=== PATIENT | male | born 1945 | race Caucasian/White ===

== ENCOUNTER 2019-09-07 18:15 | Observation (INO) | payer MEDICARE, SELFPAY ==
[2019-09-07] VITALS (9 sets, daily range): BP systolic 97–129; BP diastolic 50–61; PULSE 60–65; RESP 20; TEMP 36.4–36.7; O2SAT 94–97; BMI 22.1
--- NOTE | ~2019-09-07 | CT_ITS ---
EXAMINATION: CT abdomen pelvis w con EXAM DATE: 09/07/2019 21:20 INDICATION: Right upper quadrant pain. TECHNIQUE: Spiral CT of the abdomen and pelvis was performed following intravenous injection of 100 m L Omnipaque 350. Axial, coronal and sagittal images were reviewed. The dose-length product (DLP) fo r this examination was 610.09 mGy-cm. The exposure was tailored according to patient size (auto mA e xposure control), and iterative reconstruction (ASIR) was used as additional dose reduction technique . Comparison is made to prior examination from 12/05/2016. FINDINGS: The liver, spleen, adrenal glands and pancreas are unremarkable. Gallbladder is unremarkab le. No biliary obstruction. Portal and splenic veins are patent. Kidneys enhance symmetrically. T here is no hydronephrosis. Small regions of bilateral renal cortical scarring. Renal hilar calcificat ions are likely arteriosclerotic disease. The prostate is unremarkable. The bladder is unremarkable . There is no retroperitoneal or pelvic lymphadenopathy. Bilateral iliac and superficial femoral a rterial stents, probably bilateral femoral-popliteal bypasses. The appendix is normal. The stomach and small bowel are unremarkable. There is moderate amount of c olonic stool. There is extensive sigmoid predominant colonic diverticulosis. There is no adjacent in flammatory change to suggest diverticulitis. No free intraperitoneal gas. The heart is normal in s ize. There are no pericardial or pleural effusions. Moderate basilar emphysema. Leads from cardiac pacemaker/AICD device. Sternotomy wires. There are no osteoblastic or osteolytic lesions identified. IMPRESSION: 1. No acute intra-abdominal findings. 2. Colonic diverticulosis. 3. Basilar emphysema. Reviewed, dictated and finalized at location A.
--- NOTE | ~2019-09-07 | XR_ITS ---
EXAMINATION: XR chest 1V portable EXAM DATE: 09/07/2019 18:42 INDICATION: Mid chest pain. TECHNIQUE: Portable AP frontal chest x-ray was obtained. Comparison is made to prior examination from 06/21/2018. FINDINGS: There is a dual lead pacemaker/AICD seen with leads projecting over the expected locations of the right atrial appendage and right ventricle. Sternotomy wires are present without findings to s uggest sternal dehiscence. The lungs are clear. There are no pleural effusions. Cardiac silhouette is prominent but magnified on this AP technique. There is no pneumothorax suspected. The bones and soft tissues are unremarkable. IMPRESSION: No acute cardiopulmonary findings. Reviewed, dictated and finalized at location A.
--- NOTE | ~2019-09-07 | CT_ITS ---
EXAMINATION: CTA brain DATE: 09/09/2019 09:43 INDICATION: Dizziness TECHNIQUE: Computed tomographic angiography (CTA) of the head was performed without and with 100 mL O mnipaque-350 intravenous contrast. Volume-rendered and maximum intensity projection 3D reconstruction s of the intracranial arteries were created by the technologist on a separate workstation. The dose-l ength product was 1183 mGy-cm. COMPARISON: Head CT dated 09/17/2019 FINDINGS: No acute intracranial hemorrhage, acute infarction or abnormal extra axial fluid collection. There is minimal scattered white matter hypoattenuation consistent with chronic small vessel ischemic disease . Ventricles are normal and symmetric. No mass/mass effect or abnormally enhancing brain lesions. Ch anges of bilateral intraocular lens replacement. The orbits, paranasal sinuses and mastoid air cells are normal. The right vertebral artery terminates at the inferior right cerebellar artery with the basilar artery supplied exclusively by the dominant left vertebral artery. Atherosclerotic plaque at the bilateral carotid siphons with 35% stenosis on the left and 50% stenosis on the right. There are no aneurysms i dentified. Both A1 and P1 segments are patent. There are also patent anterior communicating and left posterior communicating arteries. Straight arterial arborization appears symmetric. IMPRESSION: 1. Normal aging brain with minimal scattered white matter hypoattenuation consistent with chronic sma ll vessel ischemic disease. No acute intracranial process. 2. Atherosclerotic disease at the bilateral carotid siphons with 35% stenosis on the left and 50% sabrina nosis on the right. Reviewed, dictated and finalized at location A. IMPRESSION: 1. Normal aging brain with minimal scattered white matter hypoattenuation consi stent with chronic small vessel ischemic disease. No acute intracranial process . 2. Atherosclerotic disease at the bilateral carotid siphons with 35% stenosis o n the left and 50% stenosis on the right.
--- NOTE | ~2019-09-07 | CT_ITS ---
IMPRESSION: 1. No acute intracranial findings. 2. Chronic age related findings. EXAMINATION: CT brain wo con EXAM DATE: 09/07/2019 19:34 INDICATION: Fall. Head injury. Hypotensive. TECHNIQUE: Spiral CT of the head was performed without contrast. Axial, coronal and sagittal images were reviewed. The dose-length product (DLP) for this examination was 681.00 mGy-cm. The exposure w as tailored according to patient size, and iterative reconstruction (ASIR) was used as additional dos e reduction technique. Comparison is made to prior examination from 03/19/2016. FINDINGS: There is no acute intraparenchymal hemorrhage. No evidence of intraparenchymal brain mass lesion. No evidence of acute infarction. Please note that initial head CT has limited sensitivity f or small or acute infarctions. There is mild periventricular and subcortical hypodensity, nonspecific but probably related to small vessel ischemic disease. There is mild prominence of the sulci and v entricles related to cerebral atrophy. There is intracranial carotid arteriosclerosis. There are n o extra-axial collections. There is no mass effect or midline shift. Patient has had bilateral ocul ar lens surgery. Soft tissue is unremarkable. The visualized sinuses and mastoid air cells are well aerated. IMPRESSION: 1. No acute intracranial findings. 2. Chronic age related findings. Reviewed, dictated and finalized at location A.
--- NOTE | ~2019-09-07 | US_ITS ---
EXAMINATION: US right upper quadrant DATE: 09/08/2019 11:41 INDICATION: Right upper quadrant abdominal pain. TECHNIQUE: Multiple grayscale and Doppler ultrasound images of the abdomen were obtained. COMPARISON: CT abdomen and pelvis 09/07/2019 FINDINGS: The visualized portions of the head and body of the pancreas are normal. The liver is ritu l without focal lesion. There is normal flow in main portal vein. The gallbladder is normal in size. No gallstones or gallbladder wall thickening. There was no sonographic Duvall sign. The common duct i s normal and measures 5 mm. IMPRESSION: 1. Normal right upper quadrant ultrasound. Reviewed, dictated and finalized at location E.
--- NOTE | 2019-09-07 18:29 | ECG_ITS ---
Measurements Intervals [place] Rate: 63 P: -12 PA: 161 QRS: -8 QRSD: 153 T: 32 QT: 495 QTc: 507 Interpretive Statements SINUS RHYTHM INTRAVENTRICULAR CONDUCTION DELAY CONSIDER INFERIOR INFARCT, AGE INDETERMINATE BORDERLINE ST-T WAVE ABNORMALITY- LATERAL LEADS ABNORMAL ECG Electronically Signed On 09-07-2019 18:46:35 CDT by Chapo Bermudez D.O.
--- NOTE | 2019-09-07 18:32 | ED.CHESTPAIN ---
HPI - Chest Pain General Chief Complaint: Chest Pain <Brian Velázquez DO - Last Filed: 09/07/19 18:35> Stated Complaint: CP <Brian Velázquez DO - Last Filed: 09/07/19 18:35> Time Seen by Provider: 09/07/19 18:31 <Brian Velázquez DO - Last Filed: 09/07/19 18:35> Source: RN notes reviewed <Brian Velázquez DO - Last Filed: 09/07/19 18:35> History of Present Illness HPI narrative: [place]. Patient states he was walking [place] the post office when he began to have pain in his right upper quadrant that radiated up into his chest. 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 He denies striking his head or injury and or any injuries from the fall. At that time he continued to have chest pain and called EMS who gave the patient 4 baby aspirin's and 1 nitro with minimal change of his pain. The patient continues to note pain in his right upper quadrant. He denies have any fevers or chills shortness of breath nausea vomiting diarrhea or any other symptoms states he does have a history of previous [place] <Brian Velázquez DO - Last Filed: 09/07/19 18:35> Related Data Home Medications: Home Medications Medication Instructions Recorded Confirmed albuterol sulfate 90 mcg/actuation 2 puff INHALATION Q4-6H PRN gm 04/19/19 aerosol inhaler amiodarone 200 mg tablet 200 mg PO DAILY 04/19/19 apixaban 5 mg tablet 5 mg PO BID 04/19/19 aspirin 81 mg tablet,delayed 81 mg PO DAILY 04/19/19 release atorvastatin 40 mg tablet 40 mg PO DAILY 04/19/19 carvedilol 12.5 mg tablet 12.5 mg PO Q12H 04/19/19 clopidogrel 75 mg tablet 75 mg PO DAILY 04/19/19 cyanocobalamin (vitamin B-12) 1,000 mcg PO DAILY 04/19/19 1,000 mcg tablet lisinopril 5 mg tablet 5 mg PO DAILY 04/19/19 nitroglycerin 0.4 mg sublingual 0.4 mg SUBLINGUAL Q5M PRN 04/19/19 tablet thiamine HCl (vitamin B1) 100 mg 100 mg PO DAILY 04/19/19 tablet <Brian Velázquez DO - Last Filed: 09/07/19 18:35> Allergies/Adverse Reactions: Allergies Allergy/AdvReac Type Severity Reaction Status Date / Time hydrocodone Allergy Unknown Shock Verified 09/07/19 18:25 tramadol Allergy Unknown dizziness. Verified 09/07/19 18:25 amitriptyline AdvReac Mild Dizziness Verified 09/07/19 18:25 <Brian Velázquez DO - Last Filed: 09/07/19 18:35> Review of Systems Review of Systems: Narrative: Gen.: Denies fevers or chills Eyes: Denies eye pain or visual change ENT: Denies congestion Respiratory: Denies shortness of breath or cough CV: Reports chest pain GI: Reports abdominal pain, denies nausea, emesis or diarrhea denies burning, urgency, frequency or hematuria Musculoskeletal: Denies back pain or muscle pain Neuro: Denies numbness, tingling, weakness or focal weakness Skin: Denies rash Except as documented, all other systems reviewed and negative <Brian Velázquez DO - Last Filed: 09/07/19 18:35> [facility] Social History Social History: Social History Smoking status: Former smoker Smoking end date: 03/31/17 Alcohol intake: current <Brian Velázquez DO - Last Filed: 09/07/19 18:35> Exam Narrative: Exam Narrative: APPEARANCE: No acute distress, nontoxic, resting in bed EYES: EOMI HEENT: Normocephalic, atraumatic, OMM RESPIRATORY: No respiratory distress Clear to auscultation bilaterally with no rhonchi wheezing or rales. CARDIOVASCULAR: Regular rate and rhythm without murmurs rubs or gallops. ABDOMINAL: Soft, nondistended, tender palpation epigastric right upper quadrant, no tenderness left upper quadrant, right lower quadrant left lower quadrant no rebound or guarding MUSCULOSKELETAl: Moves all extremities. No clubbing, cyanosis or edema. NEURO: Awake and alert. Following commands, speech normal, no focal deficits SKIN:: Warm, dry. No ra
[2019-09-07 19:11] LABS: Basophils Absolute Auto 0.1 K/mm3 (0.0-0.1); Basophils Percent Auto 0.5 % (0.2-1.2); Eosinophils Absolute Auto 0.3 K/mm3 (0-0.3); Hematocrit 28.6 % (42.0-52.0); Hemoglobin 9.7 g/dL (14.0-18.0); Immature Granulocyte Percent A 1.1 % (0-0.5); Lymphocytes Absolute Auto 0.71 K/mm3 (0.9-3.2); Lymphocytes Percent Auto 7.7 % (18.3-44.2); Mean Corpuscular HGB Conc 33.9 g/dl (32-36); Mean Corpuscular Hemoglobin 31.7 pg (26-34); Mean Corpuscular Volume 93.5 fl (80-100); Mean Platelet Volume 9.3 fl (7.4-10.4); Monocytes Absolute Auto 0.9 K/mm3 (0.1-0.6); Monocytes Percent Auto 9.4 % (2.6-8.5); Neutrophils Absolute Auto 7.2 K/mm3 (1.3-6.7); Neutrophils Percent Auto 78.3 % (45.5-73.1); Platelet Count Result 239 k/mm3 (150-375); Red Blood Count 3.06 M/mm3 (4.6-6.20); Red Cell Distribution Width 14.3 % (11.5-14.5); White Blood Count 9.2 K/mm3 (4.5-10.0)
--- NOTE | 2019-09-07 19:17 | PC.NURSE ---
pt encouraged to provide urine sample. Pt given urinal. Revisited pt after voiding attempt. Pt states aint gonna happen. Pt states same thing to straight cath. EDP aware
[2019-09-07 19:21] LABS: INR 1.4; Partial Thromboplastin Time 31.2 SECONDS (22.3-36.8); Prothrombin Time 16.5 Seconds (11.1-14.7)
[2019-09-07 19:23] LABS: Alanine Aminotransferase 18 U/L (4-50); Albumin Level 3.4 g/dL (3.5-5.1); Alkaline Phosphatase 64 U/L (38-126); Aspartate Amino Transferase 26 U/L (17-59); Bilirubin,Total 0.3 mg/dL (0.2-1.3); Blood Urea Nitrogen 20 mg/dL (9-20); Calcium 7.8 mg/dL (8.4-10.2); Carbon Dioxide 22 mmol/L (22-30); Chloride 106 mmol/L (98-107); Estimated CRCL calculation 45 ml/min; Estimated Glomerular Filt Rate 46; Glucose 92 mg/dL (75-110); Lipase 420 U/L (23-300); Potassium 4.2 mmol/L (3.4-5.0); Sodium 133 mmol/L (137-145)
[2019-09-07 19:35] LABS: NT Pro B Type Natriuretic Pept 673 PG/ML (5-100); Troponin I 0.021 ng/mL (0.000-0.034)
--- NOTE | 2019-09-07 19:54 | PC.NURSE ---
pt encouraged to try and provide a urine sample for the 2nd time, states he doesnt have to go, refuses straight cath.
[2019-09-07] MEDS: MORPHINE SULFATE 2 MG/ML INJ IV PUSH (20:24)
[2019-09-07] MEDS: ONDANSETRON INJ 4 MG/2 ML VIAL IV PUSH (20:24)
[2019-09-07 20:53] LABS: Add Urine Microscopic? YES; Appearance Urine Clear (Clear); Bilirubin Urine Negative (Negative); Blood Urine 1+ (Negative); Color Urine Yellow (Yellow); Glucose Urine UA Negative (Negative); Ketones Urine Negative (Negative); Leukocyte Esterase Ur Negative LEU/UL (Negative); Mucus Urine Rare /lpf; Nitrate Urine Negative (Negative); Protein Urine Negative (Negative); Specific Grav Ur 1.012 (1.001-1.035); Squamous Epithelial Cell Urine Rare /hpf (Few); Urobilinogen Urine Negative mg/dL (<2.0); WBC Urine 0-3 /hpf
[2019-09-07 21:54] LABS: Troponin I 0.021 ng/mL (0.000-0.034)
--- NOTE | 2019-09-07 23:02 | PM.IMHP ---
H&P: HPI History of Present Illness Chief complaint: Chest pain, RUQ abd pain Narrative: This is a pleasant 74 year old Caucsian male with known CAD+ s/p #2 NV s/p stents and open heart surgery who presented to the hospital today with a complaint of epigastric and midsternal chest pain that started this afternoon. The patient was working outside in the heat today at his friend's [employer] and then went to the bar and drank 3-4 beers. He then went to the post office and as he was walking outside of the post office he bacame very dizzy and fell in the grass. He denies actually passing out. He remarks that he has had intermittent dizziness and multiple falls at home. He is known to live alone. His chest pain has improved but continues to persist and is poorly localized. Associated symptoms include fatigue. He denies any recent fevers, chills, cough, headche, blurry vision, sore throat, wheezing, dysuria, hematuira, nausea, vomiting, diarrhea, LE swelling, or rectal bleeding. The patient is known to chronically be anticoagulated on Eliquis for an unknown reason to him. He denies any history of PUD or NSAID use. His last cardiac angiogram was about 5 years ago. Cardiology was consulted by ER provider and we have been asked to admit the patient to the hospital for cardiac rule out. No other complaints. Review of Systems Review of Systems: All systems reviewed & are unremarkable except as noted in HPI and below PMFSH Past Medical History Medical History Atherosclerotic heart disease of [place] coronary artery with other forms of angina pectoris Essential (primary) hypertension Heart failure, unspecified Paroxysmal atrial fibrillation Ventricular tachycardia Surgical History Surgical History History of open heart surgery Family History Family History Sibling Diabetes mellitus Family history of cardiovascular disease Father Hypertension Malignant neoplasm of prostate Family history of primary malignant neoplasm of liver Mother Hypertension Family history of malignant neoplasm of brain Grandparent Carcinoma of colon Social History Social History Smoking status: Never smoker Smoking end date: 03/31/17 Alcohol intake: current Substance use: never Substance use type: does not use Spiritual care concerns: No Meds Home Medications and Allergies Home Medications Medication Instructions Recorded Confirmed Type duloxetine 60 mg capsule,delayed 60 mg PO BID #180 cap 04/15/19 09/07/19 Rx release albuterol sulfate 90 mcg/actuation 2 puff INHALATION Q4-6H PRN gm 04/19/19 09/07/19 History aerosol inhaler amiodarone 200 mg tablet 200 mg PO DAILY 04/19/19 09/07/19 History apixaban 5 mg tablet 5 mg PO BID 04/19/19 09/07/19 History aspirin 81 mg tablet,delayed 81 mg PO DAILY 04/19/19 09/07/19 History release atorvastatin 40 mg tablet 40 mg PO DAILY 04/19/19 09/07/19 History carvedilol 12.5 mg tablet 12.5 mg PO Q12H 04/19/19 09/07/19 History clopidogrel 75 mg tablet 75 mg PO DAILY 04/19/19 09/07/19 History cyanocobalamin (vitamin B-12) 1,000 mcg PO DAILY 04/19/19 09/07/19 History 1,000 mcg tablet lidocaine 4 % topical patch 1 patch TOPICAL DAILY PRN #1 each 04/19/19 09/07/19 Rx lisinopril 5 mg tablet 5 mg PO DAILY 04/19/19 09/07/19 History nitroglycerin 0.4 mg sublingual 0.4 mg SUBLINGUAL Q5M PRN 04/19/19 09/07/19 History tablet thiamine HCl (vitamin B1) 100 mg 100 mg PO DAILY 04/19/19 09/07/19 History tablet ferrous gluconate 324 mg (38 mg 324 mg PO BID #180 tablet 04/21/19 09/07/19 Rx iron) tablet tamsulosin 0.4 mg capsule 0.8 mg PO DAILY #90 cap 04/21/19 09/07/19 Rx acetaminophen 300 mg-codeine 30 mg 1 tablet PO Q8H PRN #150 tablet 05/05/19 09/07/19 Rx tablet folic acid 400 mcg tablet
[2019-09-07] MEDS: ACETAMINOPHEN 325 MG TABLET 650 MG PO (23:29)
[2019-09-07] MEDS: FAMOTIDINE 20 MG/2 ML VIAL IV PUSH (23:29)
[2019-09-07] MEDS: SODIUM CHLORIDE 0.9% IV 1,000 ML 100 ML IV CONT (23:30)
[2019-09-07 23:37] LABS: Glucose Point of Care 86 (65-105)
[2019-09-08] VITALS (14 sets, daily range): BP systolic 108–154; BP diastolic 57–74; PULSE 60–82; RESP 16–20; TEMP 36.1–37.4; O2SAT 94–100
--- NOTE | 2019-09-08 00:04 | ADMGEN ---
This patient, Hernando Sawyer, was admitted to IMU Room 203-01. Patient/family oriented to hospital policies and general routines including ID bracelet, bed and alarms, visiting hours, pain management, procedures, bathroom and other care routines, personal items, smoking policy, room service/diet, and visiting hours. Valuables list has been completed. Information on how to activate the Rapid Response Team has been discussed. Patient/Family are encouraged to report perceived risks to care and to ask questions if they do not understand what they are told or what they should do.
[2019-09-08 01:07] LABS: Troponin I 0.024 ng/mL (0.000-0.034)
[2019-09-08 04:45] LABS: Basophils Percent Auto 0.5 % (0.2-1.2); Eosinophils Absolute Auto 0.3 K/mm3 (0-0.3); Hematocrit 28.8 % (42.0-52.0); Hemoglobin 9.6 g/dL (14.0-18.0); Immature Granulocyte Absolute 0.06 K/mm3 (0.00-0.031); Immature Granulocyte Percent A 0.8 % (0-0.5); Lymphocytes Absolute Auto 1.04 K/mm3 (0.9-3.2); Lymphocytes Percent Auto 13.4 % (18.3-44.2); Mean Corpuscular HGB Conc 33.3 g/dl (32-36); Mean Corpuscular Hemoglobin 31.5 pg (26-34); Mean Corpuscular Volume 94.4 fl (80-100); Mean Platelet Volume 9.4 fl (7.4-10.4); Monocytes Absolute Auto 0.9 K/mm3 (0.1-0.6); Monocytes Percent Auto 11.1 % (2.6-8.5); Neutrophils Absolute Auto 5.4 K/mm3 (1.3-6.7); Neutrophils Percent Auto 70.2 % (45.5-73.1); Platelet Count Result 247 k/mm3 (150-375); Red Blood Count 3.05 M/mm3 (4.6-6.20); Red Cell Distribution Width 14.2 % (11.5-14.5); White Blood Count 7.8 K/mm3 (4.5-10.0)
[2019-09-08 05:02] LABS: Blood Urea Nitrogen 20 mg/dL (9-20); Calcium 7.6 mg/dL (8.4-10.2); Carbon Dioxide 22 mmol/L (22-30); Chloride 111 mmol/L (98-107); Estimated CRCL calculation 50 ml/min; Estimated Glomerular Filt Rate 50; Glucose 77 mg/dL (75-110); Magnesium 2.2 mg/dL (1.6-2.3); Potassium 4.5 mmol/L (3.4-5.0); Sodium 136 mmol/L (137-145)
[2019-09-08 07:23] LABS: Free T4 Free Thyroxine Reflex 1.24 ng/dL (0.78-2.19)
[2019-09-08 08:08] LABS: Total Triiodothyronine (T3) 0.65 NG/ML (0.97-1.69)
--- NOTE | 2019-09-08 09:10 | PM.CNCAR ---
Assessment and Plan Additional Plan 74-year-old gentleman with: History of coronary artery disease with previous percutaneous and surgical revascularization involving the circumflex system as well as the PDA. He has not had any overt ischemic problems that I am aware of since his operation. His current admission does not suggest an acute ischemic issue. Biomarkers appear to have ruled him out for evidence of acute coronary syndrome. This was the principal reason for consulting us today. Also has a history of ventricular arrhythmias as I mentioned above and has a chronically implanted defibrillator which according to the EP clinic note seems to be functioning normally he is being maintained on a low dose of amiodarone to suppress his VT. His lab data does suggest evidence of some hypothyroidism which certainly could be related to his amiodarone At this time the only cardiac recommendation I would have is to have his ICD formally interrogated to ensure that the event of yesterday afternoon was not related to a ventricular arrhythmia. I doubt this is the case. It sounds to me like he is describing symptoms that are fairly typical of vertigo. Will leave further recommendations after we see the results of his ICD interrogation but if that shows no arrhythmias his cardiac status would seem to be relatively stable as far as I can tell Workup of vertigo and treatment of this will be of course defer to the primary team Dio Varela MD [facility] History of Present Illness History of Present Illness Consult date/time: Date of service: 09/08/19 09:10 Consult reason: chest pain Reason For Visit: Chest pain, RUQ abd pain Narrative: This is a 74-year-old man who I am seeing at the request of the hospitalist because he was admitted last evening with some chest pain and 1 of the diagnoses or concerns was to rule out an acute coronary syndrome. Patient has been seen by me in the past he is primarily followed because of his heart disease at our office by Dr. Roach. He feels relatively well now and does not have any obvious complaints. Yesterday afternoon he was brought to the hospital after becoming dizzy and falling on the grass outside of a post office. The patient states that he did go to a local bar and was drinking beer he says he was not intoxicated but drank about 5 or 6 beers and then went to the post office. He says he became dizzy and seems to describe symptoms very suspicious for true vertigo with a sense of the objects and the world spinning around he then became very lightheaded and fell to the ground. He did not pass out or lose consciousness. He states he has been having episodes like this of things spinning around for a month or 2 off an on. After he had this fall he had some central chest pain that he describes as a sharp jabbing sensation. He also indicates that if he would push on this area it would redo blue Marely the pain. He was seen in the emergency room and was admitted to the hospital the cardiac concern was to rule out an acute coronary syndrome. His electrocardiogram shows a sinus mechanism with no significant acute ST segment deviation and his biomarkers have all been negative for evidence of acute myocardial necrosis. Mr. gong has a long history of coronary and peripheral vascular disease as well as revascularization and ventricular arrhythmias. He in the remote past underwent percutaneous revascularization of the circumflex. Apparently he had recurrent ischemia and in 1999 15 underwent a 2 vessel bypass with a JEFRY graft to the obtuse marginal and a radial artery graft to the PDA. 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
[2019-09-08] MEDS: SODIUM CHLORIDE 0.9% IV 1,000 ML 100 ML IV CONT (09:11)
--- NOTE | 2019-09-08 16:10 | PC.NURSE ---
pt moved to room 249 at 1552. Report given to Krystina. Belongings list verified
--- NOTE | 2019-09-08 17:11 | PC.NURSE ---
1555- Patient transferred from IMU room 203 to room 249.
[2019-09-08] MEDS: GABAPENTIN 300 MG CAPSULE 600 MG PO (17:26)
[2019-09-08] MEDS: THIAMINE HCL 100 MG TABLET PO (17:27)
[2019-09-08] MEDS: CLOPIDOGREL BISULFATE 75 MG TABLET PO (17:27)
[2019-09-08] MEDS: CYANOCOBALAMIN 1,000 MCG TABLET 1000 MCG PO (17:27)
[2019-09-08] MEDS: lisinopriL 5 MG TABLET PO (17:27)
[2019-09-08] MEDS: TAMSULOSIN HCL 0.4 MG CAPSULE 0.8 MG PO (17:27)
[2019-09-08] MEDS: AMIODARONE HCL 200 MG TABLET PO (17:28)
[2019-09-08] MEDS: ATORVASTATIN 40 MG TABLET PO (17:29)
--- NOTE | 2019-09-08 17:59 | PM.IMPN ---
Progress Note: A&P Assessment and Plan (1) Epigastric pain: Code(s): R10.13 - Epigastric pain Status: Acute Assessment and Plan: r/o GI causes of epigastric pain, r/o ACS? epigastric pain radiating upwards towards his chest. Check RUQ U/S in am. trend troponin. Monitor for any further chest pain. Cardiology has been consulted by ER provider. (2) Alcohol abuse: Code(s): F10.10 - Alcohol abuse, uncomplicated Status: Chronic Assessment and Plan: [facility] protocol. Ativan withdrawal prophylaxis. (3) Dizziness: Code(s): R42 - Dizziness and giddiness Status: Acute Assessment and Plan: Likely secondary to dehdyration vs. alcohol intoxication? Continue light IV hydration overnight. Continue telemetry. (4) Elevated lipase: Code(s): R74.8 - Abnormal levels of other serum enzymes Status: Acute Assessment and Plan: r/o GI causes of elevated lipase. CT abd/pelvis was normal. (5) Anemia: Onset Date: 04/16/18 Qualifiers: Anemia type: unspecified type Qualified Code(s): D64.9 - Anemia, unspecified Code(s): D64.9 - Anemia, unspecified Status: Chronic Assessment and Plan: No signs or symptoms of acute blood loss. Likely anemia of chronic disease Monitor H/H, transfuse prn. (6) CAD (coronary artery disease): Qualifiers: Coronary Disease-Associated Artery/Lesion type: unspecified vessel or lesion type [place] vs. transplanted heart: [place] heart Associated angina: with unspecified angina Qualified Code(s): I25.119 - Atherosclerotic heart disease of [place] coronary artery with unspecified angina pectoris Code(s): I25.10 - Atherosclerotic heart disease of [place] coronary artery without angina pectoris Status: Chronic Assessment and Plan: Continue ASA and plavix. Monitor for any further chest pain. Nitro prn SL. Trend troponin. (7) Chronic pain disorder: Code(s): G89.4 - Chronic pain syndrome Status: Chronic Assessment and Plan: Continue home pain medications when appropriate. (8) Paroxysmal atrial fibrillation: Code(s): I48.0 - Paroxysmal atrial fibrillation Status: Chronic Assessment and Plan: Currently in sinus rhythm. Continue Amiodarone and Elquis therapy. (9) Essential (primary) hypertension: Code(s): I10 - Essential (primary) hypertension Status: Chronic Assessment and Plan: Continue home beta charanjit. Monitor blood pressure. Subjective Date/time seen: 09/08/19 17:59 Objective Data Vital Signs Vital Signs: Vital Signs - 24 hr 09/07/19 18:21 09/07/19 18:25 09/07/19 20:26 Temperature 98.0 F Pulse Rate 65 64 64 Pulse Rate [Monitor] Respiratory Rate 20 20 Blood Pressure 97/50 L 116/55 L Pulse Oximetry 95 94 94 09/07/19 21:51 09/07/19 22:25 09/07/19 22:30 Temperature 97.6 F Pulse Rate 61 61 60 Pulse Rate [Monitor] Respiratory Rate 20 20 Blood Pressure 128/57 L 129/61 Pulse Oximetry 97 94 09/07/19 22:31 09/07/19 22:58 09/07/19 23:27 Temperature Pulse Rate 61 61 Pulse Rate [Monitor] 60 Respiratory Rate 20 Blood Pressure 128/58 L Pulse Oximetry 94 09/08/19 00:00 09/08/19 02:00 09/08/19 04:00 Temperature 97.9 F Pulse Rate 60 60 74 Pulse Rate [Monitor] 60 67 Respiratory Rate 18 Blood Pressure 138/63 Pulse Oximetry 98 09/08/19 05:48 09/08/19 08:00 09/08/19 10:00 Temperature 97.0 F L Pulse Rate 60 69 64 Pulse Rate [Monitor] Respiratory Rate 16 Blood Pressure 136/57 L Pulse Oximetry 100 09/08/19 12:00 09/08/19 14:00 09/08/19 16:25 Temperature 97.6 F 98.0 F Pulse Rate 65 64 72 Pulse Rate [Monitor] Respiratory Rate 18 18 Blood Pressure 144/58 H 154/60 H Pulse Oximetry 99 99 09/08/19 17:28 Temperature Pulse Rate 72 Pulse Rate [Monitor] Respiratory Rate Blood Pressure Pulse Oximetry Intake/Output Intake/Output
--- NOTE | 2019-09-08 18:18 | PM.IMPN ---
Progress Note: A&P Assessment and Plan (1) Dizziness: Code(s): R42 - Dizziness and giddiness Status: Acute Assessment and Plan: Likely secondary to dehdyration vs. alcohol intoxication? Continue light IV hydration overnight. Continue telemetry. 09/08/19 18:18 patient is a 74-year-old male with history significant severe systolic dysfunction with ICD as well as history of ventricular arrhythmia patient presented emergency department with a complaint of dizziness and syncopal episode patient was seen by director of business applications does not suspect the patient's dizziness is secondary to cardiac issue to further evaluate patient had his ICD interrogated which were essentially normal, describes dizziness as room is moving and spinning this been going on for 6 months and patient has had several falls at home he lives home alone. He denies any associated symptoms of chest pain palpitation fever or chills prior to fall. CT head was negative to further evaluate will do CTA of the head will start the patient on low-dose meclizine, will have a PT OT evaluate the patient and further recommendation to follow (2) Epigastric pain: Code(s): R10.13 - Epigastric pain Status: Acute Assessment and Plan: r/o GI causes of epigastric pain, r/o ACS? epigastric pain radiating upwards towards his chest. Check RUQ U/S in am. trend troponin. Monitor for any further chest pain. Cardiology has been consulted by ER provider. (3) Alcohol abuse: Code(s): F10.10 - Alcohol abuse, uncomplicated Status: Chronic Assessment and Plan: [facility] protocol. Ativan withdrawal prophylaxis. (4) Elevated lipase: Code(s): R74.8 - Abnormal levels of other serum enzymes Status: Acute Assessment and Plan: r/o GI causes of elevated lipase. CT abd/pelvis was normal. (5) Anemia: Onset Date: 04/16/18 Qualifiers: Anemia type: unspecified type Qualified Code(s): D64.9 - Anemia, unspecified Code(s): D64.9 - Anemia, unspecified Status: Chronic Assessment and Plan: No signs or symptoms of acute blood loss. Likely anemia of chronic disease Monitor H/H, transfuse prn. (6) CAD (coronary artery disease): Qualifiers: Coronary Disease-Associated Artery/Lesion type: unspecified vessel or lesion type [place] vs. transplanted heart: [place] heart Associated angina: with unspecified angina Qualified Code(s): I25.119 - Atherosclerotic heart disease of [place] coronary artery with unspecified angina pectoris Code(s): I25.10 - Atherosclerotic heart disease of [place] coronary artery without angina pectoris Status: Chronic Assessment and Plan: Continue ASA and plavix. Monitor for any further chest pain. Nitro prn SL. Trend troponin. (7) Chronic pain disorder: Code(s): G89.4 - Chronic pain syndrome Status: Chronic Assessment and Plan: Continue home pain medications when appropriate. (8) Paroxysmal atrial fibrillation: Code(s): I48.0 - Paroxysmal atrial fibrillation Status: Chronic Assessment and Plan: Currently in sinus rhythm. Continue Amiodarone and Elquis therapy. (9) Essential (primary) hypertension: Code(s): I10 - Essential (primary) hypertension Status: Chronic Assessment and Plan: Continue home beta charanjit. Monitor blood pressure. Subjective Date/time seen: 09/08/19 18:18 patient is a 74-year-old male with history significant severe systolic dysfunction with ICD as well as history of ventricular arrhythmia patient presented emergency department with a complaint of dizziness and syncopal episode patient was seen by director of business applications does not suspect the patient's dizziness is secondary to cardiac issue to further evaluate patient had his ICD interrogated which were essentially normal, describes dizziness as room is moving and spinning this been going on for 6 months and patient has had several falls at home
[2019-09-08] MEDS: APIXABAN 5 MG TABLET PO (19:27)
[2019-09-08] MEDS: FOLIC ACID 0.4 MG TABLET PO (19:27)
[2019-09-08] MEDS: FERROUS GLUCONATE 324 MG TABLET PO (19:27)
[2019-09-08] MEDS: MECLIZINE HCL 12.5 MG TABLET PO ×2 (19:27→20:29)
[2019-09-08] MEDS: DULOXETINE 60 MG CAPSULE.DR PO (19:27)
[2019-09-08] MEDS: carvediloL 12.5 MG TABLET PO (20:29)
[2019-09-09] VITALS (9 sets, daily range): BP systolic 104–160; BP diastolic 41–68; PULSE 60–69; RESP 16–18; TEMP 36.3–36.7; O2SAT 94–100
[2019-09-09 05:35] LABS: Alanine Aminotransferase 19 U/L (4-50); Albumin Level 3.2 g/dL (3.5-5.1); Alkaline Phosphatase 61 U/L (38-126); Aspartate Amino Transferase 29 U/L (17-59); Bilirubin,Total 0.6 mg/dL (0.2-1.3); Blood Urea Nitrogen 15 mg/dL (9-20); Calcium 8.3 mg/dL (8.4-10.2); Carbon Dioxide 23 mmol/L (22-30); Chloride 112 mmol/L (98-107); Estimated CRCL calculation 52 ml/min; Estimated Glomerular Filt Rate 54; Glucose 82 mg/dL (75-110); Potassium 4.3 mmol/L (3.4-5.0); Sodium 137 mmol/L (137-145)
[2019-09-09] MEDS: GABAPENTIN 300 MG CAPSULE 600 MG PO ×2 (08:00→12:06)
[2019-09-09] MEDS: APIXABAN 5 MG TABLET PO (08:40)
[2019-09-09] MEDS: FOLIC ACID 0.4 MG TABLET PO (08:40)
[2019-09-09] MEDS: MECLIZINE HCL 12.5 MG TABLET PO ×2 (08:41→12:06)
[2019-09-09] MEDS: AMIODARONE HCL 200 MG TABLET PO (08:41)
[2019-09-09] MEDS: ATORVASTATIN 40 MG TABLET PO (08:41)
[2019-09-09] MEDS: TAMSULOSIN HCL 0.4 MG CAPSULE 0.8 MG PO (08:41)
[2019-09-09] MEDS: CYANOCOBALAMIN 1,000 MCG TABLET 1000 MCG PO (08:42)
[2019-09-09] MEDS: carvediloL 12.5 MG TABLET PO (08:42)
[2019-09-09] MEDS: FERROUS GLUCONATE 324 MG TABLET PO (08:42)
[2019-09-09] MEDS: lisinopriL 5 MG TABLET PO (08:43)
[2019-09-09] MEDS: CLOPIDOGREL BISULFATE 75 MG TABLET PO (08:43)
[2019-09-09] MEDS: ASPIRIN 81 MG ENTERIC TABLET PO (08:43)
[2019-09-09] MEDS: DULOXETINE 60 MG CAPSULE.DR PO (08:44)
[2019-09-09] MEDS: THIAMINE HCL 100 MG TABLET PO (08:44)
--- NOTE | 2019-09-09 11:09 | PM.PNCARD ---
Progress Note: A&P Assessment and Plan (1) CAD (coronary artery disease): Qualifiers: Coronary Disease-Associated Artery/Lesion type: unspecified vessel or lesion type [place] vs. transplanted heart: [place] heart Associated angina: with unspecified angina Qualified Code(s): I25.119 - Atherosclerotic heart disease of [place] coronary artery with unspecified angina pectoris Code(s): I25.10 - Atherosclerotic heart disease of [place] coronary artery without angina pectoris Status: Chronic Assessment and Plan: Stable (2) Dizziness: Code(s): R42 - Dizziness and giddiness Status: Acute Assessment and Plan: Device interrogation shows no ventricular tachycardia (3) Essential (primary) hypertension: Code(s): I10 - Essential (primary) hypertension Status: Chronic Assessment and Plan: At goal (4) Ventricular tachycardia: Code(s): I47.2 - Ventricular tachycardia Status: Acute Assessment and Plan: ICD in place At this point no further cardiac workup is indicated as an inpatient. His symptoms sound vertiginous. Subjective Date/time seen: 09/09/19 11:09 Interval history: Reason for admission: Fall, possible syncope Date of service 09/09/2019: He feels fine today. No chest pain or shortness of breath Review of Systems Constitutional: Constitutional: Reports weakness Eyes: Eyes: Reports no additional eye complaints ENT: Reports system reviewed and no additional complaints, except as documented and Reports vertigo Cardiovascular: Cardiovascular: Reports as per HPI Respiratory: Respiratory: Reports no additional respiratory complaints Gastrointestinal: Gastrointestinal: Reports nausea Musculoskeletal: Musculoskeletal: Reports arthralgias Integumentary/Breasts: Skin/Breast: Reports system reviewed and no additional complaints, except as docu Neurologic: Reports as per HPI, Reports vertigo and Reports weakness Psychiatric: Psychiatric: Reports no additional psychiatric complaints Endocrine: Endocrine: Reports no additional endocrine complaints Hematologic/Lymphatic: Hematologic/Lymphatic: Reports no additional hematologic/lymphatic complaints Allergic/Immunologic: Allergic/Immunologic: Reports no additional allergic/immunologic complaints Exam Const: General: comfortable and no acute distress Other: Alert and oriented HENMT: Mouth: Yes moist mucous membranes Eyes: Sclera: sclerae normal Pupils: Equal, round and reactive pupils present Neck: Neck: no JVD Thyroid: thyroid normal Resp: Effort & Inspection: normal respiratory effort Other: CTAB Cardio: Rate: regular rate Rhythm: regular rhythm Other: No obvious murmur or gallop GI: Auscultation: normal bowel sounds Skin: General skin exam: normal color Neuro: Cranial nerves: Yes Equal, round and reactive pupils present Cognition (Neuro): normal cognition Extrem: Other: No peripheral edema. No pulses below the femoral triangle on the right and very faint pulse on the left dorsalis pedis and posterior tibialis Psych: Mental Status: mental status grossly normal Objective Data Vital Signs Vital Signs: Vital Signs - 24 hr 09/08/19 12:00 09/08/19 14:00 09/08/19 16:00 Temperature 36.4 C Pulse Rate 65 64 82 Pulse Rate [Monitor] Respiratory Rate 18 Blood Pressure 144/58 H Pulse Oximetry 99 09/08/19 16:25 09/08/19 17:28 09/08/19 18:00 Temperature 36.7 C 36.9 C Pulse Rate 72 72 77 Pulse Rate [Monitor] Respiratory Rate 18 18 Blood Pressure 154/60 H 121/74 Pulse Oximetry 99 100 09/08/19 20:00 09/08/19 21:15 09/09/19 00:00 Temperature 37.4 C 36.6 C Pulse Rate 68 71 62 Pulse Rate [Monitor] 72 66 Respiratory Rate 18 18 Blood Pressure 108/68 104/41 L Pulse Oximetry 96 94 09/09/19 01:02 09/09/19 04:00 09/09/19 04:27 Temperature 36.7 C Pulse Rate 66 61 62 Pulse Rate [Monitor] 64 Respiratory Rate 18 Blood Pressu
--- NOTE | 2019-09-09 14:04 | PM.DS ---
DS: Admitting Diagnosis Admitting Diagnosis Admitting Diagnosis: Dizziness and giddiness DS: Discharge Diagnosis Discharge Diagnosis (1) Epigastric pain: Code(s): R10.13 - Epigastric pain Status: Acute Assessment and Plan: r/o GI causes of epigastric pain, r/o ACS? epigastric pain radiating upwards towards his chest. Check RUQ U/S in am. trend troponin. Monitor for any further chest pain. Cardiology has been consulted by ER provider. (2) Alcohol abuse: Code(s): F10.10 - Alcohol abuse, uncomplicated Status: Chronic Assessment and Plan: [facility] protocol. Ativan withdrawal prophylaxis. (3) Dizziness: Code(s): R42 - Dizziness and giddiness Status: Acute Assessment and Plan: Likely secondary to dehdyration vs. alcohol intoxication? Continue light IV hydration overnight. Continue telemetry. (4) Elevated lipase: Code(s): R74.8 - Abnormal levels of other serum enzymes Status: Acute Assessment and Plan: r/o GI causes of elevated lipase. CT abd/pelvis was normal. (5) Anemia: Onset Date: 04/16/18 Qualifiers: Anemia type: unspecified type Qualified Code(s): D64.9 - Anemia, unspecified Code(s): D64.9 - Anemia, unspecified Status: Chronic Assessment and Plan: No signs or symptoms of acute blood loss. Likely anemia of chronic disease Monitor H/H, transfuse prn. (6) CAD (coronary artery disease): Qualifiers: Coronary Disease-Associated Artery/Lesion type: unspecified vessel or lesion type [place] vs. transplanted heart: [place] heart Associated angina: with unspecified angina Qualified Code(s): I25.119 - Atherosclerotic heart disease of [place] coronary artery with unspecified angina pectoris Code(s): I25.10 - Atherosclerotic heart disease of [place] coronary artery without angina pectoris Status: Chronic Assessment and Plan: Continue ASA and plavix. Monitor for any further chest pain. Nitro prn SL. Trend troponin. (7) Chronic pain disorder: Code(s): G89.4 - Chronic pain syndrome Status: Chronic Assessment and Plan: Continue home pain medications when appropriate. (8) Paroxysmal atrial fibrillation: Code(s): I48.0 - Paroxysmal atrial fibrillation Status: Chronic Assessment and Plan: Currently in sinus rhythm. Continue Amiodarone and Elquis therapy. (9) Essential (primary) hypertension: Code(s): I10 - Essential (primary) hypertension Status: Chronic Assessment and Plan: Continue home beta charanjit. Monitor blood pressure. DS: Summary Hospital Course Reason for hospitalization: This is a pleasant 74 year old Caucsian male with known CAD+ s/p #2 OR s/p stents and open heart surgery who presented to the hospital today with a complaint of epigastric and midsternal chest pain that started this afternoon. The patient was working outside in the heat today at his friend's [employer] and then went to the bar and drank 3-4 beers. He then went to the post office and as he was walking outside of the post office he bacame very dizzy and fell in the grass. He denies actually passing out. He remarks that he has had intermittent dizziness and multiple falls at home. He is known to live alone. His chest pain has improved but continues to persist and is poorly localized. Associated symptoms include fatigue. He denies any recent fevers, chills, cough, headche, blurry vision, sore throat, wheezing, dysuria, hematuira, nausea, vomiting, diarrhea, LE swelling, or rectal bleeding. The patient is known to chronically be anticoagulated on Eliquis for an unknown reason to him. He denies any history of PUD or NSAID use. His last cardiac angiogram was about 5 years ago. Cardiology was consulted by ER provider and we have been asked to admit the patient to the hospital for cardiac rule out. No other complaints. Hospital Course: Patient with history of alcohol
== END 2019-09-09 15:05 | disposition home or self-care (01) ==
LOC: ANHED 21:36 → ANHIMU 09-08 00:29 → ANH2MED 09-09 07:19 → ANHIMU 09-10 15:17
PROVIDERS: Emergency Medicine Emergency Medical Services; Admitting Provider Family Medicine; Emergency Provider Emergency Medicine; PCP Family Medicine; Visit Provider Family Medicine
DX: R10.13 Epigastric pain (principal); F10.10 Alcohol abuse, uncomplicated; R42 Dizziness and giddiness; W18.30XA Fall on same level, unspecified, initial encounter; R29.6 Repeated falls; R74.8 Abnormal levels of other serum enzymes; D64.9 Anemia, unspecified; I25.119 Atherosclerotic heart disease of native coronary artery with unspecified angina pectoris; I25.2 Old myocardial infarction; G89.4 Chronic pain syndrome; I48.0 Paroxysmal atrial fibrillation; I47.2 Ventricular tachycardia; I11.0 Hypertensive heart disease with heart failure; I50.9 Heart failure, unspecified; Z79.01 Long term (current) use of anticoagulants; Z79.82 Long term (current) use of aspirin; Z79.899 Other long term (current) drug therapy; Z87.891 Personal history of nicotine dependence; Z95.5 Presence of coronary angioplasty implant and graft; Z95.810 Presence of automatic (implantable) cardiac defibrillator
CPT/HCPCS: 36415; 51701; 70450; 70496; 71045; 74177; 76705; 80048; 80053; 81001; 83690; 83735; 83880; 84439; 84443; 84480; 84484; 85025; 85610; 85730; 93005; 96361; 96374; 96375; 97110; 97116; 97161; 97165; 99285; A9270; G0378; J0131; J2270; J2405; J7030; Q9967

== ENCOUNTER 2019-12-15 17:36 | Emergency (ER) | payer MEDICARE, SELFPAY ==
--- NOTE | ~2019-12-15 | CT_ITS ---
EXAMINATION: CT cervical spine wo con DATE: 12/15/2019 19:34 INDICATION: Neck injury. TECHNIQUE: Computed tomography (CT) of the cervical spine was performed without intravenous contrast. Automated exposure control and iterative reconstruction technique were employed. The dose-length pro duct was 305.05 mGy-cm. COMPARISON: None FINDINGS: There is mild emphysema. Bone alignment is normal. There is 2 mm anterolisthesis of C4 on C 5. Vertebral body heights are normal. There is mildly decreased disc height at C4-C5 and C5-C6. The f ollowing disc levels are specifically discussed: C2-C3: There is no uncovertebral joint osteoarthritis. There is mild bilateral facet joint osteoarthr itis. There is no neural foraminal stenosis. There is no central canal stenosis. C3-C4: There is mild right uncovertebral joint osteoarthritis. There is severe bilateral facet joint osteoarthritis. There is mild right neural foraminal stenosis. There is no central canal stenosis. C4-C5: There is mild bilateral uncovertebral joint osteoarthritis. There is severe bilateral facet antoinette int osteoarthritis. There is mild bilateral neural foraminal stenosis. There is mild central canal st enosis. C5-C6: There is mild bilateral uncovertebral joint osteoarthritis. There is severe right and moderate left facet joint osteoarthritis. There is mild right neural foraminal stenosis. There is mild centra l canal stenosis. C6-C7: There is no uncovertebral joint osteoarthritis. There is mild bilateral facet joint osteoarthr itis. There is no neural foraminal stenosis. There is no central canal stenosis. C7-T1: There is no uncovertebral joint osteoarthritis. There is moderate and mild left facet joint os teoarthritis. There is no neural foraminal stenosis. There is no central canal stenosis. IMPRESSION: 1. No fracture. 2. Mild cervical spondylosis. Reviewed, dictated and finalized at location A.
--- NOTE | ~2019-12-15 | CT_ITS ---
EXAMINATION: CT brain wo con DATE: 12/15/2019 19:33 INDICATION: Head injury. TECHNIQUE: Computed tomography (CT) of the head was performed without intravenous contrast. The mA wa s adjusted according to patient size. Iterative reconstruction technique was employed. The dose-lengt h product was 681.00 mGy-cm. COMPARISON: Head CT 09/09/2019 FINDINGS: Motion artifact is noted. There is no intracranial hemorrhage, acute infarction, or abnorma l intracranial mass lesion. The ventricles are normal in size. There is mild mucosal thickening in th e paranasal sinuses. There are old fracture deformities of the nasal bones. There is a trace left mas toid effusion. There are likely changes of ocular lens replacement surgeries. IMPRESSION: 1. Normal brain. Reviewed, dictated and finalized at location A. IMPRESSION: 1. Normal brain.
[2019-12-15 17:33] VITALS: BP 119/62; PULSE 60; RESP 14; TEMP 36.2; O2SAT 96
--- NOTE | 2019-12-15 17:39 | ECG_ITS ---
Measurements Intervals [place] Rate: 60 P: -87 NC: 260 QRS: 45 QRSD: 152 T: 269 QT: 488 QTc: 488 Interpretive Statements ELECTRONIC ATRIAL PACEMAKER INTRAVENTRICULAR CONDUCTION DELAY BORDERLINE ST-T WAVE ABNORMALITY- DIFFUSE LEADS BORDERLINE ECG Electronically Signed On 12-16-2019 7:30:46 CDT by Chapo Bermudez D.O.
--- NOTE | 2019-12-15 19:41 | ED.HEATRA ---
HPI - Head Injury General Chief complaint: Head Injury Stated complaint: FALL Time Seen by Provider: 12/15/19 17:41 History of Present Illness HPI Narrative: Patient is a 74-year-old male who presents ER status post fall. Patient reports has been drinking beer today and has neuropathy in his feet. This combination led for him to trip and fall. He did strike his head. He does not believe he lost consciousness. He is on a blood thinner although he is unsure which one. He has skin tears to his right face, and bilateral upper and lower extremities. Denies any joint pain or other issues. Chart review shows patient takes Eliquis. Related Data Home Medications Medication Instructions Recorded Confirmed albuterol sulfate 90 mcg/actuation 2 puff INHALATION Q4-6H PRN gm 04/19/19 09/07/19 aerosol inhaler amiodarone 200 mg tablet 200 mg PO DAILY 04/19/19 09/07/19 apixaban 5 mg tablet 5 mg PO BID 04/19/19 09/07/19 aspirin 81 mg tablet,delayed 81 mg PO DAILY 04/19/19 09/07/19 release atorvastatin 40 mg tablet 40 mg PO DAILY 04/19/19 09/07/19 carvedilol 12.5 mg tablet 12.5 mg PO Q12H 04/19/19 09/07/19 clopidogrel 75 mg tablet 75 mg PO DAILY 04/19/19 09/07/19 lisinopril 5 mg tablet 5 mg PO DAILY 04/19/19 09/07/19 nitroglycerin 0.4 mg sublingual 0.4 mg SUBLINGUAL Q5M PRN 04/19/19 09/07/19 tablet thiamine HCl (vitamin B1) 100 mg 100 mg PO DAILY 04/19/19 09/07/19 tablet ropinirole 0.5 mg PO HS 09/07/19 09/07/19 Allergies Allergy/AdvReac Type Severity Reaction Status Date / Time hydrocodone Allergy Unknown Shock Verified 12/15/19 19:49 tramadol Allergy Unknown dizziness. Verified 12/15/19 19:49 amitriptyline AdvReac Mild Dizziness Verified 12/15/19 19:49 Review of Systems Review of Systems: All systems reviewed & are unremarkable except as noted in HPI and below Constitutional: Constitutional: Denies chills and Denies weakness Cardiovascular: Cardiovascular: Denies chest pain and Denies radiating jaw, neck or arm pain Respiratory: Respiratory: Denies cough and Denies dyspnea Gastrointestinal: Gastrointestinal: Denies abdominal pain, Denies diarrhea, Denies nausea and Denies vomiting Integumentary/Breasts: Comments: Multiple skin tears Neurologic: Denies syncope, Denies headache(s), Denies focal weakness and Denies numbness PMFSH Social History Social History Smoking status: Never smoker Smoking end date: 03/31/17 Alcohol intake: current Substance use: never Substance use type: does not use Spiritual care concerns: No Exam Narrative: Exam Narrative: GENERAL: Well-appearing, well-nourished, and in no acute distress. HEAD: Normocephalic, atraumatic. 2-1/2 x 2 cm abrasion right upper cheek lateral of the right eye. EYES: PERRL and EOMI. ENT: Mucous membranes moist. Skin tear right external ear. NECK: Supple. C-spine immobilized. CHEST: Clear to auscultation. No respiratory distress. HEART: Regular rate and rhythm. Normal peripheral pulses. ABDOMEN: Soft, nontender, nondistended. EXTREMITIES: Normal range of motion. No edema. SKIN: Warm, dry, no rash. Small skin abrasion left garay towards the ankle that is oozing blood. Skin tear over the right elbow and skin tear to left elbow and forearm. NEURO: Alert and oriented x3. Course Course Emergency Course: He brought it on itself patient from the results. Wounds cleaned and dressed. Discharge home. Vital Signs Vital signs: Vital Signs Temperature 97.2 F L 12/15/19 17:33 Pulse Rate 60 12/15/19 17:33 Respiratory Rate 14 12/15/19 17:33 Blood Pressure 119/62 12/15/19 17:33 Pulse Oximetry 96 12/15/19 17:33 Temperature 97.2 F L 12/15/19 17:33 Pulse Rate 68 12/15/19 22:17 Respiratory Rate 18 12/15/19 22:17 Blood Pressure 128/58 L 12/15/19 22:17 Pulse Oximetry 97 12/15/19 22:17 MDM - Head Injury Imaging Data Radiologist's impression: ITS Impressions H
[2019-12-15 19:47] VITALS: BP 143/71; PULSE 64; RESP 18; O2SAT 100
[2019-12-15 21:08] VITALS: BP 120/72; PULSE 65; RESP 16; O2SAT 96
[2019-12-15 22:17] VITALS: BP 128/58; PULSE 68; RESP 18; O2SAT 97
== END 2019-12-15 23:22 | disposition home or self-care (01) ==
PROVIDERS: Emergency Provider Emergency Medicine; PCP Family Medicine
DX: S00.81XA Abrasion of other part of head, initial encounter (principal); S00.211A Abrasion of right eyelid and periocular area, initial encounter; S80.812A Abrasion, left lower leg, initial encounter; S01.311A Laceration without foreign body of right ear, initial encounter; S51.012A Laceration without foreign body of left elbow, initial encounter; S51.011A Laceration without foreign body of right elbow, initial encounter; W01.0XXA Fall on same level from slipping, tripping and stumbling without subsequent striking against object, initial encounter; Z79.01 Long term (current) use of anticoagulants
CPT/HCPCS: 70450; 72125; 93005; 99284

== ENCOUNTER 2020-02-22 06:52 | Outpatient (NON) | payer MEDICARE, SELFPAY ==
[2020-02-23 10:34] LABS: Influenza Control Positive
[2020-02-23 21:14] LABS: SARS-CoV-2 RNA PCR Negative
== END 2020-02-22 06:53 ==
PROVIDERS: PCP Family Medicine; Visit Provider Physician Assistant Medical
DX: R52 Pain, unspecified (principal); Z20.828 Contact with and (suspected) exposure to other viral communicable diseases
CPT/HCPCS: 87635; 87804; C9803; U0003

== ENCOUNTER 2020-08-01 14:05 | Inpatient (IN) | payer MEDICARE, SELFPAY ==
--- NOTE | ~2020-08-01 | CT_ITS ---
EXAMINATION: CTA chest abdomen EXAM DATE: 08/02/2020 13:51 INDICATION: CTA thoracic abd aorta; EFRAÍN renal infarcts . TECHNIQUE: Spiral CT of the chest and abdomen was performed following intravenous injection of 100 mL Omnipaque 350. Axial, coronal and sagittal images chest and abdomen were reviewed. Coronal maximum intensity pixel images of chest reviewed. Maximum intensity projection 3-D reconstructions of the ao rta were created by the technologist on dedicated workstation. The dose-length product (DLP) for thi s examination was 424.36 mGy-cm. The exposure was tailored according to patient size (auto mA exposu re control), and iterative reconstruction (ASIR) was used as additional dose reduction technique. Com parison is made to prior examination from 08/01/2020. FINDINGS: The aorta is normal in caliber to the infrarenal segment, where it dilates to 2.7 cm versus 2.1 cm proximal to this. There is no aortic dissection. Subclavian and carotid origins are widely pa tent. There is moderate to severe stenosis of the origin of the celiac artery. The superior mesenteri c artery is widely patent. The origin of the inferior mesenteric artery may be occluded. There are 2 right renal arteries arising at nearly the same level. The larger right renal artery has scattered ar terial sclerosis but without significant stenosis. The smaller right renal artery probably has some s tenosis at the origin but difficult to quantify due to its small size and density of the arterioscler osis. The left kidney also has 2 arteries, and there is severe short segment stenosis of the dominant artery identified on axial image 146, sagittal image 87. Right common iliac arterial stent. CHEST: No pulmonary emboli suspected. Moderate emphysema. The lungs are clear. There are no pleural or pericardial effusions. Tracheobronchial tree is patent. There is no mediastinal, hilar or axi llary lymphadenopathy. There is no pneumothorax. Heart normal in size. There are sternotomy wir es, and cardiac/coronary surgical changes. Correlate with prior history. ABDOMEN: Again there are bilateral renal infarctions of varying ages, some old with evidence of scarr ing, volume loss, others acute and subacute as seen on yesterday's CT scan. The liver, spleen, adren al glands and pancreas are unremarkable. Gallbladder is unremarkable. No biliary obstruction. The re is no retroperitoneal lymphadenopathy. Portion of appendix identified, normal. The stomach and small bowel are unremarkable. There is mode rate amount of colonic stool. No free intraperitoneal gas. Scattered small regions of osteopenia, could be osteoporosis. No cortical destruction. Early multiple myeloma not excludable. IMPRESSION: 1. Bilateral dual renal arteries, with short segment severe stenosis of the dominant left renal brendon ry. Some amount of stenosis nondominant smaller right renal artery origin. Potentially these could b e contributing to the bilateral renal infarctions of varying ages. 2. Aortoiliac ectasia, other chronic arterial findings. 3. Moderate emphysema. 4. Scattered small regions of focal osteopenia, could be osteoporosis. Can't exclude early multiple myeloma. Reviewed, dictated and finalized at location B. IMPRESSION: 1. Bilateral dual renal arteries, with short segment severe stenosis of the do minant left renal artery. Some amount of stenosis nondominant smaller right cecil al artery origin. Potentially these could be contributing to the bilateral cecil al infarctions of varying ages. 2. Aortoiliac ectasia, other chronic arterial findings. 3. Moderate emphysema. 4. Scattered small regions of focal osteopenia, could be osteoporosis. Can't e xclude early multiple myeloma.
--- NOTE | ~2020-08-01 | XR_ITS ---
EXAMINATION: XR chest 2V EXAM DATE: 08/01/2020 14:45 INDICATION: Generalized weakness. TECHNIQUE: Frontal and lateral projections of the chest obtained and reviewed. Comparison is made to prior examination from 09/07/2019. FINDINGS: The lungs are clear. There are no pleural effusions. Sternotomy wires are present without findings to suggest sternal dehiscence. There is a dual lead pacemaker/AICD seen with leads projectin g over the expected locations of the right atrial appendage and right ventricle. The lungs are hyperi nflated which can be seen with chronic obstructive pulmonary disease (a clinical diagnosis of functio nal impairment), but is not diagnostic of it. There is no pneumothorax suspected. The bones and sof t tissues are unremarkable. IMPRESSION: 1. No acute cardiopulmonary findings. 2. Moderate hyperinflation. Reviewed, dictated and finalized at location B.
--- NOTE | ~2020-08-01 | CT_ITS ---
EXAMINATION: CT abdomen pelvis w con DATE: 08/01/2020 15:09 INDICATION: Lower abdominal pain and weakness TECHNIQUE: Computed tomography (CT) of the abdomen and pelvis was performed with 100 mL Omnipaque-350 intravenous contrast. Automated exposure control and iterative reconstruction technique were employe d. The dose-length product was 425.49 mGy-cm. COMPARISON: 09/07/2019 FINDINGS: Lung bases are clear. Heart size is normal. No pericardial or pleural effusion. Postoperative change of prior median sternotomy and coronary artery bypass grafting. Dual lead pacemaker/AICD seen with le ad tips at the right atrium and at the apex of the right ventricle. Focal hepatic steatosis along the ligamentum teres. Gallbladder, spleen and bilateral adrenal glands are normal. A few dystrophic calc ification is at the head of the pancreas marrow process sequela of chronic pancreatitis. Again seen are scattered regions of cortical atrophy and scarring at the bilateral kidneys. No additi onal or new regions of decreased parenchymal enhancement in the interpolar region of the right kidney and at the lower pole of the left kidney without volume loss consistent with acute or subacute infar cts. There is scattered calcified atherosclerosis of the aorta and many of the other arteries. This i ncludes scattered calcified atherosclerotic plaque along the bilateral renal arteries and renal arter y branches at the bilateral renal angela. There is basilar stenting along the bilateral common and exte rnal iliac arteries as well as the bilateral superficial femoral arteries. Addition there appear to b e basilar stents rising from the distal aspect of the bilateral common femoral arteries. There is no definitive contrast opacification of the visualized proximal aspect of the bilateral [place] superfici al femoral arteries or femoral bypass grafts. There is marked sigmoid diverticulosis without adjacent inflammatory change to suggest diverticulitis . Small bowel and appendix are normal. Mild diffuse bladder wall thickening which could be related to incomplete distention or chronic outlet obstruction related to the mildly enlarged prostate. No free intraperitoneal gas or fluid. No pathologically enlarged abdominal or pelvic lymphadenopathy. Modera te to severe lumbar spondylosis. Scattered small lucent bone lesions which could be related to body o steopenia but also raises the possibility of multiple myeloma. IMPRESSION: 1. Bilateral small acute to subacute renal infarcts with additional unchanged small regions of bilate ral renal cortical scarring consistent with prior chronic infarcts. 2. Extensive atherosclerotic disease with stenting in the bilateral common and external iliac arterie s and proximal bilateral superficial femoral arteries. The stent in the bilateral superficial arterie s as well as visualized tarsal portion of the bilateral femoral bypass grafts appear thrombosed. Saige elate for pedal pulses or signs of limb ischemia. 3. Marked sigmoid diverticulosis. 4. Multiple small scattered lucent bone lesions which could be related to spotty osteopenia or multip le myeloma. Reviewed, dictated and finalized at location A. IMPRESSION: 1. Bilateral small acute to subacute renal infarcts with additional unchanged s mall regions of bilateral renal cortical scarring consistent with prior chronic infarcts. 2. Extensive atherosclerotic disease with stenting in the bilateral common and external iliac arteries and proximal bilateral superficial femoral arteries. Th e stent in the bilateral superficial arteries as well as visualized tarsal port ion of the bilateral femoral bypass grafts appear thrombosed. Correlate for ped al pulses or signs of limb ischemia. 3. Marked sigmoid diverticulosis. 4. Multiple small
[2020-08-01 14:00] VITALS: BP 134/59; PULSE 77; RESP 20; TEMP 37.1; O2SAT 95
--- NOTE | 2020-08-01 14:13 | ECG_ITS ---
Measurements Intervals [place] Rate: 77 P: 83 RI: 154 QRS: 0 QRSD: 155 T: 91 QT: 426 QTc: 484 Interpretive Statements SINUS RHYTHM INCOMPLETE LEFT BUNDLE BRANCH BLOCK BORDERLINE ST-T WAVE ABNORMALITY- INF/LAT LEADS BASELINE ARTIFACT- II, III, AVR, AVL, AVF, V1, V3-V6 ABNORMAL ECG Electronically Signed On 08-01-2020 14:45:56 CDT by Chapo Bermudez D.O.
[2020-08-01 14:17] VITALS: PULSE 77
[2020-08-01 14:29] LABS: Hemoglobin 9.9 g/dL (14.0-18.0); Mean Corpuscular HGB Conc 31.9 g/dl (32-36); Mean Corpuscular Hemoglobin 27.8 pg (26-34); Mean Corpuscular Volume 87.1 fl (80-100); Mean Platelet Volume 9.3 fl (7.4-10.4); Platelet Count Result 339 k/mm3 (150-375); Red Blood Count 3.56 M/mm3 (4.6-6.20); White Blood Count 17.5 K/mm3 (4.5-10.0)
--- NOTE | 2020-08-01 14:36 | ED.WEAKNESS ---
HPI - Weakness General Chief complaint: Weakness Stated complaint: ABD PAIN,WEAKNESS Source: patient and RN notes reviewed Mode of arrival: ambulatory Limitations: no limitations History of Present Illness HPI Narrative: This is a 75 year old male who presents for evaluation of abdominal pain and weakness. He reported lower abdominal pain for 1 week. His pain has been worsening and constant over the last couple days. He has not taken anything for pain. He has associated weakness, nausea and dry heaves. He denies diarrhea, and he reports 2 large bowel movements on Friday. He denies having a bowel movement yesterday. He has mild cough and sob. He is unsure if his shortness of breath is constant. She denies fever or chills. Related Data Home Medications Medication Instructions Recorded Confirmed albuterol sulfate 90 mcg/actuation 2 puff INHALATION Q4-6H PRN gm 04/19/19 08/01/20 aerosol inhaler amiodarone 200 mg tablet 200 mg PO DAILY 04/19/19 08/01/20 apixaban 5 mg tablet 5 mg PO BID 04/19/19 08/01/20 atorvastatin 40 mg tablet 40 mg PO DAILY 04/19/19 08/01/20 carvedilol 12.5 mg tablet 12.5 mg PO Q12H 04/19/19 08/01/20 clopidogrel 75 mg tablet 75 mg PO DAILY 04/19/19 08/01/20 lisinopril 5 mg tablet 5 mg PO QPM 04/19/19 08/01/20 acetaminophen-codeine 1 tablet PO Q12H PRN 08/01/20 08/01/20 ferrous gluconate 324 mg PO BID 08/01/20 08/01/20 gabapentin 600 mg PO TID 08/01/20 08/01/20 multivitamin [Daily Multivitamin] 1 tablet PO DAILY 08/01/20 08/01/20 tamsulosin 0.8 mg PO DAILY 08/01/20 08/01/20 Allergies Allergy/AdvReac Type Severity Reaction Status Date / Time hydrocodone Allergy Unknown Shock Verified 08/01/20 20:45 tramadol Allergy Unknown dizziness. Verified 08/01/20 20:45 amitriptyline AdvReac Mild Dizziness Verified 08/01/20 20:45 Review of Systems Review of Systems: All systems reviewed & are unremarkable except as noted in HPI and below Constitutional: Constitutional: Denies chills, Denies fever(s) and Reports weakness Cardiovascular: Cardiovascular: Denies chest pain Respiratory: Respiratory: Reports cough and Reports dyspnea Gastrointestinal: Gastrointestinal: Reports abdominal pain, Denies diarrhea and Reports nausea Genitourinary: Genitourinary: Denies hematuria, Denies oliguria, Denies dysuria and Denies urinary frequency Musculoskeletal: Musculoskeletal: Denies back pain Neurologic: Denies headache(s) [facility] Past Medical History Medical History Atherosclerotic heart disease of [place] coronary artery with other forms of angina pectoris Essential (primary) hypertension Femoral-tibial bypass graft occlusion, right Heart failure, unspecified Paroxysmal atrial fibrillation Ventricular tachycardia Surgical History Surgical History History of open heart surgery Family History Family History Sibling Diabetes mellitus Family history of cardiovascular disease Father Hypertension Malignant neoplasm of prostate Family history of primary malignant neoplasm of liver Mother Hypertension Family history of malignant neoplasm of brain Grandparent Carcinoma of colon Social History Social History Smoking status: Never smoker Smoking end date: 03/31/17 Alcohol intake: current Drinks per week: 42 Substance use: current Substance use type: marijuana Gender identity (if verbalized by the patient): Male Spiritual care concerns: No Exam Const: General: no acute distress, alert and ill appearing Orientation/consciousness: patient oriented x3 Eyes: EOM: EOMs intact bilaterally Chest: Chest palpation & inspection: normal inspection of the chest Resp: Effort & Inspection: normal respiratory effort and no retractions Auscultation: clear to auscultatio
[2020-08-01 14:40] LABS: Alanine Aminotransferase 41 U/L (4-50); Albumin Level 3.4 g/dL (3.5-5.1); Alkaline Phosphatase 88 U/L (38-126); Anion Gap 3 mmol/L (8-16); Aspartate Amino Transferase 45 U/L (17-59); Bilirubin,Total 0.6 mg/dL (0.2-1.3); Blood Urea Nitrogen 21 mg/dL (9-20); Calcium 9.1 mg/dL (8.4-10.2); Carbon Dioxide 28 mmol/L (22-30); Chloride 103 mmol/L (98-107); Estimated CRCL calculation 42 ml/min; Estimated Glomerular Filt Rate 50; Glucose 104 mg/dL (75-110); Potassium 4.5 mmol/L (3.4-5.0); Sodium 134 mmol/L (137-145)
--- NOTE | 2020-08-01 15:00 | PC.NURSE ---
Pt off floor to CT via cart
--- NOTE | 2020-08-01 15:05 | PC.NURSE ---
c/o recent weakness, all over stomach pain , today with dry heaves and cold sweats, called ambulance. Denies diarrhea or urinary s/s, denies sick contacts. NSR on monitor, 98% RA
[2020-08-01] MEDS: SODIUM CHLORIDE 0.9% IV 500 ML 999 ML IV CONT (15:15)
[2020-08-01] MEDS: ONDANSETRON INJ 4 MG/2 ML VIAL IV PUSH (15:16)
[2020-08-01 15:22] LABS: Lymphocytes Absolute Manual 1.22 K/mm3 (1.1-4.5); Monocytes Absolute Manual 1.22 K/mm3 (0.1-0.90); Monocytes Percent Manual 7 % (3-9); Neutrophils Percent Manual 86 % (46-73); Platelet Estimate Adequate (Adequate); Total Cells Counted 100
[2020-08-01 16:06] LABS: Lactic Acid Reflex 1.2 mmol/L (0.7-2.1)
--- NOTE | 2020-08-01 17:00 | PC.NURSE ---
Unable to obtain urine with traditional straight cath, could not pass the meatus. Used 10Fr to obtain specimen, pt states he has been catheterization in the past and they have needed smaller lumen size
[2020-08-01 17:53] LABS: Add Urine Microscopic? YES; Appearance Urine Clear (Clear); Bacteria Urine Trace /hpf; Bilirubin Urine Negative (Negative); Blood Urine Negative (Negative); Color Urine Yellow (Yellow); Glucose Urine UA Negative (Negative); Ketones Urine Trace mg/dL (Negative); Leukocyte Esterase Ur Negative LEU/UL (Negative); Mucus Urine Rare /lpf; Nitrate Urine Negative (Negative); Protein Urine 1+ mg/dL (Negative); RBC Urine 0-2 /hpf (0-2); Specific Grav Ur 1.024 (1.001-1.035); Squamous Epithelial Cell Urine Rare /hpf (Few); Urobilinogen Urine Negative mg/dL (<2.0); WBC Urine 0-3 /hpf
[2020-08-01 18:23] VITALS: BP 107/77; PULSE 72; RESP 18; O2SAT 99
--- NOTE | 2020-08-01 18:24 | PC.NURSE ---
Snacks and water provided, ok per Dr. Moreno. Pt denies current abd pain, no N/V. Pt able to urinate on own (200cc in urinal)
--- NOTE | 2020-08-01 19:26 | ADMGEN ---
This patient, Hernando Sawyer, was admitted to Medical Room 242-. Patient/family oriented to hospital policies and general routines including ID bracelet, bed and alarms, visiting hours, pain management, procedures, bathroom and other care routines, personal items, smoking policy, room service/diet, and visiting hours. Information on how to activate the Rapid Response Team has been discussed. Patient/Family are encouraged to report perceived risks to care and to ask questions if they do not understand what they are told or what they should do.
[2020-08-01 20:00] VITALS: BP 111/55; PULSE 68; PULSE 72; RESP 16; TEMP 36.4; O2SAT 99; BMI 18.8
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
[2020-08-01 20:46] LABS: Lipase 62 U/L (23-300)
[2020-08-01 21:35] LABS: Hematocrit 28.1 % (42.0-52.0); Hemoglobin 9.2 g/dL (14.0-18.0); Mean Corpuscular HGB Conc 32.7 g/dl (32-36); Mean Corpuscular Volume 85.4 fl (80-100); Mean Platelet Volume 9.6 fl (7.4-10.4); Platelet Count Result 342 k/mm3 (150-375); Red Blood Count 3.29 M/mm3 (4.6-6.20); Red Cell Distribution Width 14.9 % (11.5-14.5); White Blood Count 15.8 K/mm3 (4.5-10.0)
[2020-08-01] MEDS: GABAPENTIN 300 MG CAPSULE 600 MG PO (21:43)
[2020-08-01] MEDS: ACETAMINOPHEN/CODEINE (*CRX) 300/30 MG TABLET 1 TAB PO (21:43)
[2020-08-01] MEDS: DULoxetine HCL 60 MG CAPSULE.DR PO (21:44)
[2020-08-01 21:45] VITALS: PULSE 60
[2020-08-01] MEDS: APIXABAN 5 MG TABLET PO (21:45)
[2020-08-01] MEDS: carvediloL 12.5 MG TABLET PO (21:45)
[2020-08-01] MEDS: lisinopriL 5 MG TABLET PO (21:45)
[2020-08-01] MEDS: FERROUS GLUCONATE 324 MG TABLET PO (21:45)
[2020-08-01] MEDS: PANTOPRAZOLE SODIUM IV 40 MG VIAL IV PUSH (21:46)
[2020-08-01] MEDS: SODIUM CHLORIDE 0.9% IV 1,000 ML 50 ML IV CONT (21:47)
[2020-08-02] VITALS (13 sets, daily range): BP systolic 101–123; BP diastolic 36–50; PULSE 66–83; RESP 14–18; TEMP 36.1–36.6; O2SAT 84–98; BMI 18.8
[2020-08-02] MEDS: GABAPENTIN 300 MG CAPSULE 600 MG PO ×3 (03:10→20:58)
[2020-08-02 05:17] LABS: Basophils Percent Auto 0.1 % (0.2-1.2); Eosinophils Absolute Auto 0.1 K/mm3 (0-0.3); Eosinophils Percent Auto 0.4 % (0-4.4); Hematocrit 26.9 % (42.0-52.0); Hemoglobin 8.8 g/dL (14.0-18.0); Immature Granulocyte Absolute 0.09 K/mm3 (0.00-0.031); Immature Granulocyte Percent A 0.7 % (0-0.5); Lymphocytes Absolute Auto 0.53 K/mm3 (0.9-3.2); Lymphocytes Percent Auto 3.8 % (18.3-44.2); Mean Corpuscular HGB Conc 32.7 g/dl (32-36); Mean Corpuscular Hemoglobin 27.6 pg (26-34); Mean Corpuscular Volume 84.3 fl (80-100); Mean Platelet Volume 9.6 fl (7.4-10.4); Monocytes Absolute Auto 1.3 K/mm3 (0.1-0.6); Monocytes Percent Auto 9.6 % (2.6-8.5); Neutrophils Absolute Auto 11.8 K/mm3 (1.3-6.7); Neutrophils Percent Auto 85.4 % (45.5-73.1); Platelet Count Result 327 k/mm3 (150-375); Red Blood Count 3.19 M/mm3 (4.6-6.20); Red Cell Distribution Width 14.7 % (11.5-14.5); White Blood Count 13.8 K/mm3 (4.5-10.0)
[2020-08-02 05:32] LABS: Anion Gap 2 mmol/L (8-16); Blood Urea Nitrogen 18 mg/dL (9-20); Calcium 8.4 mg/dL (8.4-10.2); Carbon Dioxide 26 mmol/L (22-30); Chloride 107 mmol/L (98-107); Estimated CRCL calculation 42 ml/min; Estimated Glomerular Filt Rate 50; Glucose 85 mg/dL (75-110); Potassium 4.2 mmol/L (3.4-5.0); Sodium 135 mmol/L (137-145)
--- NOTE | 2020-08-02 06:00 | ECHO_ITS ---
Patient Info Name: Hernando Sawyer Age: 75 years : 1945 Gender: Male Ht: 76 in Wt: 154 lbs BSA: 1.92 m2 HR: 75 bpm BP: 110 / 40 mmHg Heart Rhythm: Sinus Rhythm Technical Quality: Good Exam Date: 08/02/2020 11:17 AM Exam Location: [facility] Pulmonary Exam Room: 342 Patient Status: Inpatient Admit Date: 08/02/2020 Staff Ordering Physician: Dana Moreno MD Cashier Or Checker Stock Clerk: Paulette Christine RDCS Attending Provider: Yaquelin Morelos PA-C Referring Physician: Josh MAN; Exam Type: CA echo doppler color flow Study Info Indications - R/O THROMBUS HX/O HTN AFIB AICD Complete two-dimensional, color flow and Doppler transthoracic echocardiogram is performed. Summary 1. Complete two-dimensional, color flow and Doppler transthoracic echocardiogram is performed. 2. The left ventricle is severely dilated with normal wall thickness. There is overall moderate left ventricular dysfunction with akinesis of the inferior septal segments extending to the apex. Grade 2 to function is present. Calculated ejection fraction to 35%, visual ejection fraction 35-40%. 3. Left atrial chamber dimension is severely enlarged. 4. The aortic valve is sclerosed. There is mild, or perhaps mild to moderate highly eccentric aortic valve regurgitation. 5. There is mild tricuspid valve regurgitation. 6. Mild pulmonary hypertension, estimated pulmonary arterial systolic pressure is 39 mmHg. 7. No thrombi seen. 8. Pacemaker leads noted in the right atrium and right ventricle. 9. Normal sinus rhythm. Left Ventricle Left ventricular chamber dimension is normal. Left ventricular systolic function is moderately reduced, estimated at 35-40%. There is no increased left ventricular wall thickness. Left ventricular septal wall motion is normal. The left ventricular diastolic function is grade II diastolic dysfunction. Right Ventricle Right ventricular chamber dimension is normal. Right ventricular systolic function is normal. Linear artifact in right ventricle suggestive of catheter(s), pacemaker lead(s), or ICD lead(s). Left Atria Left atrial chamber dimension is severely enlarged. Right Atria Right atrial chamber dimension is normal. Aortic Valve The aortic valve is trileaflet. There is mild aortic valve sclerosis. There is no aortic valve stenosis. The aortic valve is sclerosed. There is mild, or perhaps mild to moderate highly eccentric aortic valve regurgitation. Pulmonic Valve The pulmonic valve is normal. There is no pulmonic valve stenosis. There is trace pulmonic regurgitation. Mitral Valve The mitral valve has thickened leaflets. There is no mitral valve stenosis. There is trace mitral valve regurgitation. Tricuspid Valve The tricuspid valve leaflets are normal. There is no significant tricuspid valve stenosis. There is mild tricuspid valve regurgitation. Mild pulmonary hypertension, estimated pulmonary arterial systolic pressure is 39 mmHg. Pericardium/Pleural The pericardium appears normal. There is no pericardial effusion. Inferior Vena Cava Normal inferior vena cava with >50% collapse upon inspiration consistent with Empty right atrial pressure, 10 mmHg. Aorta The aortic root size at the sinus of Valsalva is normal. The prox ascending aorta size is normal. Left Ventricular Outflow Tract Name Value Normal ---------
[2020-08-02 08:57] LABS: INR 1.5; Prothrombin Time 18.8 Seconds (11.1-14.7)
[2020-08-02 08:58] LABS: Partial Thromboplastin Time 45.5 SECONDS (22.3-36.8)
[2020-08-02 09:26] LABS: Vitamin D 25 Hydroxy 34.5 ng/mL
--- NOTE | 2020-08-02 09:38 | PC.NURSE ---
Optometry Professor called Yaquelin regarding pt NPO status and medications requiring to be taken with food, inquired if procedure was scheduled for pt. She reports will be around to see pt soon, may start clear liquid diet.
[2020-08-02] MEDS: PANTOPRAZOLE SODIUM IV 40 MG VIAL IV PUSH ×2 (09:44→20:58)
[2020-08-02] MEDS: carvediloL 12.5 MG TABLET PO ×2 (10:10→20:59)
[2020-08-02] MEDS: ATORVASTATIN 40 MG TABLET PO (10:10)
[2020-08-02] MEDS: APIXABAN 5 MG TABLET PO ×2 (10:10→20:58)
[2020-08-02] MEDS: AMIODARONE HCL 200 MG TABLET PO (10:10)
[2020-08-02] MEDS: DULoxetine HCL 60 MG CAPSULE.DR PO ×2 (10:11→20:58)
[2020-08-02] MEDS: FERROUS GLUCONATE 324 MG TABLET PO ×2 (10:11→18:18)
[2020-08-02] MEDS: CYANOCOBALAMIN 1,000 MCG TABLET 1000 MCG PO (10:11)
[2020-08-02] MEDS: MULTIVITAMINS THERAPEUTIC TAB (*BKC) 1 TABLET PO (10:11)
[2020-08-02] MEDS: TAMSULOSIN HCL 0.4 MG CAPSULE 0.8 MG PO (10:11)
[2020-08-02] MEDS: CLOPIDOGREL BISULFATE 75 MG TABLET PO (10:11)
[2020-08-02] MEDS: FOLIC ACID 0.4 MG TABLET PO (10:11)
--- NOTE | 2020-08-02 10:56 | P.PNIM_ITS ---
Progress Note: A&P Assessment and Plan (1) Infarction of kidney: Code(s): N28.0 - Ischemia and infarction of kidney Status: Acute Assessment and Plan: * Etiology unclear. CT abdomen demonstrates acute to subacute renal infarcts with additional unchanged small regions of bilateral renal cortical scarring consistent with prior chronic infarcts suggesting this is not a new process. * This may be in part contributing to his abdominal pain. * He remains on systemic anticoagulation with Eliquis. Remains on Plavix. He reports he has not missed any doses. * Appreciate Cardiology recommendations. Discussed case with Dr. Varela who recommends CTA of abdominal and thoracic aorta may be of benefit. * Discussed with collaborating physician; recommended nephrology consultation. Appreciate nephrology input. * Echocardiogram pending. (2) Epigastric pain: Code(s): R10.13 - Epigastric pain Status: Acute Assessment and Plan: * May be related to referred pain from renal infarcts, see above. Differentials include but not limited to mesenteric vascular disease given his significant vascular history, PUD, gastritis. CT abdomen without other acute intra- abdominal findings to explain his symptoms. * Continue supportive care with gradually advancing diet, antiemetics as needed. * He may benefit from outpatient gastroenterology evaluation given his weight loss, early satiety, abdominal cramping after meals. He may benefit from outpatient EGD/colonoscopy. (3) Positive blood culture: Code(s): R78.81 - Bacteremia Status: Acute Assessment and Plan: * One set of blood cultures growing gram-negative bacilli, other set still pending. * Will start empiric IV Zosyn and appreciate infectious disease consultation. * Etiology unclear. He has an ICD he believes placed around 5 years ago, multiple endovascular surgical interventions last being May 2020. UA from yesterday is unremarkable. (4) Femoral-tibial bypass graft occlusion, right: Qualifiers: Encounter type: sequela Qualified Code(s): T82.898S - Other specified complication of vascular prosthetic devices, implants and grafts, sequela Code(s): T82.898A - Other specified complication of vascular prosthetic devices, implants and grafts, initial encounter Status: Chronic Assessment and Plan: * Chronic and his vascular surgeon, Dr Haider Pretty, is aware of same. * Please see H&P for outlined details of his several surgical interventions. Requested to obtain records from Dr. Pretty. (5) Atherosclerotic heart disease of [place] coronary artery with other forms of angina pectoris: Code(s): I25.118 - Atherosclerotic heart disease of [place] coronary artery with other forms of angina pectoris Status: Acute Assessment and Plan: * See above. (6) Paroxysmal atrial fibrillation: Code(s): I48.0 - Paroxysmal atrial fibrillation Status: Chronic Assessment and Plan: * In sinus rhythm. Continue his home amiodarone, Coreg, Eliquis. (7) Essential (primary) hypertension: Code(s): I10 - Essential (primary) hypertension Status: Chronic Assessment and Plan: * Blood pressures reviewed, stable on lower and maintained on his home medications. Monitor BP and adjust treatment as needed.
--- NOTE | 2020-08-02 10:56 | PM.IMPN ---
Progress Note: A&P Assessment and Plan (1) Infarction of kidney: Code(s): N28.0 - Ischemia and infarction of kidney Status: Acute Assessment and Plan: Etiology unclear. CT abdomen demonstrates acute to subacute renal infarcts with additional unchanged small regions of bilateral renal cortical scarring consistent with prior chronic infarcts suggesting this is not a new process. This may be in part contributing to his abdominal pain. He remains on systemic anticoagulation with Eliquis. Remains on Plavix. He reports he has not missed any doses. Appreciate Cardiology recommendations. Discussed case with Dr. Varela who recommends CTA of abdominal and thoracic aorta may be of benefit. Discussed with collaborating physician; recommended nephrology consultation. Appreciate nephrology input. Echocardiogram pending. (2) Epigastric pain: Code(s): R10.13 - Epigastric pain Status: Acute Assessment and Plan: May be related to referred pain from renal infarcts, see above. Differentials include but not limited to mesenteric vascular disease given his significant vascular history, PUD, gastritis. CT abdomen without other acute intra-abdominal findings to explain his symptoms. Continue supportive care with gradually advancing diet, antiemetics as needed. He may benefit from outpatient gastroenterology evaluation given his weight loss, early satiety, abdominal cramping after meals. He may benefit from outpatient EGD/colonoscopy. (3) Positive blood culture: Code(s): R78.81 - Bacteremia Status: Acute Assessment and Plan: One set of blood cultures growing gram-negative bacilli, other set still pending. Will start empiric IV Zosyn and appreciate infectious disease consultation. Etiology unclear. He has an ICD he believes placed around 5 years ago, multiple endovascular surgical interventions last being May 2020. UA from yesterday is unremarkable. (4) Femoral-tibial bypass graft occlusion, right: Qualifiers: Encounter type: sequela Qualified Code(s): T82.898S - Other specified complication of vascular prosthetic devices, implants and grafts, sequela Code(s): T82.898A - Other specified complication of vascular prosthetic devices, implants and grafts, initial encounter Status: Chronic Assessment and Plan: Chronic and his vascular surgeon, Dr Haider Pretty, is aware of same. Please see H&P for outlined details of his several surgical interventions. Requested to obtain records from Dr. Pretty. (5) Atherosclerotic heart disease of [place] coronary artery with other forms of angina pectoris: Code(s): I25.118 - Atherosclerotic heart disease of [place] coronary artery with other forms of angina pectoris Status: Acute Assessment and Plan: See above. (6) Paroxysmal atrial fibrillation: Code(s): I48.0 - Paroxysmal atrial fibrillation Status: Chronic Assessment and Plan: In sinus rhythm. Continue his home amiodarone, Coreg, Eliquis. (7) Essential (primary) hypertension: Code(s): I10 - Essential (primary) hypertension Status: Chronic Assessment and Plan: Blood pressures reviewed, stable on lower and maintained on his home medications. Monitor BP and adjust treatment as needed. (8) Anemia: Onset Date: 04/16/18 Qualifiers: Anemia type: unspecified type Qualified Code(s): D64.9 - Anemia, unspecified Code(s): D64.9 - Anemia, unspecified Status: Chronic Assessment and Plan: H&H low but stable, no evidence of acute bleeding. Chronic on review of previous labs. Check iron s
--- NOTE | 2020-08-02 11:29 | PM.CNCAR ---
Assessment and Plan Additional Plan 75-year-old man with a long history of coronary and peripheral vascular disease. He is complaining of cramping abdominal low abdominal pain early satiety and weight loss at this time. We are consulted to see him it says with concern about potential cardioembolic phenomenon to the kidneys. I think the chance of this is highly unlikely since he is not known to have severe LV systolic dysfunction, he is in sinus rhythm and he is systemically anticoagulated. If he is embolizing his kidneys it would be more likely to come from an aortic source in my opinion given his severe per vascular disease and also a couple of recent interventions in the aorta from at least from his description. Along those lines a CT angiogram of the aorta would probably be more informative in terms of evaluating this than cardiac imaging. I would recommend arranging for a CTA of the thoracic and abdominal aorta. Dio Varela MD LOCATED [facility]IN [facility] History of Present Illness History of Present Illness Consult date/time: 08/02/20 11:29 Reason For Visit: weakness, leukocytosis, renal infarcts Narrative: this is a 75-year-old man we are requested to see in consultation by the hospitalist service to today because of concern about potential cardioembolic phenomenon to the renal arteries. The patient is known well to Dr. Roach of our practice and has an extensive history of coronary and peripheral vascular disease. He entered the hospital at [place] yesterday with variety of complaints including leg cramping lower abdominal pain, weight loss, early satiety and extreme weakness with an inability to ambulate a other than very short distances without having to stop to rest. He is not describing any exertional shortness of breath chest pain are active claudication. He appears to be relatively comfortable upon seeing him in the room today for consultation. As part of evaluating his abdominal pain a CT of the abdomen was done yesterday which demonstrates evidence what appears to be a multitude of small renal infarctions that has raised concern about embolic situation. The patient does have mild left ventricular systolic dysfunction by previous charts, history of coronary disease and a prior history of atrial fibrillation which is quiescent on amiodarone treatment. In addition to this he is systemic Zayda anticoagulated with apixaban. The patient has had a history of coronary artery disease dating back to December of 2011 when he presented with acute myocardial infarction and underwent stenting of the proximal circumflex. Apparently following that he underwent multivessel bypass grafting in June of 2014 involving JEFRY graft to the obtuse marginal, a radial artery graft to the PDA. His recent follow-up data in the office ago shows his ejection fraction to be in the range of 45-50%. Once again he is in sinus rhythm. 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 Regarding his peripheral vascular disease he is treated by a vascular surgeon at [facility]. He has had a number of percutaneous revascularization procedures performed to the details of which are not in [facility]'s chart. He has undergone a multitude of peripheral vascular interventions done with angioplasty and stenting procedures. He was complaining of increasing right lower extremity claudication in the early part of this year and his vascular surgeon at [facility] performed a couple of stent procedures in his aorta from what he tells me as well as following that a open surgical revascularization procedure grafting the right lower extremity. Following all of that his claudication has improved markedly. Once again he remains systemically anticoagulated with apixaban and he is also on chronic anti-platelet therapy with clopidogrel.
--- NOTE | 2020-08-02 12:59 | WPDINFPN2 ---
Progress Note: A&P Assessment and Plan (1) Positive blood culture: Code(s): R78.81 - Bacteremia Status: Acute Assessment and Plan: UQ abd pain and gram negative bacteremia, I think due to ischemic colon -- or higher in GI tract REC Ctx and metronidazole #1, f/u micro, consider eval for above such as MRA of celiac axis Subjective Date/time seen: 08/02/20 12:59 Objective Data Vital Signs Vital Signs: Vital Signs - 24 hr 08/01/20 14:00 08/01/20 14:17 08/01/20 18:23 Temperature 37.1 C Pulse Rate 77 77 72 Respiratory Rate 20 18 Blood Pressure 134/59 L 107/77 Pulse Oximetry 95 99 08/01/20 20:00 08/01/20 21:45 08/02/20 00:00 Temperature 36.4 C 36.6 C Pulse Rate 68 60 76 Respiratory Rate 16 14 Blood Pressure 111/55 L 108/48 L Pulse Oximetry 99 98 08/02/20 04:00 08/02/20 08:00 08/02/20 10:00 Temperature 36.4 C 36.6 C Pulse Rate 72 74 83 Respiratory Rate 18 18 Blood Pressure 110/40 L 116/36 L Pulse Oximetry 93 95 08/02/20 10:10 08/02/20 12:00 Temperature Pulse Rate 78 70 Respiratory Rate Blood Pressure Pulse Oximetry Intake/Output Intake/Output: Intake & Output 07/30/20 07/31/20 08/01/20 08/02/20 23:59 23:59 23:59 23:59 Intake Total 600 345 Output Total 200 Balance 400 345 Meds/Results Medications: Active Medications Generic Name Dose Route Start Last Admin Trade Name Freq PRN Reason Stop Dose Admin Acetaminophen 650 mg 08/01/20 20:20 Acetaminophen 325 Mg Tablet PO Q4H PRN Mild Pain (1-3) or Fever Acetaminophen/Codeine Phosphate 1 tab 08/01/20 20:57 08/01/20 21:43 Acetaminophen/Codeine (*Crx) 300/30 Mg Tablet PO 1 tab Q12H PRN Administration pain 4-6 Albuterol 2 puff 08/01/20 20:57 Albuterol Sulfate (*Sp) Aerosol 1 Puff INHALATION Q4-6H PRN Shortness Of Breath Amiodarone HCl 200 mg 08/02/20 09:00 08/02/20 10:10 Amiodarone Hcl 200 Mg Tablet PO 200 mg DAILY CARRIE Administration Apixaban 5 mg 08/01/20 21:00 08/02/20 10:10 Apixaban 5 Mg Tablet PO 5 mg Q12HR CARRIE Administration Atorvastatin Calcium 40 mg 08/02/20 09:00 08/02/20 10:10 Atorvastatin 40 Mg Tablet PO 40 mg DAILY CARRIE Administration Carvedilol 12.5 mg 08/01/20 21:00 08/02/20 10:10 Carvedilol 12.5 Mg Tablet PO 12.5 mg Q12HR CARRIE Administration Clopidogrel Bisulfate 75 mg 08/02/20 09:00 08/02/20 10:11 Clopidogrel Bisulfate 75 Mg Tablet PO 75 mg DAILY CARRIE Administration Cyanocobalamin 1,000 mcg 08/02/20 09:00 08/02/20 10:11 Cyanocobalamin 1,000 Mcg Tablet PO 1,000 mcg DAILY CARRIE Administration Duloxetine HCl 60 mg 08/01/20 21:00 08/02/20 10:11 Duloxetine Hcl 60 Mg Capsule.Dr PO 60 mg Q12HR CARRIE Administration Ferrous Gluconate 324 mg 08/01/20 17:00 08/02/20 10:11 Ferrous Gluconate 324 Mg Tablet PO 324 mg BID CARRIE Administration Folic Acid 0.4 mg 08/02/20 09:00 08/02/20 10:11 Folic Acid 0.4 Mg Tablet PO 0.4 mg DAILY CARRIE Administration Gabapentin 600 mg 08/01/20 22:00 08/02/20 03:10 Gabapentin 300 Mg Capsule PO 600 mg TID@0300,1900,2200 CARRIE Administration Sodium Chloride 1,000 mls @ 50 mls/hr 08/01/20 20:20 08/01/20 21:47 Normal Saline Iv IV CONT 50 mls/hr .Q20H CARRIE Administration Ceftriaxone Sodium/Dextrose 1 gm in 50 mls @ 100 mls/hr 08/02/20 13:00 Rocephin 1 Gm/D5w 50 Ml IVPB Q24H CARRIE Lisinopril 5 mg 08/01/20 18:00 08/01/20 21:45 Lisinopril 5 Mg Tablet PO 5 mg QPM CARRIE Administration Multivitamins Therapeutic 1 tablet 08/02/20 09:00 08/02/20 10:11 Multivitamins Therapeutic Tab (*Bkc) PO 1 tablet DAILY CARRIE Administration Ondansetron HCl 4 mg 08/01/20 20:20 Ondansetron Inj 4 Mg/2 Ml Vial IV PUSH Q6H PRN Nausea And Vomiting Pantoprazole Sodium 40 mg 08/01/20 21:05 08/02/20 09:44 Pantoprazole Sodium Iv 40 Mg Vial IV PUSH 40 mg Q12HR CARRIE Administration
--- NOTE | 2020-08-02 14:17 | PCNSR ---
On 08/02/20, the student,Latisha Gutierres, provided care and completed [facility] documentation on this patient. I have reviewed the student's documentation and agree with the findings.
[2020-08-02] MEDS: metroNIDAZOLE 500 MG/ISO 100ML 500 MG/100 ML BAG 100 MG IVPB ×2 (14:36→21:07)
--- NOTE | 2020-08-02 17:35 | PM.CNNEP ---
Assessment and Plan Assessment and plan (1) Chronic kidney disease, stage 3a: Code(s): N18.31 - Chronic kidney disease, stage 3a Status: Acute Assessment and Plan: the patient has chronic kidney disease stage IIIA. His creatinine is 1.4 and has been at about this level since 2019. The CT scan shows infarcts of the kidneys of varying ages. So it is not exactly clear how much of this is new and how much of this is really old. He does have vascular disease of course most likely of the small-vessel type as well as the large vessel type. And the small-vessel type may be more involved in his kidneys and be leading to some of the chronic kidney disease. The patient also has chronic hypertension which of course is probably involving the kidneys as well. (2) Infarction of kidney: Code(s): N28.0 - Ischemia and infarction of kidney Status: Acute Assessment and Plan: The nature of the infarctions is unclear. There are 2 main possibilities. One possibility is that he has clots in his atria from his atrial fibrillation. I think this is somewhat unlikely. First of all he has been on Eliquis and has been compliant with this. If clots come out of the atria usually good they go in the straight line to either causes stroke or cause necrotic areas in the feet. If he had several clots that went to both kidneys they would all have to take right turns or left turns and nothing go to the feet to give this presentation. So I feel like this is unlikely. Another possibility is that the atherosclerotic plaque seen in the proximal renal arteries is showering some emboli into the distal arteries causing the wedge defects. a 3rd possibility would be that he has dissection of the renal arterioles. This is probably unlikely as well. He might benefit from angioplasty of the 2 proximal lesions. Perhaps they would not flick As much Calcium plaque down stream if there was a stent there. we cannot do any interventions now because he has bacteremia. Possibly these interventions would be best done by the custodian manager who have done procedures in the past at [facility]. The age of the infarcts is undetermined. The CT scan showed that there was some variability of the appearance suggests a that some infarcts were older than others. The patient does not have flank pain, no blood in the urine, and his liver enzymes are not elevated ( because the kidney is the 2nd largest gluconeogenec factory, infarction lead to high levels of AST and ALT). so I do not think he has a significant acute infarct of either kidney. (3) Positive blood culture: Code(s): R78.81 - Bacteremia Status: Acute Assessment and Plan: the patient has Gram-negative bacilli. Perhaps he flipped Some calcium plaque off of the proximal plaque of the celiac artery. he is getting antibiotics. Dr. pickett is seeing him. (4) CAD (coronary artery disease): Qualifiers: Coronary Disease-Associated Artery/Lesion type: unspecified vessel or lesion type [place] vs. transplanted heart: [place] heart Associated angina: with unspecified angina Qualified Code(s): I25.119 - Atherosclerotic heart disease of [place] coronary artery with unspecified angina pectoris Code(s): I25.10 - Atherosclerotic heart disease of [place] coronary artery without angina pectoris Status: Chronic Assessment and Plan: No chest pain or shortness of breath (5) Paroxysmal atrial fibrillation: Code(s): I48.0 - Paroxysmal atrial fibrillation Status: Chronic Assessment and Plan: he is presently in sinus rhythm (6) Essential (primary) hypertension: Code(s): I10 - Essential (primary) hypertension Status: Chronic Assessment and Plan: his blood pressure is well controlled (7) Anemia: Onset Date: 04/16/18 Qualifiers: Anemia type: unspecified type Qual
[2020-08-02] MEDS: lisinopriL 5 MG TABLET PO (18:18)
[2020-08-02] MEDS: SODIUM CHLORIDE 0.9% IV 1,000 ML 50 ML IV CONT (18:22)
[2020-08-02] MEDS: ACETAMINOPHEN/CODEINE (*CRX) 300/30 MG TABLET 1 TAB PO (20:56)
[2020-08-03] VITALS (12 sets, daily range): BP systolic 100–124; BP diastolic 38–60; PULSE 68–78; RESP 14–18; TEMP 36.1–37.2; O2SAT 90–99
[2020-08-03] MEDS: GABAPENTIN 300 MG CAPSULE 600 MG PO ×3 (03:07→22:00)
[2020-08-03 05:35] LABS: Basophils Percent Auto 0.2 % (0.2-1.2); Eosinophils Absolute Auto 0.1 K/mm3 (0-0.3); Eosinophils Percent Auto 0.8 % (0-4.4); Hematocrit 25.6 % (42.0-52.0); Hemoglobin 8.3 g/dL (14.0-18.0); Immature Granulocyte Absolute 0.12 K/mm3 (0.00-0.031); Immature Granulocyte Percent A 0.8 % (0-0.5); Lymphocytes Absolute Auto 0.62 K/mm3 (0.9-3.2); Lymphocytes Percent Auto 4.3 % (18.3-44.2); Mean Corpuscular HGB Conc 32.4 g/dl (32-36); Mean Corpuscular Hemoglobin 27.5 pg (26-34); Mean Corpuscular Volume 84.8 fl (80-100); Mean Platelet Volume 9.3 fl (7.4-10.4); Monocytes Absolute Auto 1.4 K/mm3 (0.1-0.6); Monocytes Percent Auto 9.8 % (2.6-8.5); Neutrophils Absolute Auto 12.2 K/mm3 (1.3-6.7); Neutrophils Percent Auto 84.1 % (45.5-73.1); Platelet Count Result 333 k/mm3 (150-375); Red Blood Count 3.02 M/mm3 (4.6-6.20); White Blood Count 14.5 K/mm3 (4.5-10.0)
[2020-08-03] MEDS: metroNIDAZOLE 500 MG/ISO 100ML 500 MG/100 ML BAG 100 MG IVPB ×3 (05:42→22:00)
[2020-08-03 05:43] LABS: INR 1.9; Prothrombin Time 22.5 Seconds (11.1-14.7)
[2020-08-03 05:48] LABS: Alanine Aminotransferase 45 U/L (4-50); Albumin Level 2.7 g/dL (3.5-5.1); Alkaline Phosphatase 77 U/L (38-126); Anion Gap 2 mmol/L (8-16); Aspartate Amino Transferase 46 U/L (17-59); Bilirubin,Total 0.2 mg/dL (0.2-1.3); Blood Urea Nitrogen 16 mg/dL (9-20); Calcium 8.3 mg/dL (8.4-10.2); Carbon Dioxide 26 mmol/L (22-30); Chloride 106 mmol/L (98-107); Estimated CRCL calculation 37 ml/min; Estimated Glomerular Filt Rate 43; Glucose 85 mg/dL (75-110); Magnesium 1.8 mg/dL (1.6-2.3); Phosphorus 3.1 mg/dL (2.5-4.5); Potassium 3.9 mmol/L (3.4-5.0); Sodium 134 mmol/L (137-145)
[2020-08-03 05:55] LABS: Transferrin 117 mg/dL (206-381)
[2020-08-03 06:31] LABS: Iron < 10 ug/dL (49-181)
[2020-08-03 06:46] LABS: Ovalocytes 1+ (NORMAL); Platelet Estimate Adequate (Adequate); Poikilocytosis 1+ (NORMAL)
[2020-08-03 06:49] LABS: Percent Iron Saturation < 5 % (20-50)
[2020-08-03 07:06] LABS: Folic Acid > 20.0 ng/mL (2.76->20); Vitamin B12 > 1000.0 pg/mL (239-931)
[2020-08-03] MEDS: FOLIC ACID 0.4 MG TABLET PO (08:55)
[2020-08-03] MEDS: FERROUS GLUCONATE 324 MG TABLET PO ×2 (08:55→17:07)
[2020-08-03] MEDS: TAMSULOSIN HCL 0.4 MG CAPSULE 0.8 MG PO (08:55)
[2020-08-03] MEDS: DULoxetine HCL 60 MG CAPSULE.DR PO ×2 (08:55→20:18)
[2020-08-03] MEDS: AMIODARONE HCL 200 MG TABLET PO (08:55)
[2020-08-03] MEDS: CLOPIDOGREL BISULFATE 75 MG TABLET PO (08:55)
[2020-08-03] MEDS: CYANOCOBALAMIN 1,000 MCG TABLET 1000 MCG PO (08:55)
[2020-08-03] MEDS: ATORVASTATIN 40 MG TABLET PO (08:55)
[2020-08-03] MEDS: APIXABAN 5 MG TABLET PO ×2 (08:55→20:18)
[2020-08-03] MEDS: carvediloL 12.5 MG TABLET PO ×2 (08:56→20:22)
[2020-08-03] MEDS: MULTIVITAMINS THERAPEUTIC TAB (*BKC) 1 TABLET PO (08:56)
[2020-08-03] MEDS: PANTOPRAZOLE SODIUM IV 40 MG VIAL IV PUSH ×2 (08:56→20:18)
--- NOTE | 2020-08-03 10:06 | PM.IMPN ---
Progress Note: A&P Assessment and Plan (1) Epigastric pain: Code(s): R10.13 - Epigastric pain Status: Acute Assessment and Plan: Epigastric pain is the main reason the patient came into the hospital and it is not improving. - He is unable to really eat any solids without significant pain. - Differential includes gastritis, gastric ulcer, angina with eating, bacteremia, gastric cancer etc - Lipase is normal, pancreatitis less likely. Gastroenteritis less likely since he is not having any diarrhea. Could be constipation although seems a bit extreme. -CTA of the abdomen reviewed, continue Eliquis and Plavix -will consult GI, continue PPI, add Carafate (2) Positive blood culture: Code(s): R78.81 - Bacteremia Status: Acute Assessment and Plan: One set of blood cultures growing E coli and the other is growing gram-positive cocci in chains -will repeat blood cultures -could be from the GI tract. No skin infections. Patient does have poor dentition. No abnormality on echo -continue ceftriaxone and Flagyl, consult GI (3) Infarction of kidney: Code(s): N28.0 - Ischemia and infarction of kidney Status: Acute Assessment and Plan: Etiology unclear. CT abdomen demonstrates acute to subacute renal infarcts with additional unchanged small regions of bilateral renal cortical scarring consistent with prior chronic infarcts suggesting this is not a new process. -He remains on systemic anticoagulation with Eliquis. Remains on Plavix. He reports he has not missed any doses. Could consider changing Plavix to Brilinta but I think this would be a to high of a bleeding risk while on Eliquis as well. -continue MARRY-inhibitor -may need some intervention at a tertiary care center once patient improves from acute illness. I do not think the renal abnormalities are completely acute, no emergent procedure needed. -consider septic emboli since he has bacteremia, although less likely -creatinine stable 1.6 today (4) Femoral-tibial bypass graft occlusion, right: Qualifiers: Encounter type: sequela Qualified Code(s): T82.898S - Other specified complication of vascular prosthetic devices, implants and grafts, sequela Code(s): T82.898A - Other specified complication of vascular prosthetic devices, implants and grafts, initial encounter Status: Chronic Assessment and Plan: Chronic and his vascular surgeon, Dr Haider Pretty, is aware of same. -Please see H&P for outlined details of his several surgical interventions. Requested to obtain records from Dr. Pretty. (5) Atherosclerotic heart disease of [place] coronary artery with other forms of angina pectoris: Code(s): I25.118 - Atherosclerotic heart disease of [place] coronary artery with other forms of angina pectoris Status: Acute Assessment and Plan: As above (6) Paroxysmal atrial fibrillation: Code(s): I48.0 - Paroxysmal atrial fibrillation Status: Chronic Assessment and Plan: Continue his home amiodarone, Coreg, Eliquis. (7) Essential (primary) hypertension: Code(s): I10 - Essential (primary) hypertension Status: Chronic Assessment and Plan: Last blood pressure 124/42 -continue Coreg and lisinopril (8) Anemia: Onset Date: 04/16/18 Qualifiers: Anemia type: unspecified type Qualified Code(s): D64.9 - Anemia, unspecified Code(s): D64.9 - Anemia, unspecified Status: Chronic Assessment and Plan: H&H low but stable, no evidence of acute bleeding. -Chronic on review of previous labs -anemia labs looks like anemia chronic disease but could also have iron deficiency mixed in -iron studies reviewed, will add oral iron after GI sees the patient (9) Weakness: Code(s): R53.1 - Weakness Status: Acute Assessment and Plan: Patient reports feeling weaker over the last 2 months o
[2020-08-03] MEDS: SUCRALFATE SUSP 100 MG/ML 10 ML UDC 1000 MG PO ×3 (10:40→20:19)
[2020-08-03] MEDS: polyethylene glycoL 3350 17 GM POWD.PACK PO (10:40)
--- NOTE | 2020-08-03 11:52 | PM.PNNEP ---
Progress Note: A&P Assessment and Plan (1) Chronic kidney disease, stage 3a: Code(s): N18.31 - Chronic kidney disease, stage 3a Status: Acute Assessment and Plan: the patient has chronic kidney disease stage IIIA. His creatinine is 1.4 and has been at about this level since 2019. most likely due to hypertension, vascular disease, and the renal infarcts. (2) Infarction of kidney: Code(s): N28.0 - Ischemia and infarction of kidney Status: Acute Assessment and Plan: He has multiple wedge defects in the kidneys. 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 Will consult Dr. Maurer as he is familiar with the patient already. (3) Positive blood culture: Code(s): R78.81 - Bacteremia Status: Acute Assessment and Plan: the patient has Gram-negative bacilli. Perhaps he flipped Some calcium plaque off of the proximal plaque of the celiac artery. he is getting antibiotics. Dr. pickett is seeing him. (4) CAD (coronary artery disease): Qualifiers: Coronary Disease-Associated Artery/Lesion type: unspecified vessel or lesion type [place] vs. transplanted heart: [place] heart Associated angina: with unspecified angina Qualified Code(s): I25.119 - Atherosclerotic heart disease of [place] coronary artery with unspecified angina pectoris Code(s): I25.10 - Atherosclerotic heart disease of [place] coronary artery without angina pectoris Status: Chronic Assessment and Plan: No chest pain or shortness of breath (5) Paroxysmal atrial fibrillation: Code(s): I48.0 - Paroxysmal atrial fibrillation Status: Chronic Assessment and Plan: he is presently in sinus rhythm (6) Essential (primary) hypertension: Code(s): I10 - Essential (primary) hypertension Status: Chronic Assessment and Plan: his blood pressure is well controlled (7) Anemia: Onset Date: 04/16/18 Qualifiers: Anemia type: unspecified type Qualified Code(s): D64.9 - Anemia, unspecified Code(s): D64.9 - Anemia, unspecified Status: Chronic Assessment and Plan: his hemoglobin is low. Will keep an eye on this. No reason to get iron levels because we can't treat with an active infection anyway. Subjective Date/time seen: 08/03/20 11:52 Interval history: Hernando is feeling about the same today. No chest pain or shortness of breath. His belly is better. Review of Systems Cardiovascular: Cardiovascular: Reports no additional cardiovascular complaints Respiratory: Respiratory: Reports no additional respiratory complaints Gastrointestinal: Gastrointestinal: Reports no additional gastrointestinal complaints Genitourinary: Genitourinary: Reports no additional male genitourinary complaints Exam Narrative: Exam Narrative: WDWN in NAD skin no rash Or subcu nodules head ncat lungs clear cor reg no rub abd BS+ nontender and soft ext no edema. Objective Data Vital Signs Vital Signs: Vital Signs - 24 hr 08/02/20 12:00 08/02/20 14:00 08/02/20 16:00 Temperature 36.3 C L Pulse Rate 70 71 69 Respiratory Rate 18 Blood Pressure 117/41 L Pulse Oximetry 94 08/02/20 18:00 08/02/20 18:19 08/02/20 20:00 Temperature 36.1 C L Pulse Rate 72 80 73 Respiratory Rate 18 Blood Pressure 123/37 L 112/50 L Pulse Oximetry 93 08/02/20 20:59 08/02/20 21:53 08/03/20 00:00 Temperature 36.2 C L Pulse Rate 66 75 73 Respiratory Rate 16 Blood Pressure 101/40 L Pulse Oximetry 92 08/03/20 02:00 08/03/20 04:00 08/03/20 05:50 Temperature 36.1 C L 36.2 C L Pulse Rate 72 71 71 Respiratory Rate 16 16 Blood Pressure 100/53 L 110/38 L Pulse Oximetry 90 92 08/03/20 08:00 08/03/20 08:55 08/03/20 08:56 Temperature 37.2 C Pulse Rate 68 68 68 Respiratory Rate 18 Blood Pressure 124/42 L Pulse Oximetry 93 08/03/20 10:35 Temperature
--- NOTE | 2020-08-03 14:48 | CONS_ITS ---
DATE OF CONSULTATION: 08/02/2020 REASON FOR CONSULTATION: Bacteremia. HISTORY OF PRESENT ILLNESS: A 75-year-old male who is a poor historian. He had vascular bypass performed in the femoral areas by Dr. Titi Pretty approximately dxr-ozf-d-half months ago. He apparently was recovering quite well postop. He presented to the hospital yesterday with bilateral upper quadrant abdominal pain that was unremitting without any aggravating or relieving factors. Brief episode of nausea, also chills without rigors. No fevers. He had elevated lactate. He was given no antibiotics initially, but blood cultures now positive. Consultation requested. He has been given a single dose of piperacillin. No immunosuppressants prior to admission nor now he has had no GI hemorrhage symptoms. Appetite has been diminished since his vascular operation. He has had fatigue, such that he has no energy. On the most days of the week, he has not spoken with his primary care physician about this symptom since his operation. ALLERGIES: NONE PERTINENT. HABITS: No alcohol last 2 weeks, previously 6 pack per day. Smokes daily marijuana. No tobacco. PRESENT MEDICATIONS: See above. PAST MEDICAL HISTORY: Diffuse atherosclerosis, previous CABG, hypertension, PAF, ventricular tachycardia. He has a pacemaker device in place, left upper chest. FAMILY HISTORY: Not pertinent to his present illness. SOCIAL HISTORY: He is a retired lives locally. REVIEW OF SYSTEMS: 14-point review otherwise negative. PHYSICAL EXAMINATION: GENERAL: This is an elderly male, who appears actual age, not cachectic, no acute distress. VITAL SIGNS: Since arrival afebrile, 83, 18, 116/36. SKIN: Warm and dry. No rashes. EENT: Conjunctivae are clear. There is no icterus. No paranasal sinus, erythema, edema or tenderness. Oropharynx, oral mucosa normal. Multiple missing teeth. NECK: No masses or thyromegaly. LUNGS: Clear to auscultation and percussion. CARDIAC: Regular rate and rhythm. No murmur, gallop, rub. Unable to palpate dorsalis pedis pulses, but feet appear well perfused and warm. ABDOMEN: No bruits. Nontender. No organomegaly. No masses. Soft. EXTREMITIES: No clubbing, cyanosis, edema. NEUROLOGIC: He is awake, alert, and appropriate. LABORATORY DATA: Blood cultures 1 of 2 sets so far gram-negative rods to be identified. White count 13.8, was 15.8 yesterday, hemoglobin 8.8, platelets are 327. His differential shows a mild left shift. He has mild hyponatremia. Creatinine 1.4, BUN 18, creatinine was 1.3 11 months ago. Liver function tests normal. Amylase normal. His urinalysis 1+ protein, otherwise normal. RADIOLOGY: CT abdomen and pelvis, small acute to subacute renal infarcts, cortical thickening, extensive atherosclerosis and thrombosis, diverticulosis, scattered lucent bone lesions. No diverticulitis seen. Spondylosis was seen. Hepatic steatosis, limited seen. Chronic pancreatitis suggested on CT and postop CABG changes. ASSESSMENT: 1. Upper quadrant abdominal pain with gram-negative bacteremia. I suspect true infection other than contaminant. I think this is likely due to ischemic colon. Less likely gastric or small intestine ischemia. Less likely sources of bacteremia would include gallbladder disease (normal ultrasound a year ago), pancreatitis, primary bloodstream infection, pulmonary upper respiratory source. 2. Extensive atherosclerosis. 3. Alcohol to excess. 4. Multiple allergies. RECOMMENDATIONS: 1. Ceftriaxone, metronidazole day 1. 2. Follow up on microbiology. 3. He may need further vascular testing, but we will leave to your discretion, in order to investigate the source of his bacteremia. Thank you very much for asking me to see him.
--- NOTE | 2020-08-03 15:40 | WPDGICN ---
Assessment and Plan Assessment and plan (1) Epigastric pain: Code(s): R10.13 - Epigastric pain Status: Acute Assessment and Plan: we will do EGD tomorrow, assess for peptic ulcer disease but also could be related to mesenteric ischemia since worse after eating (he has significant vascular disease and required multiple stenting and angioplasties, CT scan also showed infarction of kidney), lactic acid is normal. Agree with cardiology to arrange a CTA of the thoracic and abdominal aorta when renal function allows. He is already on anticoagulation with eliquis (2) Leukocytosis: Code(s): D72.829 - Elevated white blood cell count, unspecified Status: Acute Assessment and Plan: also bacteremia, now on antibiotics by ID (3) Infarction of kidney: Code(s): N28.0 - Ischemia and infarction of kidney Status: Acute Assessment and Plan: nephrology and cardiology on board (4) E coli bacteremia: Code(s): R78.81 - Bacteremia; B96.20 - Unspecified Escherichia coli [E. coli] as the cause of diseases classified elsewhere Status: Acute Assessment and Plan: on treatment (5) Chronic kidney disease, stage 3a: Code(s): N18.31 - Chronic kidney disease, stage 3a Status: Acute (6) Chronic systolic heart failure: Code(s): I50.22 - Chronic systolic (congestive) heart failure Status: Acute (7) CAD (coronary artery disease): Qualifiers: Coronary Disease-Associated Artery/Lesion type: unspecified vessel or lesion type [place] vs. transplanted heart: [place] heart Associated angina: with unspecified angina Qualified Code(s): I25.119 - Atherosclerotic heart disease of [place] coronary artery with unspecified angina pectoris Code(s): I25.10 - Atherosclerotic heart disease of [place] coronary artery without angina pectoris Status: Chronic (8) Femoral-tibial bypass graft occlusion, right: Qualifiers: Encounter type: sequela Qualified Code(s): T82.898S - Other specified complication of vascular prosthetic devices, implants and grafts, sequela Code(s): T82.898A - Other specified complication of vascular prosthetic devices, implants and grafts, initial encounter Status: Chronic Assessment and Plan: he has significant vascular and heart disease (9) Chronic anemia: Code(s): D64.9 - Anemia, unspecified Status: Acute Assessment and Plan: probably from chronic medical illness, he is on blood thinners but no gib continue to monitor GI Consult Note Consult date/time: 08/03/20 15:40 Reason for consult: epigastric pain HPI: Hernando Sawyer is a 75 year old male with multiple medical problems including PAD, had vascular bypass performed in the femoral areas at [facility] about zii-mah-d-half months ago, COPD, HTN, CAD and he has undergone a multitude of peripheral vascular interventions done with angioplasty and stenting procedures, also chronic anemia on blood thinners (anticoagulated with apixaban and he is also on chronic anti-platelet therapy with clopidogrel), denies GIB. This time he came with lower abdominal pain on and off for 1 week but worse last 2 days, also worse after eating anything, no vomiting, no recent EGD. He had CT scan a/p that was reviewed, showed bilateral dual renal arteries, with short segment severe stenosis of the dominant left renal artery. Some amount of stenosis nondominant smaller right renal artery origin, aortoiliac ectasia, other chronic arterial findings, moderate emphysema. Blood culture showed E coli and he is on antibiotics. Cardiology, nephrology and ID on board. Review of Systems Constitutional: Constitutional: Denies chills Eyes: Eyes: Reports no additional eye complaints ENT: Reports Normal hearing present Cardiovascular: Cardiovascular: Reports no additional cardiovascular complaints Respiratory: Respiratory: Denies cough Gastrointestinal: Gastrointestinal:
--- NOTE | 2020-08-03 16:27 | PM.PNCARD ---
Progress Note: A&P Assessment and Plan (1) CAD (coronary artery disease): Code(s): I25.10 - Atherosclerotic heart disease of [place] coronary artery without angina pectoris Status: Acute Assessment and Plan: CAD with history of stents, stable without angina. (2) Epigastric pain: Code(s): R10.13 - Epigastric pain Status: Acute Assessment and Plan: May be from vascular disease and mesenteric ischemia. Unfortunately is already on good medical therapy with Plavix, Eliquis, and high-dose atorvastatin. (3) Renal infarction: Code(s): N28.0 - Ischemia and infarction of kidney Status: Acute Assessment and Plan: Severe vascular disease and renal artery stenosis. Cardiac source of emboli is very unlikely. (4) Vascular disease: Code(s): I99.9 - Unspecified disorder of circulatory system Status: Acute Assessment and Plan: Recent interventions on the lower extremities, possibly thrombosed stents despite Eliquis and Plavix. (5) Positive blood culture: Code(s): R78.81 - Bacteremia Status: Acute Assessment and Plan: , possibly secondary to ischemic colon. (6) Paroxysmal atrial fibrillation: Code(s): I48.0 - Paroxysmal atrial fibrillation Status: Chronic Assessment and Plan: Quiescent on amiodarone, anticoagulated with Eliquis. (7) Cardiomyopathy: Code(s): I42.9 - Cardiomyopathy, unspecified Status: Acute Assessment and Plan: EF 35-40%. Euvolemic. Continue carvedilol and lisinopril. Additional Plan Continue Plavix and Eliquis, atorvastatin, for vascular disease Cardiac status appears stable, will sign off but please call if we can be of further assistance. Subjective Date/time seen: 08/03/20 16:27 Interval history: Follow-up for CAD, renal emboli Date of service 08/03/2020: Patient still with crampy abdominal pain. No shortness of breath or chest pain. CT scan as below showed severe vascular disease of the GI tract and renal arteries, as well as probably stenosis superficial femoral artery stents. Has gram-negative bacteremia now. Echo results as below, EF 35-40%. Review of Systems Constitutional: Constitutional: Reports fatigue and Reports lethargy ENT: Denies epistaxis Cardiovascular: Cardiovascular: Denies chest pain, Denies pedal edema and Denies palpitations Respiratory: Respiratory: Denies dyspnea and Denies dyspnea on exertion Gastrointestinal: Gastrointestinal: Reports abdominal pain and Denies hematochezia Genitourinary: Genitourinary: Denies dysuria Musculoskeletal: Musculoskeletal: Reports no additional musculoskeletal complaints Integumentary/Breasts: Skin/Breast: Denies rash Neurologic: Denies confusion Psychiatric: Psychiatric: Denies behavioral changes Exam Const: General: comfortable and no acute distress HENMT: Mouth: Yes moist mucous membranes Eyes: EOM: EOMs intact bilaterally Neck: Neck: supple and no JVD Resp: Effort & Inspection: normal respiratory effort Auscultation: clear to auscultation bilaterally Cardio: Rate: regular rate Rhythm: regular rhythm Heart sounds: Murmur heart sound present (1/6 [place] upper sternal borders) GI: GI Palp: Yes Soft to palpation and Yes Tenderness to palpation present (GI) Auscultation: abnormal bowel sounds (Decreased) Skin: General skin exam: no rashes or lesions noted Neuro: Cognition (Neuro): normal cognition Speech: normal speech Extrem: General: no edema and no pedal edema Psych: Mental Status: mental status grossly normal Objective Data Vital Signs Vital Signs: Vital Signs - 24 hr 08/02/20 18:00 08/02/20 18:19 08/02/20 20:00 Temperature 96.9 F L Pulse Rate 72 80 73 Respiratory Rate 18 Blood Pressure 123/37 L 112/50 L Pulse Oximetry 93 08/02/20 20:59 08/02/20 21:53 08/03/20 00:00 Temperature 97.1 F L Pulse Rate 66 75 73 Respiratory Rate 16 Blood Pressure 101/40 L Pulse
[2020-08-03] MEDS: lisinopriL 5 MG TABLET PO (17:07)
--- NOTE | 2020-08-03 17:32 | WPDANESEPP ---
Anes - Eval Pre Procedure Procedure: Operation Date: 08/04/20 14:45 Proposed Procedures p Esophagogastroduodenoscopy - Skyler Marin MD Date/Time: 08/03/20 17:32 Pre Op Diagnosis: weakness, leukocytosis, renal infarcts Patient Data Age: 75 Gender: M Height: 6 ft 4 in Weight: 70 kg Last Vital Signs Temp 97.3 F L 08/03/20 12:00 Pulse 71 08/03/20 16:00 Resp 18 08/03/20 12:00 BP 120/50 L 08/03/20 12:00 Pulse Ox 99 08/03/20 12:00 Allergies Allergy/AdvReac Type Severity Reaction Status Date / Time hydrocodone Allergy Unknown Shock Verified 08/01/20 20:45 tramadol Allergy Unknown dizziness. Verified 08/01/20 20:45 amitriptyline AdvReac Mild Dizziness Verified 08/01/20 20:45 Home Medications Medication Instructions Recorded Confirmed Type albuterol sulfate 90 mcg/actuation 2 puff INHALATION Q4-6H PRN gm 04/19/19 08/01/20 History aerosol inhaler amiodarone 200 mg tablet 200 mg PO DAILY 04/19/19 08/01/20 History apixaban 5 mg tablet 5 mg PO BID 04/19/19 08/01/20 History atorvastatin 40 mg tablet 40 mg PO DAILY 04/19/19 08/01/20 History carvedilol 12.5 mg tablet 12.5 mg PO Q12H 04/19/19 08/01/20 History clopidogrel 75 mg tablet 75 mg PO DAILY 04/19/19 08/01/20 History lisinopril 5 mg tablet 5 mg PO QPM 04/19/19 08/01/20 History cyanocobalamin (vitamin B-12) 1,000 mcg PO DAILY #90 tablet 11/15/19 08/01/20 Rx 1,000 mcg tablet duloxetine 60 mg capsule,delayed 60 mg PO BID #180 cap 03/07/20 08/01/20 Rx release folic acid 400 mcg tablet 0.4 mg PO DAILY #90 tablet 03/14/20 08/01/20 Rx acetaminophen-codeine 1 tablet PO Q12H PRN 08/01/20 08/01/20 History ferrous gluconate 324 mg PO BID 08/01/20 08/01/20 History gabapentin 600 mg PO TID 08/01/20 08/01/20 History multivitamin [Daily Multivitamin] 1 tablet PO DAILY 08/01/20 08/01/20 History tamsulosin 0.8 mg PO DAILY 08/01/20 08/01/20 History Laboratory Tests 08/03/20 08/03/20 08/03/20 05:09 05:09 05:09 WBC 14.5 K/mm3 H K/mm3 (4.5-10.0) RBC 3.02 M/mm3 L M/mm3 (4.6-6.20) Hgb 8.3 g/dL L g/dL (14.0-18.0) Hct 25.6 % L % (42.0-52.0) MCV 84.8 fl fl (80-100) MCH 27.5 pg pg (26-34) MCHC 32.4 g/dl g/dl (32-36) RDW 15.0 % H % (11.5-14.5) Plt Count 333 k/mm3 k/mm3 (150-375) MPV 9.3 fl fl (7.4-10.4) Immature Gran % (Auto) 0.8 % H % (0-0.5) Neut % (Auto) 84.1 % H % (45.5-73.1) Lymph % (Auto) 4.3 % L % (18.3-44.2) Caroline % (Auto) 9.8 % H % (2.6-8.5) Eos % (Auto) 0.8 % % (0-4.4) Baso % (Auto) 0.2 % % (0.2-1.2) Lymph # (Auto) 0.62 K/mm3 L K/mm3 (0.9-3.2) [place] # (Auto) 1.4 K/mm3 H K/mm3 (0.1-0.6) Eos # (Auto) 0.1 K/mm3 K/mm3 (0-0.3) Baso # (Auto) 0.0 K/mm3 K/mm3 (0.0-0.1) Abs Immat Gran (auto) 0.12 K/mm3 H K/mm3 (0.00-0.031) Absolute Neuts (auto) 12.2 K/mm3 H K/mm3 (1.3-6.7) Absolute Nucleated RBC 0.0 K/mm3 K/mm3 (0.0-0.012) Nucleated RBC % 0.0 % % (0.0-0.2) Platelet Estimate Adequate (Adequate) Poikilocytosis 1+ (NORMAL) Ovalocytes 1+ (NORMAL) PT 22.5 Seconds H Seconds (11.1-14.7) INR 1.9 Sodium 134 mmol/L L mmol/L (137-145) Potassium 3.9 mmol/L mmol/L (3.4-5.0) Chloride 106 mmol/L mmol/L (98-107) Carbon Dioxide 26 mmol/L mmol/L (22-30) Anion Gap 2 mmol/L L mmol/L (8-16) BUN 16 mg/dL mg/dL (9-20) Creatinine 1.60 mg/dL H mg/dL (0.7-1.3) Estim Creat Clear Calc 37 ml/min ml/min Estimated GFR 43 L (59 - ) Glucose 85 mg/dL mg/dL (75-110) Calcium 8.3 mg/dL L mg/dL (8.4-10.2) Phosphorus 3.1 mg/dL mg/dL (2.5-4.5) Magnesium 1.8 mg/dL mg/dL (1.6-2.3) Iron
[2020-08-03] MEDS: ACETAMINOPHEN/CODEINE (*CRX) 300/30 MG TABLET 1 TAB PO (18:00)
[2020-08-04] VITALS (14 sets, daily range): BP systolic 92–121; BP diastolic 34–64; PULSE 62–98; RESP 16–28; TEMP 35.7–36.7; O2SAT 94–100
[2020-08-04] MEDS: GABAPENTIN 300 MG CAPSULE 600 MG PO ×3 (03:03→22:09)
[2020-08-04 05:41] LABS: Hematocrit 25.6 % (42.0-52.0); Hemoglobin 8.3 g/dL (14.0-18.0); Mean Corpuscular HGB Conc 32.4 g/dl (32-36); Mean Corpuscular Volume 86.5 fl (80-100); Mean Platelet Volume 9.6 fl (7.4-10.4); Platelet Count Result 359 k/mm3 (150-375); Red Blood Count 2.96 M/mm3 (4.6-6.20); White Blood Count 12.6 K/mm3 (4.5-10.0)
[2020-08-04] MEDS: metroNIDAZOLE 500 MG/ISO 100ML 500 MG/100 ML BAG 100 MG IVPB ×3 (05:49→22:09)
[2020-08-04 05:59] LABS: Alanine Aminotransferase 51 U/L (4-50); Albumin Level 2.6 g/dL (3.5-5.1); Alkaline Phosphatase 76 U/L (38-126); Anion Gap 1 mmol/L (8-16); Aspartate Amino Transferase 58 U/L (17-59); Bilirubin,Total 0.2 mg/dL (0.2-1.3); Blood Urea Nitrogen 17 mg/dL (9-20); Calcium 8.2 mg/dL (8.4-10.2); Carbon Dioxide 26 mmol/L (22-30); Chloride 108 mmol/L (98-107); Estimated CRCL calculation 39 ml/min; Estimated Glomerular Filt Rate 46; Glucose 92 mg/dL (75-110); Lipase 340 U/L (23-300); Magnesium 1.9 mg/dL (1.6-2.3); Potassium 3.7 mmol/L (3.4-5.0); Sodium 135 mmol/L (137-145)
[2020-08-04 06:19] LABS: CRP 17.3 mg/dL (<1.0)
[2020-08-04] MEDS: AMIODARONE HCL 200 MG TABLET PO (10:09)
[2020-08-04] MEDS: TAMSULOSIN HCL 0.4 MG CAPSULE 0.8 MG PO (10:10)
[2020-08-04] MEDS: carvediloL 12.5 MG TABLET PO ×2 (10:10→20:26)
--- NOTE | 2020-08-04 10:23 | PCPTNOTE ---
The PT treatment was unable to be completed today due to patient refusal. Patient reports he is NPO for testing and does not want any therapy today. Will continue per Plan of Care frequency and duration.
[2020-08-04] MEDS: ACETAMINOPHEN/CODEINE (*CRX) 300/30 MG TABLET 1 TAB PO ×2 (10:25→22:08)
--- NOTE | 2020-08-04 11:17 | WPDANESEPPF ---
Anes - Initial Pre Proc Eval Procedure: Operation Date: 08/04/20 14:45 Proposed Procedures p Esophagogastroduodenoscopy - Skyler Marin MD Date/Time: 08/04/20 11:17 Surgeon: Nallely Mehta PA-C Pre Op Diagnosis: weakness, leukocytosis, renal infarcts Patient Data Age: 75 Gender: M Height: 6 ft 4 in Weight: 70 kg Last Vital Signs Temp 36.5 C 08/04/20 11:01 Pulse 73 08/04/20 11:01 Resp 18 08/04/20 11:01 BP 115/34 L 08/04/20 11:01 Pulse Ox 96 08/04/20 11:01 Allergies Allergy/AdvReac Type Severity Reaction Status Date / Time hydrocodone Allergy Unknown Shock Verified 08/04/20 11:00 tramadol Allergy Unknown dizziness. Verified 08/04/20 11:00 amitriptyline AdvReac Mild Dizziness Verified 08/04/20 11:00 Home Medications Medication Instructions Recorded Confirmed Type albuterol sulfate 90 mcg/actuation 2 puff INHALATION Q4-6H PRN gm 04/19/19 08/01/20 History aerosol inhaler amiodarone 200 mg tablet 200 mg PO DAILY 04/19/19 08/01/20 History apixaban 5 mg tablet 5 mg PO BID 04/19/19 08/01/20 History atorvastatin 40 mg tablet 40 mg PO DAILY 04/19/19 08/01/20 History carvedilol 12.5 mg tablet 12.5 mg PO Q12H 04/19/19 08/01/20 History clopidogrel 75 mg tablet 75 mg PO DAILY 04/19/19 08/01/20 History lisinopril 5 mg tablet 5 mg PO QPM 04/19/19 08/01/20 History cyanocobalamin (vitamin B-12) 1,000 mcg PO DAILY #90 tablet 11/15/19 08/01/20 Rx 1,000 mcg tablet duloxetine 60 mg capsule,delayed 60 mg PO BID #180 cap 03/07/20 08/01/20 Rx release folic acid 400 mcg tablet 0.4 mg PO DAILY #90 tablet 03/14/20 08/01/20 Rx acetaminophen-codeine 1 tablet PO Q12H PRN 08/01/20 08/01/20 History ferrous gluconate 324 mg PO BID 08/01/20 08/01/20 History gabapentin 600 mg PO TID 08/01/20 08/01/20 History multivitamin [Daily Multivitamin] 1 tablet PO DAILY 08/01/20 08/01/20 History tamsulosin 0.8 mg PO DAILY 08/01/20 08/01/20 History Laboratory Tests 08/04/20 08/04/20 08/04/20 05:14 05:14 05:14 WBC 12.6 K/mm3 H K/mm3 (4.5-10.0) RBC 2.96 M/mm3 L M/mm3 (4.6-6.20) Hgb 8.3 g/dL L g/dL (14.0-18.0) Hct 25.6 % L % (42.0-52.0) MCV 86.5 fl fl (80-100) MCH 28.0 pg pg (26-34) MCHC 32.4 g/dl g/dl (32-36) RDW 15.0 % H % (11.5-14.5) Plt Count 359 k/mm3 k/mm3 (150-375) MPV 9.6 fl fl (7.4-10.4) Sodium 135 mmol/L L mmol/L (137-145) Potassium 3.7 mmol/L mmol/L (3.4-5.0) Chloride 108 mmol/L H mmol/L (98-107) Carbon Dioxide 26 mmol/L mmol/L (22-30) Anion Gap 1 mmol/L L mmol/L (8-16) BUN 17 mg/dL mg/dL (9-20) Creatinine 1.50 mg/dL H mg/dL (0.7-1.3) Estim Creat Clear Calc 39 ml/min ml/min Estimated GFR 46 L (59 - ) Glucose 92 mg/dL mg/dL (75-110) Calcium 8.2 mg/dL L mg/dL (8.4-10.2) Magnesium 1.9 mg/dL mg/dL (1.6-2.3) Total Bilirubin 0.2 mg/dL mg/dL (0.2-1.3) Direct Bilirubin 0.0 mg/dL mg/dL (0-0.3) AST 58 U/L U/L (17-59) ALT 51 U/L H U/L (4-50) Alkaline Phosphatase 76 U/L U/L (38-126) C-Reactive Protein 17.3 mg/dL H mg/dL (<1.0) Total Protein 6.0 g/dL L g/dL (6.3-8.2) Albumin 2.6 g/dL L g/dL (3.5-5.1) Lipase 340 U/L H U/L (23-300) TSH (Reflex) 3.500 uIU/mL uIU/mL (0.465-4.68) Patient hx anesthesia problems: none Family hx anesthesia problems: none [facility] Past Medical History Medical History Alcohol abuse Atherosclerotic heart disease of [place] coronary artery with other forms of angina pectoris Atypical chest pain CAD (coronary artery disease) Cardiomyopathy Chronic anemia Chronic kidney disease, stage 3a E coli bacteremia Emphysema, unspecified Essential (primary) h
[2020-08-04] MEDS: LACTATED RINGERS 1,000 ML 150 ML IV CONT (11:22)
[2020-08-04] MEDS: MULTIVITAMINS THERAPEUTIC TAB (*BKC) 1 TABLET PO (13:40)
[2020-08-04] MEDS: FOLIC ACID 0.4 MG TABLET PO (13:40)
[2020-08-04] MEDS: FERROUS GLUCONATE 324 MG TABLET PO ×2 (13:40→17:00)
[2020-08-04] MEDS: DULoxetine HCL 60 MG CAPSULE.DR PO ×2 (13:40→20:27)
[2020-08-04] MEDS: CLOPIDOGREL BISULFATE 75 MG TABLET PO (13:40)
[2020-08-04] MEDS: CYANOCOBALAMIN 1,000 MCG TABLET 1000 MCG PO (13:40)
[2020-08-04] MEDS: SUCRALFATE SUSP 100 MG/ML 10 ML UDC 1000 MG PO ×3 (13:41→20:27)
[2020-08-04] MEDS: polyethylene glycoL 3350 17 GM POWD.PACK PO (13:50)
[2020-08-04] MEDS: ATORVASTATIN 40 MG TABLET PO (13:50)
[2020-08-04] MEDS: APIXABAN 5 MG TABLET PO ×2 (13:50→20:26)
--- NOTE | 2020-08-04 14:14 | PM.IMPN ---
Progress Note: A&P Assessment and Plan (1) Epigastric pain: Code(s): R10.13 - Epigastric pain Status: Acute Assessment and Plan: Epigastric pain is the main reason the patient came into the hospital -today he states it is getting better and he is going to try some lunch -EGD shows esophagitis but no gastritis or ulcers - Lipase is a little elevated this morning but was normal on admission. Pancreas on CT without abnormality. Pain is already improving. Gastroenteritis less likely since he is not having any diarrhea. Could be constipation although seems a bit extreme. Chronic mesenteric ischemia? Lactic normal on admission -CTA of the abdomen reviewed, continue Eliquis and Plavix -will consult GI, continue PPI, add Carafate (2) Positive blood culture: Code(s): R78.81 - Bacteremia Status: Acute Assessment and Plan: One blood cultures growing E coli and both growing gram-positive cocci in chains -repeat blood cultures have no growth to date. -could be from the GI tract. No skin infections. Patient does have poor dentition. No abnormality on echo -continue ceftriaxone and Flagy -ID consulted (3) Infarction of kidney: Code(s): N28.0 - Ischemia and infarction of kidney Status: Acute Assessment and Plan: Etiology unclear. CT abdomen demonstrates acute to subacute renal infarcts with additional unchanged small regions of bilateral renal cortical scarring consistent with prior chronic infarcts suggesting this is not a new process. -He remains on systemic anticoagulation with Eliquis. Remains on Plavix. He reports he has not missed any doses. Could consider changing Plavix to Brilinta but I think this would be a to high of a bleeding risk while on Eliquis as well. -continue MARRY-inhibitor -may need some intervention at a tertiary care center once patient improves from acute illness. I do not think the renal abnormalities are completely acute, no emergent procedure needed. -consider septic emboli since he has bacteremia, although less likely -creatinine stable 1.5 today (4) Femoral-tibial bypass graft occlusion, right: Qualifiers: Encounter type: sequela Qualified Code(s): T82.898S - Other specified complication of vascular prosthetic devices, implants and grafts, sequela Code(s): T82.898A - Other specified complication of vascular prosthetic devices, implants and grafts, initial encounter Status: Chronic Assessment and Plan: Chronic and his vascular surgeon, Dr Haider Pretty, is aware of same. -Please see H&P for outlined details of his several surgical interventions. Requested to obtain records from Dr. Pretty. (5) Atherosclerotic heart disease of [place] coronary artery with other forms of angina pectoris: Code(s): I25.118 - Atherosclerotic heart disease of [place] coronary artery with other forms of angina pectoris Status: Acute Assessment and Plan: As above (6) Paroxysmal atrial fibrillation: Code(s): I48.0 - Paroxysmal atrial fibrillation Status: Chronic Assessment and Plan: Continue his home amiodarone, Coreg, Eliquis. (7) Essential (primary) hypertension: Code(s): I10 - Essential (primary) hypertension Status: Chronic Assessment and Plan: Last blood pressure 119/50 -continue Coreg and lisinopril (8) Anemia: Onset Date: 04/16/18 Qualifiers: Anemia type: unspecified type Qualified Code(s): D64.9 - Anemia, unspecified Code(s): D64.9 - Anemia, unspecified Status: Chronic Assessment and Plan: H&H low but stable, no evidence of acute bleeding. -Chronic on review of previous labs -anemia labs looks like anemia chronic disease but could also have iron deficiency mixed in -iron studies reviewed, will add oral iron at d/c (9) Weakness: Code(s): R53.1 - Weakness Status: Acute Assessment a
[2020-08-04] MEDS: BISACODYL 5 MG TABLET EC PO (15:18)
[2020-08-04] MEDS: lisinopriL 5 MG TABLET PO (17:01)
[2020-08-04] MEDS: ACETAMINOPHEN 325 MG TABLET 650 MG PO (20:25)
[2020-08-05] VITALS (10 sets, daily range): BP systolic 92–128; BP diastolic 46–66; PULSE 66–83; RESP 16–18; TEMP 36.1–36.3; O2SAT 94–99
[2020-08-05] MEDS: GABAPENTIN 300 MG CAPSULE 600 MG PO ×3 (02:57→20:57)
[2020-08-05 05:52] LABS: Basophils Percent Auto 0.4 % (0.2-1.2); Eosinophils Absolute Auto 0.4 K/mm3 (0-0.3); Eosinophils Percent Auto 3.8 % (0-4.4); Hematocrit 25.6 % (42.0-52.0); Hemoglobin 8.1 g/dL (14.0-18.0); Immature Granulocyte Absolute 0.05 K/mm3 (0.00-0.031); Immature Granulocyte Percent A 0.5 % (0-0.5); Lymphocytes Absolute Auto 0.58 K/mm3 (0.9-3.2); Lymphocytes Percent Auto 6.3 % (18.3-44.2); Mean Corpuscular HGB Conc 31.6 g/dl (32-36); Mean Corpuscular Hemoglobin 26.7 pg (26-34); Mean Corpuscular Volume 84.5 fl (80-100); Mean Platelet Volume 9.8 fl (7.4-10.4); Monocytes Absolute Auto 0.9 K/mm3 (0.1-0.6); Monocytes Percent Auto 10.2 % (2.6-8.5); Neutrophils Absolute Auto 7.2 K/mm3 (1.3-6.7); Neutrophils Percent Auto 78.8 % (45.5-73.1); Platelet Count Result 395 k/mm3 (150-375); Red Blood Count 3.03 M/mm3 (4.6-6.20); Red Cell Distribution Width 14.8 % (11.5-14.5); White Blood Count 9.1 K/mm3 (4.5-10.0)
[2020-08-05 05:55] LABS: Anion Gap 0 mmol/L (8-16); Blood Urea Nitrogen 13 mg/dL (9-20); Calcium 8.3 mg/dL (8.4-10.2); Carbon Dioxide 29 mmol/L (22-30); Chloride 108 mmol/L (98-107); Estimated CRCL calculation 42 ml/min; Estimated Glomerular Filt Rate 50; Glucose 92 mg/dL (75-110); Lipase 77 U/L (23-300); Potassium 3.8 mmol/L (3.4-5.0); Sodium 137 mmol/L (137-145)
[2020-08-05 05:56] LABS: INR 2.5; Prothrombin Time 27.4 Seconds (11.1-14.7)
[2020-08-05 06:07] LABS: CRP 14.1 mg/dL (<1.0)
[2020-08-05] MEDS: SUCRALFATE SUSP 100 MG/ML 10 ML UDC 1000 MG PO ×4 (06:11→20:57)
[2020-08-05] MEDS: metroNIDAZOLE 500 MG/ISO 100ML 500 MG/100 ML BAG 100 MG IVPB ×3 (06:11→20:57)
--- NOTE | 2020-08-05 08:14 | PM.IMPN ---
Progress Note: A&P Assessment and Plan (1) Epigastric pain: Code(s): R10.13 - Epigastric pain Status: Acute Assessment and Plan: Epigastric pain is the main reason the patient came into the hospital -today he states it is getting better but now it is in the right lower quadrant -Will add Bentyl to see if this helps. I will also order mag citrate in case constipation is complicating his pain. -EGD shows esophagitis but no gastritis or ulcers - Lipase normal, pancreas on CT without abnormality. Gastroenteritis less likely since he is not having any diarrhea. Could be constipation although seems a bit extreme. Chronic mesenteric ischemia? Lactic normal on admission -CTA of the abdomen reviewed, continue Eliquis and Plavix - continue PPI and Carafate (2) Positive blood culture: Code(s): R78.81 - Bacteremia Status: Acute Assessment and Plan: One blood cultures growing E coli and both growing gram-positive cocci in chains -repeat blood cultures have no growth to date. -Await identification and sensitivities of the gram-positive cocci although I suspect it may be strep. -His WBC is normal today and pt is feeling much better (weakness nance) -could be from the GI tract. No skin infections. Patient does have poor dentition. No abnormality on echo -continue ceftriaxone and Flagy -ID consulted (3) Infarction of kidney: Code(s): N28.0 - Ischemia and infarction of kidney Status: Acute Assessment and Plan: Etiology unclear. CT abdomen demonstrates acute to subacute renal infarcts with additional unchanged small regions of bilateral renal cortical scarring consistent with prior chronic infarcts suggesting this is not a new process. -He remains on systemic anticoagulation with Eliquis. Remains on Plavix. He reports he has not missed any doses. Could consider changing Plavix to Brilinta but I think this would be a to high of a bleeding risk while on Eliquis as well. -continue MARRY-inhibitor -may need some intervention at a tertiary care center once patient improves from acute illness. I do not think the renal abnormalities are completely acute, no emergent procedure needed. -consider septic emboli since he has bacteremia, although less likely -creatinine stable 1.4 today (4) Femoral-tibial bypass graft occlusion, right: Qualifiers: Encounter type: sequela Qualified Code(s): T82.898S - Other specified complication of vascular prosthetic devices, implants and grafts, sequela Code(s): T82.898A - Other specified complication of vascular prosthetic devices, implants and grafts, initial encounter Status: Chronic Assessment and Plan: Chronic and his vascular surgeon, Dr Haider Pretty, is aware of same. -Please see H&P for outlined details of his several surgical interventions. (5) Atherosclerotic heart disease of [place] coronary artery with other forms of angina pectoris: Code(s): I25.118 - Atherosclerotic heart disease of [place] coronary artery with other forms of angina pectoris Status: Acute Assessment and Plan: As above (6) Paroxysmal atrial fibrillation: Code(s): I48.0 - Paroxysmal atrial fibrillation Status: Chronic Assessment and Plan: Continue his home amiodarone, Coreg, Eliquis. -will d/c tele since he has been in [facility] without alarm reviews the entire stay (7) Essential (primary) hypertension: Code(s): I10 - Essential (primary) hypertension Status: Chronic Assessment and Plan: Last blood pressure 104/54 -continue Coreg and lisinopril (8) Anemia: Onset Date: 04/16/18 Qualifiers: Anemia type: unspecified type Qualified Code(s): D64.9 - Anemia, unspecified Code(s): D64.9 - Anemia, unspecified Status: Chronic Assessment and Plan: H&H low but stable, no evidence of acute bleeding. -Chronic on review of previous labs -anemia
[2020-08-05] MEDS: TAMSULOSIN HCL 0.4 MG CAPSULE 0.8 MG PO (08:17)
[2020-08-05] MEDS: FOLIC ACID 0.4 MG TABLET PO (08:17)
[2020-08-05] MEDS: polyethylene glycoL 3350 17 GM POWD.PACK PO (08:17)
[2020-08-05] MEDS: DULoxetine HCL 60 MG CAPSULE.DR PO ×2 (08:17→20:57)
[2020-08-05] MEDS: FERROUS GLUCONATE 324 MG TABLET PO ×2 (08:18→16:05)
[2020-08-05] MEDS: ATORVASTATIN 40 MG TABLET PO (08:18)
[2020-08-05] MEDS: AMIODARONE HCL 200 MG TABLET PO (08:18)
[2020-08-05] MEDS: PANTOPRAZOLE 40 MG TABLET PO (08:18)
[2020-08-05] MEDS: CLOPIDOGREL BISULFATE 75 MG TABLET PO (08:18)
[2020-08-05] MEDS: APIXABAN 5 MG TABLET PO ×2 (08:18→20:56)
[2020-08-05] MEDS: CYANOCOBALAMIN 1,000 MCG TABLET 1000 MCG PO (08:19)
[2020-08-05] MEDS: carvediloL 12.5 MG TABLET PO ×2 (08:19→20:56)
[2020-08-05] MEDS: MULTIVITAMINS THERAPEUTIC TAB (*BKC) 1 TABLET PO (08:19)
[2020-08-05] MEDS: ACETAMINOPHEN/CODEINE (*CRX) 300/30 MG TABLET 1 TAB PO ×2 (08:25→20:56)
[2020-08-05 10:26] LABS: Kappa\\Lambda Light Chains 1.49 (0.26-1.65); Lambda Light Chain 81.6 mg/L (5.7-26.3)
--- NOTE | 2020-08-05 11:12 | P.PNAN_ITS ---
Anes - Prog Note Post-Op Date/Time: 08/05/20 11:12 Cardiovascular status: normal Respiratory status: normal Airway patency: baseline Mental status: baseline Post-Op hydration status: normal Vital Signs: Last Vital Signs Temp 36.1 C L 08/05/20 10:00 Pulse 66 08/05/20 10:00 Resp 18 08/05/20 10:00 BP 92/46 L 08/05/20 10:00 Pulse Ox 96 08/05/20 10:00 Pain Score (VAS): 0 I/O: Intake & Output 08/04/20 08/05/20 08/05/20 23:59 07:59 15:59 Intake Total 320 300 240 Output Total 350 350 Balance -30 -50 240 Laboratory Tests 08/05/20 04:48 08/05/20 04:48 08/02/20 08/05/20 08/05/20 08:30 04:48 04:48 WBC 9.1 RBC 3.03 L Hgb 8.1 L Hct 25.6 L MCV 84.5 MCH 26.7 MCHC 31.6 L RDW 14.8 H Plt Count 395 H MPV 9.8 Immature Gran % (Auto) 0.5 Neut % (Auto) 78.8 H Lymph % (Auto) 6.3 L [place] % (Auto) 10.2 H Eos % (Auto) 3.8 Baso % (Auto) 0.4 Lymph # (Auto) 0.58 L [place] # (Auto) 0.9 H Eos # (Auto) 0.4 H Baso # (Auto) 0.0 Abs Immat Gran (auto) 0.05 H Absolute Neuts (auto) 7.2 H Absolute Nucleated RBC 0.0 Nucleated RBC % 0.0 PT 27.4 H D INR 2.5 Sodium Potassium Chloride Carbon Dioxide Anion Gap BUN Creatinine Estim Creat Clear Calc Estimated GFR Glucose Calcium C-Reactive Protein Lipase Benjamin Perez/Lambda Ratio 1.49 Free Benjamin Perez Light Chains 121.9 H Free Lambda Light Chain 81.6 H 08/05/20 04:48 WBC RBC Hgb Hct MCV MCH MCHC RDW Plt Count MPV Immature Gran % (Auto) Neut % (Auto) Lymph % (Auto) [place] % (Auto) Eos % (Auto) Baso % (Auto) Lymph # (Auto) [place] # (Auto) Eos # (Auto) Baso # (Auto) Abs Immat Gran (auto) Absolute Neuts (auto) Absolute Nucleated RBC Nucleated RBC % PT INR Sodium 137 Potassium 3.8 Chloride 108 H Carbon Dioxide 29 Anion Gap 0 L BUN 13 Creatinine 1.40 H Estim Creat Clear Calc 42 Estimated GFR 50 L Glucose 92 Calcium 8.3 L C-Reactive Protein 14.1 H Lipase 77 Benjamin Perez/Lambda Ratio Free Benjamin Perez Light Chains Free Lambda Light Chain Microbiology 08/03/20 10:21 Blood Blood Culture - Preliminary 08/03/20 10:21 Blood Blood Culture - Preliminary Post-procedural complaints: none Patient Feedback: Patient satisfied with anesthetic care.
--- NOTE | 2020-08-05 11:24 | PM.PNNEP ---
Progress Note: A&P Assessment and Plan (1) Chronic kidney disease, stage 3a: Code(s): N18.31 - Chronic kidney disease, stage 3a Status: Acute Assessment and Plan: the patient has chronic kidney disease stage IIIA. His creatinine is 1.4 and has been at about this level since 2019. most likely due to hypertension, vascular disease, and the renal infarcts. He should follow up in our office for further management. (2) Infarction of kidney: Code(s): N28.0 - Ischemia and infarction of kidney Status: Acute Assessment and Plan: He has multiple wedge defects in the kidneys. 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 Appreciate Dr. Correia's input. (3) Positive blood culture: Code(s): R78.81 - Bacteremia Status: Acute Assessment and Plan: the patient has Gram-negative bacilli. Perhaps he flipped Some calcium plaque off of the proximal plaque of the celiac artery. he is getting antibiotics. Dr. pickett is seeing him. (4) CAD (coronary artery disease): Qualifiers: Coronary Disease-Associated Artery/Lesion type: unspecified vessel or lesion type [place] vs. transplanted heart: [place] heart Associated angina: with unspecified angina Qualified Code(s): I25.119 - Atherosclerotic heart disease of [place] coronary artery with unspecified angina pectoris Code(s): I25.10 - Atherosclerotic heart disease of [place] coronary artery without angina pectoris Status: Chronic Assessment and Plan: No chest pain or shortness of breath (5) Paroxysmal atrial fibrillation: Code(s): I48.0 - Paroxysmal atrial fibrillation Status: Chronic Assessment and Plan: he is presently in sinus rhythm (6) Essential (primary) hypertension: Code(s): I10 - Essential (primary) hypertension Status: Chronic Assessment and Plan: his blood pressure is well controlled (7) Anemia: Onset Date: 04/16/18 Qualifiers: Anemia type: unspecified type Qualified Code(s): D64.9 - Anemia, unspecified Code(s): D64.9 - Anemia, unspecified Status: Chronic Assessment and Plan: his hemoglobin is lower. Will start some EPO No reason to get iron levels because we can't treat with an active infection anyway. Subjective Date/time seen: 08/05/20 11:24 Interval history: Hernando is feeling about the same today. Still has some belly pain but is better. He had a good bowel movement this morning. No chest pain or shortness of breath. Review of Systems Cardiovascular: Cardiovascular: Reports no additional cardiovascular complaints Respiratory: Respiratory: Reports no additional respiratory complaints Gastrointestinal: Gastrointestinal: Reports no additional gastrointestinal complaints Genitourinary: Genitourinary: Reports no additional male genitourinary complaints Exam Narrative: Exam Narrative: WDWN in NAD skin no rash Or subcu nodules head ncat lungs clear cor reg no rub or gallop abd BS+ nontender and soft ext no edema or cyanosis. Objective Data Vital Signs Vital Signs: Vital Signs - 24 hr 08/04/20 12:00 08/04/20 12:19 08/04/20 12:29 Temperature Pulse Rate 68 62 63 Respiratory Rate 18 28 H Blood Pressure 96/34 L 92/34 L Pulse Oximetry 100 97 08/04/20 12:39 08/04/20 13:00 08/04/20 16:00 Temperature 35.7 C L 36.1 C L Pulse Rate 63 98 71 Respiratory Rate 22 H 18 18 Blood Pressure 96/51 L 119/50 L 120/58 L Pulse Oximetry 97 98 98 08/04/20 20:00 08/04/20 20:26 08/05/20 00:00 Temperature 36.2 C L Pulse Rate 78 78 67 Respiratory Rate 16 Blood Pressure 102/64 Pulse Oximetry 97 08/05/20 01:31 08/05/20 04:00 08/05/20 08:00 Temperature 36.3 C L 36.3 C L Pulse Rate 76 72 83 Respiratory Rate 18 16 Blood Pressure 108/66 104/54 L Pulse Oximetry 96 94 08/05/20 08:18 08/05/20 08:19 08/05/20 10:00
[2020-08-05] MEDS: lisinopriL 5 MG TABLET PO (17:27)
[2020-08-05] MEDS: ACETAMINOPHEN 325 MG TABLET 650 MG PO (18:28)
[2020-08-05] MEDS: EPOETIN ALFA-EPBX 10,000 UNITS/ML VIAL 10000 UNITS SUB-Q (18:29)
[2020-08-06] VITALS (9 sets, daily range): BP systolic 106–133; BP diastolic 48–88; PULSE 60–80; RESP 16–18; TEMP 36–36.5; O2SAT 96–100
[2020-08-06] MEDS: GABAPENTIN 300 MG CAPSULE 600 MG PO ×3 (02:37→21:00)
[2020-08-06 05:48] LABS: Basophils Absolute Auto 0.1 K/mm3 (0.0-0.1); Basophils Percent Auto 0.5 % (0.2-1.2); Eosinophils Absolute Auto 0.3 K/mm3 (0-0.3); Eosinophils Percent Auto 3.1 % (0-4.4); Hematocrit 25.9 % (42.0-52.0); Hemoglobin 8.3 g/dL (14.0-18.0); Immature Granulocyte Absolute 0.05 K/mm3 (0.00-0.031); Immature Granulocyte Percent A 0.5 % (0-0.5); Lymphocytes Absolute Auto 0.66 K/mm3 (0.9-3.2); Lymphocytes Percent Auto 7.1 % (18.3-44.2); Mean Corpuscular Hemoglobin 26.9 pg (26-34); Mean Corpuscular Volume 83.8 fl (80-100); Mean Platelet Volume 9.7 fl (7.4-10.4); Monocytes Percent Auto 10.3 % (2.6-8.5); Neutrophils Absolute Auto 7.2 K/mm3 (1.3-6.7); Neutrophils Percent Auto 78.5 % (45.5-73.1); Platelet Count Result 427 k/mm3 (150-375); Red Blood Count 3.09 M/mm3 (4.6-6.20); Red Cell Distribution Width 14.9 % (11.5-14.5); White Blood Count 9.2 K/mm3 (4.5-10.0)
[2020-08-06 06:01] LABS: INR 2.2; Prothrombin Time 25.2 Seconds (11.1-14.7)
[2020-08-06] MEDS: SUCRALFATE SUSP 100 MG/ML 10 ML UDC 1000 MG PO ×4 (06:06→20:13)
[2020-08-06] MEDS: metroNIDAZOLE 500 MG/ISO 100ML 500 MG/100 ML BAG 100 MG IVPB ×3 (06:07→21:11)
[2020-08-06 06:21] LABS: Alanine Aminotransferase 48 U/L (4-50); Albumin Level 2.6 g/dL (3.5-5.1); Alkaline Phosphatase 70 U/L (38-126); Anion Gap 1 mmol/L (8-16); Aspartate Amino Transferase 69 U/L (17-59); Bilirubin,Total 0.3 mg/dL (0.2-1.3); Blood Urea Nitrogen 12 mg/dL (9-20); CRP 8.8 mg/dL (<1.0); Calcium 8.3 mg/dL (8.4-10.2); Carbon Dioxide 30 mmol/L (22-30); Chloride 109 mmol/L (98-107); Estimated CRCL calculation 45 ml/min; Estimated Glomerular Filt Rate 54; Glucose 89 mg/dL (75-110); Phosphorus 2.3 mg/dL (2.5-4.5); Sodium 140 mmol/L (137-145)
[2020-08-06 07:04] LABS: IFOB Positive Control Positive; Immunochemical Fecal Occult Bl Positive (N)
[2020-08-06 07:29] LABS: Albumin 2.5 g/dL (3.8-4.8); Alpha 1 Globulin 0.5 g/dL (0.2-0.3); Alpha 2 Globulin 0.6 g/dL (0.5-0.9); Beta 1 Globulin 0.4 g/dL (0.4-0.6); Gamma Globulin 1.3 g/dL (0.8-1.7); Protein, Total 5.7 g/dL (6.1-8.1)
[2020-08-06] MEDS: TAMSULOSIN HCL 0.4 MG CAPSULE 0.8 MG PO (08:20)
[2020-08-06] MEDS: DULoxetine HCL 60 MG CAPSULE.DR PO ×2 (08:20→20:14)
[2020-08-06] MEDS: CYANOCOBALAMIN 1,000 MCG TABLET 1000 MCG PO (08:20)
[2020-08-06] MEDS: FERROUS GLUCONATE 324 MG TABLET PO ×2 (08:20→17:15)
[2020-08-06] MEDS: MULTIVITAMINS THERAPEUTIC TAB (*BKC) 1 TABLET PO (08:20)
[2020-08-06] MEDS: CLOPIDOGREL BISULFATE 75 MG TABLET PO (08:21)
[2020-08-06] MEDS: carvediloL 12.5 MG TABLET PO ×2 (08:21→20:13)
[2020-08-06] MEDS: PANTOPRAZOLE 40 MG TABLET PO (08:21)
[2020-08-06] MEDS: ATORVASTATIN 40 MG TABLET PO (08:21)
[2020-08-06] MEDS: APIXABAN 5 MG TABLET PO ×2 (08:21→20:13)
[2020-08-06] MEDS: FOLIC ACID 0.4 MG TABLET PO (08:21)
[2020-08-06] MEDS: AMIODARONE HCL 200 MG TABLET PO (08:21)
[2020-08-06] MEDS: DICYCLOMINE HCL 10 MG CAPSULE 20 MG PO (08:27)
--- NOTE | 2020-08-06 08:45 | PCOTNOTE ---
Patient declined treatment this date due to poor sleep and multiple episodes of diarrhea. Patient reports stool sample collected.
--- NOTE | 2020-08-06 09:45 | P.PNIM_ITS ---
Progress Note: A&P Assessment and Plan (1) Epigastric pain: Code(s): R10.13 - Epigastric pain Status: Acute Assessment and Plan: * Epigastric pain is the main reason the patient came into the hospital, stable/improved. * Continue Bentyl. Had two loose BMs this morning. * EGD 08/04 demonstrated esophagitis without gastritis or ulcers. * Lipase within normal limits, pancreas on CT without abnormality. Gastroenter itis less likely since loose BMs this morning are new and his pain has been going on for months. Chronic mesenteric ischemia? Lactic normal on admission, no evidence of ischemia on CT. * CTA of the abdomen reviewed, continue Eliquis and Plavix. * Continue PPI and Carafate. (2) Positive blood culture: Code(s): R78.81 - Bacteremia Status: Acute Assessment and Plan: * One blood culture growing E coli and both growing gram-positive cocci in chains. * Leukocytosis is resolved. Repeat blood cultures have no growth to date. * Etiology unclear; recent endovascular procedures; no rashes. Does have poor dentition. Echocardiogram reviewed. * Remains on IV ceftriaxone and Flagyl - appreciate ID recommendations. Awaiting further sensitivity results. (3) Infarction of kidney: Code(s): N28.0 - Ischemia and infarction of kidney Status: Acute Assessment and Plan: * Etiology unclear. CT abdomen demonstrates acute to subacute renal infarcts with additional unchanged small regions of bilateral renal cortical scarring consistent with prior chronic infarcts suggesting this is not a new process. * He remains on systemic anticoagulation with Eliquis. Remains on Plavix. He reports he has not missed any doses. * Continue MARRY-inhibitor * May need some intervention at a tertiary care center once patient improves from acute illness. (his vascular surgeon is at [facility]) but since it is suspected his renal abnormalities are not completely acute, no emergent procedure needed. * Renal function remains stable, monitor. (4) Femoral-tibial bypass graft occlusion, right: Qualifiers: Encounter type: sequela Qualified Code(s): T82.898S - Other specified complication of vascular prosthetic devices, implants and grafts, sequela Code(s): T82.898A - Other specified complication of vascular prosthetic devices, implants and grafts, initial encounter Status: Chronic Assessment and Plan: * Chronic and his vascular surgeon, Dr Haider Pretty, is aware of same. * Please see H&P for outlined details of his several surgical interventions. (5) Atherosclerotic heart disease of [place] coronary artery with other forms of angina pectoris: Code(s): I25.118 - Atherosclerotic heart disease of [place] coronary artery with other forms of angina pectoris Status: Chronic Assessment and Plan: * As above (6) Paroxysmal atrial fibrillation: Code(s): I48.0 - Paroxysmal atrial fibrillation Status: Chronic Assessment and Plan: * Continue his home amiodarone, Coreg, Eliquis. (7) Essential (primary) hypertension: Code(s): I10 - Essential (primary) hypertension Status: Chronic Assessment and Plan: * Blood pressures reviewed, stable. Last 110/48 maintained on his home Coreg and lisinopril. Monitor BP and adjust treatment as needed.
--- NOTE | 2020-08-06 09:45 | PM.IMPN ---
Progress Note: A&P Assessment and Plan (1) Epigastric pain: Code(s): R10.13 - Epigastric pain Status: Acute Assessment and Plan: Epigastric pain is the main reason the patient came into the hospital, stable/improved. Continue Bentyl. Had two loose BMs this morning. EGD 08/04 demonstrated esophagitis without gastritis or ulcers. Lipase within normal limits, pancreas on CT without abnormality. Gastroenteritis less likely since loose BMs this morning are new and his pain has been going on for months. Chronic mesenteric ischemia? Lactic normal on admission, no evidence of ischemia on CT. CTA of the abdomen reviewed, continue Eliquis and Plavix. Continue PPI and Carafate. (2) Positive blood culture: Code(s): R78.81 - Bacteremia Status: Acute Assessment and Plan: One blood culture growing E coli and both growing gram-positive cocci in chains. Leukocytosis is resolved. Repeat blood cultures have no growth to date. Etiology unclear; recent endovascular procedures; no rashes. Does have poor dentition. Echocardiogram reviewed. Remains on IV ceftriaxone and Flagyl - appreciate ID recommendations. Awaiting further sensitivity results. (3) Infarction of kidney: Code(s): N28.0 - Ischemia and infarction of kidney Status: Acute Assessment and Plan: Etiology unclear. CT abdomen demonstrates acute to subacute renal infarcts with additional unchanged small regions of bilateral renal cortical scarring consistent with prior chronic infarcts suggesting this is not a new process. He remains on systemic anticoagulation with Eliquis. Remains on Plavix. He reports he has not missed any doses. Continue MARRY-inhibitor May need some intervention at a tertiary care center once patient improves from acute illness. (his vascular surgeon is at [facility]) but since it is suspected his renal abnormalities are not completely acute, no emergent procedure needed. Renal function remains stable, monitor. (4) Femoral-tibial bypass graft occlusion, right: Qualifiers: Encounter type: sequela Qualified Code(s): T82.898S - Other specified complication of vascular prosthetic devices, implants and grafts, sequela Code(s): T82.898A - Other specified complication of vascular prosthetic devices, implants and grafts, initial encounter Status: Chronic Assessment and Plan: Chronic and his vascular surgeon, Dr Haider Pretty, is aware of same. Please see H&P for outlined details of his several surgical interventions. (5) Atherosclerotic heart disease of [place] coronary artery with other forms of angina pectoris: Code(s): I25.118 - Atherosclerotic heart disease of [place] coronary artery with other forms of angina pectoris Status: Chronic Assessment and Plan: As above (6) Paroxysmal atrial fibrillation: Code(s): I48.0 - Paroxysmal atrial fibrillation Status: Chronic Assessment and Plan: Continue his home amiodarone, Coreg, Eliquis. (7) Essential (primary) hypertension: Code(s): I10 - Essential (primary) hypertension Status: Chronic Assessment and Plan: Blood pressures reviewed, stable. Last 110/48 maintained on his home Coreg and lisinopril. Monitor BP and adjust treatment as needed. (8) Anemia: Onset Date: 04/16/18 Qualifiers: Anemia type: unspecified type Qualified Code(s): D64.9 - Anemia, unspecified Code(s): D64.9 - Anemia, unspecified Status: Chronic Assessment and Plan: H&H low but stable, no evidence of acute bleeding. Chronic on review of previous labs. Anemia workup appears consistent
--- NOTE | 2020-08-06 14:01 | PCPTNOTE ---
Attempted to see patient for Physical Therapy at 1250 and 1400. Patient refused both attempts stating that he has been having diarrhea and doesn't feel up to it today. Patient declined supine LE exercises in bed and transferring to chair.
[2020-08-06] MEDS: ACETAMINOPHEN/CODEINE (*CRX) 300/30 MG TABLET 1 TAB PO (15:43)
[2020-08-06] MEDS: lisinopriL 5 MG TABLET PO (17:15)
[2020-08-07] VITALS (8 sets, daily range): BP systolic 108–113; BP diastolic 45–57; PULSE 70–83; RESP 16–18; TEMP 35.9–36.3; O2SAT 94–98
[2020-08-07] MEDS: GABAPENTIN 300 MG CAPSULE 600 MG PO ×3 (02:38→20:50)
[2020-08-07] MEDS: metroNIDAZOLE 500 MG/ISO 100ML 500 MG/100 ML BAG 100 MG IVPB ×3 (05:20→20:51)
[2020-08-07 05:47] LABS: Basophils Percent Auto 0.4 % (0.2-1.2); Eosinophils Absolute Auto 0.2 K/mm3 (0-0.3); Eosinophils Percent Auto 1.6 % (0-4.4); Hematocrit 26.9 % (42.0-52.0); Hemoglobin 8.7 g/dL (14.0-18.0); Immature Granulocyte Absolute 0.07 K/mm3 (0.00-0.031); Immature Granulocyte Percent A 0.7 % (0-0.5); Lymphocytes Absolute Auto 0.76 K/mm3 (0.9-3.2); Lymphocytes Percent Auto 7.3 % (18.3-44.2); Mean Corpuscular HGB Conc 32.3 g/dl (32-36); Mean Corpuscular Hemoglobin 26.9 pg (26-34); Mean Corpuscular Volume 83.3 fl (80-100); Mean Platelet Volume 9.6 fl (7.4-10.4); Monocytes Absolute Auto 1.2 K/mm3 (0.1-0.6); Monocytes Percent Auto 11.2 % (2.6-8.5); Neutrophils Absolute Auto 8.2 K/mm3 (1.3-6.7); Neutrophils Percent Auto 78.8 % (45.5-73.1); Platelet Count Result 436 k/mm3 (150-375); Red Blood Count 3.23 M/mm3 (4.6-6.20); Red Cell Distribution Width 14.9 % (11.5-14.5); White Blood Count 10.4 K/mm3 (4.5-10.0)
[2020-08-07 05:56] LABS: Anion Gap 2 mmol/L (8-16); Blood Urea Nitrogen 8 mg/dL (9-20); Calcium 8.1 mg/dL (8.4-10.2); Carbon Dioxide 27 mmol/L (22-30); Chloride 108 mmol/L (98-107); Estimated CRCL calculation 48 ml/min; Estimated Glomerular Filt Rate 59; Glucose 93 mg/dL (75-110); Magnesium 1.6 mg/dL (1.6-2.3); Potassium 3.6 mmol/L (3.4-5.0); Sodium 137 mmol/L (137-145)
[2020-08-07] MEDS: SUCRALFATE SUSP 100 MG/ML 10 ML UDC 1000 MG PO ×4 (06:26→20:50)
[2020-08-07] MEDS: ACETAMINOPHEN/CODEINE (*CRX) 300/30 MG TABLET 1 TAB PO ×2 (08:58→20:49)
[2020-08-07] MEDS: carvediloL 12.5 MG TABLET PO ×2 (08:59→20:50)
[2020-08-07] MEDS: MULTIVITAMINS THERAPEUTIC TAB (*BKC) 1 TABLET PO (09:01)
[2020-08-07] MEDS: PANTOPRAZOLE 40 MG TABLET PO (09:01)
[2020-08-07] MEDS: CYANOCOBALAMIN 1,000 MCG TABLET 1000 MCG PO (09:01)
[2020-08-07] MEDS: ATORVASTATIN 40 MG TABLET PO (09:01)
[2020-08-07] MEDS: FERROUS GLUCONATE 324 MG TABLET PO ×2 (09:01→16:44)
[2020-08-07] MEDS: DULoxetine HCL 60 MG CAPSULE.DR PO ×2 (09:01→20:50)
[2020-08-07] MEDS: CLOPIDOGREL BISULFATE 75 MG TABLET PO (09:01)
[2020-08-07] MEDS: AMIODARONE HCL 200 MG TABLET PO (09:01)
[2020-08-07] MEDS: FOLIC ACID 0.4 MG TABLET PO (09:02)
[2020-08-07] MEDS: TAMSULOSIN HCL 0.4 MG CAPSULE 0.8 MG PO (09:02)
[2020-08-07] MEDS: APIXABAN 5 MG TABLET PO ×2 (09:02→20:51)
--- NOTE | 2020-08-07 11:50 | PCNFU ---
Nutrition Follow-Up Complete: Inadequate oral food and beverage intake related to abdominal pain as evidence by poor PO intake and 15 to 10 pound unintentional weight loss. Goal: Consume 75% or more of meals. Patient is progressing towards goal, we will continue current goal. Pt current nutrition is Heart Healthy. Last recorded weight is 70 kg,no new weight to report. Bowel Motility:+BM 08/05 Labs Reviewed:Hct 26.9,Hgb 8.7,BUN 8 Meds Noted:Protonix, Prinivil,Flagyl, Folic Acid, Lipitor, Eliquis, Coreg, MVI, Rocephin. Additional Notes: Nutrition follow up. Patient up in chair today. Oral Intake has been fair, 75-100% of meals when he eats. He has been refusing meals. Ensure compact BID has been added to for additional 220 kcals and 9 gms protein. Monitoring: Follow up in 5 days.
--- NOTE | 2020-08-07 12:36 | WPDINFPN2 ---
Progress Note: A&P Assessment and Plan (1) Positive blood culture: Code(s): R78.81 - Bacteremia Status: Acute Assessment and Plan: 1. UQ abd pain and polymicrobial bacteremia with infection, due to ischemic colon -- or higher in GI tract 2. APVD REC Ctx and metronidazole #6, continue until AM 5/11. Then oral cefdinir and metronidazole x 7 additional days. He should see his vascular surgeon to investigate potential of celiac axis ischemia. Call if other q's Subjective Date/time seen: 08/07/20 12:36 Interval history: pain about the same, epigastrium and periumbilical Exam Narrative: Exam Narrative: afebrile Const: General: no acute distress Eyes: General: appearance normal, both eyes and all related structures Resp: Effort & Inspection: normal respiratory effort Auscultation: clear to auscultation bilaterally Cardio: Rate: regular rate Rhythm: regular rhythm Heart sounds: no murmurs GI: Inspection: non-distended GI Palp: Yes Soft to palpation, Yes Tenderness to palpation present (GI) and Yes Guarding due to palpation present (GI) Percussion: Yes normal to percussion Auscultation: normal bowel sounds Objective Data Vital Signs Vital Signs: Vital Signs - 24 hr 08/06/20 14:00 08/06/20 16:39 08/06/20 20:13 Temperature 36.5 C Pulse Rate 78 60 Respiratory Rate 18 Blood Pressure 124/51 L Pulse Oximetry 98 96 08/06/20 20:55 08/07/20 06:00 08/07/20 08:59 Temperature 36.0 C L 35.9 C L Pulse Rate 80 81 80 Respiratory Rate 16 16 Blood Pressure 115/88 113/57 L Pulse Oximetry 100 98 08/07/20 09:01 08/07/20 09:14 Temperature Pulse Rate 80 80 Respiratory Rate 16 Blood Pressure Pulse Oximetry 98 Intake/Output Intake/Output: Intake & Output 08/04/20 08/05/20 08/06/20 08/07/20 23:59 23:59 23:59 23:59 Intake Total 1240 890 990 590 Output Total 750 1075 1200 550 Balance 490 -185 -210 40 Meds/Results Medications: Active Medications Generic Name Dose Route Start Last Admin Trade Name Freq PRN Reason Stop Dose Admin Acetaminophen 650 mg 08/01/20 20:20 08/05/20 18:28 Acetaminophen 325 Mg Tablet PO 650 mg Q4H PRN Administration Mild Pain (1-3) or Fever Acetaminophen/Codeine Phosphate 1 tab 08/01/20 20:57 08/07/20 08:58 Acetaminophen/Codeine (*Crx) 300/30 Mg Tablet PO 1 tab Q12H PRN Administration pain 4-6 Albuterol 2 puff 08/01/20 20:57 Albuterol Sulfate (*Sp) Aerosol 1 Puff INHALATION Q4-6H PRN Shortness Of Breath Amiodarone HCl 200 mg 08/02/20 09:00 08/07/20 09:01 Amiodarone Hcl 200 Mg Tablet PO 200 mg DAILY CARRIE Administration Apixaban 5 mg 08/01/20 21:00 08/07/20 09:02 Apixaban 5 Mg Tablet PO 5 mg Q12HR CARRIE Administration Atorvastatin Calcium 40 mg 08/02/20 09:00 08/07/20 09:01 Atorvastatin 40 Mg Tablet PO 40 mg DAILY CARRIE Administration Carvedilol 12.5 mg 08/01/20 21:00 08/07/20 08:59 Carvedilol 12.5 Mg Tablet PO 12.5 mg Q12HR CARRIE Administration Clopidogrel Bisulfate 75 mg 08/02/20 09:00 08/07/20 09:01 Clopidogrel Bisulfate 75 Mg Tablet PO 75 mg DAILY CARRIE Administration Cyanocobalamin 1,000 mcg 08/02/20 09:00 08/07/20 09:01 Cyanocobalamin 1,000 Mcg Tablet PO 1,000 mcg DAILY CARRIE Administration Dicyclomine HCl 20 mg 08/05/20 08:17 08/06/20 08:27 Dicyclomine Hcl 10 Mg Capsule PO 20 mg QID PRN Administration Abdominal Cramping Duloxetine HCl 60 mg 08/01/20 21:00 08/07/20 09:01 Duloxetine Hcl 60 Mg Capsule. PO 60 mg Q12HR CARRIE Administration Epoetin True-epbx 10,000 units 08/05/20 18:00 08/05/20 18:29 Epoetin True-Epbx 10,000 Units/Ml Vial SUB-Q 10,000 units TuThSa@1800 CARRIE Administration Ferrous Gluconate 324 mg 08/01/20 17:00 08/07/20 09:01 Ferrous Gluconate 324 Mg Tablet PO 324 mg BID CARRIE Administration Folic Acid 0.4 mg 08/02/20 09:00 08/07/20 09:02 Folic Acid 0.4 Mg Tablet PO
--- NOTE | 2020-08-07 14:59 | P.PNIM_ITS ---
Progress Note: A&P Assessment and Plan (1) Epigastric pain: Code(s): R10.13 - Epigastric pain Status: Acute Assessment and Plan: * Epigastric pain is the main reason the patient came into the hospital, stable/improved. * Continue Bentyl. * EGD 08/04 demonstrated esophagitis without gastritis or ulcers. * Lipase within normal limits, pancreas on CT without abnormality. Chronic mesenteric ischemia considered, especially in light of vasculopathy. Gastroenteritis less likely given new onset of looser stools and his pain has been going on for months. Lactic normal on admission, no evidence of ischemia on CT. * CTA of the abdomen reviewed, continue Eliquis and Plavix. He will need outpatient evaluation by his vascular surgeon. * Continue PPI and Carafate. (2) Bacteremia: Code(s): R78.81 - Bacteremia Status: Acute Assessment and Plan: * 1/2 blood cultures collected 08/01/20 with growth of E coli and 2/2 with growth of Group D streptococcus * Repeat blood cultues 08/03/20 negative to date. Leukocytosis resolved. * Etiology unclear; GI source seems most likely. No no recent endovascular procedures; no rashes. Does have poor dentition. Echocardiogram reviewed. * Continue IV ceftriaxone and Flagyl til 5/11 AM per ID recommendations. Transition to PO cefdinir and flagyl x7 days as outpatient. Hopeful discharge tomorrow. (3) Infarction of kidney: Code(s): N28.0 - Ischemia and infarction of kidney Status: Acute Assessment and Plan: * CT abdomen demonstrates acute to subacute renal infarcts with additional unchanged small regions of bilateral renal cortical scarring consistent with prior chronic infarcts suggesting this is not a new process. Suspect related to atherosclerotic disease. * He remains on systemic anticoagulation with Eliquis. Remains on Plavix. He reports he has not missed any doses. * Continue MARRY-inhibitor * May need some intervention at a tertiary care center once patient improves from acute illness. (his vascular surgeon is at [facility]) but since it is suspected his renal abnormalities are subacute, no emergent procedure needed. * Renal function remains stable, monitor. (4) Femoral-tibial bypass graft occlusion, right: Qualifiers: Encounter type: sequela Qualified Code(s): T82.898S - Other specified complication of vascular prosthetic devices, implants and grafts, sequela Code(s): T82.898A - Other specified complication of vascular prosthetic devices, implants and grafts, initial encounter Status: Chronic Assessment and Plan: * Chronic. He is established with vascular surgeon, Dr. Haider Pretty who is aware of findings. * Please see H&P for outlined details of his several surgical interventions. (5) Atherosclerotic heart disease of [place] coronary artery with other forms of angina pectoris: Code(s): I25.118 - Atherosclerotic heart disease of [place] coronary artery with other forms of angina pectoris Status: Chronic Assessment and Plan: * As above (6) Paroxysmal atrial fibrillation: Code(s): I48.0 - Paroxysmal atrial fibrillation Status: Chronic Assessment and Plan: * Rate is controlled. Continue his home amiodarone, Coreg, Eliquis. (7) Essential (primary) hypertension: Code(s): I10 - Essential (primary) hypertension Status: Chronic Assessment and Plan: * Blood pressures reviewed, stable. Last 113/57 maintained on his home Coreg and lisinopril. Monitor BP and adjust treatment as needed.
--- NOTE | 2020-08-07 14:59 | PM.IMPN ---
Progress Note: A&P Assessment and Plan (1) Epigastric pain: Code(s): R10.13 - Epigastric pain Status: Acute Assessment and Plan: Epigastric pain is the main reason the patient came into the hospital, stable/improved. Continue Bentyl. EGD 08/04 demonstrated esophagitis without gastritis or ulcers. Lipase within normal limits, pancreas on CT without abnormality. Chronic mesenteric ischemia considered, especially in light of vasculopathy. Gastroenteritis less likely given new onset of looser stools and his pain has been going on for months. Lactic normal on admission, no evidence of ischemia on CT. CTA of the abdomen reviewed, continue Eliquis and Plavix. He will need outpatient evaluation by his vascular surgeon. Continue PPI and Carafate. (2) Bacteremia: Code(s): R78.81 - Bacteremia Status: Acute Assessment and Plan: 1/2 blood cultures collected 08/01/20 with growth of E coli and 2/2 with growth of Group D streptococcus Repeat blood cultues 08/03/20 negative to date. Leukocytosis resolved. Etiology unclear; GI source seems most likely. No no recent endovascular procedures; no rashes. Does have poor dentition. Echocardiogram reviewed. Continue IV ceftriaxone and Flagyl til 5/11 AM per ID recommendations. Transition to PO cefdinir and flagyl x7 days as outpatient. Hopeful discharge tomorrow. (3) Infarction of kidney: Code(s): N28.0 - Ischemia and infarction of kidney Status: Acute Assessment and Plan: CT abdomen demonstrates acute to subacute renal infarcts with additional unchanged small regions of bilateral renal cortical scarring consistent with prior chronic infarcts suggesting this is not a new process. Suspect related to atherosclerotic disease. He remains on systemic anticoagulation with Eliquis. Remains on Plavix. He reports he has not missed any doses. Continue MARRY-inhibitor May need some intervention at a tertiary care center once patient improves from acute illness. (his vascular surgeon is at [facility]) but since it is suspected his renal abnormalities are subacute, no emergent procedure needed. Renal function remains stable, monitor. (4) Femoral-tibial bypass graft occlusion, right: Qualifiers: Encounter type: sequela Qualified Code(s): T82.898S - Other specified complication of vascular prosthetic devices, implants and grafts, sequela Code(s): T82.898A - Other specified complication of vascular prosthetic devices, implants and grafts, initial encounter Status: Chronic Assessment and Plan: Chronic. He is established with vascular surgeon, Dr. Haider Pretty who is aware of findings. Please see H&P for outlined details of his several surgical interventions. (5) Atherosclerotic heart disease of [place] coronary artery with other forms of angina pectoris: Code(s): I25.118 - Atherosclerotic heart disease of [place] coronary artery with other forms of angina pectoris Status: Chronic Assessment and Plan: As above (6) Paroxysmal atrial fibrillation: Code(s): I48.0 - Paroxysmal atrial fibrillation Status: Chronic Assessment and Plan: Rate is controlled. Continue his home amiodarone, Coreg, Eliquis. (7) Essential (primary) hypertension: Code(s): I10 - Essential (primary) hypertension Status: Chronic Assessment and Plan: Blood pressures reviewed, stable. Last maintained on his home Coreg and lisinopril. Monitor BP and adjust treatment as needed. (8) Anemia: Onset Date: 04/16/18 Qualifiers: Anemia type: unspecified type Qualified Code(s): D64.9 - Anemia, unspecified Code(s): D64.9 - Anemia, unspecified Status: Chronic Assessment and Plan: H&H low but stable, no evidence of acute bleeding. Chronic on review of previous labs. Anemia workup appears consistent with anemia of chronic disease, started on Epo by
--- NOTE | 2020-08-07 15:21 | PM.PNNEP ---
Progress Note: A&P Assessment and Plan (1) Chronic kidney disease, stage 3a: Code(s): N18.31 - Chronic kidney disease, stage 3a Status: Chronic Assessment and Plan: baseline creatinine seems to ~ 1.4mg/dl likely due to hypertension, vascular disease and the renal infarcts creatinine currently a bit better than baseline continue supportive therapy (2) Infarction of kidney: Code(s): N28.0 - Ischemia and infarction of kidney Status: Acute Assessment and Plan: multiple wedge defects in the kidneys as noted by imaging probably related to atherosclerotic renovascular disease (3) Bacteremia: Code(s): R78.81 - Bacteremia Status: Acute Assessment and Plan: cultures with E. coli and Group D Streptococcus antibiotics as outlined by Infectious Disease (4) Paroxysmal atrial fibrillation: Code(s): I48.0 - Paroxysmal atrial fibrillation Status: Chronic Assessment and Plan: rate control strategy on anticoagulation (5) Essential (primary) hypertension: Code(s): I10 - Essential (primary) hypertension Status: Chronic Assessment and Plan: well controlled at this time follow trend of hemodynamics (6) Anemia: Onset Date: 04/16/18 Qualifiers: Anemia type: unspecified type Qualified Code(s): D64.9 - Anemia, unspecified Code(s): D64.9 - Anemia, unspecified Status: Chronic Assessment and Plan: on Epogen while hospitalized follow H/H Will continue to follow intermittently. Subjective Date/time seen: 08/07/20 15:21 Chart reviewed -- appears to be doing reasonably well at the time of my visit; appetite has improved but still have some on/off diarrhea; no apparent distress noted; no issues/events overnight or earlier this AM. Exam Narrative: Exam Narrative: General: WD/WN male in NAD Heart: normal S1 and S2; no rub Lungs: clear to auscultation Abdomen: soft, nontender, nondistended, positive bowel sounds Extremities: no cyanosis or clubbing; no edema Skin: warm and dry Objective Data Vital Signs Vital Signs: Vital Signs Temp Pulse Resp BP Pulse Ox 08/07/20 14:00 36.3 C L 76 18 111/45 L 98 08/07/20 09:14 80 16 98 08/07/20 09:01 80 08/07/20 08:59 80 08/07/20 06:00 35.9 C L 81 16 113/57 L 98 08/06/20 20:55 36.0 C L 80 16 115/88 100 08/06/20 20:13 60 08/06/20 16:39 96 Intake/Output Intake/Output: Intake & Output 08/04/20 08/05/20 08/06/20 08/07/20 23:59 23:59 23:59 23:59 Intake Total 1240 890 990 980 Output Total 750 1075 1200 550 Balance 490 -185 -210 430 Meds/Results Medications: Active Medications Generic Name Dose Route Start Last Admin Trade Name Freq PRN Reason Stop Dose Admin Acetaminophen 650 mg 08/01/20 20:20 08/05/20 18:28 Acetaminophen 325 Mg Tablet PO 650 mg Q4H PRN Administration Mild Pain (1-3) or Fever Acetaminophen/Codeine Phosphate 1 tab 08/01/20 20:57 08/07/20 08:58 Acetaminophen/Codeine (*Crx) 300/30 Mg Tablet PO 1 tab Q12H PRN Administration pain 4-6 Albuterol 2 puff 08/01/20 20:57 Albuterol Sulfate (*Sp) Aerosol 1 Puff INHALATION Q4-6H PRN Shortness Of Breath Amiodarone HCl 200 mg 08/02/20 09:00 08/07/20 09:01 Amiodarone Hcl 200 Mg Tablet PO 200 mg DAILY CARRIE Administration Apixaban 5 mg 08/01/20 21:00 08/07/20 09:02 Apixaban 5 Mg Tablet PO 5 mg Q12HR CARRIE Administration Atorvastatin Calcium 40 mg 08/02/20 09:00 08/07/20 09:01 Atorvastatin 40 Mg Tablet PO 40 mg DAILY CARRIE Administration Carvedilol 12.5 mg 08/01/20 21:00 08/07/20 08:59 Carvedilol 12.5 Mg Tablet PO 12.5 mg Q12HR CARRIE Administration Clopidogrel Bisulfate 75 mg 08/02/20 09:00 08/07/20 09:01 Clopidogrel Bisulfate 75 Mg Tablet PO 75 mg DAILY CARRIE Administration Cyanocobalamin 1,000 mcg 08/02/20 09:00 08/07/20 09:01
[2020-08-07] MEDS: lisinopriL 5 MG TABLET PO (17:19)
[2020-08-08] MEDS: GABAPENTIN 300 MG CAPSULE 600 MG PO (03:11)
[2020-08-08 05:08] VITALS: BP 118/51; PULSE 83; RESP 16; TEMP 36.3; O2SAT 93
[2020-08-08] MEDS: metroNIDAZOLE 500 MG/ISO 100ML 500 MG/100 ML BAG 100 MG IVPB ×2 (05:18→14:02)
[2020-08-08 05:45] LABS: Hematocrit 26.1 % (42.0-52.0); Hemoglobin 8.5 g/dL (14.0-18.0); Mean Corpuscular HGB Conc 32.6 g/dl (32-36); Mean Corpuscular Volume 82.9 fl (80-100); Mean Platelet Volume 9.6 fl (7.4-10.4); Platelet Count Result 450 k/mm3 (150-375); Red Blood Count 3.15 M/mm3 (4.6-6.20); Red Cell Distribution Width 15.1 % (11.5-14.5); White Blood Count 9.8 K/mm3 (4.5-10.0)
[2020-08-08 05:57] LABS: Anion Gap -1 mmol/L (8-16); Blood Urea Nitrogen 9 mg/dL (9-20); Calcium 7.9 mg/dL (8.4-10.2); Carbon Dioxide 31 mmol/L (22-30); Chloride 107 mmol/L (98-107); Estimated CRCL calculation 48 ml/min; Estimated Glomerular Filt Rate 59; Glucose 91 mg/dL (75-110); Potassium 3.5 mmol/L (3.4-5.0); Sodium 137 mmol/L (137-145)
[2020-08-08] MEDS: SUCRALFATE SUSP 100 MG/ML 10 ML UDC 1000 MG PO ×2 (06:21→11:40)
[2020-08-08 08:22] LABS: Creatinine, Random Urine 123 mg/dL (20-320); Total Protein/Creatinine Ratio 764 mg/g creat (22-128)
[2020-08-08] MEDS: MULTIVITAMINS THERAPEUTIC TAB (*BKC) 1 TABLET PO (08:34)
[2020-08-08] MEDS: APIXABAN 5 MG TABLET PO (08:34)
[2020-08-08] MEDS: TAMSULOSIN HCL 0.4 MG CAPSULE 0.8 MG PO (08:34)
[2020-08-08] MEDS: CLOPIDOGREL BISULFATE 75 MG TABLET PO (08:34)
[2020-08-08 08:35] VITALS: PULSE 81
[2020-08-08] MEDS: CYANOCOBALAMIN 1,000 MCG TABLET 1000 MCG PO (08:35)
[2020-08-08] MEDS: FERROUS GLUCONATE 324 MG TABLET PO (08:35)
[2020-08-08] MEDS: FOLIC ACID 0.4 MG TABLET PO (08:35)
[2020-08-08] MEDS: ATORVASTATIN 40 MG TABLET PO (08:35)
[2020-08-08] MEDS: DULoxetine HCL 60 MG CAPSULE.DR PO (08:35)
[2020-08-08] MEDS: AMIODARONE HCL 200 MG TABLET PO (08:35)
[2020-08-08] MEDS: carvediloL 12.5 MG TABLET PO (08:35)
[2020-08-08] MEDS: PANTOPRAZOLE 40 MG TABLET PO (08:37)
--- NOTE | 2020-08-08 13:00 | PM.DS ---
DS: Admitting Diagnosis Admitting Diagnosis Admitting Diagnosis: Epigastric pain DS: Discharge Diagnosis Discharge Diagnosis (1) Epigastric pain: Code(s): R10.13 - Epigastric pain Status: Acute Assessment and Plan: Epigastric pain is the main reason the patient came into the hospital. He underwent EGD on 08/04/20 demonstrated esophagitis without gastritis or ulcers. Lipase was within normal limits and pancreas on CT had no abnormalities. Chronic mesenteric ischemia considered, especially in light of vasculopathy. Gastroenteritis less likely given pain ongoing on for months. Lactic was normal on admission, no evidence of ischemia on CT. CTA of the abdomen reviewed, continue Eliquis and Plavix. He will need outpatient evaluation by his vascular surgeon for ischemic workup. Continue PPI and Bentyl prn abdominal cramping. (2) Bacteremia: Code(s): R78.81 - Bacteremia Status: Acute Assessment and Plan: 1/ blood cultures collected 08/01/20 with growth of E coli and 2/2 with growth of Group D streptococcus. Etiology unclear, GI source seems most likely. No recent endovascular procedures; no rashes. Does have poor dentition. Echocardiogram reviewed. Repeat blood cultues 08/03/20 negative to date. Leukocytosis resolved. He received IV ceftriaxone and Flagyl x7 days. He was seen in consultation by Infectious Disease and will continue p.o. cefdinir and Flagyl x7 days as an outpatient (3) Infarction of kidney: Code(s): N28.0 - Ischemia and infarction of kidney Status: Acute Assessment and Plan: CT abdomen demonstrates acute to subacute renal infarcts with additional unchanged small regions of bilateral renal cortical scarring consistent with prior chronic infarcts suggesting this is not a new process. Suspect related to atherosclerotic disease. He remains on systemic anticoagulation with Eliquis. Remains on Plavix. He reports he has not missed any doses. Continue MARRY-inhibitor. May need some intervention at a tertiary care center once patient improves from acute illness (his vascular surgeon is at [facility]) but since it is suspected his renal abnormalities are subacute, no emergent procedure needed. Renal function remained stable. (4) Femoral-tibial bypass graft occlusion, right: Qualifiers: Encounter type: sequela Qualified Code(s): T82.898S - Other specified complication of vascular prosthetic devices, implants and grafts, sequela Code(s): T82.898A - Other specified complication of vascular prosthetic devices, implants and grafts, initial encounter Status: Chronic Assessment and Plan: Chronic. He is established with vascular surgeon, Dr. Haider Pretty who is aware of findings. Please see H&P for outlined details of his several surgical interventions. (5) Atherosclerotic heart disease of [place] coronary artery with other forms of angina pectoris: Code(s): I25.118 - Atherosclerotic heart disease of [place] coronary artery with other forms of angina pectoris Status: Chronic Assessment and Plan: As above (6) Paroxysmal atrial fibrillation: Code(s): I48.0 - Paroxysmal atrial fibrillation Status: Chronic Assessment and Plan: Rate is controlled. Continue his home amiodarone, Coreg, Eliquis. (7) Essential (primary) hypertension: Code(s): I10 - Essential (primary) hypertension Status: Chronic Assessment and Plan: Blood pressures reviewed, stable on his home Coreg and lisinopril. (8) Anemia: Onset Date: 04/16/18 Qualifiers: Anemia type: unspecified type Qualified Code(s): D64.9 - Anemia, unspecified Code(s): D64.9 - Anemia, unspecified Status: Chronic Assessment and Plan: H&H low but stable, no evidence of acute bleeding. Chronic on review of previous labs. Anemia workup appears consistent with anemia of chronic disease, started on Epo by Nephrology during
== END 2020-08-08 15:47 | disposition home or self-care (01) | DRG 392 ==
LOC: ANHED 14:22 → ANH2MED 18:51
PROVIDERS: Internal Medicine; Internal Medicine Gastroenterology; Physician Assistant; Admitting Provider Family Medicine; Emergency Provider General Practice; PCP Family Medicine; Visit Provider Physician Assistant
PROC: 0DJ08ZZ Inspection of Upper Intestinal Tract, Via Natural or Artificial Opening Endoscopic (ICD-10-PCS; CPT 43235; principal; 2020-08-04 14:45)
DX: K20.90 Esophagitis, unspecified without bleeding (principal); T82.898A Other specified complication of vascular prosthetic devices, implants and grafts, initial encounter; N28.0 Ischemia and infarction of kidney; I47.2 Ventricular tachycardia; I13.0 Hypertensive heart and chronic kidney disease with heart failure and stage 1 through stage 4 chronic kidney disease, or unspecified chronic kidney disease; R78.81 Bacteremia; I50.22 Chronic systolic (congestive) heart failure; I42.9 Cardiomyopathy, unspecified; K22.70 Barrett's esophagus without dysplasia; N18.31 Chronic kidney disease, stage 3a; D63.8 Anemia in other chronic diseases classified elsewhere; B96.20 Unspecified Escherichia coli [E. coli] as the cause of diseases classified elsewhere; I25.119 Atherosclerotic heart disease of native coronary artery with unspecified angina pectoris; R53.1 Weakness; D72.829 Elevated white blood cell count, unspecified; I48.0 Paroxysmal atrial fibrillation; G89.4 Chronic pain syndrome; C44.91 Basal cell carcinoma of skin, unspecified; M54.16 Radiculopathy, lumbar region; E78.5 Hyperlipidemia, unspecified; J43.9 Emphysema, unspecified; I25.2 Old myocardial infarction; Z72.89 Other problems related to lifestyle; Z79.01 Long term (current) use of anticoagulants; Z79.899 Other long term (current) drug therapy; Z87.891 Personal history of nicotine dependence; Z88.8 Allergy status to other drugs, medicaments and biological substances; Z95.1 Presence of aortocoronary bypass graft; Z95.810 Presence of automatic (implantable) cardiac defibrillator
CPT/HCPCS: 36415; 71046; 71275; 74175; 74177; 80048; 80053; 80069; 80076; 81001; 82274; 82306; 82570; 82607; 82728; 82746; 83540; 83550; 83605; 83690; 83735; 83883; 84100; 84155; 84156; 84165; 84166; 84443; 84466; 85025; 85027; 85610; 85730; 86140; 86334; 86335; 87015; 87040; 87045; 87046; 87077; 87186; 87269; 87272; 87324; 87427; 88305; 89055; 93005; 93306; 96361; 96374; 96375; 96376; 97110; 97116; 97161; 97165; 97530; 97535; 99285; A9270; C9113; G0378; J0131; J0696; J2370; J2405; J2543; J2704; J7030; J7040; J7120; Q5106; Q9967

== ENCOUNTER 2020-09-05 07:12 | Observation (INO) | payer MEDICARE, SELFPAY ==
[2020-09-05] VITALS (18 sets, daily range): BP systolic 107–144; BP diastolic 43–69; PULSE 74–97; RESP 12–20; TEMP 36–37; O2SAT 95–100
--- NOTE | ~2020-09-05 | XR_ITS ---
EXAMINATION: XR chest 2V EXAM DATE: 09/05/2020 08:12 INDICATION: Chest pain, shortness of air and emphysema. TECHNIQUE: Frontal and lateral projections of the chest obtained and reviewed. Comparison is made to prior examination from 08/01/2020. FINDINGS: Sternotomy wires are present without findings to suggest sternal dehiscence. There is a du al lead pacemaker/AICD seen with leads projecting over the expected locations of the right atrial anuja endage and right ventricle. Moderate chronic appearing hyperinflation. No confluent consolidation, pn eumothorax or pleural effusion suspected. Cardiomediastinal silhouette is normal. There are mild bony degenerative changes. There is no significant interval change. IMPRESSION: Hyperinflation. Reviewed, dictated and finalized at location A. IMPRESSION: Hyperinflation.
--- NOTE | 2020-09-05 07:35 | PC.NURSE ---
Pt unable to verify home medications. Pt forgot to bring a list with him.
--- NOTE | 2020-09-05 07:41 | ED.CHESTPAIN ---
HPI - Chest Pain General Chief Complaint: Chest Pain Stated Complaint: SOB & CP Time Seen by Provider: 09/05/20 07:17 History of Present Illness HPI narrative: Patient is a 75-year-old male with history of emphysema and open heart surgery who presents to the ER with chest pain or shortness of breath. Reports he woke about 4:30 in the morning with shortness of breath. He has been using breathing treatments without relief. He then developed central chest pressure after that. Becomes markedly worse if he attempts to exert himself. He is not oxygen dependent. Denies runny nose/sore throat/productive cough. No known sick contacts. No new edema to the lower extremities. Denies orthopnea. No alleviating factors at this time other than rest. Related Data Home Medications Medication Instructions Recorded Confirmed albuterol sulfate 90 mcg/actuation 2 puff INHALATION Q4-6H PRN gm 04/19/19 08/01/20 aerosol inhaler amiodarone 200 mg tablet 200 mg PO DAILY 04/19/19 08/01/20 apixaban 5 mg tablet 5 mg PO BID 04/19/19 08/01/20 atorvastatin 40 mg tablet 40 mg PO DAILY 04/19/19 08/01/20 carvedilol 12.5 mg tablet 12.5 mg PO Q12H 04/19/19 08/01/20 clopidogrel 75 mg tablet 75 mg PO DAILY 04/19/19 08/01/20 lisinopril 5 mg tablet 5 mg PO QPM 04/19/19 08/01/20 acetaminophen-codeine 1 tablet PO Q12H PRN 08/01/20 08/01/20 ferrous gluconate 324 mg PO BID 08/01/20 08/01/20 gabapentin 600 mg PO TID 08/01/20 08/01/20 multivitamin 1 tablet PO DAILY 08/01/20 08/01/20 tamsulosin 0.8 mg PO DAILY 08/01/20 08/01/20 Allergies Allergy/AdvReac Type Severity Reaction Status Date / Time hydrocodone Allergy Unknown Shock Verified 09/05/20 07:32 tramadol Allergy Unknown dizziness. Verified 09/05/20 07:32 amitriptyline AdvReac Mild Dizziness Verified 09/05/20 07:32 Review of Systems Review of Systems: All systems reviewed & are unremarkable except as noted in HPI and below Constitutional: Constitutional: Denies chills and Denies fever(s) ENT: Denies nasal congestion and Denies sore throat Cardiovascular: Cardiovascular: Reports chest pain, Denies rapid heart rate and Denies radiating jaw, neck or arm pain Respiratory: Respiratory: Denies chest congestion, Denies cough, Reports dyspnea and Denies wheezing Gastrointestinal: Gastrointestinal: Denies abdominal pain, Denies nausea and Denies vomiting PMFSH Past Medical History Medical History (Updated 09/05/20 @ 11:12 by Trevor Pedroza MD) Alcohol abuse Atherosclerotic heart disease of [place] coronary artery with other forms of angina pectoris Atypical chest pain CAD (coronary artery disease) Cardiomyopathy Chronic anemia Chronic kidney disease, stage 3a E coli bacteremia Emphysema, unspecified Essential (primary) hypertension Femoral-tibial bypass graft occlusion, right Heart failure, unspecified Infarction of kidney Ischemic bowel disease Paroxysmal atrial fibrillation Renal infarction Tobacco use disorder, moderate, dependence Ventricular tachycardia Surgical History Surgical History History of open heart surgery Family History Family History Sibling Diabetes mellitus Family history of cardiovascular disease Father Hypertension Malignant neoplasm of prostate Family history of primary malignant neoplasm of liver Mother Hypertension Family history of malignant neoplasm of brain Grandparent Carcinoma of colon Social History Social History Smoking status: Never smoker Smoking end date: 03/31/17 Alcohol intake: current Drinks per week: 42 Substance use: current Substance use type: marijuana Gender identity (if verbalized by the patient): Male Spiritual care concerns: No Exam Narrative: Exam Narrative: GENERAL: Chronically ill-appearing, well-nourished, and in no acute distress. HEAD:
--- NOTE | 2020-09-05 07:49 | ECG_ITS ---
Measurements Intervals [place] Rate: 75 P: 67 CO: 187 QRS: 26 QRSD: 112 T: 59 QT: 405 QTc: 454 Interpretive Statements SINUS RHYTHM INTRAVENTRICULAR CONDUCTION DELAY NONSPECIFIC ST & T-WAVE ABNORMALITY- DIFFUSE LEADS BASELINE ARTIFACT- II, III BORDERLINE ECG Electronically Signed On 09-05-2020 12:02:04 CDT by Chapo Bermudez D.O.
[2020-09-05 07:54] LABS: Basophils Percent Auto 0.4 % (0.2-1.2); Eosinophils Absolute Auto 0.3 K/mm3 (0-0.3); Eosinophils Percent Auto 2.9 % (0-4.4); Hematocrit 32.5 % (42.0-52.0); Hemoglobin 10.1 g/dL (14.0-18.0); Immature Granulocyte Absolute 0.06 K/mm3 (0.00-0.031); Immature Granulocyte Percent A 0.5 % (0-0.5); Lymphocytes Absolute Auto 0.77 K/mm3 (0.9-3.2); Lymphocytes Percent Auto 6.9 % (18.3-44.2); Mean Corpuscular HGB Conc 31.1 g/dl (32-36); Mean Corpuscular Hemoglobin 27.9 pg (26-34); Mean Corpuscular Volume 89.8 fl (80-100); Mean Platelet Volume 9.3 fl (7.4-10.4); Monocytes Absolute Auto 1.3 K/mm3 (0.1-0.6); Monocytes Percent Auto 11.3 % (2.6-8.5); Neutrophils Absolute Auto 8.7 K/mm3 (1.3-6.7); Platelet Count Result 297 k/mm3 (150-375); Red Blood Count 3.62 M/mm3 (4.6-6.20); Red Cell Distribution Width 20.8 % (11.5-14.5); White Blood Count 11.1 K/mm3 (4.5-10.0)
--- NOTE | 2020-09-05 07:58 | PC.NURSE ---
Pt taken to radiology
[2020-09-05 08:03] LABS: Anion Gap 6 mmol/L (8-16); Blood Urea Nitrogen 24 mg/dL (9-20); Calcium 8.6 mg/dL (8.4-10.2); Carbon Dioxide 26 mmol/L (22-30); Chloride 109 mmol/L (98-107); Estimated CRCL calculation 41 ml/min; Estimated Glomerular Filt Rate 46; Glucose 108 mg/dL (75-110); Potassium 5.1 mmol/L (3.4-5.0); Sodium 141 mmol/L (137-145)
[2020-09-05 08:04] LABS: INR 1.4; Partial Thromboplastin Time 31.5 SECONDS (22.3-36.8); Prothrombin Time 17.5 Seconds (11.1-14.7)
[2020-09-05 08:15] LABS: NT Pro B Type Natriuretic Pept 4170 pg/mL (5-100); Troponin I 0.033 ng/mL (0.000-0.034)
[2020-09-05] MEDS: FUROSEMIDE INJ 40 MG/4 ML VIAL IV PUSH ×2 (09:32→21:03)
[2020-09-05 11:25] LABS: Troponin I 0.032 ng/mL (0.000-0.034)
--- NOTE | 2020-09-05 11:54 | ADMGEN ---
This patient, Hernando Sawyer, was admitted to IMU Room 206-02. Patient/family oriented to hospital policies and general routines including ID bracelet, bed and alarms, visiting hours, pain management, procedures, bathroom and other care routines, personal items, smoking policy, room service/diet, and visiting hours. Information on how to activate the Rapid Response Team has been discussed. Patient/Family are encouraged to report perceived risks to care and to ask questions if they do not understand what they are told or what they should do.
--- NOTE | 2020-09-05 14:21 | PM.IMHP ---
H&P: HPI History of Present Illness Date/Time: 09/05/20 14:21 this is a 75-year-old male patient who has a history of COPD congestive heart failure. The patient stated that he is taking his home medications as scheduled but is not back compliant with his heart healthy diet as he is trying to gain weight. The patient feels that he is losing too much weight and wants to gain some weight. I suggested that he possibly use some a protein shakes. However the patient stated that his diet has been poor recently. The patient tells me that he got up to the bathroom this morning was very short of breath. He does uses inhalers. Patient stated that he was last admitted here last month for anemia. The patient also has some renal infarctions and he is supposed to follow-up with vascular surgeon at [facility]. No emergent procedure was needed. Today's chest x-ray was showing hyperinflation. The patient states that he does have COPD. He quit smoking many years ago. His troponins are negative. He states that he does not have any chest pain. He was just short of breath. EKG was read as sinus rhythm Nonspecific ST and T-wave abnormalities. Lasix in the emergency room and the patient stated that he was feeling better. He is on room air currently. He has no complaints he was resting quietly in his room. Today's H&H is 10.1 and 32.5 which is much improved from his last blood count. His potassium was found to be 5.1 today. BUN 24 creatinine 1.4. GFR is 46. BNP is 4170. The patient is being admitted to observation status on the date of service of 09/05/2020. Chief Complaint: Shortness of breath with exertion Review of Systems Review of Systems: All systems reviewed & are unremarkable except as noted in HPI and below Constitutional: Constitutional: Reports as per HPI and Reports no additional constitutional complaints Eyes: Eyes: Reports as per HPI and Reports no additional eye complaints ENT: Reports system reviewed and no additional complaints, except as documented and Reports Normal hearing present Cardiovascular: Cardiovascular: Reports no additional cardiovascular complaints Respiratory: Respiratory: Reports no additional respiratory complaints and Reports no additional respiratory complaints Gastrointestinal: Gastrointestinal: Reports as per HPI and Reports no additional gastrointestinal complaints Musculoskeletal: Musculoskeletal: Reports no additional musculoskeletal complaints Integumentary/Breasts: Skin/Breast: Reports system reviewed and no additional complaints, except as docu and Reports as per HPI Neurologic: Reports system reviewed and no additional complaints, except as documented, Reports as per HPI and Reports Normal hearing present Psychiatric: Psychiatric: Reports no additional psychiatric complaints and Reports as per HPI Endocrine: Endocrine: Reports no additional endocrine complaints Hematologic/Lymphatic: Hematologic/Lymphatic: Reports no additional hematologic/lymphatic complaints Allergic/Immunologic: Allergic/Immunologic: Reports no additional allergic/immunologic complaints [facility] Past Medical History Medical History (Updated 09/05/20 @ 14:37 by Christy Potter NP) Alcohol abuse Atherosclerotic heart disease of [place] coronary artery with other forms of angina pectoris Atypical chest pain CAD (coronary artery disease) Cardiomyopathy Chronic anemia Chronic kidney disease, stage 3a COPD (chronic obstructive pulmonary disease) E coli bacteremia Emphysema, unspecified Essential (primary) hypertension Femoral-tibial bypass graft occlusion, right Heart failure, unspecified Infarction of kidney Ischemic bowel disease Paroxysmal atrial fibrillation Renal infarction Tobacco use disorder, moderate, dependence Ventricular tachycardia Surgical History Surgical History (Updated 09/05/20 @ 14:38 by Christy Potter NP) H/O colonoscopy History of open heart surgery S/P femoropopliteal bypass surgery 2 on
[2020-09-05 16:04] LABS: Troponin I 0.033 ng/mL (0.000-0.034)
[2020-09-05] MEDS: DULoxetine HCL 60 MG CAPSULE.DR PO (18:11)
[2020-09-05] MEDS: lisinopriL 5 MG TABLET PO (18:11)
[2020-09-05] MEDS: FERROUS GLUCONATE 324 MG TABLET PO (18:11)
[2020-09-05] MEDS: GABAPENTIN 300 MG CAPSULE 600 MG PO ×2 (18:11→21:03)
[2020-09-05] MEDS: APIXABAN 5 MG TABLET PO (18:11)
[2020-09-05] MEDS: ACETAMINOPHEN/CODEINE (*CRX) 300/30 MG TABLET 1 TAB PO (21:03)
[2020-09-05] MEDS: carvediloL 12.5 MG TABLET PO (21:03)
[2020-09-05] MEDS: CEFDINIR 300 MG CAPSULE PO (21:03)
[2020-09-06] VITALS (10 sets, daily range): BP systolic 105–108; BP diastolic 41–50; PULSE 67–94; RESP 16–20; TEMP 35.8–36.2; O2SAT 97–99; BMI 18.4
[2020-09-06] MEDS: GABAPENTIN 300 MG CAPSULE 600 MG PO (03:40)
[2020-09-06 05:06] LABS: Basophils Absolute Auto 0.1 K/mm3 (0.0-0.1); Basophils Percent Auto 0.9 % (0.2-1.2); Eosinophils Absolute Auto 0.3 K/mm3 (0-0.3); Eosinophils Percent Auto 3.7 % (0-4.4); Hemoglobin 10.4 g/dL (14.0-18.0); Immature Granulocyte Absolute 0.04 K/mm3 (0.00-0.031); Immature Granulocyte Percent A 0.5 % (0-0.5); Lymphocytes Absolute Auto 0.95 K/mm3 (0.9-3.2); Lymphocytes Percent Auto 11.2 % (18.3-44.2); Mean Corpuscular HGB Conc 31.5 g/dl (32-36); Mean Corpuscular Hemoglobin 28.2 pg (26-34); Mean Corpuscular Volume 89.4 fl (80-100); Mean Platelet Volume 9.8 fl (7.4-10.4); Monocytes Absolute Auto 1.2 K/mm3 (0.1-0.6); Monocytes Percent Auto 13.8 % (2.6-8.5); Neutrophils Absolute Auto 5.9 K/mm3 (1.3-6.7); Neutrophils Percent Auto 69.9 % (45.5-73.1); Platelet Count Result 316 k/mm3 (150-375); Red Blood Count 3.69 M/mm3 (4.6-6.20); Red Cell Distribution Width 20.8 % (11.5-14.5); White Blood Count 8.5 K/mm3 (4.5-10.0)
[2020-09-06 05:13] LABS: Alanine Aminotransferase 12 U/L (4-50); Albumin Level 3.6 g/dL (3.5-5.1); Alkaline Phosphatase 83 U/L (38-126); Anion Gap 6 mmol/L (8-16); Aspartate Amino Transferase 28 U/L (17-59); Bilirubin,Total 0.7 mg/dL (0.2-1.3); Blood Urea Nitrogen 34 mg/dL (9-20); Calcium 9.4 mg/dL (8.4-10.2); Carbon Dioxide 31 mmol/L (22-30); Chloride 103 mmol/L (98-107); Estimated CRCL calculation 38 ml/min; Estimated Glomerular Filt Rate 43; Glucose 100 mg/dL (75-110); Lactate Dehydrogenase 400 U/L (313-618); Magnesium 1.9 mg/dL (1.6-2.3); Potassium 3.8 mmol/L (3.4-5.0); Sodium 140 mmol/L (137-145)
[2020-09-06 06:44] LABS: Free T4 Free Thyroxine Reflex 1.38 ng/dL (0.78-2.19)
[2020-09-06 08:06] LABS: Total Triiodothyronine (T3) 1.07 NG/ML (0.97-1.69)
[2020-09-06] MEDS: CLOPIDOGREL BISULFATE 75 MG TABLET PO (08:18)
[2020-09-06] MEDS: ATORVASTATIN 40 MG TABLET PO (08:18)
[2020-09-06] MEDS: carvediloL 12.5 MG TABLET PO (08:18)
[2020-09-06] MEDS: AMIODARONE HCL 200 MG TABLET PO (08:18)
[2020-09-06] MEDS: APIXABAN 5 MG TABLET PO (08:18)
[2020-09-06] MEDS: DULoxetine HCL 60 MG CAPSULE.DR PO (08:19)
[2020-09-06] MEDS: MULTIVITAMINS THERAPEUTIC TAB (*BKC) 1 TABLET PO (08:19)
[2020-09-06] MEDS: FOLIC ACID 1 MG TABLET PO (08:19)
[2020-09-06] MEDS: FERROUS GLUCONATE 324 MG TABLET PO (08:19)
[2020-09-06] MEDS: THIAMINE HCL 100 MG TABLET PO (08:19)
[2020-09-06] MEDS: CYANOCOBALAMIN 1,000 MCG TABLET 1000 MCG PO (08:19)
[2020-09-06] MEDS: PANTOPRAZOLE 40 MG TABLET PO (08:19)
[2020-09-06] MEDS: FUROSEMIDE INJ 40 MG/4 ML VIAL IV PUSH (08:21)
--- NOTE | 2020-09-06 12:55 | PCNSR ---
On 09/06/20, the student, Jocelynn Mccarthy, provided care and completed [facility] documentation on this patient. I have reviewed the student's documentation and agree with the findings.
--- NOTE | 2020-09-06 16:06 | PM.DS ---
DS: Admitting Diagnosis Admitting Diagnosis Admitting Diagnosis: Shortness of breath with exertion DS: Discharge Diagnosis Discharge Diagnosis (1) Acute exacerbation of CHF (congestive heart failure): Code(s): I50.9 - Heart failure, unspecified Status: Resolved Assessment and Plan: Resolved with IV lasix. Continue with lisinopril. Continue with Coreg. Last echo was on 08/02/2020 which was read as the following 1. Complete two-dimensional, color flow and Doppler transthoracic echocardiogram is performed. 2. The left ventricle is severely dilated with normal wall thickness. There is overall moderate left ventricular dysfunction with akinesis of the inferior septal segments extending to the apex. Grade 2 to function is present. Calculated ejection fraction to 35%, visual ejection fraction 35-40%. 3. Left atrial chamber dimension is severely enlarged. 4. The aortic valve is sclerosed. There is mild, or perhaps mild to moderate highly eccentric aortic valve regurgitation. 5. There is mild tricuspid valve regurgitation. 6. Mild pulmonary hypertension, estimated pulmonary arterial systolic pressure is 39 mmHg. 7. No thrombi seen. 8. Pacemaker leads noted in the right atrium and right ventricle. 9. Normal sinus rhythm. (2) COPD (chronic obstructive pulmonary disease): Code(s): J44.9 - Chronic obstructive pulmonary disease, unspecified Status: Chronic Assessment and Plan: Continue with inhaler (3) Alcohol abuse: Code(s): F10.10 - Alcohol abuse, uncomplicated Status: Chronic Assessment and Plan: continue with Folic acid thiamin and p.r.n. Librium (4) Essential (primary) hypertension: Code(s): I10 - Essential (primary) hypertension Status: Chronic Assessment and Plan: Continue with lisinopril. And Coreg continue with IV Lasix. The patient is on amiodarone as well for paroxysmal atrial fibrillation (5) Barretts esophagus: Code(s): K22.70 - Estrada's esophagus without dysplasia Status: Acute Assessment and Plan: I have discussed this with the patient he is on pantoprazole and we discussed abstaining from alcohol. However the patient tells me this is his lifestyle is a drinks 6 beers a day. He is concerned about his recent weight loss and I have encouraged him to use protein shakes. (6) Paroxysmal atrial fibrillation: Code(s): I48.0 - Paroxysmal atrial fibrillation Status: Chronic Assessment and Plan: Continue with Eliquis and amiodarone. The patient is in sinus rhythm at this time. (7) Hypothyroidism due to medication: Code(s): E03.2 - Hypothyroidism due to medicaments and other exogenous substances Status: Acute Assessment and Plan: I will check thyroid level but I do not see any thyroid medicine at this time. (8) Anemia: Onset Date: 04/16/18 Qualifiers: Anemia type: unspecified type Qualified Code(s): D64.9 - Anemia, unspecified Code(s): D64.9 - Anemia, unspecified Status: Chronic Assessment and Plan: His H&H is improving from his last admission per. Continue with ferrous gluconate. (9) Renal infarction: Code(s): N28.0 - Ischemia and infarction of kidney Status: Acute Assessment and Plan: [facility] Monitor renal function closely. His creatinine is 1.5 today DS: Summary Hospital Course Hospital Course: 75-year-old male patient who has a history of COPD congestive heart failure. The patient stated that he is taking his home medications as scheduled but is not back compliant with his heart healthy diet as he is trying to gain weight. Pt did well with iv Lasix ok to discharge lungs are clear today. Time Spent with Patient Time attestation: Total time spent providing and/or coordinating discharge services:40 minutes on day of discharge Exam Const: General: cooperative, healthy
== END 2020-09-06 13:15 | disposition home or self-care (01) ==
LOC: ANHED 08:29 → ANHIMU 10:23
PROVIDERS: Nurse Practitioner; Admitting Provider Family Medicine; Emergency Provider Emergency Medicine; PCP Family Medicine; Visit Provider Family Medicine
DX: R07.9 Chest pain, unspecified (principal); R06.02 Shortness of breath; J43.9 Emphysema, unspecified; Z87.891 Personal history of nicotine dependence; I13.0 Hypertensive heart and chronic kidney disease with heart failure and stage 1 through stage 4 chronic kidney disease, or unspecified chronic kidney disease; N18.31 Chronic kidney disease, stage 3a; I50.9 Heart failure, unspecified; F10.10 Alcohol abuse, uncomplicated; K22.70 Barrett's esophagus without dysplasia; I48.91 Unspecified atrial fibrillation; E03.9 Hypothyroidism, unspecified; D64.9 Anemia, unspecified
CPT/HCPCS: 36415; 71046; 80048; 80053; 83615; 83735; 83880; 84439; 84443; 84480; 84484; 85025; 85610; 85730; 93005; 96374; 96376; 99285; A9270; G0378; J1940

== ENCOUNTER 2020-09-24 06:00 | Inpatient (IN) | payer MEDICARE, SELFPAY ==
[2020-09-24] VITALS (19 sets, daily range): BP systolic 108–130; BP diastolic 42–74; PULSE 60–82; RESP 15–20; TEMP 35.6–36.6; O2SAT 94–100; BMI 18.1
--- NOTE | ~2020-09-24 | CT_ITS ---
EXAMINATION: CTA chest PE protocol DATE: 09/24/2020 08:02 CDT INDICATION: Chest pain TECHNIQUE: Computed tomographic angiography (CTA) of the chest was performed with 100 mL Omnipaque-35 0 intravenous contrast. The dose-length product was 404.91 mGy-cm. Maximum intensity projection 3D-re constructions of the aorta and other arteries were constructed by the technologist on a separate work station. Automated exposure control and iterative reconstruction technique were employed. COMPARISON: CT dated 08/02/2020. FINDINGS: Study is technically adequate without evidence for pulmonary embolism. No thoracic lymphade nopathy. There is atherosclerosis of the aorta and coronary arteries without aneurysm. Moderate emphy sema. No endobronchial lesions. There is dependent atelectasis in the lung bases. No focal pneumonia or suspicious nodule/mass. No endobronchial lesions. Status post median sternotomy for CABG. IMPRESSION: 1. No acute cardiopulmonary disease. No evidence for pulmonary embolism. 2: Emphysema. Reviewed, dictated and finalized at location A.
--- NOTE | ~2020-09-24 | XR_ITS ---
XR chest 1V portable 09/24/2020 06:27 Indication: Chest pain Procedure: AP portable chest Comparison: Comparison to multiple prior studies sequentially, with oldest reviewed study dated 06/21. Findings: Status post median sternotomy for CABG. Pacemaker leads are stable. No focal air space dise ase, pulmonary edema, pleural effusion or suspected pneumothorax. Heart size normal. Impression: 1: No acute cardiopulmonary disease. Reviewed, dictated and finalized at location A. Impression: 1: No acute cardiopulmonary disease.
--- NOTE | 2020-09-24 06:05 | ECG_ITS ---
Measurements Intervals [place] Rate: 63 P: 80 IA: 176 QRS: 2 QRSD: 146 T: 82 QT: 440 QTc: 452 Interpretive Statements SINUS RHYTHM INTRAVENTRICULAR CONDUCTION DELAY BORDERLINE ST-T WAVE ABNORMALITY- DIFFUSE LEADS BASELINE ARTIFACT- II, III, AVR, AVF, V2-V6 BORDERLINE ECG Electronically Signed On 09-24-2020 8:43:07 CDT by Chapo Bermudez D.O.
--- NOTE | 2020-09-24 06:05 | ED.CHESTPAIN ---
HPI - Chest Pain General Chief Complaint: Chest Pain <Marlon Hercules MD - Last Filed: 09/24/20 06:36> Stated Complaint: chest pain <Marlon Hercules MD - Last Filed: 09/24/20 06:36> Time Seen by Provider: 09/24/20 06:04 <Marlon Hercules MD - Last Filed: 09/24/20 06:36> History of Present Illness HPI narrative: Sharp substernal chest pain for the past few hours. Associated with SOB. He has noted a productive cough for the past few days. He reports that these symptoms are like when he had pneumonia in the past. No fever, chills. No fever. He had a CABG a few months ago at [facility] Per EMS initial BP was 80/40 <Marlon Hercules MD - Last Filed: 09/24/20 06:36> Related Data Home Medications: Home Medications Medication Instructions Recorded Confirmed albuterol sulfate 90 mcg/actuation 2 puff INHALATION Q4-6H PRN gm 04/19/19 09/24/20 aerosol inhaler amiodarone 200 mg tablet 200 mg PO DAILY 04/19/19 09/24/20 apixaban 5 mg tablet 5 mg PO BID 04/19/19 09/24/20 atorvastatin 40 mg tablet 40 mg PO DAILY 04/19/19 09/24/20 carvedilol 12.5 mg tablet 12.5 mg PO Q12H 04/19/19 09/24/20 clopidogrel 75 mg tablet 75 mg PO DAILY 04/19/19 09/24/20 lisinopril 5 mg tablet 5 mg PO QAM 04/19/19 09/24/20 acetaminophen-codeine 1 tablet PO Q8H PRN 08/01/20 09/24/20 ferrous gluconate 324 mg PO BID 08/01/20 09/24/20 gabapentin 600 mg PO TID 08/01/20 09/24/20 multivitamin 1 tablet PO DAILY 08/01/20 09/24/20 tamsulosin 0.8 mg PO DAILY 08/01/20 09/24/20 <Marlon Hercules MD - Last Filed: 09/24/20 06:36> Allergies/Adverse Reactions: Allergies Allergy/AdvReac Type Severity Reaction Status Date / Time hydrocodone Allergy Unknown Shock Verified 09/05/20 07:32 tramadol Allergy Unknown dizziness. Verified 09/05/20 07:32 amitriptyline AdvReac Mild Dizziness Verified 09/05/20 07:32 <Marlon Hercules MD - Last Filed: 09/24/20 06:36> Review of Systems Review of Systems: All systems reviewed & are unremarkable except as noted in HPI and below <Marlon Hercules MD - Last Filed: 09/24/20 06:36> Constitutional: Constitutional: Reports chills and Denies fever(s) <Marlon Hercules MD - Last Filed: 09/24/20 06:36> Cardiovascular: Cardiovascular: Reports as per HPI <Marlon Hercules MD - Last Filed: 09/24/20 06:36> Respiratory: Respiratory: Reports as per HPI <Marlon Hercules MD - Last Filed: 09/24/20 06:36> Gastrointestinal: Gastrointestinal: Denies abdominal pain, Denies nausea and Denies vomiting <Marlon Hercules MD - Last Filed: 09/24/20 06:36> [facility] Past Medical History Medical History: Medical History Alcohol abuse Atherosclerotic heart disease of [place] coronary artery with other forms of angina pectoris Atypical chest pain CAD (coronary artery disease) Cardiomyopathy Chronic anemia Chronic kidney disease, stage 3a COPD (chronic obstructive pulmonary disease) E coli bacteremia Emphysema, unspecified Essential (primary) hypertension Femoral-tibial bypass graft occlusion, right Heart failure, unspecified Infarction of kidney Ischemic bowel disease Paroxysmal atrial fibrillation Renal infarction Tobacco use disorder, moderate, dependence Ventricular tachycardia <Marlon Hercules MD - Last Filed: 09/24/20 06:36> Surgical History Surgical History: Surgical History (Updated 09/05/20 @ 14:38 by Christy Potter NP) H/O colonoscopy History of open heart surgery S/P femoropopliteal bypass surgery 2 on the right and 1 on the left <Marlon Hercules MD - Last Filed: 09/24/20 06:36> Family History Family History: Family History Sibling Diabetes mellitus Family history of cardiovascular disease Father Hypertension Malignant neoplasm of prostate Family history of primary malignant neoplasm of liver Mother Hypertension Family
--- NOTE | 2020-09-24 06:12 | PC.NURSE ---
Pt presents to ED from home with complaints of chest pain. Pt has been coughing for the past few days. Pt states chest pain onset on friday night. BPs were 80/30s upon arrival and has improved to 110/ 70s. Glucose 100 per EMS. Pt took 324mg of ASA station captain of EMS. Pt with hx of OK, CABG and recent bypass. EDMD present at bedside. Pt states pain is rated 6/10 at this time, sharp and constant. Pt noted to be alert and oriented x4. Vitals are stable and pt in no obvious distress. Call button and personal items within reach. Pt advised to press call button for assistance. RT presented to bedside for treatment. Pt advised to press all button for assistance.
[2020-09-24] MEDS: ALBUTEROL SULFATE NEB 2.5 MG/0.5 ML INH 5 MG INHALATION (06:17)
[2020-09-24] MEDS: IPRATROPIUM BR 0.02% INH SOLN 0.5 MG/2.5 ML VIAL INHALATION ×2 (06:18→19:50)
[2020-09-24 06:20] LABS: Basophils Percent Auto 0.4 % (0.2-1.2); Eosinophils Absolute Auto 0.2 K/mm3 (0-0.3); Eosinophils Percent Auto 1.8 % (0-4.4); Hematocrit 26.4 % (42.0-52.0); Hemoglobin 8.5 g/dL (14.0-18.0); Immature Granulocyte Absolute 0.04 K/mm3 (0.00-0.031); Immature Granulocyte Percent A 0.5 % (0-0.5); Lymphocytes Absolute Auto 0.88 K/mm3 (0.9-3.2); Lymphocytes Percent Auto 10.3 % (18.3-44.2); Mean Corpuscular HGB Conc 32.2 g/dl (32-36); Mean Corpuscular Volume 93.3 fl (80-100); Mean Platelet Volume 9.6 fl (7.4-10.4); Monocytes Absolute Auto 1.4 K/mm3 (0.1-0.6); Monocytes Percent Auto 16.4 % (2.6-8.5); Neutrophils Percent Auto 70.6 % (45.5-73.1); Platelet Count Result 239 k/mm3 (150-375); Red Blood Count 2.83 M/mm3 (4.6-6.20); Red Cell Distribution Width 21.4 % (11.5-14.5); White Blood Count 8.5 K/mm3 (4.5-10.0)
[2020-09-24 06:28] LABS: Alanine Aminotransferase 13 U/L (4-50); Albumin Level 2.9 g/dL (3.5-5.1); Alkaline Phosphatase 54 U/L (38-126); Anion Gap 9 mmol/L (8-16); Aspartate Amino Transferase 22 U/L (17-59); Bilirubin,Total 0.3 mg/dL (0.2-1.3); Blood Urea Nitrogen 21 mg/dL (9-20); Calcium 8.2 mg/dL (8.4-10.2); Carbon Dioxide 19 mmol/L (22-30); Chloride 108 mmol/L (98-107); Estimated CRCL calculation 60 ml/min; Estimated Glomerular Filt Rate > 60; Glucose 83 mg/dL (75-110); INR 1.4; Potassium 4.8 mmol/L (3.4-5.0); Prothrombin Time 17.9 Seconds (11.1-14.7); Sodium 136 mmol/L (137-145)
[2020-09-24 06:40] LABS: NT Pro B Type Natriuretic Pept 2820 pg/mL (5-100); Troponin I 0.022 ng/mL (0.000-0.034)
[2020-09-24 10:13] LABS: Troponin I 0.024 ng/mL (0.000-0.034)
--- NOTE | 2020-09-24 12:39 | ADMGEN ---
This patient, Hernando Sawyer, was admitted to IMU Room 212-01. Patient/family oriented to hospital policies and general routines including ID bracelet, bed and alarms, visiting hours, pain management, procedures, bathroom and other care routines, personal items, smoking policy, room service/diet, and visiting hours. Information on how to activate the Rapid Response Team has been discussed. Patient/Family are encouraged to report perceived risks to care and to ask questions if they do not understand what they are told or what they should do.
--- NOTE | 2020-09-24 13:00 | PM.IMHP ---
H&P: HPI History of Present Illness Date/Time: 09/24/20 13:00 Chief Complaint: Chest pain. Narrative: This is a 75-year-old male with multiple medical problems including coronary artery disease, ischemic cardiomyopathy, ventricular tachycardia status post ICD insertion, peripheral arterial disease, hypertension, paroxysmal atrial fibrillation, chronic obstructive pulmonary disease and emphysema, Estrada esophagus, and several other comorbidities who presented to the emergency department earlier today via EMS from home for evaluation of chest pain. This will be the patient's 3rd admission to the hospital since 08/01/2020 at which time he presented with epigastric pain, found to have esophagitis and Estrada esophagus on biopsy. Given his significant vascular disease there was some concern for possible chronic mesenteric ischemia however he has not had recurrent symptoms. He was admitted again on 09/05/2020 with shortness of breath and he was treated overnight for CHF exacerbation however chest x-ray only showed hyperinflation. He was able to be discharged the following day as he was feeling much better. The last several days he has developed a cough that is occasionally productive of clear phlegm and on Friday evening he began experiencing sharp, substernal chest pain. The pain seems to be worse with deep inspiration and cough and he tells me it feels like when he had pneumonia or pleurisy in the past. With further questioning he does mention that his head feels congested though he denies overt signs congestion, otalgia, odynophagia, and postnasal drip. He tells me he is not feeling short of breath and that he has never really had any issues with regards to his COPD/emphysema though he is quite wheezy on exam. He denies fever, chills, sweats, orthopnea, PND, edema, nausea, and vomiting. No anosmia or dysgeusia. No sick contacts. No history of seizure allergies. Review of Systems Review of Systems: Narrative: Twelve systems were reviewed with pertinent positives and negatives as per HPI. He has lost about 15 to 20 lb unintentionally over the last 1 year. His appetite is as per usual, which is not a great. He occasionally has early satiety but nothing significant. He has been taking iron for quite some time however he does not recall being told why he was anemic. Per patient report he has never had a colonoscopy. No melena or hematochezia. Grandmother had a history of colon cancer. No GERD or indigestion symptoms. He denies wheezing however is wheezing quite significantly on exam today. No dysphagia or concerns for aspiration. He does use his Symbicort typically twice a day. He does not have a rescue inhaler does not use it very often. No nebulizers at home. Add neb in the emergency department did seem to help somewhat with his symptoms today. He was having issues with claudication and had recent vascular surgery to the lower leg and that has provided him with significant relief. No paresthesias, skin color, or temperature changes of the lower extremities. No issues with claudication at this time. Except as documented, all other systems were reviewed and are negative. [facility] Past Medical History Medical History (Updated 09/24/20 @ 19:14 by Misa Sierra PA-C) Alcohol abuse Arthritis Estrada esophagus Benign prostatic hyperplasia Chronic anemia Chronic kidney disease, stage 3a Baseline creatinine is between 1.4 and 1.60. COPD with emphysema Coronary artery disease STEMI in 12/2011:Bare metal stent to proximal left circumflex and right coronary artery. Cardiac catheterization in 03/2019 15 showed multivessel disease. 2 vessel CABG with [place] to OM and left radial artery to PDA on 06/29/2014. Essential hypertension History of skin cancer Ischemic bowel disease Ischemic cardiomyopathy Most recent ejection fraction was 45 to 50%. Paroxysmal atrial fibrillation Peripheral arterial disease History bilateral iliac and femoral stents as wel
[2020-09-24 13:51] LABS: Troponin I 0.022 ng/mL (0.000-0.034)
[2020-09-24 15:44] LABS: Hematocrit 30.3 % (42.0-52.0); Hemoglobin 9.5 g/dL (14.0-18.0)
[2020-09-24 15:57] LABS: Lactic Acid Reflex 1.3 mmol/L (0.7-2.1)
[2020-09-24 15:58] LABS: Anion Gap 7 mmol/L (8-16); Blood Urea Nitrogen 23 mg/dL (9-20); Calcium 8.9 mg/dL (8.4-10.2); Carbon Dioxide 26 mmol/L (22-30); Chloride 107 mmol/L (98-107); Estimated CRCL calculation 38 ml/min; Estimated Glomerular Filt Rate 46; Glucose 150 mg/dL (75-110); Magnesium 1.9 mg/dL (1.6-2.3); Potassium 4.4 mmol/L (3.4-5.0); Sodium 140 mmol/L (137-145)
[2020-09-24] MEDS: APIXABAN 5 MG TABLET PO (17:04)
[2020-09-24] MEDS: DULoxetine HCL 60 MG CAPSULE.DR PO (17:04)
[2020-09-24] MEDS: ACETAMINOPHEN/CODEINE (*CRX) 300/30 MG TABLET 1 TAB PO (17:05)
[2020-09-24] MEDS: FERROUS GLUCONATE 324 MG TABLET PO (17:05)
[2020-09-24 17:25] LABS: Free T4 Free Thyroxine Reflex 1.38 ng/dL (0.78-2.19)
[2020-09-24 19:41] LABS: Total Triiodothyronine (T3) 0.82 NG/ML (0.97-1.69)
[2020-09-24] MEDS: ALBUTEROL SULFATE NEB 2.5 MG/0.5 ML INH INHALATION (19:50)
[2020-09-24] MEDS: ACETAMINOPHEN 325 MG TABLET 650 MG PO (20:17)
[2020-09-24] MEDS: guaiFENesin 12 HR 600 MG TABCR PO ×2 (20:18→20:21)
[2020-09-24] MEDS: predniSONE 20 MG TABLET 40 MG PO (20:19)
[2020-09-24] MEDS: carvediloL 12.5 MG TABLET PO (20:19)
[2020-09-24] MEDS: FLUTICASONE PROPIONATE 0.05% NA SPR 16 GM BTL (*BKC) 1 SPRAY NASAL (20:21)
[2020-09-24] MEDS: GABAPENTIN 300 MG CAPSULE 600 MG PO (21:08)
[2020-09-25] VITALS (25 sets, daily range): BP systolic 107–121; BP diastolic 38–50; PULSE 63–87; RESP 14–20; TEMP 36.2–36.9; O2SAT 95–99; BMI 18.2
[2020-09-25] MEDS: ALBUTEROL SULFATE NEB 2.5 MG/0.5 ML INH INHALATION ×4 (02:19→20:23)
[2020-09-25] MEDS: IPRATROPIUM BR 0.02% INH SOLN 0.5 MG/2.5 ML VIAL INHALATION ×4 (02:19→20:23)
[2020-09-25] MEDS: GABAPENTIN 300 MG CAPSULE 600 MG PO ×3 (06:24→21:05)
[2020-09-25] MEDS: AMIODARONE HCL 200 MG TABLET PO (08:39)
[2020-09-25] MEDS: ATORVASTATIN 40 MG TABLET PO (08:39)
[2020-09-25] MEDS: APIXABAN 5 MG TABLET PO ×2 (08:39→17:02)
[2020-09-25] MEDS: carvediloL 12.5 MG TABLET PO ×2 (08:39→21:05)
[2020-09-25] MEDS: predniSONE 20 MG TABLET 40 MG PO (08:39)
[2020-09-25] MEDS: MULTIVITAMINS THERAPEUTIC TAB (*BKC) 1 TABLET PO (08:40)
[2020-09-25] MEDS: FERROUS GLUCONATE 324 MG TABLET PO ×2 (08:40→17:02)
[2020-09-25] MEDS: lisinopriL 5 MG TABLET PO (08:40)
[2020-09-25] MEDS: TAMSULOSIN HCL 0.4 MG CAPSULE 0.8 MG PO (08:40)
[2020-09-25] MEDS: FOLIC ACID 0.4 MG TABLET PO (08:40)
[2020-09-25] MEDS: THIAMINE HCL 100 MG TABLET PO (08:40)
[2020-09-25] MEDS: PANTOPRAZOLE 40 MG TABLET PO (08:40)
[2020-09-25] MEDS: FLUTICASONE PROPIONATE 0.05% NA SPR 16 GM BTL (*BKC) 1 SPRAY NASAL ×2 (08:40→21:06)
[2020-09-25] MEDS: CLOPIDOGREL BISULFATE 75 MG TABLET PO (08:40)
[2020-09-25] MEDS: guaiFENesin 12 HR 600 MG TABCR PO ×2 (08:40→21:05)
[2020-09-25] MEDS: DULoxetine HCL 60 MG CAPSULE.DR PO ×2 (08:40→17:02)
[2020-09-25] MEDS: CYANOCOBALAMIN 1,000 MCG TABLET 1000 MCG PO (08:40)
--- NOTE | 2020-09-25 09:46 | PM.IMPN ---
Progress Note: A&P Assessment and Plan (1) COPD with emphysema: Code(s): J43.9 - Emphysema, unspecified Status: Acute Assessment and Plan: acute COPD exacerbation bronchodilators steroids antibiotics (2) CAD (coronary artery disease): Code(s): I25.10 - Atherosclerotic heart disease of [place] coronary artery without angina pectoris Status: Acute Assessment and Plan: rule out acute coronary syndrome with serial troponin continue beta-charanjit, statin, lisinopril and Plavix (3) Paroxysmal atrial fibrillation: Code(s): I48.0 - Paroxysmal atrial fibrillation Status: Chronic Assessment and Plan: rate control beta-charanjit amiodarone Eliquis Subjective Date/time seen: 09/25/20 09:46 Interval history: patient feels better today, shortness of breath and chest discomfort are improving gradually, patient denies any pain. he still complains of wheezing. Exam Const: General: cooperative and no acute distress HENMT: Head: normal to inspection Eyes: General: appearance normal, both eyes and all related structures Neck: Neck: normal visual inspection Chest: Chest palpation & inspection: normal inspection of the chest Resp: Effort & Inspection: normal respiratory effort Auscultation: wheezes and diminished lung sounds Cardio: Jugular venous distension: no JVD Rate: regular rate GI: Inspection: normal to inspection and non-distended Objective Data Vital Signs Vital Signs: Vital Signs - 24 hr 09/24/20 11:25 09/24/20 12:50 09/24/20 14:00 Temperature 96.0 F L Pulse Rate 67 65 72 Respiratory Rate 18 20 Blood Pressure 120/74 123/47 L Pulse Oximetry 100 98 09/24/20 16:00 09/24/20 17:44 09/24/20 18:00 Temperature 96.3 F L Pulse Rate 75 68 74 Respiratory Rate 20 Blood Pressure 130/52 L Pulse Oximetry 100 09/24/20 19:48 09/24/20 19:50 09/24/20 19:58 Temperature 97.3 F L Pulse Rate 76 79 Respiratory Rate 16 18 Blood Pressure 112/43 L Pulse Oximetry 97 94 09/24/20 19:59 09/24/20 20:00 09/24/20 22:00 Temperature Pulse Rate 74 71 82 Respiratory Rate 18 Blood Pressure Pulse Oximetry 09/24/20 23:10 09/25/20 00:00 09/25/20 02:00 Temperature 98 F Pulse Rate 72 69 63 Respiratory Rate 16 Blood Pressure 108/42 L Pulse Oximetry 97 09/25/20 02:19 09/25/20 02:29 09/25/20 04:00 Temperature 97.1 F L Pulse Rate 74 64 66 Respiratory Rate 18 18 16 Blood Pressure 112/48 L Pulse Oximetry 98 09/25/20 06:00 09/25/20 08:39 09/25/20 09:17 Temperature 98.1 F Pulse Rate 74 85 84 Respiratory Rate 16 Blood Pressure 121/48 L Pulse Oximetry 99 09/25/20 09:21 09/25/20 09:37 Temperature Pulse Rate 74 72 Respiratory Rate 20 20 Blood Pressure Pulse Oximetry 98 Intake/Output Intake/Output: Intake & Output 09/22/20 09/23/20 09/24/20 09/25/20 23:59 23:59 23:59 23:59 Intake Total 480 Output Total 900 Balance 480 -900 Meds/Results Medications: Active Medications Generic Name Dose Route Start Last Admin Trade Name Freq PRN Reason Stop Dose Admin Acetaminophen 650 mg 09/24/20 14:12 09/24/20 20:17 Acetaminophen 325 Mg Tablet PO 650 mg Q6H PRN Administration Mild Pain (1-3) or Fever Acetaminophen/Codeine Phosphate 1 tab 09/24/20 14:15 09/24/20 17:05 Acetaminophen/Codeine (*Crx) 300/30 Mg Tablet PO 1 tab Q8H PRN Administration MODERATE PAIN 4-6 Albuterol 2 puff 09/24/20 14:15 Albuterol Sulfate (*Sp) Aerosol 1 Puff INHALATION Q4-6H PRN Shortness Of Breath Albuterol 2.5 mg 09/24/20 20:00 09/25/20 09:19 Albuterol Sulfate Neb 2.5 Mg/0.5 Ml Inh INHALATION 2.5 mg Q6HRT CARRIE Administration Amiodarone HCl 200 mg 09/25/20 09:00 09/25/20 08:39 Amiodarone Hcl 200 Mg Tablet PO 200 mg DAILY CARRIE Administration Apixaban 5 mg 09/24/20 17:00 09/25/20 08:39 Apixaban 5 Mg Tablet PO 5 mg BID
[2020-09-25 17:34] LABS: IFOB Positive Control Positive; Immunochemical Fecal Occult Bl Positive (N)
--- NOTE | 2020-09-25 18:53 | PC.NURSE ---
This patient, Hernando Sawyer, was transferred to [[id number]] on 09/25/20 at 1853. Personal belongings sent with patient. Report given to [FIDEL GEORGE]. Appropriate documentation sent with patient.
--- NOTE | 2020-09-25 18:55 | PC.NURSE ---
Received from [facility] / via bed.
[2020-09-26] VITALS (9 sets, daily range): BP systolic 101–118; BP diastolic 42–48; PULSE 64–77; RESP 16–20; TEMP 35.7–36.4; O2SAT 97–99
[2020-09-26] MEDS: ACETAMINOPHEN/CODEINE (*CRX) 300/30 MG TABLET 1 TAB PO (01:30)
[2020-09-26] MEDS: ALBUTEROL SULFATE NEB 2.5 MG/0.5 ML INH INHALATION ×2 (02:10→08:17)
[2020-09-26] MEDS: IPRATROPIUM BR 0.02% INH SOLN 0.5 MG/2.5 ML VIAL INHALATION ×2 (02:10→08:17)
[2020-09-26] MEDS: GABAPENTIN 300 MG CAPSULE 600 MG PO (05:21)
[2020-09-26 05:55] LABS: Anion Gap 7 mmol/L (8-16); Basophils Percent Auto 0.1 % (0.2-1.2); Blood Urea Nitrogen 30 mg/dL (9-20); Calcium 8.9 mg/dL (8.4-10.2); Carbon Dioxide 24 mmol/L (22-30); Chloride 109 mmol/L (98-107); Eosinophils Percent Auto 0.4 % (0-4.4); Estimated CRCL calculation 39 ml/min; Estimated Glomerular Filt Rate 46; Glucose 107 mg/dL (75-110); Hematocrit 29.6 % (42.0-52.0); Hemoglobin 9.3 g/dL (14.0-18.0); Immature Granulocyte Absolute 0.05 K/mm3 (0.00-0.031); Immature Granulocyte Percent A 0.6 % (0-0.5); Lymphocytes Absolute Auto 0.75 K/mm3 (0.9-3.2); Lymphocytes Percent Auto 8.3 % (18.3-44.2); Mean Corpuscular HGB Conc 31.4 g/dl (32-36); Mean Corpuscular Volume 92.2 fl (80-100); Mean Platelet Volume 9.3 fl (7.4-10.4); Monocytes Percent Auto 11.5 % (2.6-8.5); Neutrophils Absolute Auto 7.1 K/mm3 (1.3-6.7); Neutrophils Percent Auto 79.1 % (45.5-73.1); Platelet Count Result 276 k/mm3 (150-375); Potassium 4.5 mmol/L (3.4-5.0); Red Blood Count 3.21 M/mm3 (4.6-6.20); Red Cell Distribution Width 21.2 % (11.5-14.5); Sodium 140 mmol/L (137-145)
[2020-09-26 06:07] LABS: Troponin I 0.022 ng/mL (0.000-0.034)
[2020-09-26] MEDS: FERROUS GLUCONATE 324 MG TABLET PO (08:46)
[2020-09-26] MEDS: PANTOPRAZOLE 40 MG TABLET PO (08:46)
[2020-09-26] MEDS: FLUTICASONE PROPIONATE 0.05% NA SPR 16 GM BTL (*BKC) 1 SPRAY NASAL (08:46)
[2020-09-26] MEDS: TAMSULOSIN HCL 0.4 MG CAPSULE 0.8 MG PO (08:46)
[2020-09-26] MEDS: guaiFENesin 12 HR 600 MG TABCR PO (08:46)
[2020-09-26] MEDS: CLOPIDOGREL BISULFATE 75 MG TABLET PO (08:46)
[2020-09-26] MEDS: AMIODARONE HCL 200 MG TABLET PO (08:46)
[2020-09-26] MEDS: CYANOCOBALAMIN 1,000 MCG TABLET 1000 MCG PO (08:46)
[2020-09-26] MEDS: APIXABAN 5 MG TABLET PO (08:46)
[2020-09-26] MEDS: FOLIC ACID 0.4 MG TABLET PO (08:47)
[2020-09-26] MEDS: ATORVASTATIN 40 MG TABLET PO (08:47)
[2020-09-26] MEDS: lisinopriL 5 MG TABLET PO (08:47)
[2020-09-26] MEDS: THIAMINE HCL 100 MG TABLET PO (08:47)
[2020-09-26] MEDS: MULTIVITAMINS THERAPEUTIC TAB (*BKC) 1 TABLET PO (08:47)
[2020-09-26] MEDS: predniSONE 20 MG TABLET 40 MG PO (08:48)
[2020-09-26] MEDS: carvediloL 12.5 MG TABLET PO (08:48)
[2020-09-26] MEDS: DULoxetine HCL 60 MG CAPSULE.DR PO (08:48)
--- NOTE | 2020-09-26 10:15 | PM.DS ---
DS: Admitting Diagnosis Admitting Diagnosis Admitting Diagnosis: 1. Acute bronchitis 2. History of COPD with exacerbation 3. History of coronary disease 4. History of atrial fibrillation DS: Discharge Diagnosis Discharge Diagnosis (1) COPD with emphysema: Code(s): J43.9 - Emphysema, unspecified Status: Acute Assessment and Plan: acute COPD exacerbation bronchodilators steroids antibiotics (2) CAD (coronary artery disease): Code(s): I25.10 - Atherosclerotic heart disease of [place] coronary artery without angina pectoris Status: Acute Assessment and Plan: rule out acute coronary syndrome with serial troponin continue beta-charanjit, statin, lisinopril and Plavix (3) Paroxysmal atrial fibrillation: Code(s): I48.0 - Paroxysmal atrial fibrillation Status: Chronic Assessment and Plan: rate control beta-charanjit amiodarone Eliquis DS: Summary Hospital Course Reason for hospitalization: 1. Acute bronchitis 2. COPD with emphysema 3. History of coronary disease 4. History of atrial fibrillation Hospital Course: patient is 75 years old male was admitted with complaints of having cough. Patient also have atypical chest pain. Patient is also mild shortness of breath. Patient was admitted in the hospital,cardiac enzymes were negative. Patient was given IV antibiotics and was continued on home medications. Today patient is feeling better so patient discharged home stable condition. Time spent discussing smoking cessation with patient: 3 to 10 minutes Status at Discharge Cognitive/behavioral status at discharge: Stable Functional status at discharge: independent ambulation Overall status at discharge: patient is back to baseline Time Spent with Patient Time attestation: Total time spent providing and/or coordinating discharge services: Time spent: Less than 30 minutes Exam Narrative: Exam Narrative: General: Thin, chronically ill-appearing male in the semi-Talavera position in bed. Weight: 67.5 kg. BMI: 18.1. HEENT: Normocephalic, atraumatic. PERRL, EOMI. Sclerae anicteric. Tacky mucous membranes. Opaque phlegm is noted in the posterior oropharynx. No erythema. Poor dentition with multiple missing teeth and caries. Neck: Supple. No JVD. Respiratory: Respirations are nonlabored and he is speaking in full sentences. He has diminished breath sounds throughout with diffuse expiratory wheezing and increased expiratory phase. Chest: Reproducible tenderness over the sternum. ICD in left anterior chest. Cardiovascular: Regular rate and rhythm with S1-S2. Gastrointestinal: Abdomen is soft, nontender, and nondistended with positive bowel sounds. Skin: Warm and dry. Extremities: No cyanosis, clubbing, or edema. Radial pulses palpable. Bilateral posterior tibialis pulses palpable. Neurological: Alert. Cranial nerves 2-12 are grossly intact. No gross focal deficits to casual conversation. Psychiatric: Pleasant and cooperative with normal mood and affect. Const: General: cooperative and no acute distress HENMT: Head: normal to inspection Eyes: General: appearance normal, both eyes and all related structures Neck: Neck: normal visual inspection Chest: Chest palpation & inspection: normal inspection of the chest Resp: Effort & Inspection: normal respiratory effort Auscultation: wheezes and diminished lung sounds Cardio: Jugular venous distension: no JVD Rate: regular rate GI: Inspection: normal to inspection and non-distended DS: Data Data Completed and Pending Labs on day of discharge: Labs from last 24 hours 09/26/20 09/26/20 09/25/20 05:11 05:11 15:52 WBC 9.0 RBC 3.21 L Hgb 9.3 L Hct 29.6 L MCV 92.2 MCH 29.0 MCHC 31.4 L RDW 21.2 H Plt Count 276 MPV 9.3 Immature Gran % (Auto) 0.6 H Neut % (Auto) 79.1 H Lymph % (Auto) 8.3 L [place] % (Auto) 11.5 H Eos % (Auto) 0.4 Baso % (Auto)
[2020-09-26] MEDS: AMOXICILLIN/CLAVULANATE K 875-125 MG TAB 1 TABLET PO (11:04)
== END 2020-09-26 12:32 | disposition home or self-care (01) | DRG 202 ==
LOC: ANHED 11:27 → ANHIMU 11:47 → ANH2MED 09-26 10:14 → ANHIMU 09-28 12:14
PROVIDERS: Physician Assistant; Admitting Provider Emergency Medicine; Emergency Provider Emergency Medicine; PCP Family Medicine; Visit Provider Internal Medicine
DX: J20.9 Acute bronchitis, unspecified (principal); E46 Unspecified protein-calorie malnutrition; Z68.1 Body mass index [BMI] 19.9 or less, adult; J43.9 Emphysema, unspecified; I25.10 Atherosclerotic heart disease of native coronary artery without angina pectoris; I25.5 Ischemic cardiomyopathy; D64.9 Anemia, unspecified; I10 Essential (primary) hypertension; I48.0 Paroxysmal atrial fibrillation; I49.9 Cardiac arrhythmia, unspecified; Z79.01 Long term (current) use of anticoagulants; Z79.899 Other long term (current) drug therapy; Z95.1 Presence of aortocoronary bypass graft; Z95.810 Presence of automatic (implantable) cardiac defibrillator; Z95.820 Peripheral vascular angioplasty status with implants and grafts; Z98.42 Cataract extraction status, left eye; Z98.41 Cataract extraction status, right eye
CPT/HCPCS: 36415; 71045; 71275; 80048; 80053; 82274; 83605; 83735; 83880; 84439; 84443; 84480; 84484; 85014; 85018; 85025; 85610; 85730; 87040; 93005; 94640; 94667; 94668; 96365; 99285; A9270; G0378; J0696; J7512; Q9967

== ENCOUNTER → 2020-11-06 03:44 | Outpatient (CLI) | payer MEDICARE, SELFPAY ==
[2020-11-06 17:32] LABS: SARS-CoV-2 RNA PCR Negative
== END ==
PROVIDERS: PCP Family Medicine; Visit Provider Internal Medicine Gastroenterology
DX: Z01.812 Encounter for preprocedural laboratory examination (principal); Z20.822 Contact with and (suspected) exposure to COVID-19
CPT/HCPCS: C9803; U0003; U0005

== ENCOUNTER 2020-11-09 00:53 | Day surgery (SDC) | payer MEDICARE, SELFPAY ==
[2020-11-02 08:14] VITALS: BMI 19.5
[2020-11-09] VITALS (13 sets, daily range): BP systolic 101–116; BP diastolic 44–51; PULSE 60–65; RESP 12–21; TEMP 36.2; O2SAT 90–99; BMI 18.8
[2020-11-09] MEDS: LACTATED RINGERS 1,000 ML 150 ML IV CONT (06:54)
--- NOTE | 2020-11-09 07:23 | WPDGICN ---
Assessment and Plan Assessment and plan (1) Anemia: Onset Date: 04/16/18 Qualifiers: Anemia type: unspecified type Qualified Code(s): D64.9 - Anemia, unspecified Code(s): D64.9 - Anemia, unspecified Status: Chronic Assessment and Plan: Patient with anemia that is likely multifactorial. Given the occult blood in stool colonoscopy will be performed. (2) Occult blood in stools: Code(s): R19.5 - Other fecal abnormalities Status: Acute Assessment and Plan: No active bleeding noted however occult blood loss noted this raises concern for possible GI blood loss colonoscopy will be performed at this time. EGD performed previously in July. 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 Plan is for pantoprazole to continue long-term. Anti-reflux measures encourage. At that time no significant erosions to account for anemia or blood loss were described. (4) COPD with emphysema: Code(s): J43.9 - Emphysema, unspecified Status: Acute (5) Coronary artery disease: Code(s): I25.10 - Atherosclerotic heart disease of [place] coronary artery without angina pectoris Status: Acute (6) Alcohol abuse: Code(s): F10.10 - Alcohol abuse, uncomplicated Status: Chronic GI Consult Note Consult date/time: 11/09/20 07:23 HPI: Hernando Sawyer is a 75 year old male Presents for colonoscopy. Patient has had significant peripheral vascular disease requiring femoral stenting and bypass earlier this year. Hospitalized at [facility] in July of this year he had abdominal pain. He was found to have anemia with occult blood loss. He refused a colonoscopy at that time but now agrees to proceed. An EGD performed in July revealed Estrada's esophagus for which she is now maintained on pantoprazole 40mg p.o. daily. Patient denies any ongoing abdominal pain presently. Past medical history is significant for COPD, hypertension, coronary artery disease,. patient denies any obvious signs of GI blood loss. He denies any bruising or nose bleeds. His family history is noncontributory. Colonoscopy will be performed today because of anemia and occult blood loss. Review of Systems Review of Systems: All systems reviewed & are unremarkable except as noted in HPI and below [facility] Past Medical History Medical History Alcohol abuse Arthritis Estrada esophagus Benign prostatic hyperplasia Chronic anemia Chronic kidney disease, stage 3a Baseline creatinine is between 1.4 and 1.60. COPD with emphysema Coronary artery disease STEMI in 12/2011:Bare metal stent to proximal left circumflex and right coronary artery. Cardiac catheterization in 03/2019 15 showed multivessel disease. 2 vessel CABG with GALLEGO to OM and left radial artery to PDA on 06/29/2014. Essential hypertension History of skin cancer Ischemic bowel disease Ischemic cardiomyopathy Most recent ejection fraction was 45 to 50%. Paroxysmal atrial fibrillation Peripheral arterial disease History bilateral iliac and femoral stents as well as bilateral femoral-popliteal bypass. Renal infarction ST elevation myocardial infarction (STEMI) (12/2011) Bare metal stent to proximal left circumflex and right coronary artery. Tobacco dependence Tuberculosis (1994) Ventricular tachycardia Status post [place] scientific dual chamber AICD in July 2015. Surgical History Surgical History History of bilateral cataract extraction History of cardiac catheterization History of colonoscopy History of coronary artery bypass graft x 2 (06/29/14) GALLEGO to obtuse marginal. Left radial artery to posterior descending artery. History of implantable card
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
--- NOTE | 2020-11-09 08:04 | SUR.OPER ---
Magnet placed over pacemaker by MONTEZ Handley prior and during cautery.
--- NOTE | 2020-11-09 08:40 | SUR.PHASEII ---
Spoke with Dr. Gao regarding Plavix and Eliquis. He states blood thinners should be resumed on Friday11/11/20.
--- NOTE | 2020-11-09 09:03 | SUR.PHASEII ---
Patient has [employer] pacemaker. Will interrogate pacemaker prior to patient being discharged. Patient aware of plan.
--- NOTE | 2020-11-09 09:20 | SUR.PHASEII ---
Multiple attempts made to transfer data from pacemaker interrogation - unsuccessful. Called [employer] and was told the system is down and we should continue to attempt to transfer the data.
--- NOTE | 2020-11-09 09:29 | SUR.PHASEII ---
Continued attempts to transfer pacemaker data have been unsuccessful. Will continue to attempt transfer.
--- NOTE | 2020-11-09 09:38 | SUR.PHASEII ---
Continued attempts to transfer pacemaker data to [facility] unsuccessful. Call out to customer service line to see if system remains down.
--- NOTE | 2020-11-09 09:50 | SUR.PHASEII ---
Received return call from [employer] rep - he states no one will be available to come to the hospital until later this afternoon to interrogate pacemaker. Continuing attempts to transfer pacemaker data have been unsuccessful. Called patient's ride - Kong - and informed him of situation. He states he will go to his home in [place] to wait and we can call him when patient is ready to be picked up. Patient made aware of all of the above.
--- NOTE | 2020-11-09 10:12 | SUR.PHASEII ---
0984 [employer] called on update of system being down. Spoke with a traveling representative from [facility] Sarita. She said that they were working on getting the system up and running but didn't have any idea when it might be back up. I asked for her to contact a rep to come out to interogate the AICD. Sarita said she would page a rep to come out. 1014 We haven't heard from anyone from [employer] on a timeframe of them coming so a calll was made so we could update the patient. Called [employer] spoke with a rep Michelle asking if she knew a time frame of when the system would be back up or when a rep would be able to come so we could update the patient as he is awaiting an ok on his AICD so he can be discharged. 1018 Pj a rep from [employer] called back asked if we could just wait for the system to come back up. I explained that the [employer] roll tension tester rep could not give us a time frame when the system might be back up and the patient is wanting to go home is just waiting for his AICD to be checked. Pj said he would try to see if someone was available but he thought it might be a while before someone could be here. 1022 Patient update on our progress to get a hold of a rep.
--- NOTE | 2020-11-09 10:59 | SUR.PHASEII ---
1040 Pj from [employer] called and asked us to call the [facility] to use their device junior programmer to check the patient's AICD. 1045 [facility] called and they brought over their device to use. 1047 I called Pj on how to work the junior programmer. Process was explained to the patient and he voiced no concerns. Pj walked me through using the junior programmer to look at patients device to see if it was operating correctly. We were able to see his information on the screen and Pj asked me to read him different things that were on the screen to see if the patient's AICD was working properly. I was unable to print the screen from the junior programmer at this time but a photo was taken and printed out to place on the patient's chart. I also asked the [facility] to print out the screen needed when their Programming Nurse Aysha returns as it is saved on their hard drive.
== END 2020-11-09 11:40 | disposition home or self-care (01) ==
PROVIDERS: PCP Family Medicine; Visit Provider Internal Medicine Gastroenterology
PROC: 0DJD8ZZ Inspection of Lower Intestinal Tract, Via Natural or Artificial Opening Endoscopic (ICD-10-PCS; CPT 45378; principal; 2020-11-09 08:00)
DX: D64.9 Anemia, unspecified (principal); D12.2 Benign neoplasm of ascending colon; D12.0 Benign neoplasm of cecum; D12.5 Benign neoplasm of sigmoid colon; K63.5 Polyp of colon; K64.8 Other hemorrhoids; K57.30 Diverticulosis of large intestine without perforation or abscess without bleeding; K22.70 Barrett's esophagus without dysplasia; J43.9 Emphysema, unspecified; I25.10 Atherosclerotic heart disease of native coronary artery without angina pectoris; F10.10 Alcohol abuse, uncomplicated; I12.9 Hypertensive chronic kidney disease with stage 1 through stage 4 chronic kidney disease, or unspecified chronic kidney disease; N18.31 Chronic kidney disease, stage 3a; I25.5 Ischemic cardiomyopathy; I48.0 Paroxysmal atrial fibrillation; I73.9 Peripheral vascular disease, unspecified; I25.2 Old myocardial infarction; Z95.810 Presence of automatic (implantable) cardiac defibrillator; Z95.1 Presence of aortocoronary bypass graft; Z95.820 Peripheral vascular angioplasty status with implants and grafts; Z87.891 Personal history of nicotine dependence; Z79.01 Long term (current) use of anticoagulants; Z79.02 Long term (current) use of antithrombotics/antiplatelets
CPT/HCPCS: 45385; 88305; J2001; J2704; J7120

== ENCOUNTER 2020-11-12 16:00 | Inpatient (IN) | payer MEDICARE, SELFPAY ==
[2020-11-12] VITALS (60 sets, daily range): BP systolic 119–140; BP diastolic 41–56; PULSE 72–82; RESP 13–24; TEMP 36.1–36.7; O2SAT 89–100
--- NOTE | ~2020-11-12 | XR_ITS ---
EXAMINATION: XR chest 2V DATE: 11/12/2020 17:21 INDICATION: Emphysema. Shortness of breath and hypoxia. TECHNIQUE: frontal and lateral views of the chest were obtained. COMPARISON: Chest radiograph and CT dated 09/24/2020 FINDINGS: Hyperexpansion of lungs with increased lucency in the upper lung zones consistent with emphysema. New airspace opacities in the left mid to lower lung zone. Blunting at the posterior sulci consistent wi th small bilateral pleural effusions. No pneumothorax. The cardiomediastinal silhouette is normal. Me luke sternotomy wires and mediastinal surgical clips are seen, likely from prior coronary artery bypa ss grafting. Dual lead pacemaker/AICD seen with leads projecting over the expected locations of the r ight atrium and right ventricle. IMPRESSION: 1. Opacities in the left mid and lower lung zones which could represent atelectasis or pneumonia. 2. Small bilateral pleural effusions. 3. Emphysema. Reviewed, dictated and finalized at location A. IMPRESSION: 1. Opacities in the left mid and lower lung zones which could represent atelect asis or pneumonia. 2. Small bilateral pleural effusions. 3. Emphysema.
--- NOTE | 2020-11-12 17:02 | ECG_ITS ---
Measurements Intervals [place] Rate: 76 P: 60 PA: 176 QRS: 26 QRSD: 150 T: 68 QT: 426 QTc: 479 Interpretive Statements SINUS RHYTHM POSSIBLE LEFT ATRIAL ENLARGEMENT INCOMPLETE LEFT BUNDLE BRANCH BLOCK BORDERLINE ST-T WAVE ABNORMALITY- INF/LAT LEADS BASELINE ARTIFACT- I, II, III, AVR, AVL, AVF, V1-V6 ABNORMAL ECG Electronically Signed On 11-13-2020 7:26:11 CDT by Chapo Bermudez D.O.
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
[2020-11-12] MEDS: IPRATROPIUM BR 0.02% INH SOLN 0.5 MG/2.5 ML VIAL INHALATION ×4 (17:21→19:04)
[2020-11-12] MEDS: ALBUTEROL SULFATE NEB 2.5 MG/0.5 ML INH 5 MG INHALATION ×4 (17:21→19:04)
[2020-11-12 18:04] LABS: Basophils Percent Auto 0.3 % (0.2-1.2); Eosinophils Absolute Auto 0.1 K/mm3 (0-0.3); Eosinophils Percent Auto 0.5 % (0-4.4); Hematocrit 38.7 % (42.0-52.0); Hemoglobin 12.3 g/dL (14.0-18.0); Immature Granulocyte Absolute 0.05 K/mm3 (0.00-0.031); Immature Granulocyte Percent A 0.5 % (0-0.5); Lymphocytes Absolute Auto 0.37 K/mm3 (0.9-3.2); Lymphocytes Percent Auto 3.5 % (18.3-44.2); Mean Corpuscular HGB Conc 31.8 g/dl (32-36); Mean Corpuscular Hemoglobin 29.7 pg (26-34); Mean Corpuscular Volume 93.5 fl (80-100); Mean Platelet Volume 9.8 fl (7.4-10.4); Monocytes Percent Auto 9.2 % (2.6-8.5); Neutrophils Absolute Auto 9.1 K/mm3 (1.3-6.7); Platelet Count Result 289 k/mm3 (150-375); Red Blood Count 4.14 M/mm3 (4.6-6.20); Red Cell Distribution Width 15.6 % (11.5-14.5); White Blood Count 10.5 K/mm3 (4.5-10.0)
[2020-11-12 18:13] LABS: Alanine Aminotransferase 20 U/L (4-50); Albumin Level 4.5 g/dL (3.5-5.1); Alkaline Phosphatase 125 U/L (38-126); Anion Gap 6 mmol/L (8-16); Aspartate Amino Transferase 33 U/L (17-59); Blood Urea Nitrogen 16 mg/dL (9-20); Calcium 9.3 mg/dL (8.4-10.2); Carbon Dioxide 26 mmol/L (22-30); Chloride 98 mmol/L (98-107); Estimated CRCL calculation 32 ml/min; Estimated Glomerular Filt Rate 37; Glucose 92 mg/dL (65-110); Potassium 4.4 mmol/L (3.4-5.0); Sodium 130 mmol/L (137-145)
--- NOTE | 2020-11-12 23:34 | PC.NURSE ---
report to mary beth lopez
--- NOTE | 2020-11-12 23:39 | PC.NURSE ---
Report received from ARIEL Bright. Assumed care of patient at this time.
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
[2020-11-13] VITALS (59 sets, daily range): BP systolic 94–131; BP diastolic 35–79; PULSE 66–88; RESP 12–21; TEMP 36.3–36.9; O2SAT 91–100; BMI 18.5
[2020-11-13] MEDS: DEXAMETHASONE SOD PHOS INJ 4 MG/ML VIAL 6 MG IV PUSH (00:36)
[2020-11-13] MEDS: ALBUTEROL SULFATE NEB 2.5 MG/0.5 ML INH 5 MG INHALATION ×3 (04:04→20:24)
[2020-11-13] MEDS: IPRATROPIUM BR 0.02% INH SOLN 0.5 MG/2.5 ML VIAL INHALATION ×3 (04:04→20:24)
[2020-11-13 07:05] LABS: NT Pro B Type Natriuretic Pept 16400 pg/mL (5-100)
--- NOTE | 2020-11-13 07:26 | PM.IMPN ---
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 - Estrada's esophagus without dysplasia Status: Acute (7) Essential hypertension: Code(s): I10 - Essential (primary) hypertension Status: Acute (8) Tobacco dependence: Code(s): F17.200 - Nicotine dependence, unspecified, uncomplicated Status: Acute (9) Ischemic cardiomyopathy: Code(s): I25.5 - Ischemic cardiomyopathy Status: Acute (10) Coronary artery disease: Code(s): I25.10 - Atherosclerotic heart disease of [place] coronary artery without angina pectoris Status: Acute (11) Chronic anemia: Code(s): D64.9 - Anemia, unspecified Status: Acute (12) Chronic kidney disease, stage 3a: Code(s): N18.31 - Chronic kidney disease, stage 3a Status: Chronic (13) Femoral-tibial bypass graft occlusion, right: Qualifiers: Encounter type: sequela Qualified Code(s): T82.898S - Other specified complication of vascular prosthetic devices, implants and grafts, sequela Code(s): T82.898A - Other specified complication of vascular prosthetic devices, implants and grafts, initial encounter Status: Chronic (14) Paroxysmal atrial fibrillation: Code(s): I48.0 - Paroxysmal atrial fibrillation Status: Chronic (15) Ventricular tachycardia: Code(s): I47.2 - Ventricular tachycardia Status: Acute (16) Hypothyroidism due to medication: Code(s): E03.2 - Hypothyroidism due to medicaments and other exogenous substances Status: Acute Additional Plan # Acute hypoxic respiratory failure 89% on arrival. He was on 2 L of oxygen at the time of presentation in the emergency department but that has been weaned down to room air now. Oxygen inhalation only if oxygenation is less than 90%. # Acute COPD exacerbation. I will switch dexamethasone to IV Solu-Medrol 40 mg IV 3 times a day. Will start tapering the dose based on his clinical and respiratory status. # Left lung pneumonia chest x-ray reviewed these findings are new. Continue ceftriaxone and azithromycin. Send sputum culture if he is able to produce any. Repeat chest x-ray in 3-4 days time. COVID 19 swab is pending. # DARINEL on CKD stage 3 baseline creatinine about 1.4 current creatinine 1.8 gentle hydration with normal saline watch for any fluid overload due to history of congestive heart failure # Hyponatremia mild 130 gentle hydration with normal saline # Coronary artery disease status post CABG 2014 prior history of stents. He did complain of some chest pain yesterday in the emergency department with EKG non revealing with no ischemic changes. Continue Plavix, carvedilol and Lipitor. Continue lisinopril. # Ischemic cardiomyopathy ejection fraction 45-50%. ProBNP is elevated. No fluid overload on clinical exam with no edema, JVP is not elevated. No significant crackles heard on respiratory system auscultation. Continue Lipitor and, lisinopril carvedilol. Continue Plavix. # Proximal atrial fibrillation on Eliquis. Continue amiodarone. # Peripheral vascular disease with bilateral iliac and femoral stents and bilateral femoral popliteal bypass # Tobacco dependence # Ventricular tachycardia status post dual-chamber AICD July 2015 # Chronic anemia recent EGD with finding of Estrada's esophagus recent colonoscopy with findings
--- NOTE | 2020-11-13 08:20 | PC.NURSE ---
This patient, Hernando Sawyer, was admitted to 3 [facility] Room 310-01. Patient/family oriented to hospital policies and general routines including ID bracelet, bed and alarms, visiting hours, pain management, procedures, bathroom and other care routines, personal items, smoking policy, room service/diet, and visiting hours. Information on how to activate the Rapid Response Team has been discussed. Patient/Family are encouraged to report perceived risks to care and to ask questions if they do not understand what they are told or what they should do.
--- NOTE | 2020-11-13 11:35 | PCRCNOTE ---
Window of time for administration has passed. See next scheduled administration.
[2020-11-13] MEDS: SODIUM CHLORIDE 0.9% IV 1,000 ML 100 ML IV CONT (14:20)
[2020-11-13] MEDS: GABAPENTIN 300 MG CAPSULE 600 MG PO ×2 (14:20→17:16)
[2020-11-13] MEDS: DULoxetine HCL 60 MG CAPSULE.DR PO (17:16)
[2020-11-13] MEDS: FERROUS GLUCONATE 324 MG TABLET PO (17:21)
[2020-11-13] MEDS: APIXABAN 5 MG TABLET PO (17:21)
[2020-11-13 18:30] LABS: SARS-CoV-2 RNA PCR Negative
[2020-11-13] MEDS: methylPREDNISolone SOD SUCC 40 MG VIAL IV PUSH (21:07)
[2020-11-13] MEDS: carvediloL 12.5 MG TABLET PO (21:07)
[2020-11-13] MEDS: ACETAMINOPHEN/CODEINE (*CRX) 300/30 MG TABLET 1 TAB PO (22:39)
[2020-11-14] VITALS (18 sets, daily range): BP systolic 115–136; BP diastolic 44–66; PULSE 75–117; RESP 17–18; TEMP 35.9–37.2; O2SAT 91–98
[2020-11-14] MEDS: ALBUTEROL SULFATE NEB 2.5 MG/0.5 ML INH 5 MG INHALATION ×4 (02:01→20:02)
[2020-11-14] MEDS: ALBUTEROL SULFATE NEB 2.5 MG/3 ML INH (02:01)
[2020-11-14] MEDS: IPRATROPIUM BR 0.02% INH SOLN 0.5 MG/2.5 ML VIAL INHALATION ×4 (02:02→20:02)
[2020-11-14] MEDS: SODIUM CHLORIDE 0.9% IV 1,000 ML 100 ML IV CONT (02:10)
[2020-11-14] MEDS: methylPREDNISolone SOD SUCC 40 MG VIAL IV PUSH ×2 (05:51→17:21)
[2020-11-14] MEDS: LEVOTHYROXINE SODIUM 25 MCG TABLET PO (05:52)
[2020-11-14 07:04] LABS: Basophils Percent Auto 0.1 % (0.2-1.2); Hematocrit 36.6 % (42.0-52.0); Immature Granulocyte Absolute 0.05 K/mm3 (0.00-0.031); Immature Granulocyte Percent A 0.5 % (0-0.5); Lymphocytes Absolute Auto 0.19 K/mm3 (0.9-3.2); Lymphocytes Percent Auto 1.7 % (18.3-44.2); Mean Corpuscular HGB Conc 30.1 g/dl (32-36); Mean Corpuscular Hemoglobin 29.6 pg (26-34); Mean Corpuscular Volume 98.7 fl (80-100); Mean Platelet Volume 10.3 fl (7.4-10.4); Monocytes Absolute Auto 0.4 K/mm3 (0.1-0.6); Monocytes Percent Auto 3.4 % (2.6-8.5); Neutrophils Absolute Auto 10.4 K/mm3 (1.3-6.7); Neutrophils Percent Auto 94.3 % (45.5-73.1); Platelet Count Result 303 k/mm3 (150-375); Red Blood Count 3.71 M/mm3 (4.6-6.20); Red Cell Distribution Width 15.8 % (11.5-14.5); White Blood Count 11.1 K/mm3 (4.5-10.0)
[2020-11-14 07:28] LABS: Anion Gap 7 mmol/L (8-16); Blood Urea Nitrogen 23 mg/dL (9-20); Calcium 8.8 mg/dL (8.4-10.2); Carbon Dioxide 22 mmol/L (22-30); Chloride 106 mmol/L (98-107); Estimated CRCL calculation 44 ml/min; Estimated Glomerular Filt Rate 54; Glucose 136 mg/dL (65-110); Magnesium 2.2 mg/dL (1.6-2.3); Potassium 4.6 mmol/L (3.4-5.0); Sodium 135 mmol/L (137-145)
[2020-11-14] MEDS: PANTOPRAZOLE 40 MG TABLET PO (09:38)
[2020-11-14] MEDS: FERROUS GLUCONATE 324 MG TABLET PO ×2 (09:39→17:20)
[2020-11-14] MEDS: FOLIC ACID 0.4 MG TABLET PO (09:39)
[2020-11-14] MEDS: lisinopriL 5 MG TABLET PO (09:39)
[2020-11-14] MEDS: TAMSULOSIN HCL 0.4 MG CAPSULE 0.8 MG PO (09:39)
[2020-11-14] MEDS: CLOPIDOGREL BISULFATE 75 MG TABLET PO (09:39)
[2020-11-14] MEDS: THIAMINE HCL 100 MG TABLET PO (09:39)
[2020-11-14] MEDS: GABAPENTIN 300 MG CAPSULE 600 MG PO ×3 (09:39→17:20)
[2020-11-14] MEDS: ATORVASTATIN 40 MG TABLET PO (09:39)
[2020-11-14] MEDS: DULoxetine HCL 60 MG CAPSULE.DR PO ×2 (09:39→17:20)
[2020-11-14] MEDS: MULTIVITAMINS THERAPEUTIC TAB (*BKC) 1 TABLET PO (09:40)
[2020-11-14] MEDS: CYANOCOBALAMIN 1,000 MCG TABLET 1000 MCG PO (09:40)
[2020-11-14] MEDS: AMIODARONE HCL 200 MG TABLET PO (09:40)
[2020-11-14] MEDS: APIXABAN 5 MG TABLET PO ×2 (09:40→17:21)
[2020-11-14] MEDS: carvediloL 12.5 MG TABLET PO ×2 (09:40→21:22)
[2020-11-14] MEDS: FUROSEMIDE INJ 40 MG/4 ML VIAL IV PUSH (12:53)
--- NOTE | 2020-11-14 13:21 | PM.IMPN ---
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 - Estrada's esophagus without dysplasia Status: Acute (7) Essential hypertension: Code(s): I10 - Essential (primary) hypertension Status: Acute (8) Tobacco dependence: Code(s): F17.200 - Nicotine dependence, unspecified, uncomplicated Status: Acute (9) Ischemic cardiomyopathy: Code(s): I25.5 - Ischemic cardiomyopathy Status: Acute (10) Coronary artery disease: Code(s): I25.10 - Atherosclerotic heart disease of [place] coronary artery without angina pectoris Status: Acute (11) Chronic anemia: Code(s): D64.9 - Anemia, unspecified Status: Acute (12) Chronic kidney disease, stage 3a: Code(s): N18.31 - Chronic kidney disease, stage 3a Status: Chronic (13) Femoral-tibial bypass graft occlusion, right: Qualifiers: Encounter type: sequela Qualified Code(s): T82.898S - Other specified complication of vascular prosthetic devices, implants and grafts, sequela Code(s): T82.898A - Other specified complication of vascular prosthetic devices, implants and grafts, initial encounter Status: Chronic (14) Paroxysmal atrial fibrillation: Code(s): I48.0 - Paroxysmal atrial fibrillation Status: Chronic (15) Ventricular tachycardia: Code(s): I47.2 - Ventricular tachycardia Status: Acute (16) Hypothyroidism due to medication: Code(s): E03.2 - Hypothyroidism due to medicaments and other exogenous substances Status: Acute Additional Plan # Acute hypoxic respiratory failure. He was on 2 L of oxygen at the time of presentation in the emergency department but that has been weaned down to room air. I found him hypoxic to 88-89% on room air today and he was placed back on 2 L of oxygen again. # Acute COPD exacerbation. I will wean his Solu-Medrol to 40 mg IV twice a day today. He is less wheezy and bronchospastic. Will continue further tapering the dose based on his clinical and respiratory status. # Left lung pneumonia chest x-ray reviewed these findings are new. Continue ceftriaxone and azithromycin. Send sputum culture if he is able to produce any. Repeat chest x-ray in 3-4 days time. COVID 19 swab is reported as negative. # DARINEL on CKD stage 3 baseline creatinine about 1.4. His creatinine at the time of presentation was 1.8. He was given IV fluid and his creatinine today is back to his baseline. I will stop IV fluids. Strict intake output record and elevate. Continue to monitor renal parameters and electrolytes. # Hyponatremia mild 130 at the time of presentation. His serum sodium is 135 today. # Coronary artery disease status post CABG 2014 prior history of stents. He did complain of some chest pain yesterday in the emergency department with EKG non revealing with no ischemic changes. Continue Plavix, carvedilol and Lipitor. Continue lisinopril. # Ischemic cardiomyopathy ejection fraction 45-50%. ProBNP is elevated. He had some crackle today on clinical exam at the bilateral lung bases with no significant edema. Kidney functions are back to baseline and I will give him 1 dose of Lasix today. Continue Lipitor and, lisinopril carvedilol. Continue Plavix. # Proximal atrial fibrillation on Eliquis. Continue amiodarone. # Peripheral vascular disease with
[2020-11-14] MEDS: ACETAMINOPHEN/CODEINE (*CRX) 300/30 MG TABLET 1 TAB PO (21:22)
[2020-11-15] VITALS (15 sets, daily range): BP systolic 109–128; BP diastolic 40–54; PULSE 68–110; RESP 17–20; TEMP 36.1–36.8; O2SAT 91–99
--- NOTE | 2020-11-15 05:44 | PCRCNOTE ---
Window of time for administration has passed. See next scheduled administration.
[2020-11-15 06:34] LABS: Hematocrit 31.5 % (42.0-52.0); Hemoglobin 10.1 g/dL (14.0-18.0); Immature Granulocyte Absolute 0.07 K/mm3 (0.00-0.031); Immature Granulocyte Percent A 0.6 % (0-0.5); Lymphocytes Absolute Auto 0.28 K/mm3 (0.9-3.2); Lymphocytes Percent Auto 2.5 % (18.3-44.2); Mean Corpuscular HGB Conc 32.1 g/dl (32-36); Mean Corpuscular Hemoglobin 30.3 pg (26-34); Mean Corpuscular Volume 94.6 fl (80-100); Monocytes Absolute Auto 0.9 K/mm3 (0.1-0.6); Monocytes Percent Auto 7.7 % (2.6-8.5); Neutrophils Absolute Auto 10.1 K/mm3 (1.3-6.7); Neutrophils Percent Auto 89.2 % (45.5-73.1); Platelet Count Result 296 k/mm3 (150-375); Red Blood Count 3.33 M/mm3 (4.6-6.20); White Blood Count 11.4 K/mm3 (4.5-10.0)
[2020-11-15 06:44] LABS: Anion Gap 7 mmol/L (8-16); Blood Urea Nitrogen 31 mg/dL (9-20); Calcium 8.8 mg/dL (8.4-10.2); Carbon Dioxide 25 mmol/L (22-30); Chloride 104 mmol/L (98-107); Estimated CRCL calculation 39 ml/min; Estimated Glomerular Filt Rate 46; Glucose 137 mg/dL (65-110); Potassium 4.7 mmol/L (3.4-5.0); Sodium 136 mmol/L (137-145)
[2020-11-15] MEDS: APIXABAN 5 MG TABLET PO ×2 (09:07→17:08)
[2020-11-15] MEDS: methylPREDNISolone SOD SUCC 40 MG VIAL IV PUSH (09:07)
[2020-11-15] MEDS: ATORVASTATIN 40 MG TABLET PO (09:07)
[2020-11-15] MEDS: AMIODARONE HCL 200 MG TABLET PO (09:07)
[2020-11-15] MEDS: CLOPIDOGREL BISULFATE 75 MG TABLET PO (09:08)
[2020-11-15] MEDS: FOLIC ACID 0.4 MG TABLET PO (09:08)
[2020-11-15] MEDS: THIAMINE HCL 100 MG TABLET PO (09:08)
[2020-11-15] MEDS: FERROUS GLUCONATE 324 MG TABLET PO ×2 (09:08→17:08)
[2020-11-15] MEDS: DULoxetine HCL 60 MG CAPSULE.DR PO ×2 (09:08→17:08)
[2020-11-15] MEDS: GABAPENTIN 300 MG CAPSULE 600 MG PO ×3 (09:09→17:07)
[2020-11-15] MEDS: MULTIVITAMINS THERAPEUTIC TAB (*BKC) 1 TABLET PO (09:09)
[2020-11-15] MEDS: TAMSULOSIN HCL 0.4 MG CAPSULE 0.8 MG PO (09:09)
[2020-11-15] MEDS: PANTOPRAZOLE 40 MG TABLET PO (09:09)
[2020-11-15] MEDS: CYANOCOBALAMIN 1,000 MCG TABLET 1000 MCG PO (09:13)
[2020-11-15] MEDS: ALBUTEROL SULFATE NEB 2.5 MG/0.5 ML INH 5 MG INHALATION ×4 (09:26→20:22)
[2020-11-15] MEDS: IPRATROPIUM BR 0.02% INH SOLN 0.5 MG/2.5 ML VIAL INHALATION ×4 (09:26→20:22)
--- NOTE | 2020-11-15 10:33 | PM.IMPN ---
Progress Note: A&P Assessment and Plan (1) COPD exacerbation: Code(s): J44.1 - Chronic obstructive pulmonary disease with (acute) exacerbation Status: Acute (2) Acute respiratory failure with hypoxia: Code(s): J96.01 - Acute respiratory failure with hypoxia Status: Acute (3) Peripheral arterial disease: Code(s): I73.9 - Peripheral vascular disease, unspecified Status: Acute (4) Ischemic cardiomyopathy: Code(s): I25.5 - Ischemic cardiomyopathy Status: Acute (5) Coronary artery disease: Code(s): I25.10 - Atherosclerotic heart disease of [place] coronary artery without angina pectoris Status: Acute (6) Pneumonia: Code(s): J18.9 - Pneumonia, unspecified organism Status: Acute Additional Plan 1. Acute hypoxic respiratory failure due to COPD exacerbation and pneumonia - Continue to wean O2 - Continue steroid taper to 40 mg daily now - Bronchodilators - Continue ceftriaxone and azithromycin. - COVID 19 swab is reported as negative. 2. Chronic kidney disease stage 3 - Baseline creatinine 1.4-1.6, currently at baseline 3. Coronary artery disease status post CABG 2014 prior history of stents. - Continue Plavix, carvedilol and Lipitor. Continue lisinopril. 4. Ischemic cardiomyopathy ejection fraction 45-50% - Continue Lipitor and lisinopril, carvedilol. Continue Plavix. Received one time lasix 11/14. Monitor volume status. 5. Atrial fibrillation - On Eliquis. Continue amiodarone. 6. Peripheral vascular disease with bilateral iliac and femoral stents and bilateral femoral popliteal bypass 7. Tobacco dependence 8. Ventricular tachycardia status post dual-chamber AICD July 2015 9. Chronic anemia recent EGD with finding of Estrada's esophagus recent colonoscopy with findings of colon polyps all benign. 10. Chronic anemia continue to monitor. 11. Estrada esophagus continue p.o. pantoprazole at home dose DVT prophylaxis on Eliquis will continue same Code status: DNR discussed on admission Dispo: Likely home tomorrow, encouraged ambulation as he reports feeling weak but improving Subjective Date/time seen: 11/15/20 10:33 Breathing better, no major issues last night. On minimal O2 overnight. Hemodynamically stable. Review of Systems Review of Systems: All systems reviewed & are unremarkable except as noted in HPI and below Exam Narrative: Gen: Alert, NAD Abd: Soft, NT, ND Heart: RRR Lungs: CTAB Ext: No lower extremity edema Objective Data Vital Signs Vital Signs: Vital Signs - 24 hr 11/14/20 10:53 11/14/20 11:03 11/14/20 14:00 Temperature 99.0 F Pulse Rate 93 Respiratory Rate 18 Blood Pressure 128/57 L Pulse Oximetry 91 95 94 11/14/20 14:22 11/14/20 14:30 11/14/20 20:00 Temperature 98.0 F Pulse Rate 76 79 79 Respiratory Rate 18 18 17 Blood Pressure 115/50 L Pulse Oximetry 94 11/14/20 20:03 11/14/20 20:06 11/14/20 20:10 Temperature Pulse Rate 79 79 75 Respiratory Rate 18 18 18 Blood Pressure Pulse Oximetry 96 11/14/20 21:22 11/14/20 23:49 11/15/20 04:00 Temperature 97.9 F 98.3 F Pulse Rate 79 76 70 Respiratory Rate 18 17 Blood Pressure 120/44 L 113/46 L Pulse Oximetry 96 97 11/15/20 09:07 11/15/20 09:27 11/15/20 09:38 Temperature Pulse Rate 73 76 75 Respiratory Rate 20 20 Blood Pressure Pulse Oximetry 91 Intake/Output Intake/Output: Intake & Output 11/12/20 11/13/20 11/14/20 11/15/20 23:59 23:59 23:59 23:59 Intake Total 250 1824 2780 250 Output Total 938 442 8524 500 Balance -700 1374 1255 -250 Meds/Results Medications: Active Medications Generic Name Dose Route Start Last Admin Trade Name Freq PRN Reason Stop Dose Admin Acetaminophen/Codeine Phosphate 1 tab 11/13/20 12:54 11/14/20 21:22 Acetaminophen/Codeine (*Crx) 300/30 Mg Tablet PO 1 tab Q8H PRN Administration pain Albuterol 5 mg 11/13/20 02:00 11/15/20 09:2
[2020-11-15] MEDS: carvediloL 12.5 MG TABLET PO (21:23)
[2020-11-15] MEDS: ACETAMINOPHEN/CODEINE (*CRX) 300/30 MG TABLET 1 TAB PO (21:23)
[2020-11-15] MEDS: AZITHROMYCIN 250 MG TABLET 500 MG PO (21:24)
[2020-11-16] VITALS (8 sets, daily range): BP systolic 118–129; BP diastolic 55–57; PULSE 68–82; RESP 16–20; TEMP 36.2–36.4; O2SAT 91–96
[2020-11-16] MEDS: ALBUTEROL SULFATE NEB 2.5 MG/0.5 ML INH 5 MG INHALATION ×3 (02:15→13:10)
[2020-11-16] MEDS: IPRATROPIUM BR 0.02% INH SOLN 0.5 MG/2.5 ML VIAL INHALATION ×3 (02:15→13:10)
[2020-11-16] MEDS: LEVOTHYROXINE SODIUM 25 MCG TABLET PO (05:36)
--- NOTE | 2020-11-16 07:15 | PM.IMPN ---
Progress Note: A&P Assessment and Plan (1) COPD exacerbation: Code(s): J44.1 - Chronic obstructive pulmonary disease with (acute) exacerbation Status: Acute (2) Acute respiratory failure with hypoxia: Code(s): J96.01 - Acute respiratory failure with hypoxia Status: Acute (3) Peripheral arterial disease: Code(s): I73.9 - Peripheral vascular disease, unspecified Status: Acute (4) Ischemic cardiomyopathy: Code(s): I25.5 - Ischemic cardiomyopathy Status: Acute (5) Coronary artery disease: Code(s): I25.10 - Atherosclerotic heart disease of [place] coronary artery without angina pectoris Status: Acute (6) Pneumonia: Code(s): J18.9 - Pneumonia, unspecified organism Status: Acute Additional Plan 1. Acute hypoxic respiratory failure due to COPD exacerbation and pneumonia - Continue to wean O2 - Continue steroid taper to 40 mg daily now - Bronchodilators - Continue ceftriaxone and azithromycin. - COVID 19 swab is reported as negative. 2. Chronic kidney disease stage 3 - Baseline creatinine 1.4-1.6, currently at baseline 3. Coronary artery disease status post CABG 2014 prior history of stents. - Continue Plavix, carvedilol and Lipitor. Continue lisinopril. 4. Ischemic cardiomyopathy ejection fraction 45-50% - Continue Lipitor and lisinopril, carvedilol. Continue Plavix. Received one time lasix 11/14. Monitor volume status. 5. Atrial fibrillation - On Eliquis. Continue amiodarone. 6. Peripheral vascular disease with bilateral iliac and femoral stents and bilateral femoral popliteal bypass 7. Tobacco dependence 8. Ventricular tachycardia status post dual-chamber AICD July 2015 9. Chronic anemia recent EGD with finding of Estrada's esophagus recent colonoscopy with findings of colon polyps all benign. 10. Chronic anemia continue to monitor. 11. Estrada esophagus continue p.o. pantoprazole at home dose DVT prophylaxis on Eliquis will continue same Code status: DNR discussed on admission Dispo: Likely home tomorrow, encouraged ambulation as he reports feeling weak but improving Subjective Date/time seen: 11/16/20 07:15 Review of Systems Review of Systems: All systems reviewed & are unremarkable except as noted in HPI and below Exam Narrative: Gen: Alert, NAD Abd: Soft, NT, ND Heart: RRR Lungs: CTAB Ext: No lower extremity edema Objective Data Vital Signs Vital Signs: Vital Signs - 24 hr 11/15/20 08:00 11/15/20 09:05 11/15/20 09:07 Temperature 36.1 C L Pulse Rate 110 H 73 Respiratory Rate 18 Blood Pressure 109/40 L Pulse Oximetry 96 95 11/15/20 09:27 11/15/20 09:38 11/15/20 12:00 Temperature 36.2 C L Pulse Rate 76 75 100 Respiratory Rate 20 20 18 Blood Pressure 115/41 L Pulse Oximetry 91 95 11/15/20 14:03 11/15/20 14:14 11/15/20 14:26 Temperature Pulse Rate 81 75 Respiratory Rate 20 20 Blood Pressure 120/44 L Pulse Oximetry 94 11/15/20 16:00 11/15/20 20:00 11/15/20 20:22 Temperature 36.6 C 36.3 C L Pulse Rate 68 78 72 Respiratory Rate 20 18 20 Blood Pressure 122/52 L 119/44 L Pulse Oximetry 99 93 95 11/15/20 20:30 11/15/20 23:56 11/16/20 02:17 Temperature 36.3 C L Pulse Rate 74 76 68 Respiratory Rate 20 18 20 Blood Pressure 128/54 L Pulse Oximetry 92 11/16/20 02:26 11/16/20 04:00 Temperature 36.2 C L Pulse Rate 70 82 Respiratory Rate 20 18 Blood Pressure 129/55 L Pulse Oximetry 91 Intake/Output Intake/Output: Intake & Output 11/13/20 11/14/20 11/15/20 11/16/20 23:59 23:59 23:59 23:59 Intake Total 1824 2830 1420 750 Output Total 450 1525 1200 600 Balance 1374 1305 220 150 Meds/Results Medications: Active Medications Generic Name Dose Route Start Last Admin Trade Name Freq PRN Reason Stop Dose Admin Acetaminophen/Codeine Phosphate 1 tab 11/13/20 12:54 11/15/20 21:23 Acetaminophen/Codeine (*Crx) 300/30 Mg Tablet PO 1 t
[2020-11-16 07:21] LABS: Eosinophils Percent Auto 0.1 % (0-4.4); Hemoglobin 10.4 g/dL (14.0-18.0); Immature Granulocyte Absolute 0.07 K/mm3 (0.00-0.031); Immature Granulocyte Percent A 0.6 % (0-0.5); Lymphocytes Absolute Auto 0.58 K/mm3 (0.9-3.2); Lymphocytes Percent Auto 4.8 % (18.3-44.2); Mean Corpuscular HGB Conc 32.5 g/dl (32-36); Mean Corpuscular Hemoglobin 30.3 pg (26-34); Mean Corpuscular Volume 93.3 fl (80-100); Monocytes Absolute Auto 1.3 K/mm3 (0.1-0.6); Monocytes Percent Auto 10.7 % (2.6-8.5); Neutrophils Absolute Auto 10.2 K/mm3 (1.3-6.7); Neutrophils Percent Auto 83.8 % (45.5-73.1); Platelet Count Result 303 k/mm3 (150-375); Red Blood Count 3.43 M/mm3 (4.6-6.20); Red Cell Distribution Width 15.9 % (11.5-14.5); White Blood Count 12.2 K/mm3 (4.5-10.0)
[2020-11-16 07:36] LABS: Anion Gap 5 mmol/L (8-16); Blood Urea Nitrogen 29 mg/dL (9-20); Calcium 8.6 mg/dL (8.4-10.2); Carbon Dioxide 27 mmol/L (22-30); Chloride 104 mmol/L (98-107); Estimated CRCL calculation 41 ml/min; Estimated Glomerular Filt Rate 50; Glucose 117 mg/dL (65-110); Sodium 136 mmol/L (137-145)
[2020-11-16] MEDS: TAMSULOSIN HCL 0.4 MG CAPSULE 0.8 MG PO (08:27)
[2020-11-16] MEDS: GABAPENTIN 300 MG CAPSULE 600 MG PO ×2 (08:27→12:19)
[2020-11-16] MEDS: MULTIVITAMINS THERAPEUTIC TAB (*BKC) 1 TABLET PO (08:28)
[2020-11-16] MEDS: PANTOPRAZOLE 40 MG TABLET PO (08:28)
[2020-11-16] MEDS: ATORVASTATIN 40 MG TABLET PO (08:28)
[2020-11-16] MEDS: FOLIC ACID 0.4 MG TABLET PO (08:28)
[2020-11-16] MEDS: APIXABAN 5 MG TABLET PO (08:28)
[2020-11-16] MEDS: AMIODARONE HCL 200 MG TABLET PO (08:28)
[2020-11-16] MEDS: CLOPIDOGREL BISULFATE 75 MG TABLET PO (08:28)
[2020-11-16] MEDS: THIAMINE HCL 100 MG TABLET PO (08:28)
[2020-11-16] MEDS: DULoxetine HCL 60 MG CAPSULE.DR PO (08:28)
[2020-11-16] MEDS: CYANOCOBALAMIN 1,000 MCG TABLET 1000 MCG PO (08:28)
[2020-11-16] MEDS: predniSONE 20 MG TABLET 40 MG PO (08:28)
[2020-11-16] MEDS: lisinopriL 5 MG TABLET PO (08:30)
[2020-11-16] MEDS: carvediloL 12.5 MG TABLET PO (08:30)
[2020-11-16] MEDS: FERROUS GLUCONATE 324 MG TABLET PO (08:31)
--- NOTE | 2020-11-16 12:46 | PM.DS ---
DS: Admitting Diagnosis Admitting Diagnosis Acute hypoxic respiratory failure COPD with acute exacerbation Community-acquired pneumonia Hyponatremia CAD Ischemic cardiomyopathy with no evidence of acute Exacerbation paroxysmal atrial fibrillation Peripheral vascular disease History of ventricular tachycardia status post Dual-chamber AICD placement Smoking history Chronic anemia DS: Discharge Diagnosis Discharge Diagnosis (1) COPD exacerbation: Code(s): J44.1 - Chronic obstructive pulmonary disease with (acute) exacerbation Status: Acute Assessment and Plan: He was on IV Solu-Medrol which was weaned down to once a day dosing yesterday. Is being discharged on p.o. prednisone with a tapering doses. He was continued on bronchodilator. He will resume his outpatient COPD regimen. (2) Acute respiratory failure with hypoxia: Code(s): J96.01 - Acute respiratory failure with hypoxia Status: Acute Assessment and Plan: He was initially requiring 2 L of oxygen to keep his oxygenation above 89%. He was weaned down from oxygen supplementation and was on room air for the last 48 hours. (3) Peripheral arterial disease: Code(s): I73.9 - Peripheral vascular disease, unspecified Status: Acute Assessment and Plan: Continue aspirin, Plavix and Lipitor of (4) Ischemic cardiomyopathy: Code(s): I25.5 - Ischemic cardiomyopathy Status: Acute Assessment and Plan: Continue Lipitor and lisinopril, carvedilol. Continue Plavix. Received one time lasix 11/14. Monitor volume status. No evidence of acute exacerbation (5) Coronary artery disease: Code(s): I25.10 - Atherosclerotic heart disease of [place] coronary artery without angina pectoris Status: Acute Assessment and Plan: Continue Plavix, carvedilol and Lipitor. Continue lisinopril. (6) Pneumonia: Code(s): J18.9 - Pneumonia, unspecified organism Status: Acute Assessment and Plan: Continue ceftriaxone and azithromycin. He was then discharged home on 2 more days of levofloxacin to complete course. His cultures remain negative. (7) Estrada esophagus: Code(s): K22.70 - Estrada's esophagus without dysplasia Status: Acute Assessment and Plan: Chronic anemia recent EGD with finding of Estrada's esophagus recent colonoscopy with findings of colon polyps all benign. (8) Paroxysmal atrial fibrillation: Code(s): I48.0 - Paroxysmal atrial fibrillation Status: Chronic Assessment and Plan: On Eliquis. Continue amiodarone. (9) Chronic kidney disease, stage 3a: Code(s): N18.31 - Chronic kidney disease, stage 3a Status: Chronic Assessment and Plan: Baseline creatinine 1.4-1.6, currently at baseline DS: Summary Hospital Course Hospital Course: As above Time Spent with Patient Time attestation: Total time spent providing and/or coordinating discharge services: >35 minutes Exam Narrative: Gen: Alert, NAD Abd: Soft, NT, ND Heart: RRR Lungs: CTAB Ext: No lower extremity edema DS: Data Data Completed and Pending Labs on day of discharge: Labs from last 24 hours 11/16/20 11/16/20 06:38 06:38 WBC 12.2 H RBC 3.43 L Hgb 10.4 L Hct 32.0 L MCV 93.3 MCH 30.3 MCHC 32.5 RDW 15.9 H Plt Count 303 MPV 10.0 Immature Gran % (Auto) 0.6 H Neut % (Auto) 83.8 H Lymph % (Auto) 4.8 L [place] % (Auto) 10.7 H Eos % (Auto) 0.1 Baso % (Auto) 0.0 L Lymph # (Auto) 0.58 L [place] # (Auto) 1.3 H Eos # (Auto) 0.0 Baso # (Auto) 0.0 Abs Immat Gran (auto) 0.07 H Absolute Neuts (auto) 10.2 H Absolute Nucleated RBC 0.0 Nucleated RBC % 0.0 Sodium 136 L Potassium 4.0 Chloride 104 Carbon Dioxide 27 Anion Gap 5 L BUN 29 H Creatinine 1.40 H Estim Creat Clear Calc 41 Estimated GFR 50 L Glucose 117 H Calcium 8.6 Preliminary micro results at discharge 11/15/20 17:5
== END 2020-11-16 15:00 | disposition home or self-care (01) | DRG 193 ==
LOC: ANHED 20:54 → ANH3MEDSUR 11-13 02:12
PROVIDERS: Internal Medicine Nephrology; Admitting Provider Internal Medicine; Emergency Provider Emergency Medicine; PCP Family Medicine; Visit Provider Internal Medicine Critical Care Medicine
DX: J18.9 Pneumonia, unspecified organism (principal); J96.01 Acute respiratory failure with hypoxia; E87.1 Hypo-osmolality and hyponatremia; I47.2 Ventricular tachycardia; N17.9 Acute kidney failure, unspecified; I13.0 Hypertensive heart and chronic kidney disease with heart failure and stage 1 through stage 4 chronic kidney disease, or unspecified chronic kidney disease; I50.9 Heart failure, unspecified; N18.31 Chronic kidney disease, stage 3a; Z20.822 Contact with and (suspected) exposure to COVID-19; J43.9 Emphysema, unspecified; Z66 Do not resuscitate; D64.9 Anemia, unspecified; I25.10 Atherosclerotic heart disease of native coronary artery without angina pectoris; I25.5 Ischemic cardiomyopathy; E03.2 Hypothyroidism due to medicaments and other exogenous substances; I48.0 Paroxysmal atrial fibrillation; R19.5 Other fecal abnormalities; I73.9 Peripheral vascular disease, unspecified; K22.70 Barrett's esophagus without dysplasia; N40.0 Benign prostatic hyperplasia without lower urinary tract symptoms; T82.898S Other specified complication of vascular prosthetic devices, implants and grafts, sequela; Z79.01 Long term (current) use of anticoagulants; Z87.891 Personal history of nicotine dependence; Z95.1 Presence of aortocoronary bypass graft; Z95.810 Presence of automatic (implantable) cardiac defibrillator; Z98.42 Cataract extraction status, left eye; Z98.41 Cataract extraction status, right eye
CPT/HCPCS: 36415; 71046; 80048; 80053; 83735; 83880; 85025; 87040; 87070; 87077; 87186; 87205; 93005; 94640; 96361; 96365; 96367; 96375; 96376; 99285; A9270; C9803; G0378; J0456; J0696; J1100; J1940; J2920; J7030; J7512; U0003; U0005

== ENCOUNTER 2020-11-28 07:46 | Inpatient (IN) | payer MEDICARE, SELFPAY ==
[2020-11-28] VITALS (14 sets, daily range): BP systolic 107–137; BP diastolic 44–65; PULSE 70–81; RESP 15–24; TEMP 36.1–36.8; O2SAT 91–100; BMI 19.7
--- NOTE | ~2020-11-28 | XR_ITS ---
EXAMINATION: XR chest 1V portable INDICATION: Shortness of breath TECHNIQUE: Portable AP chest at 0741 hours COMPARISON: 11/12/2020, 09/24/2020 FINDINGS: There is a stable peripheral airspace opacity of the left mid and lower lung zones. No pleu ral effusion or pneumothorax is identified. Cardiomegaly is noted. Median sternotomy wires are consis tent with prior cardiac surgery. A dual-lead cardiac pacemaker of the left chest wall ends with leads in expected locations. IMPRESSION: 1. Stable airspace opacity of the left mid and lower lung zones, likely pneumonia. 2. Stable cardiomegaly. Reviewed, dictated and finalized at location A. IMPRESSION: 1. Stable airspace opacity of the left mid and lower lung zones, likely pneumon ia. 2. Stable cardiomegaly.
--- NOTE | ~2020-11-28 | CT_ITS ---
EXAMINATION: CT diagnostic chest wo con EXAM DATE: 11/28/2020 14:03 INDICATION: Multiple diagnosis of pneumonia. TECHNIQUE: Spiral CT of the chest without contrast. Axial, coronal and sagittal images of the chest were reviewed. Coronal maximum intensity pixel images of chest reviewed. The dose-length product ( DLP) for this examination was 244.76 mGy-cm. The exposure was tailored according to patient size (au to mA exposure control), and iterative reconstruction (ASIR) was used as additional dose reduction te chnique. Comparison is made to prior examination from 09/24/2020. FINDINGS: There is moderate emphysema. Interval development of small amount of left basilar airspace disease, appearance most consistent with acute infectious process, pneumonia. There are small bilate ral pleural effusions with adjacent subsegmental atelectasis. Tracheobronchial tree is patent. The re is no mediastinal, hilar or axillary lymphadenopathy. There is no pneumothorax. There is left ventricular enlargement. There are sternotomy wires, and cardiac/coronary surgical changes. Correlat e with prior history. Pacemaker/AICD device. Upper abdomen is unremarkable. There is thoracic spon dylosis without osteoblastic or osteolytic lesions identified. IMPRESSION: 1. Small amount of left lower lobe opacity most consistent with pneumonia. 2. Small pleural effusions, adjacent subsegmental atelectasis. 3. Moderate emphysema. Reviewed, dictated and finalized at location B.
--- NOTE | ~2020-11-28 | US_ITS ---
EXAMINATION: US retroperitoneal duplex ltd DATE: 12/01/2020 09:03 INDICATION: Left renal artery stenosis and infarcts TECHNIQUE: Multiple grayscale, color Doppler, and pulsed Doppler images of the kidneys and renal brendon roseline were obtained. COMPARISON: Aortic CT angiogram dated 08/02/2020 FINDINGS: The aorta peak systolic velocity is 24 cm/s. Fusiform ectasia of the infrarenal aorta which measures up to 2.8 cm in maximal diameter. The right renal artery peak systolic velocity is 74 cm/s in the pro ximal segment, 97 cm/s in the mid segment, and 86 cm/s in the distal segment. The left renal artery p eak systolic velocity is 122 cm/s in the proximal segment, 101 cm/s in the mid segment, and 71 cm/s i n the distal segment. IMPRESSION: 1. No Doppler evidence of significant renal artery stenosis. Assessment is however limited by bilate ral paired renal arteries as seen on prior CT angiogram but which are unable to be distinguished on t he provided ultrasound imaging. Reviewed, dictated and finalized at location A. IMPRESSION: 1. No Doppler evidence of significant renal artery stenosis. Assessment is how ever limited by bilateral paired renal arteries as seen on prior CT angiogram b ut which are unable to be distinguished on the provided ultrasound imaging.
--- NOTE | 2020-11-28 07:53 | ECG_ITS ---
Measurements Intervals [place] Rate: 74 P: 76 OR: 178 QRS: 26 QRSD: 138 T: 70 QT: 435 QTc: 483 Interpretive Statements SINUS RHYTHM INTRAVENTRICULAR CONDUCTION DELAY BORDERLINE ST-T WAVE ABNORMALITY- INF/LAT LEADS BASELINE ARTIFACT- II, III BORDERLINE ECG Electronically Signed On 11-28-2020 8:37:22 CDT by Chapo Bermudez D.O.
[2020-11-28 08:27] LABS: Alveolar/Arterial O2 Gradient 104.8 mmHg; Base Excess ABG -1.9 mEq/l (+/-2.0); Device NASAL CANNULA; Fractional Inspired Oxygen 32 %; Modified Allen's Test Pass; Oxygen Content ABG 13.2 %vol (16.0-22.0); Oxygen Saturation ABG 95.3 % (95.0-100.0); PCO2 ABG 39.5 mmHg (35.0-45.0); PO2 ABG 77.1 mmHg (80.0-100.0); PO2 FiO2 Ratio Arterial Blood 2.41 %; Site Drawn RIGHT RADIAL; pH ABG 7.383 (7.350-7.450)
[2020-11-28] MEDS: ALBUTEROL SULFATE NEB 2.5 MG/0.5 ML INH 5 MG INHALATION ×2 (08:32→20:12)
[2020-11-28] MEDS: IPRATROPIUM BR 0.02% INH SOLN 0.5 MG/2.5 ML VIAL INHALATION ×2 (08:33→20:12)
[2020-11-28 09:10] LABS: Basophils Percent Auto 0.1 % (0.2-1.2); Eosinophils Absolute Auto 0.2 K/mm3 (0-0.3); Eosinophils Percent Auto 1.3 % (0-4.4); Hematocrit 27.5 % (42.0-52.0); Hemoglobin 8.8 g/dL (14.0-18.0); Immature Granulocyte Absolute 0.11 K/mm3 (0.00-0.031); Immature Granulocyte Percent A 0.8 % (0-0.5); Lymphocytes Absolute Auto 0.39 K/mm3 (0.9-3.2); Lymphocytes Percent Auto 2.7 % (18.3-44.2); Mean Corpuscular Hemoglobin 30.3 pg (26-34); Mean Corpuscular Volume 94.8 fl (80-100); Mean Platelet Volume 9.6 fl (7.4-10.4); Monocytes Absolute Auto 1.4 K/mm3 (0.1-0.6); Monocytes Percent Auto 9.7 % (2.6-8.5); Neutrophils Absolute Auto 12.5 K/mm3 (1.3-6.7); Neutrophils Percent Auto 85.4 % (45.5-73.1); Platelet Count Result 290 k/mm3 (150-375); Red Cell Distribution Width 16.6 % (11.5-14.5); White Blood Count 14.7 K/mm3 (4.5-10.0)
[2020-11-28 09:22] LABS: INR 1.5; Prothrombin Time 17.8 Seconds (11.1-14.7)
[2020-11-28 09:23] LABS: Magnesium 2.4 mg/dL (1.6-2.3)
[2020-11-28 09:26] LABS: Alanine Aminotransferase 22 U/L (4-50); Albumin Level 4.2 g/dL (3.5-5.1); Alkaline Phosphatase 94 U/L (38-126); Aspartate Amino Transferase 30 U/L (17-59); Bilirubin,Total 1.3 mg/dL (0.2-1.3)
[2020-11-28 09:29] LABS: Anion Gap 8 mmol/L (8-16); Blood Urea Nitrogen 25 mg/dL (9-20); Calcium 8.7 mg/dL (8.4-10.2); Carbon Dioxide 24 mmol/L (22-30); Chloride 100 mmol/L (98-107); Estimated CRCL calculation 40 ml/min; Estimated Glomerular Filt Rate 43; Glucose 113 mg/dL (65-110); Potassium 4.4 mmol/L (3.4-5.0); Sodium 132 mmol/L (137-145)
[2020-11-28 09:38] LABS: NT Pro B Type Natriuretic Pept 15900 pg/mL (5-100)
[2020-11-28 09:40] LABS: Troponin I 0.042 ng/mL (0.000-0.034)
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
[2020-11-28] MEDS: FUROSEMIDE INJ 40 MG/4 ML VIAL IV PUSH (10:45)
--- NOTE | 2020-11-28 12:58 | PM.IMHP ---
H&P: HPI History of Present Illness Date/Time: 11/28/20 12:58 this is a 75-year-old male patient who has a past medical history of having COPD and congestive heart failure. The patient does not chronically wear oxygen at home. The patient stated that he just recently recovered from right-sided pneumonia. The patient stated that he was going to ask his animal biologist if he could have a nebulizer machine at home At his next appointment. The patient stated that he can hear himself wheeze and has been coughing. He has not been vaccinated for COVID-19. The patient stated he has been more short of breath for the last several months. Initially the patient stated that he is a DNR but then we had a long discussion and he decided that he would be a full code but does not want to live in a vegetative state. Patient's rapid COVID swab was found to be negative. His white count was noted to be 14.7. The patient stated that he had recently been on prednisone. Chest x-ray was read by radiology as stable airspace opacities of the left mid and lower lung zones, likely pneumonia. Stable cardiomegaly. The patient was started on a azithromycin Rocephin as well as nebulizer treatments. The patient was placed on oxygen at 2 L per nasal cannula. His lowest O2 saturation that I found to be documented is 94%. The patient was started on antibiotics in the emergency room, IV Lasix, and Solu-Medrol. The patient also has a history of chronic anemia but his H&H is slightly lower than his baseline. Today it is 8.8 and 27.5. The patient also has chronic renal disease and his creatinine is 1.6 which is close to his baseline of 1.4-1.8. The patient is being admitted to inpatient status on 11/28/2020. Chief Complaint: Shortness of breath Review of Systems Review of Systems: All systems reviewed & are unremarkable except as noted in HPI and below Constitutional: Constitutional: Reports as per HPI and Reports no additional constitutional complaints Eyes: Eyes: Reports as per HPI and Reports no additional eye complaints ENT: Reports system reviewed and no additional complaints, except as documented and Reports Normal hearing present Cardiovascular: Cardiovascular: Reports no additional cardiovascular complaints Respiratory: Respiratory: Reports no additional respiratory complaints and Reports no additional respiratory complaints Gastrointestinal: Gastrointestinal: Reports as per HPI and Reports no additional gastrointestinal complaints Musculoskeletal: Musculoskeletal: Reports no additional musculoskeletal complaints Integumentary/Breasts: Skin/Breast: Reports system reviewed and no additional complaints, except as docu and Reports as per HPI Neurologic: Reports system reviewed and no additional complaints, except as documented, Reports as per HPI and Reports Normal hearing present Psychiatric: Psychiatric: Reports no additional psychiatric complaints and Reports as per HPI Endocrine: Endocrine: Reports no additional endocrine complaints Hematologic/Lymphatic: Hematologic/Lymphatic: Reports no additional hematologic/lymphatic complaints Allergic/Immunologic: Allergic/Immunologic: Reports no additional allergic/immunologic complaints FORMERLY [facility], [facility] Past Medical History Medical History (Updated 11/28/20 @ 13:25 by Christy Potter NP) Alcohol abuse Arthritis Estrada esophagus Benign prostatic hyperplasia CHF (congestive heart failure), NYHA class I 1. Complete two-dimensional, color flow and Doppler transthoracic echocardiogram is performed. 2. The left ventricle is severely dilated with normal wall thickness. There is overall moderate left ventricular dysfunction with akinesis of the inferior septal segments extending to the apex. Grade 2 to function is present. Calculated ejection fraction to 35%, visual ejection fraction 35-40%. 3. Left atrial chamber dimension is severely enlarged. 4. The aortic valve is sclerosed. There is mild, or perhaps mild to moderat
[2020-11-28] MEDS: methylPREDNISolone SOD SUCC 125 MG VIAL 60 MG IV PUSH ×2 (13:01→17:03)
--- NOTE | 2020-11-28 14:23 | ADMGEN ---
This patient, Hernando Sawyer, was admitted to IMU Room 209-01. Patient/family oriented to hospital policies and general routines including ID bracelet, bed and alarms, visiting hours, pain management, procedures, bathroom and other care routines, personal items, smoking policy, room service/diet, and visiting hours. Information on how to activate the Rapid Response Team has been discussed. Patient/Family are encouraged to report perceived risks to care and to ask questions if they do not understand what they are told or what they should do.
[2020-11-28 15:31] LABS: Troponin I 0.029 ng/mL (0.000-0.034)
--- NOTE | 2020-11-28 16:52 | PCRCNOTE ---
Window of time for administration has passed. See next scheduled administration.
[2020-11-28 17:41] LABS: Troponin I 0.026 ng/mL (0.000-0.034)
[2020-11-28] MEDS: FUROSEMIDE INJ 40 MG/4 ML VIAL 20 MG IV PUSH (21:01)
[2020-11-28] MEDS: ACETAMINOPHEN 325 MG TABLET 650 MG PO (21:23)
[2020-11-29] VITALS (24 sets, daily range): BP systolic 104–125; BP diastolic 36–41; PULSE 63–82; RESP 16–20; TEMP 36.4–36.7; O2SAT 88–97
[2020-11-29] MEDS: GABAPENTIN 300 MG CAPSULE 600 MG PO ×4 (00:14→17:41)
[2020-11-29] MEDS: methylPREDNISolone SOD SUCC 125 MG VIAL 60 MG IV PUSH ×2 (00:15→06:04)
[2020-11-29] MEDS: ALBUTEROL SULFATE NEB 2.5 MG/0.5 ML INH 5 MG INHALATION ×4 (01:59→21:06)
[2020-11-29] MEDS: IPRATROPIUM BR 0.02% INH SOLN 0.5 MG/2.5 ML VIAL INHALATION ×4 (02:00→21:06)
[2020-11-29 05:30] LABS: Hematocrit 26.9 % (42.0-52.0); Hemoglobin 8.6 g/dL (14.0-18.0); Immature Granulocyte Absolute 0.03 K/mm3 (0.00-0.031); Immature Granulocyte Percent A 0.7 % (0-0.5); Lymphocytes Absolute Auto 0.14 K/mm3 (0.9-3.2); Lymphocytes Percent Auto 3.3 % (18.3-44.2); Mean Corpuscular Hemoglobin 29.6 pg (26-34); Mean Corpuscular Volume 92.4 fl (80-100); Mean Platelet Volume 9.5 fl (7.4-10.4); Monocytes Absolute Auto 0.1 K/mm3 (0.1-0.6); Monocytes Percent Auto 1.9 % (2.6-8.5); Neutrophils Percent Auto 94.1 % (45.5-73.1); Platelet Count Result 259 k/mm3 (150-375); Red Blood Count 2.91 M/mm3 (4.6-6.20); Red Cell Distribution Width 16.1 % (11.5-14.5); White Blood Count 4.3 K/mm3 (4.5-10.0)
[2020-11-29 05:40] LABS: Lactic Acid Reflex 0.7 mmol/L (0.7-2.1)
[2020-11-29 05:43] LABS: Anion Gap 5 mmol/L (8-16); Blood Urea Nitrogen 31 mg/dL (9-20); CRP 8.3 mg/dL (<1.0); Calcium 8.2 mg/dL (8.4-10.2); Carbon Dioxide 27 mmol/L (22-30); Chloride 103 mmol/L (98-107); Estimated CRCL calculation 42 ml/min; Estimated Glomerular Filt Rate 46; Glucose 138 mg/dL (65-110); Lactate Dehydrogenase 413 U/L (313-618); Potassium 3.9 mmol/L (3.4-5.0); Sodium 135 mmol/L (137-145)
[2020-11-29] MEDS: LEVOTHYROXINE SODIUM 25 MCG TABLET PO (06:04)
[2020-11-29 08:08] LABS: Platelet Estimate Adequate (Adequate)
[2020-11-29 08:09] LABS: Anisocytosis 1+ (NORMAL); Hypochromasia 1+ (NORMAL); Ovalocytes 1+ (NORMAL); Poikilocytosis 1+ (NORMAL)
[2020-11-29 08:12] LABS: Burr Cells 1+ (NORMAL)
[2020-11-29] MEDS: THIAMINE HCL 100 MG TABLET PO (09:12)
[2020-11-29] MEDS: PANTOPRAZOLE 40 MG TABLET PO (09:13)
[2020-11-29] MEDS: CLOPIDOGREL BISULFATE 75 MG TABLET PO (09:13)
[2020-11-29] MEDS: MULTIVITAMINS THERAPEUTIC TAB (*BKC) 1 TABLET PO (09:13)
[2020-11-29] MEDS: CYANOCOBALAMIN 1,000 MCG TABLET 1000 MCG PO (09:13)
[2020-11-29] MEDS: FOLIC ACID 1 MG TABLET PO (09:13)
[2020-11-29] MEDS: FERROUS GLUCONATE 324 MG TABLET PO ×2 (09:13→17:41)
[2020-11-29] MEDS: TAMSULOSIN HCL 0.4 MG CAPSULE 0.8 MG PO (09:13)
[2020-11-29] MEDS: ATORVASTATIN 40 MG TABLET PO (09:13)
[2020-11-29] MEDS: APIXABAN 5 MG TABLET PO ×2 (09:14→17:41)
[2020-11-29] MEDS: DULoxetine HCL 60 MG CAPSULE.DR PO ×2 (09:14→17:41)
[2020-11-29] MEDS: FUROSEMIDE INJ 40 MG/4 ML VIAL 20 MG IV PUSH ×2 (09:19→13:13)
[2020-11-29] MEDS: AMIODARONE HCL 200 MG TABLET PO (09:20)
[2020-11-29] MEDS: carvediloL 12.5 MG TABLET PO ×2 (09:20→17:41)
[2020-11-29] MEDS: lisinopriL 5 MG TABLET PO (09:20)
--- NOTE | 2020-11-29 10:05 | PM.IMPN ---
Progress Note: A&P Assessment and Plan (1) Pneumonia: Qualifiers: Laterality: left Lung location: unspecified part of lung Pneumonia type: due to unspecified organism Qualified Code(s): J18.9 - Pneumonia, unspecified organism Code(s): J18.9 - Pneumonia, unspecified organism Status: Acute Assessment and Plan: The patient stated that he has had multiple bouts of pneumonia. CT chest 11/28 showed small infiltrate left lower lobe consistent with pneumonia. Small pleural effusions with adjacent subsegmental atelectasis and moderate emphysema. Continue azithromycin Rocephin (11/28- The patient was hypoxic and placed on oxygen at 2 L per nasal cannula. Continue with nebulizer treatments. Blood and sputum cultures are pending. The patient is is asking if it is possible that he receives some nebulizer treatments at home and machine prescribed to him upon discharge. The patient was recently diagnosed with pneumonia and his sputum culture came back as Stenotrophomonas maltophilia which was sensitive to Levaquin and Bactrim. Will treat according to cultures. (2) CHF (congestive heart failure), NYHA class I: Code(s): I50.9 - Heart failure, unspecified Status: Chronic Assessment and Plan: Echocardiogram July 2020 with EF 35%. BNP on presentation 16K. Received Lasix yesterday, will give another dose today and assess response. Continue lisinopril and carvedilol (3) COPD with hypoxia: Code(s): J44.9 - Chronic obstructive pulmonary disease, unspecified; R09.02 - Hypoxemia Status: Acute Assessment and Plan: The patient stated that he does have upcoming appointment with his buildings and grounds coordinator and was going to request a nebulizer machine and medication for home use. Patient would like to see if he could get a prescription for this prior to being discharged. Continue prednisone (11/28-), transition to p.o. today given he is able to tolerate well Continue Nebs Wean O2 (4) CKD (chronic kidney disease): Qualifiers: Chronic kidney disease stage: unspecified stage Qualified Code(s): N18.9 - Chronic kidney disease, unspecified Code(s): N18.9 - Chronic kidney disease, unspecified Status: Acute Assessment and Plan: Patient appears to be at his baseline. Baseline creatinine 1.4-1.8. Hold any nephrotoxic medication. (5) Essential hypertension: Code(s): I10 - Essential (primary) hypertension Status: Acute Assessment and Plan: Continue lisinopril and carvedilol, adjust as needed (6) Coronary artery disease: Code(s): I25.10 - Atherosclerotic heart disease of [place] coronary artery without angina pectoris Status: Acute Assessment and Plan: Patient has had coronary stents as well as a 2 vessel CABG. The patient is on Coreg and atorvastatin as well as Plavix. (7) Alcohol abuse: Code(s): F10.10 - Alcohol abuse, uncomplicated Status: Chronic Assessment and Plan: Continue CIWA. The patient stated he is still drinking alcohol. Last admission the patient admitted to drinking at least 6 beers a day. Continue with p.r.n. Librium, thiamin and folic acid. The patient is already on gabapentin. (8) Pure hyperglyceridemia: Code(s): E78.1 - Pure hyperglyceridemia Status: Acute Assessment and Plan: Continue with atorvastatin. 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 He is on Eliquis. Monitor. The jhony
[2020-11-29 16:44] LABS: Immature Reticulocyte Fraction 12.2 % (3.0-15.9); Reticulocyte Hemoglobin Conten 26.2 pg (28.2-35.7); Reticulocyte Percent 1.75 % (0.7-4.3); Reticulocytes Absolute 0.05 B/L (32.2-175.7)
[2020-11-29 16:53] LABS: Bilirubin,Total 0.6 mg/dL (0.2-1.3)
--- NOTE | 2020-11-29 17:40 | PC.NURSE ---
Cardiopulmonary Rehab Services flyer was given to patient in cardiac admission folder.
[2020-11-29 18:03] LABS: Folic Acid > 20.0 ng/mL (2.76->20); Vitamin B12 > 1000.0 pg/mL (239-931)
[2020-11-29 18:08] LABS: Iron 13 ug/dL (49-181)
[2020-11-29 18:17] LABS: Percent Iron Saturation 5 % (20-50)
[2020-11-30] VITALS (20 sets, daily range): BP systolic 92–125; BP diastolic 40–54; PULSE 63–72; RESP 16–20; TEMP 36.2–36.7; O2SAT 91–100
[2020-11-30] MEDS: IPRATROPIUM BR 0.02% INH SOLN 0.5 MG/2.5 ML VIAL INHALATION ×4 (02:55→21:12)
[2020-11-30] MEDS: ALBUTEROL SULFATE NEB 2.5 MG/0.5 ML INH 5 MG INHALATION ×4 (02:55→21:12)
[2020-11-30] MEDS: LEVOTHYROXINE SODIUM 25 MCG TABLET PO (04:59)
[2020-11-30 05:58] LABS: Basophils Percent Auto 0.1 % (0.2-1.2); Eosinophils Percent Auto 0.2 % (0-4.4); Hematocrit 26.7 % (42.0-52.0); Hemoglobin 8.5 g/dL (14.0-18.0); Immature Granulocyte Absolute 0.09 K/mm3 (0.00-0.031); Immature Granulocyte Percent A 0.7 % (0-0.5); Lymphocytes Absolute Auto 0.48 K/mm3 (0.9-3.2); Lymphocytes Percent Auto 3.5 % (18.3-44.2); Mean Corpuscular HGB Conc 31.8 g/dl (32-36); Mean Corpuscular Hemoglobin 29.4 pg (26-34); Mean Corpuscular Volume 92.4 fl (80-100); Mean Platelet Volume 9.8 fl (7.4-10.4); Monocytes Absolute Auto 1.2 K/mm3 (0.1-0.6); Monocytes Percent Auto 8.5 % (2.6-8.5); Neutrophils Absolute Auto 11.9 K/mm3 (1.3-6.7); Platelet Count Result 249 k/mm3 (150-375); Red Blood Count 2.89 M/mm3 (4.6-6.20); Red Cell Distribution Width 15.9 % (11.5-14.5); White Blood Count 13.7 K/mm3 (4.5-10.0)
[2020-11-30 06:59] LABS: Anion Gap 5 mmol/L (8-16); Blood Urea Nitrogen 38 mg/dL (9-20); CRP 4.2 mg/dL (<1.0); Calcium 8.2 mg/dL (8.4-10.2); Carbon Dioxide 29 mmol/L (22-30); Chloride 103 mmol/L (98-107); Estimated CRCL calculation 39 ml/min; Estimated Glomerular Filt Rate 43; Glucose 106 mg/dL (65-110); Potassium 3.6 mmol/L (3.4-5.0); Sodium 137 mmol/L (137-145)
[2020-11-30 07:02] LABS: Anisocytosis 2+ (NORMAL); Macrocytosis 1+ (NORMAL); Microcytosis 1+ (NORMAL); Ovalocytes 1+ (NORMAL); Platelet Estimate Adequate (Adequate)
[2020-11-30] MEDS: DULoxetine HCL 60 MG CAPSULE.DR PO ×2 (08:43→16:36)
[2020-11-30] MEDS: GABAPENTIN 300 MG CAPSULE 600 MG PO ×3 (08:43→16:36)
[2020-11-30] MEDS: PANTOPRAZOLE 40 MG TABLET PO (08:44)
[2020-11-30] MEDS: FOLIC ACID 1 MG TABLET PO (08:44)
[2020-11-30] MEDS: THIAMINE HCL 100 MG TABLET PO (08:44)
[2020-11-30] MEDS: FERROUS GLUCONATE 324 MG TABLET PO ×2 (08:44→16:37)
[2020-11-30] MEDS: CYANOCOBALAMIN 1,000 MCG TABLET 1000 MCG PO (08:44)
[2020-11-30] MEDS: predniSONE 20 MG TABLET 40 MG PO (08:44)
[2020-11-30] MEDS: CLOPIDOGREL BISULFATE 75 MG TABLET PO (08:44)
[2020-11-30] MEDS: ATORVASTATIN 40 MG TABLET PO (08:44)
[2020-11-30] MEDS: TAMSULOSIN HCL 0.4 MG CAPSULE 0.8 MG PO (08:44)
[2020-11-30] MEDS: lisinopriL 5 MG TABLET PO (08:44)
[2020-11-30] MEDS: MULTIVITAMINS THERAPEUTIC TAB (*BKC) 1 TABLET PO (08:44)
[2020-11-30] MEDS: APIXABAN 5 MG TABLET PO ×2 (08:45→16:37)
[2020-11-30] MEDS: carvediloL 12.5 MG TABLET PO (08:45)
[2020-11-30] MEDS: AMIODARONE HCL 200 MG TABLET PO (08:45)
--- NOTE | 2020-11-30 09:28 | P.CDI_ITS ---
CDI Query Clarification Request -CHF has been documented - The patient had an echo in July which was mentioned above. Patient's EF is approximately 35%. documented -11/28 BNP 15,900 -Pt received Lasix 40mg IV X1 in ED and 20mg IV x 3 since admission. Please further specify type and acuity of CHF: * Systolic *Acute * Diastolic *Chronic * Both systolic and diastolic *Acute on chronic * Unable to determine *Unable to determine
--- NOTE | 2020-11-30 16:57 | PM.IMPN ---
Progress Note: A&P Assessment and Plan (1) COPD with hypoxia: Code(s): J44.9 - Chronic obstructive pulmonary disease, unspecified; R09.02 - Hypoxemia Status: Acute Assessment and Plan: Previously diagnosed COPD, patient was currently being evaluated for a home nebulizer machine. At basaline there were no previous oxygen requirements. (2) Pneumonia: Code(s): J18.9 - Pneumonia, unspecified organism Status: Acute Assessment and Plan: Patient has a recent diagnosis of pneumonia as an outpatient. On admission he was diagnosed with left lung pneumonia.CT chest 11/28 showed small infiltrate left lower lobe consistent with pneumonia. Small pleural effusions with adjacent subsegmental atelectasis and moderate emphysema. Blood cultures have been unrevealing. Continue azithromycin Rocephin. The patient was hypoxic and placed on oxygen at 2 L per nasal cannula. Continue oxygen supplementation and wean as tolerated. Continue aggressive pulmonary toilet with nebulizer treatments. Blood and sputum cultures are pending. Previous sputum culture from 11/15 reveals Stenotrophomonas maltophilia sensitive to levaquin and bactrim. (3) CKD (chronic kidney disease): Qualifiers: Chronic kidney disease stage: unspecified stage Qualified Code(s): N18.9 - Chronic kidney disease, unspecified Code(s): N18.9 - Chronic kidney disease, unspecified Status: Acute Assessment and Plan: Acute non oliguric kidney injury likley related to acute ilness, prerenal versus ATN. Baseline kidney function unknown . Jose Maria creatinine 1.1 on 09/24/2020. On that date CT angiogram on the chest was performed. There is likkely an element of contrast induced nephropathy in an already compromised renal parenchyma. CT abdomen from 08/02/2020 reveals short segment severe stenosis of the dominant left renal artery. Bilateral renal infarcts of varying ages. Consult nephrology.Avoid nephrotoxic medications. Given comorbidities, patient is not likely to be a candidate for an interventional procedure. (4) Hypoxia: Code(s): R09.02 - Hypoxemia Status: Acute Assessment and Plan: Oxygen supplementation and wean as tolerated as above. (5) DARINEL (acute kidney injury): Code(s): N17.9 - Acute kidney failure, unspecified Status: Acute Assessment and Plan: Likely contrast induced nephropathy in the setting of renal artery stenosis and bilateral renal infarcts. (6) CHF (congestive heart failure), NYHA class I: Code(s): I50.9 - Heart failure, unspecified Status: Chronic (7) Essential hypertension: Code(s): I10 - Essential (primary) hypertension Status: Acute Assessment and Plan: Continue lisinopril and carvedilol. Monitor ACEI closely in the setting of renal artery stenosis. (8) CAD (coronary artery disease): Code(s): I25.10 - Atherosclerotic heart disease of [place] coronary artery without angina pectoris Status: Acute Assessment and Plan: Patient has had coronary stents as well as a 2 vessel CABG. The patient is on Coreg and atorvastatin as well as Plavix. (9) Chronic anemia: Code(s): D64.9 - Anemia, unspecified Status: Acute Assessment and Plan: His hemoglobin has fluctuated between 8 and 11 over the past few months. There is likely an element of anemia of chronic kidney disease. We cesario tsrta oral iron after checking for stool occult blood. He is on Eliquis. Monitor. The patient does not complain of any active bleeding at this time. The patient has a history of alcoholism. Continue home B12 and ferrous gluconate. (10) Paroxysmal atrial fibrillation: Code(s): I48.0 - Paroxysmal atrial fibrillation Status: Chronic Assessment and Plan: Currently rate controlled on amiodarone and carvedilol. Continue chronic anticoagulation with eliquis. Given chronic ETOH use and risk of falls and bleeding, patient advised to abstain
[2020-11-30] MEDS: ACETAMINOPHEN/CODEINE (*CRX) 300/30 MG TABLET 1 TAB PO (21:28)
[2020-12-01] VITALS (21 sets, daily range): BP systolic 106–123; BP diastolic 30–49; PULSE 65–92; RESP 16–22; TEMP 36.1–37; O2SAT 93–100
[2020-12-01] MEDS: IPRATROPIUM BR 0.02% INH SOLN 0.5 MG/2.5 ML VIAL INHALATION ×4 (01:56→19:43)
[2020-12-01] MEDS: ALBUTEROL SULFATE NEB 2.5 MG/0.5 ML INH 5 MG INHALATION ×4 (01:56→19:43)
[2020-12-01] MEDS: LEVOTHYROXINE SODIUM 25 MCG TABLET PO (06:19)
[2020-12-01 07:06] LABS: Iron 17 ug/dL (49-181)
[2020-12-01 07:17] LABS: Percent Iron Saturation 6 % (20-50)
[2020-12-01] MEDS: CLOPIDOGREL BISULFATE 75 MG TABLET PO (09:18)
[2020-12-01] MEDS: predniSONE 20 MG TABLET 40 MG PO (09:18)
[2020-12-01] MEDS: GABAPENTIN 300 MG CAPSULE 600 MG PO ×3 (09:18→17:19)
[2020-12-01] MEDS: PANTOPRAZOLE 40 MG TABLET PO (09:18)
[2020-12-01] MEDS: THIAMINE HCL 100 MG TABLET PO (09:19)
[2020-12-01] MEDS: CYANOCOBALAMIN 1,000 MCG TABLET 1000 MCG PO (09:19)
[2020-12-01] MEDS: MULTIVITAMINS THERAPEUTIC TAB (*BKC) 1 TABLET PO (09:19)
[2020-12-01] MEDS: DULoxetine HCL 60 MG CAPSULE.DR PO ×2 (09:19→17:19)
[2020-12-01] MEDS: ATORVASTATIN 40 MG TABLET PO (09:19)
[2020-12-01] MEDS: FERROUS GLUCONATE 324 MG TABLET PO ×2 (09:19→17:19)
[2020-12-01] MEDS: TAMSULOSIN HCL 0.4 MG CAPSULE 0.8 MG PO (09:19)
[2020-12-01] MEDS: APIXABAN 5 MG TABLET PO ×2 (09:20→17:19)
[2020-12-01] MEDS: FOLIC ACID 1 MG TABLET PO (09:20)
[2020-12-01] MEDS: ACETAMINOPHEN/CODEINE (*CRX) 300/30 MG TABLET 1 TAB PO (09:28)
--- NOTE | 2020-12-01 13:44 | PM.CNNEP ---
Assessment and Plan Assessment and plan (1) Chronic kidney disease, stage 3: Code(s): N18.30 - Chronic kidney disease, stage 3 unspecified Status: Chronic Assessment and Plan: baseline creatinine fluctuates ~ 1.4 - 1.8mg/dl this causes him to bounce between CKD stage 3a and stage 3b due to hypertension, cardiomyopathy, and vascular disease (has renal infarcts on prior imaging) (2) Pneumonia: Qualifiers: Laterality: left Lung location: unspecified part of lung Pneumonia type: due to unspecified organism Qualified Code(s): J18.9 - Pneumonia, unspecified organism Code(s): J18.9 - Pneumonia, unspecified organism Status: Acute Assessment and Plan: follow culture data on antibiotics (3) COPD (chronic obstructive pulmonary disease): Code(s): J44.9 - Chronic obstructive pulmonary disease, unspecified Status: Chronic Assessment and Plan: complicated #2 on steroids continues supplemental oxygen and nebulizer treatmetns (4) CHF (congestive heart failure): Code(s): I50.9 - Heart failure, unspecified Status: Chronic Assessment and Plan: appears compensated to me follow volume status (5) Essential hypertension: Code(s): I10 - Essential (primary) hypertension Status: Chronic Assessment and Plan: reasonable control at this time follow hemodynamics Will continue to follow. History of Present Illness Reason for Consult Consult date: 12/01/20 Reason for consult: chronic renal failure Chief Complaint Chief complaint: acute hypoxic respiratory failure,pneumonia,chf,hy History of Present Illness Narrative: The patient is a 75-year-old Caucausian male with a past medical history as outlined below who presented to [facility] Emergency room due to shortness of breath. The patient apparently just recently recovered from pneumonia but despite that, he has had ongoing issues and problems with her current shortness of breath. He states that he was going to ask his tissue technologist if he would qualify for a nebulizer machine at home due to the persistence of his shortness of breath as he can hear was self wheeze in association with a chronic cough. He states that he has been more short of breath in the last several days in comparison to the last several months which prompted him to come to the emergency room for further evaluation. Workup and evaluation emergency room demonstrated the patient to be hemodynamically stable and in no respiratory distress but with subjective complaints of shortness of breath. As he has not been vaccinated against COVID-19, a rapid COVID-19 swab was done which was negative. Routine blood test demonstrated labs consistent with his known history of chronic kidney disease but his CBC showed an elevated white blood cell count but this was thought to be secondary to his recent steroid use for his previous pneumonia. His chest x-ray demonstrated stable airspace opacities of the left mid and lower lungs thought to be secondary to pneumonia. Given these findings, he was given supplemental oxygen, started on IV antibiotics and nebulizer treatments after appropriate cultures were obtained. He was subsequent admitted the hospital for further evaluation and therapy Renal consultation was requested due to his known history of chronic kidney disease. The patient is somewhat familiar to me as I have taking care of him on previous hospitalizations here [facility] and recently saw him in the office with regard to his known chronic kidney disease. His baseline creatinine seems to fluctuate anywhere from 1.4-1.8 mg/dL and is thought to be secondary to a combination of hypertension and vascular disease particularly given his recent finding of multiple wedge infarcts in his kidneys by imaging studies on a previous hospitalization. This would argue that he has significant atherosclerotic renovascular disease a
[2020-12-02] VITALS (26 sets, daily range): BP systolic 115–136; BP diastolic 37–52; PULSE 71–110; RESP 16–20; TEMP 35.5–36.6; O2SAT 91–98
[2020-12-02] MEDS: ACETAMINOPHEN/CODEINE (*CRX) 300/30 MG TABLET 1 TAB PO ×2 (00:15→20:59)
[2020-12-02] MEDS: IPRATROPIUM BR 0.02% INH SOLN 0.5 MG/2.5 ML VIAL INHALATION ×4 (01:55→20:20)
[2020-12-02] MEDS: ALBUTEROL SULFATE NEB 2.5 MG/0.5 ML INH 5 MG INHALATION ×4 (01:55→20:19)
[2020-12-02] MEDS: LEVOTHYROXINE SODIUM 25 MCG TABLET PO (06:02)
[2020-12-02] MEDS: ATORVASTATIN 40 MG TABLET PO (08:21)
[2020-12-02] MEDS: predniSONE 20 MG TABLET 40 MG PO (08:22)
[2020-12-02] MEDS: APIXABAN 5 MG TABLET PO ×2 (08:22→16:01)
[2020-12-02] MEDS: GABAPENTIN 300 MG CAPSULE 600 MG PO ×3 (08:22→16:01)
[2020-12-02] MEDS: PANTOPRAZOLE 40 MG TABLET PO (08:22)
[2020-12-02] MEDS: FERROUS GLUCONATE 324 MG TABLET PO ×2 (08:22→16:01)
[2020-12-02] MEDS: DULoxetine HCL 60 MG CAPSULE.DR PO ×2 (08:22→16:01)
[2020-12-02] MEDS: FOLIC ACID 1 MG TABLET PO (08:22)
[2020-12-02] MEDS: CLOPIDOGREL BISULFATE 75 MG TABLET PO (08:22)
[2020-12-02] MEDS: TAMSULOSIN HCL 0.4 MG CAPSULE 0.8 MG PO (08:22)
[2020-12-02] MEDS: THIAMINE HCL 100 MG TABLET PO (08:23)
[2020-12-02] MEDS: CYANOCOBALAMIN 1,000 MCG TABLET 1000 MCG PO (08:23)
[2020-12-02] MEDS: MULTIVITAMINS THERAPEUTIC TAB (*BKC) 1 TABLET PO (08:23)
--- NOTE | 2020-12-02 10:34 | PM.PNNEP ---
Progress Note: A&P Assessment and Plan (1) Chronic kidney disease, stage 3: Code(s): N18.30 - Chronic kidney disease, stage 3 unspecified Status: Chronic Assessment and Plan: baseline creatinine fluctuates ~ 1.3 - 1.6mg/dl this causes him to bounce between CKD stage 3a and stage 3b due to hypertension, cardiomyopathy, and vascular disease (has renal infarcts on prior imaging) (2) Pneumonia: Qualifiers: Laterality: left Lung location: unspecified part of lung Pneumonia type: due to unspecified organism Qualified Code(s): J18.9 - Pneumonia, unspecified organism Code(s): J18.9 - Pneumonia, unspecified organism Status: Acute Assessment and Plan: follow culture data on antibiotics (3) COPD (chronic obstructive pulmonary disease): Code(s): J44.9 - Chronic obstructive pulmonary disease, unspecified Status: Chronic Assessment and Plan: complicated #2 on steroids continues supplemental oxygen and nebulizer treatmetns (4) CHF (congestive heart failure): Code(s): I50.9 - Heart failure, unspecified Status: Chronic Assessment and Plan: appears compensated at this time follow volume status (5) Essential hypertension: Code(s): I10 - Essential (primary) hypertension Status: Chronic Assessment and Plan: reasonable control at this time follow hemodynamics Will continue to follow. Subjective Date/time seen: 12/02/20 10:34 Appears to be doing reasonably well at the time of my visit; no acute issues or complaints voiced at this time; breathing seems to be doing better currently; no other problems to report. Exam Narrative: General: WD/WN male in NAD Heart: normal S1 and S2; no rub Lungs: coarse and decreased at bases Abdomen: soft, nontender, nondistended, positive bowel sounds Extremities: no cyanosis or clubbing; no edema Skin: warm and dry Objective Data Vital Signs Vital Signs: Vital Signs Temp Pulse Resp BP Pulse Ox 12/02/20 10:30 93 12/02/20 09:58 36.2 C L 73 20 126/49 L 93 12/02/20 09:41 73 16 12/02/20 09:30 87 18 98 12/02/20 08:20 95 12/02/20 08:00 73 12/02/20 05:39 36.6 C 110 H 20 115/52 L 95 12/02/20 04:00 71 09/04/21 02:01 72 16 12/02/20 01:56 95 12/02/20 01:55 77 16 12/02/20 00:41 35.9 C L 76 20 121/52 L 93 12/02/20 00:00 72 12/01/20 21:22 93 12/01/20 20:56 36.2 C L 92 22 H 114/44 L 93 12/01/20 20:00 70 12/01/20 19:50 69 16 12/01/20 19:44 70 16 96 12/01/20 18:00 36.6 C 75 16 123/49 L 100 12/01/20 16:00 70 12/01/20 14:19 36.1 C L 71 16 113/46 L 99 12/01/20 14:11 68 18 12/01/20 14:00 66 18 12/01/20 12:00 68 Intake/Output Intake/Output: Intake & Output 11/29/20 11/30/20 12/01/20 12/02/20 23:59 23:59 23:59 23:59 Intake Total 1030 2330 2080 440 Output Total 2080 1400 1150 1000 Balance -1050 930 930 -560 Meds/Results Medications: Active Medications Generic Name Dose Route Start Last Admin Trade Name Freq PRN Reason Stop Dose Admin Acetaminophen 650 mg 11/28/20 21:10 11/28/20 21:23 Acetaminophen 325 Mg Tablet PO 650 mg Q6H PRN Administration Mild Pain (1-3) or Fever Acetaminophen/Codeine Phosphate 1 tab 11/28/20 21:42 12/02/20 00:15 Acetaminophen/Codeine (*Crx) 300/30 Mg Tablet PO 1 tab Q8H PRN Administration Pain Rated 4-6 Albuterol 5 mg 11/28/20 14:00 12/02/20 09:29 Albuterol Sulfate Neb 2.5 Mg/0.5 Ml Inh INHALATION 5 mg Q6HRT CARRIE Administration Amiodarone HCl 200 mg 11/29/20 08:00 11/30/20 08:45 Amiodarone Hcl 200 Mg Tablet PO 200 mg DAILY@0800 CARRIE Administration Apixaban 5 mg 11/29/20 09:00 12/02/20 08:22 Apixaban 5 Mg Tablet PO 5 mg BID CARRIE Administration Atorvastatin Calcium 40 mg 11/29/20 09:00 12/02/20 08:21 Atorvastatin 40 Mg Tablet
[2020-12-02 10:57] LABS: Haptoglobin 146 mg/dL (43-212)
--- NOTE | 2020-12-02 11:17 | PM.IMPN ---
Progress Note: A&P Assessment and Plan (1) COPD with hypoxia: Code(s): J44.9 - Chronic obstructive pulmonary disease, unspecified; R09.02 - Hypoxemia Status: Acute Assessment and Plan: Previously diagnosed COPD, patient was currently being evaluated for a home nebulizer machine. At [place] there were no previous oxygen requirements. Home O2 requirement evaluation in anticipation for future discharge. (2) Pneumonia: Code(s): J18.9 - Pneumonia, unspecified organism Status: Acute Assessment and Plan: Patient has a recent diagnosis of pneumonia as an outpatient. On admission he was diagnosed with left lung pneumonia.CT chest 11/28 showed small infiltrate left lower lobe consistent with pneumonia. Small pleural effusions with adjacent subsegmental atelectasis and moderate emphysema. Blood cultures have been unrevealing. Continue azithromycin and rocephin. The patient was hypoxic and placed on oxygen at 2 L per nasal cannula. Continue oxygen supplementation and wean as tolerated. Continue aggressive pulmonary toilet with nebulizer treatments. Blood cultures are negative. Previous sputum culture from 11/15 reveals Stenotrophomonas maltophilia sensitive to levaquin and bactrim. (3) CKD (chronic kidney disease): Qualifiers: Chronic kidney disease stage: unspecified stage Qualified Code(s): N18.9 - Chronic kidney disease, unspecified Code(s): N18.9 - Chronic kidney disease, unspecified Status: Acute Assessment and Plan: Acute non oliguric kidney injury likley related to acute illness, prerenal versus ATN in the setting of hypertension, cardiomyopathy, and vascular disease (has renal infarcts on prior imaging). Baseline stage 3 CKD . Jose Maria creatinine 1.1 on 09/24/2020. On that date CT angiogram on the chest was performed. There is likely an element of contrast induced nephropathy in an already compromised renal parenchyma. CT abdomen from 08/02/2020 reveals short segment severe stenosis of the dominant left renal artery. Bilateral renal infarcts of varying ages. (4) Hypoxia: Code(s): R09.02 - Hypoxemia Status: Acute Assessment and Plan: Oxygen supplementation and wean as tolerated as above. (5) DARINEL (acute kidney injury): Code(s): N17.9 - Acute kidney failure, unspecified Status: Acute Assessment and Plan: Likely contrast induced nephropathy in the setting of stage 3 CKD. (6) CHF (congestive heart failure), NYHA class I: Code(s): I50.9 - Heart failure, unspecified Status: Chronic (7) Essential hypertension: Code(s): I10 - Essential (primary) hypertension Status: Chronic Assessment and Plan: Continue lisinopril and carvedilol. Monitor ACEI closely in the setting of renal artery stenosis. (8) CAD (coronary artery disease): Code(s): I25.10 - Atherosclerotic heart disease of [place] coronary artery without angina pectoris Status: Acute Assessment and Plan: Patient has had coronary stents as well as a 2 vessel CABG. The patient is on Coreg and atorvastatin as well as Plavix. (9) Chronic anemia: Code(s): D64.9 - Anemia, unspecified Status: Acute Assessment and Plan: His hemoglobin has fluctuated between 8 and 11 over the past few months. There is likely an element of anemia of chronic kidney disease. We will start oral iron after checking for stool occult blood. He is on Eliquis. Monitor. The patient does not complain of any active bleeding at this time. The patient has a history of alcoholism. Continue home B12 and ferrous gluconate. (10) Paroxysmal atrial fibrillation: Code(s): I48.0 - Paroxysmal atrial fibrillation Status: Chronic Assessment and Plan: Currently rate controlled on amiodarone and carvedilol. Continue chronic anticoagulation with eliquis. Given chronic ETOH use and risk of falls and bleeding, patient advised to abstain from ETOH. (11) Hypo
[2020-12-02 12:14] LABS: Basophils Percent Auto 0.1 % (0.2-1.2); Eosinophils Absolute Auto 0.1 K/mm3 (0-0.3); Eosinophils Percent Auto 0.5 % (0-4.4); Hematocrit 29.4 % (42.0-52.0); Hemoglobin 9.1 g/dL (14.0-18.0); Immature Granulocyte Absolute 0.08 K/mm3 (0.00-0.031); Immature Granulocyte Percent A 0.5 % (0-0.5); Lymphocytes Absolute Auto 0.26 K/mm3 (0.9-3.2); Lymphocytes Percent Auto 1.8 % (18.3-44.2); Mean Corpuscular Hemoglobin 29.6 pg (26-34); Mean Corpuscular Volume 95.8 fl (80-100); Mean Platelet Volume 10.1 fl (7.4-10.4); Monocytes Absolute Auto 0.7 K/mm3 (0.1-0.6); Monocytes Percent Auto 4.4 % (2.6-8.5); Neutrophils Absolute Auto 13.8 K/mm3 (1.3-6.7); Neutrophils Percent Auto 92.7 % (45.5-73.1); Platelet Count Result 220 k/mm3 (150-375); Red Blood Count 3.07 M/mm3 (4.6-6.20); Red Cell Distribution Width 16.2 % (11.5-14.5); White Blood Count 14.9 K/mm3 (4.5-10.0)
[2020-12-02 12:27] LABS: Anion Gap 4 mmol/L (8-16); Blood Urea Nitrogen 36 mg/dL (9-20); Calcium 8.6 mg/dL (8.4-10.2); Carbon Dioxide 30 mmol/L (22-30); Chloride 99 mmol/L (98-107); Estimated CRCL calculation 56 ml/min; Estimated Glomerular Filt Rate 54; Glucose 122 mg/dL (65-110); Potassium 4.3 mmol/L (3.4-5.0); Sodium 133 mmol/L (137-145)
[2020-12-02 13:06] LABS: Platelet Estimate Adequate (Adequate)
[2020-12-02 13:07] LABS: Crenated RBC 1+ (NORMAL); Ovalocytes 2+ (NORMAL); Schistocytes 1+ (NORMAL); Tear Drop Cells 2+ (NORMAL)
[2020-12-03] VITALS (24 sets, daily range): BP systolic 120–131; BP diastolic 39–46; PULSE 75–91; RESP 16–20; TEMP 36.3–36.9; O2SAT 89–98
[2020-12-03] MEDS: ALBUTEROL SULFATE NEB 2.5 MG/0.5 ML INH 5 MG INHALATION ×4 (02:19→21:48)
[2020-12-03] MEDS: IPRATROPIUM BR 0.02% INH SOLN 0.5 MG/2.5 ML VIAL INHALATION ×4 (02:19→21:49)
[2020-12-03] MEDS: LEVOTHYROXINE SODIUM 25 MCG TABLET PO (05:59)
[2020-12-03 06:14] LABS: Hematocrit 27.8 % (42.0-52.0); Hemoglobin 8.7 g/dL (14.0-18.0); Mean Corpuscular HGB Conc 31.3 g/dl (32-36); Mean Corpuscular Hemoglobin 28.8 pg (26-34); Mean Corpuscular Volume 92.1 fl (80-100); Mean Platelet Volume 9.9 fl (7.4-10.4); Platelet Count Result 220 k/mm3 (150-375); Red Blood Count 3.02 M/mm3 (4.6-6.20); Red Cell Distribution Width 15.9 % (11.5-14.5); White Blood Count 11.3 K/mm3 (4.5-10.0)
[2020-12-03 06:26] LABS: Anion Gap 0 mmol/L (8-16); Blood Urea Nitrogen 32 mg/dL (9-20); Calcium 8.8 mg/dL (8.4-10.2); Carbon Dioxide 32 mmol/L (22-30); Chloride 103 mmol/L (98-107); Estimated CRCL calculation 55 ml/min; Estimated Glomerular Filt Rate 54; Glucose 97 mg/dL (65-110); Potassium 4.2 mmol/L (3.4-5.0); Sodium 135 mmol/L (137-145)
[2020-12-03] MEDS: GABAPENTIN 300 MG CAPSULE 600 MG PO ×3 (08:34→17:33)
[2020-12-03] MEDS: CLOPIDOGREL BISULFATE 75 MG TABLET PO (08:34)
[2020-12-03] MEDS: APIXABAN 5 MG TABLET PO ×2 (08:34→17:33)
[2020-12-03] MEDS: TAMSULOSIN HCL 0.4 MG CAPSULE 0.8 MG PO (08:35)
[2020-12-03] MEDS: ATORVASTATIN 40 MG TABLET PO (08:35)
[2020-12-03] MEDS: predniSONE 20 MG TABLET 40 MG PO (08:36)
[2020-12-03] MEDS: CYANOCOBALAMIN 1,000 MCG TABLET 1000 MCG PO (08:36)
[2020-12-03] MEDS: MULTIVITAMINS THERAPEUTIC TAB (*BKC) 1 TABLET PO (08:36)
[2020-12-03] MEDS: PANTOPRAZOLE 40 MG TABLET PO (08:36)
[2020-12-03] MEDS: FOLIC ACID 1 MG TABLET PO (08:36)
[2020-12-03] MEDS: THIAMINE HCL 100 MG TABLET PO (08:36)
[2020-12-03] MEDS: DULoxetine HCL 60 MG CAPSULE.DR PO ×2 (08:37→17:33)
--- NOTE | 2020-12-03 11:09 | PM.IMPN ---
Progress Note: A&P Assessment and Plan (1) COPD with hypoxia: Code(s): J44.9 - Chronic obstructive pulmonary disease, unspecified; R09.02 - Hypoxemia Status: Acute Assessment and Plan: Previously diagnosed COPD, patient was currently being evaluated for a home nebulizer machine. At baseline there were no previous oxygen requirements. Home O2 requirement evaluation in anticipation for future discharge after 7 days of IV antibiotics given severity of pneumonia and previously failed outpatient therapy. (2) Pneumonia: Code(s): J18.9 - Pneumonia, unspecified organism Status: Acute Assessment and Plan: Patient has a recent diagnosis of pneumonia as an outpatient. On admission he was diagnosed with left lung pneumonia.CT chest 11/28 showed small infiltrate left lower lobe consistent with pneumonia. Small pleural effusions with adjacent subsegmental atelectasis and moderate emphysema. Blood cultures have been unrevealing. Continue azithromycin and rocephin. The patient was hypoxic and placed on oxygen at 2 L per nasal cannula. Continue oxygen supplementation and wean as tolerated. Continue aggressive pulmonary toilet with nebulizer treatments. Blood cultures are negative. Previous sputum culture from 11/15 reveals Stenotrophomonas maltophilia sensitive to levaquin and bactrim. (3) CKD (chronic kidney disease): Qualifiers: Chronic kidney disease stage: unspecified stage Qualified Code(s): N18.9 - Chronic kidney disease, unspecified Code(s): N18.9 - Chronic kidney disease, unspecified Status: Acute Assessment and Plan: Acute non oliguric kidney injury, now resolved; was likely related to acute illness, prerenal versus ATN in the setting of hypertension, cardiomyopathy, and vascular disease (has renal infarcts on prior imaging). At baseline he has a previously established diagnosis of stage 3 CKD . Jose Maria creatinine 1.1 on 09/24/2020. On that date CT angiogram on the chest was performed. There is likely an element of contrast induced nephropathy in an already compromised renal parenchyma. CT abdomen from 08/02/2020 reveals short segment severe stenosis of the dominant left renal artery. Bilateral renal infarcts of varying ages. (4) Hypoxia: Code(s): R09.02 - Hypoxemia Status: Acute Assessment and Plan: Oxygen supplementation and wean as tolerated as above. Plan to send home with O2 concentrator. Home O2 requirement evaluation prior to discharge. (5) DARINEL (acute kidney injury): Code(s): N17.9 - Acute kidney failure, unspecified Status: Acute Assessment and Plan: Likely contrast induced nephropathy in the setting of stage 3 CKD. resolved. (6) CHF (congestive heart failure), NYHA class I: Code(s): I50.9 - Heart failure, unspecified Status: Chronic Assessment and Plan: Currenlty relatively euvolemic, tolerating laying down well, without evidence of exacerbation. (7) Essential hypertension: Code(s): I10 - Essential (primary) hypertension Status: Chronic Assessment and Plan: Bp at goal with somehow tenuous diastolic with 122/42/ today; Continue lisinopril and carvedilol. Monitor ACEI closely in the setting of renal artery stenosis. (8) CAD (coronary artery disease): Code(s): I25.10 - Atherosclerotic heart disease of [place] coronary artery without angina pectoris Status: Acute Assessment and Plan: Patient has had coronary stents as well as a 2 vessel CABG. The patient is on Coreg, lisinopril and atorvastatin as well as Plavix. (9) Chronic anemia: Code(s): D64.9 - Anemia, unspecified Status: Acute Assessment and Plan: His hemoglobin has fluctuated between 8 and 11 over the past few months. Hb today 8.7. We will check iron stores. There is likely an element of anemia of chronic kidney disease. He is on Eliquis. Monitor. The patient does not complain of any active bleeding at
--- NOTE | 2020-12-03 11:35 | HOMEO2EVAL ---
Evaluation was performed at [facility] Home Oxygen Evaluation RC: Home Oxygen (O2) Evaluation Start: 12/02/20 11:16 Freq: ONCE Status: Active Protocol: RPE Activity Type Activity Date Activity User E-Sign Co-Sign Detail Recorded Client Recorded Date Recorded By Document 12/03/20 11:24 TK [email or web address] 12/03/20 11:35 TK Document 12/03/20 11:25 TK [email or web address] 12/03/20 11:35 [facility] Document 12/03/20 11:33 [facility] [email or web address] 12/03/20 11:35 [facility] 12/03/20 12/03/20 12/03/20 11:24 11:25 11:33 Home O2 Evaluation Test Phase Resting Exercise Resting Oxygen Delivery Room Air Room Air Room Air Fraction of Inspired Oxygen (%) 21 Pulse Oximetry (90-100 %) 92 89 L 92 Pulse Rate (60-100 beats/min) 88 91 87 Activity Tolerance Good Good Good Rating of Perceived Dyspnea (PD) +1 Mild, Noticeable to the Participant but Not to an Observer Ambulation Distance (feet) 65 Home Oxygen Evaluation Comments Pt does not qualify for home O2 Treatment Charges O2 Evaluation - Inpatient
[2020-12-03 11:43] LABS: IFOB Positive Control Positive; Immunochemical Fecal Occult Bl Positive (N)
--- NOTE | 2020-12-03 12:32 | PM.PNNEP ---
Progress Note: A&P Assessment and Plan (1) Chronic kidney disease, stage 3: Code(s): N18.30 - Chronic kidney disease, stage 3 unspecified Status: Chronic Assessment and Plan: baseline creatinine fluctuates ~ 1.3 - 1.6mg/dl this causes him to bounce between CKD stage 3a and stage 3b due to hypertension, cardiomyopathy, and vascular disease (has renal infarcts on prior imaging) (2) Pneumonia: Qualifiers: Laterality: left Lung location: unspecified part of lung Pneumonia type: due to unspecified organism Qualified Code(s): J18.9 - Pneumonia, unspecified organism Code(s): J18.9 - Pneumonia, unspecified organism Status: Acute Assessment and Plan: follow culture data on antibiotics (3) COPD (chronic obstructive pulmonary disease): Code(s): J44.9 - Chronic obstructive pulmonary disease, unspecified Status: Chronic Assessment and Plan: complicates #2 on steroids continues supplemental oxygen and nebulizer treatments (4) CHF (congestive heart failure): Code(s): I50.9 - Heart failure, unspecified Status: Chronic Assessment and Plan: appears compensated at this time follow volume status (5) Essential hypertension: Code(s): I10 - Essential (primary) hypertension Status: Chronic Assessment and Plan: reasonable control at this time follow hemodynamics Will continue to follow. Subjective Date/time seen: 12/03/20 12:32 Continues to do reasonably well in general; breathing/respiratory status is slowly improving; no other acute concerns/problems voiced at the time of my visit; no other issues/events overnight or earlier this AM; no apparent distress reported. Exam Narrative: General: WD/WN male in NAD Heart: normal S1 and S2; no rub Lungs: coarse and decreased at bases Abdomen: soft, nontender, nondistended, positive bowel sounds Extremities: no cyanosis or clubbing; no edema Skin: warm and intact Objective Data Vital Signs Vital Signs: Vital Signs Temp Pulse Pulse Resp BP Pulse Ox 12/03/20 12:00 80 12/03/20 11:33 87 92 12/03/20 11:25 91 89 L 12/03/20 11:24 88 92 12/03/20 10:00 36.7 C 80 18 122/42 L 98 12/03/20 09:17 89 18 92 12/03/20 09:07 87 18 92 12/03/20 09:00 78 122/42 L 12/03/20 08:00 86 96 12/03/20 04:33 36.3 C L 75 16 121/39 L 91 12/03/20 04:00 79 12/03/20 02:27 78 16 12/03/20 02:20 79 16 12/03/20 00:00 78 12/02/20 23:57 36.5 C 82 16 123/37 L 91 12/02/20 21:00 78 12/02/20 20:38 36.6 C 84 16 133/45 L 93 12/02/20 20:26 79 16 12/02/20 20:23 78 92 12/02/20 20:20 78 16 12/02/20 20:00 81 12/02/20 17:09 35.5 C L 79 20 128/47 L 92 12/02/20 16:00 81 Intake/Output Intake/Output: Intake & Output 11/30/20 12/01/20 12/02/20 12/03/20 23:59 23:59 23:59 23:59 Intake Total 2330 2080 1770 440 Output Total 1400 1150 1600 300 Balance 930 930 170 140 Meds/Results Medications: Active Medications Generic Name Dose Route Start Last Admin Trade Name Freq PRN Reason Stop Dose Admin Acetaminophen 650 mg 11/28/20 21:10 11/28/20 21:23 Acetaminophen 325 Mg Tablet PO 650 mg Q6H PRN Administration Mild Pain (1-3) or Fever Acetaminophen/Codeine Phosphate 1 tab 11/28/20 21:42 12/02/20 20:59 Acetaminophen/Codeine (*Crx) 300/30 Mg Tablet PO 1 tab Q8H PRN Administration Pain Rated 4-6 Albuterol 5 mg 11/28/20 14:00 12/03/20 14:44 Albuterol Sulfate Neb 2.5 Mg/0.5 Ml Inh INHALATION 5 mg Q6HRT CARRIE Administration Amiodarone HCl 200 mg 11/29/20 08:00 11/30/20 08:45 Amiodarone Hcl 200 Mg Tablet PO 200 mg DAILY@0800 CARRIE Administration Apixaban 5 mg 11/29/20 09:00 12/03/20 08:34 Apixaban 5 Mg Tablet PO 5 mg BID CARRIE Administration Atorvastatin Calcium 40 mg 11/29/20 09:0
[2020-12-03] MEDS: FERROUS GLUCONATE 324 MG TABLET PO ×2 (12:53→17:33)
[2020-12-04] VITALS (10 sets, daily range): BP systolic 112–140; BP diastolic 43–53; PULSE 80–96; RESP 16–20; TEMP 36.1–36.8; O2SAT 91–100
[2020-12-04] MEDS: ACETAMINOPHEN/CODEINE (*CRX) 300/30 MG TABLET 1 TAB PO (04:01)
[2020-12-04] MEDS: LEVOTHYROXINE SODIUM 25 MCG TABLET PO (05:58)
[2020-12-04 06:02] LABS: Hemoglobin 9.4 g/dL (14.0-18.0); Mean Corpuscular HGB Conc 32.4 g/dl (32-36); Mean Corpuscular Hemoglobin 29.5 pg (26-34); Mean Corpuscular Volume 90.9 fl (80-100); Mean Platelet Volume 10.1 fl (7.4-10.4); Platelet Count Result 218 k/mm3 (150-375); Red Blood Count 3.19 M/mm3 (4.6-6.20); Red Cell Distribution Width 15.8 % (11.5-14.5); White Blood Count 8.9 K/mm3 (4.5-10.0)
[2020-12-04 06:24] LABS: Anion Gap 5 mmol/L (8-16); Blood Urea Nitrogen 31 mg/dL (9-20); Calcium 9.2 mg/dL (8.4-10.2); Carbon Dioxide 29 mmol/L (22-30); Chloride 104 mmol/L (98-107); Estimated CRCL calculation 55 ml/min; Estimated Glomerular Filt Rate 54; Glucose 119 mg/dL (65-110); Potassium 4.6 mmol/L (3.4-5.0); Sodium 138 mmol/L (137-145)
[2020-12-04 07:11] LABS: Iron 35 ug/dL (49-181)
[2020-12-04 07:20] LABS: Percent Iron Saturation 11 % (20-50)
[2020-12-04] MEDS: FERROUS GLUCONATE 324 MG TABLET PO ×2 (08:37→16:16)
[2020-12-04] MEDS: predniSONE 20 MG TABLET 40 MG PO (08:37)
[2020-12-04] MEDS: ATORVASTATIN 40 MG TABLET PO (08:38)
[2020-12-04] MEDS: PANTOPRAZOLE 40 MG TABLET PO (08:38)
[2020-12-04] MEDS: APIXABAN 5 MG TABLET PO ×2 (08:38→16:16)
[2020-12-04] MEDS: GABAPENTIN 300 MG CAPSULE 600 MG PO ×3 (08:38→16:16)
[2020-12-04] MEDS: CLOPIDOGREL BISULFATE 75 MG TABLET PO (08:38)
[2020-12-04] MEDS: THIAMINE HCL 100 MG TABLET PO (08:38)
[2020-12-04] MEDS: FOLIC ACID 1 MG TABLET PO (08:38)
[2020-12-04] MEDS: CYANOCOBALAMIN 1,000 MCG TABLET 1000 MCG PO (08:38)
[2020-12-04] MEDS: TAMSULOSIN HCL 0.4 MG CAPSULE 0.8 MG PO (08:38)
[2020-12-04] MEDS: DULoxetine HCL 60 MG CAPSULE.DR PO ×2 (08:38→16:16)
[2020-12-04] MEDS: MULTIVITAMINS THERAPEUTIC TAB (*BKC) 1 TABLET PO (08:39)
[2020-12-04] MEDS: IPRATROPIUM BR 0.02% INH SOLN 0.5 MG/2.5 ML VIAL INHALATION (08:58)
[2020-12-04] MEDS: ALBUTEROL SULFATE NEB 2.5 MG/0.5 ML INH 5 MG INHALATION (08:58)
--- NOTE | 2020-12-04 09:57 | PM.PNNEP ---
Progress Note: A&P Assessment and Plan (1) Chronic kidney disease, stage 3: Code(s): N18.30 - Chronic kidney disease, stage 3 unspecified Status: Chronic Assessment and Plan: baseline creatinine fluctuates ~ 1.3 - 1.6mg/dl this causes him to bounce between CKD stage 3a and stage 3b due to hypertension, cardiomyopathy, and vascular disease (has renal infarcts on prior imaging) Volume status looks okay. Potassium is doing well he is at baseline currently (2) Pneumonia: Qualifiers: Laterality: left Lung location: unspecified part of lung Pneumonia type: due to unspecified organism Qualified Code(s): J18.9 - Pneumonia, unspecified organism Code(s): J18.9 - Pneumonia, unspecified organism Status: Acute Assessment and Plan: follow culture data on Ceftriaxone and Azithromycin. (3) COPD (chronic obstructive pulmonary disease): Code(s): J44.9 - Chronic obstructive pulmonary disease, unspecified Status: Chronic Assessment and Plan: complicates #2 on steroids On room air now. Less short of breath. Cough is better. (4) CHF (congestive heart failure): Code(s): I50.9 - Heart failure, unspecified Status: Chronic Assessment and Plan: appears compensated at this time follow volume status (5) Essential hypertension: Code(s): I10 - Essential (primary) hypertension Status: Chronic Assessment and Plan: Systolic 120-140 doing well on current medication Will continue to follow. Subjective Date/time seen: 12/04/20 09:57 Interval history: Hernando is feeling better today. He is getting an antibiotic currently. He ate pretty well for breakfast. He denies shortness of breath or swelling Exam Narrative: General: WD/WN male in NAD Heart: normal S1 and S2; no rub or gallop Lungs: coarse and decreased at bases Abdomen: soft, nontender, nondistended, positive bowel sounds Extremities: no cyanosis or clubbing; no edema Skin: no rash Objective Data Vital Signs Vital Signs: Vital Signs - 24 hr 12/03/20 10:00 12/03/20 11:24 12/03/20 11:25 Temperature 36.7 C Pulse Rate 80 88 91 Respiratory Rate 18 Blood Pressure 122/42 L Pulse Oximetry 98 92 89 L 12/03/20 11:33 12/03/20 12:00 12/03/20 14:00 Temperature 36.9 C Pulse Rate 87 80 81 Respiratory Rate 20 Blood Pressure 120/42 L Pulse Oximetry 92 94 12/03/20 14:44 12/03/20 14:54 12/03/20 16:00 Temperature Pulse Rate 91 90 84 Respiratory Rate 18 18 Blood Pressure Pulse Oximetry 12/03/20 18:00 12/03/20 20:00 12/03/20 21:50 Temperature 36.3 C L Pulse Rate 87 79 Respiratory Rate 20 Blood Pressure 122/46 L Pulse Oximetry 92 90 12/03/20 21:51 12/03/20 21:56 12/03/20 22:00 Temperature 36.6 C Pulse Rate 82 75 79 Respiratory Rate 16 16 16 Blood Pressure 131/44 L Pulse Oximetry 95 12/04/20 00:00 12/04/20 02:00 12/04/20 04:00 Temperature 36.8 C Pulse Rate 80 84 85 Respiratory Rate 16 Blood Pressure 125/43 L Pulse Oximetry 94 12/04/20 06:00 12/04/20 08:58 12/04/20 09:07 Temperature 36.2 C L Pulse Rate 81 85 81 Respiratory Rate 16 18 18 Blood Pressure 137/53 L Pulse Oximetry 93 91 91 Intake/Output Intake/Output: Intake & Output 12/01/20 12/02/20 12/03/20 12/04/20 23:59 23:59 23:59 23:59 Intake Total 2080 1770 1260 740 Output Total 1150 1600 300 700 Balance 930 170 960 40 Meds/Results Medications: Active Medications Generic Name Dose Route Start Last Admin Trade Name Freq PRN Reason Stop Dose Admin Acetaminophen 650 mg 11/28/20 21:10 11/28/20 21:23 Acetaminophen 325 Mg Tablet PO 650 mg Q6H PRN Administration Mild Pain (1-3) or Fever Acetaminophen/Codeine Phosphate 1 tab 11/28/20 21:42 12/04/20 04:01 Acetaminophen/Codeine (*Crx) 300/30 Mg Tablet PO 1 tab Q8H PRN Administration Pain Rated 4-6
--- NOTE | 2020-12-04 13:52 | PM.DS ---
DS: Admitting Diagnosis Admitting Diagnosis shortness of breath DS: Discharge Diagnosis Discharge Diagnosis (1) COPD with hypoxia: Code(s): J44.9 - Chronic obstructive pulmonary disease, unspecified; R09.02 - Hypoxemia Status: Acute Assessment and Plan: Previously diagnosed COPD, patient was currently being evaluated for a home nebulizer machine. At baseline there were no previous oxygen requirements. Home O2 requirement evaluation in anticipation for future discharge after 7 days of IV antibiotics given severity of pneumonia and previously failed outpatient therapy. (2) Pneumonia: Code(s): J18.9 - Pneumonia, unspecified organism Status: Acute Assessment and Plan: Patient has a recent diagnosis of pneumonia as an outpatient. On admission he was diagnosed with left lung pneumonia.CT chest 11/28 showed small infiltrate left lower lobe consistent with pneumonia. Small pleural effusions with adjacent subsegmental atelectasis and moderate emphysema. Blood cultures have been unrevealing. Continue azithromycin and rocephin. The patient was hypoxic and placed on oxygen at 2 L per nasal cannula. Continue oxygen supplementation and wean as tolerated. Continue aggressive pulmonary toilet with nebulizer treatments. Blood cultures are negative. Previous sputum culture from 11/15 reveals Stenotrophomonas maltophilia sensitive to levaquin and bactrim. (3) CKD (chronic kidney disease): Qualifiers: Chronic kidney disease stage: unspecified stage Qualified Code(s): N18.9 - Chronic kidney disease, unspecified Code(s): N18.9 - Chronic kidney disease, unspecified Status: Acute Assessment and Plan: Acute non oliguric kidney injury, now resolved; was likely related to acute illness, prerenal versus ATN in the setting of hypertension, cardiomyopathy, and vascular disease (has renal infarcts on prior imaging). At baseline he has a previously established diagnosis of stage 3 CKD . Jose Maria creatinine 1.1 on 09/24/2020. On that date CT angiogram on the chest was performed. There is likely an element of contrast induced nephropathy in an already compromised renal parenchyma. CT abdomen from 08/02/2020 reveals short segment severe stenosis of the dominant left renal artery. Bilateral renal infarcts of varying ages. (4) Hypoxia: Code(s): R09.02 - Hypoxemia Status: Acute Assessment and Plan: Oxygen supplementation and wean as tolerated as above. Plan to send home with O2 concentrator. Home O2 requirement evaluation prior to discharge. (5) DARINEL (acute kidney injury): Code(s): N17.9 - Acute kidney failure, unspecified Status: Acute Assessment and Plan: Likely contrast induced nephropathy in the setting of stage 3 CKD. resolved. (6) CHF (congestive heart failure), NYHA class I: Code(s): I50.9 - Heart failure, unspecified Status: Chronic Assessment and Plan: Currenlty relatively euvolemic, tolerating laying down well, without evidence of exacerbation. (7) Essential hypertension: Code(s): I10 - Essential (primary) hypertension Status: Chronic Assessment and Plan: Bp at goal with somehow tenuous diastolic with 122/42/ today; Continue lisinopril and carvedilol. Monitor ACEI closely in the setting of renal artery stenosis. (8) CAD (coronary artery disease): Code(s): I25.10 - Atherosclerotic heart disease of [place] coronary artery without angina pectoris Status: Acute Assessment and Plan: Patient has had coronary stents as well as a 2 vessel CABG. The patient is on Coreg, lisinopril and atorvastatin as well as Plavix. (9) Chronic anemia: Code(s): D64.9 - Anemia, unspecified Status: Acute Assessment and Plan: His hemoglobin has fluctuated between 8 and 11 over the past few months. Hb today 8.7. We will check iron stores. There is likely an element of anemia of chronic kidney disease. He is on El
--- NOTE | 2020-12-25 09:01 | P.DS_ITS ---
DS: Admitting Diagnosis Discharge Date 12/04/20 DS: Discharge Diagnosis Discharge Diagnosis (1) COPD with hypoxia: Code(s): J44.9 - Chronic obstructive pulmonary disease, unspecified; R09.02 - Hypoxemia Status: Acute Assessment and Plan: Previously diagnosed COPD, patient was currently being evaluated for a home nebulizer machine. At baseline there were no previous oxygen requirements. Home O2 requirement evaluation in anticipation for future discharge after 7 days of IV antibiotics given severity of pneumonia and previously failed outpatient therapy. (2) Pneumonia: Code(s): J18.9 - Pneumonia, unspecified organism Status: Acute Assessment and Plan: Patient has a recent diagnosis of pneumonia as an outpatient. On admission he was diagnosed with left lung pneumonia.CT chest 11/28 showed small infiltrate left lower lobe consistent with pneumonia. Small pleural effusions with adjacent subsegmental atelectasis and moderate emphysema. Blood cultures have been unrevealing. Continue azithromycin and rocephin. The patient was hypoxic and placed on oxygen at 2 L per nasal cannula. Continue oxygen supplementation and wean as tolerated. Continue aggressive pulmonary toilet with nebulizer treatments. Blood cultures are negative. Previous sputum culture from 11/15 reveals Stenotrophomonas maltophilia sensitive to levaquin and bactrim. (3) CKD (chronic kidney disease): Qualifiers: Chronic kidney disease stage: unspecified stage Qualified Code(s): N18.9 - Chronic kidney disease, unspecified Code(s): N18.9 - Chronic kidney disease, unspecified Status: Acute Assessment and Plan: Acute non oliguric kidney injury, now resolved; was likely related to acute illness, prerenal versus ATN in the setting of hypertension, cardiomyopathy, and vascular disease (has renal infarcts on prior imaging). At baseline he has a previously established diagnosis of stage 3 CKD . Jose Maria creatinine 1.1 on 09/24/2020. On that date CT angiogram on the chest was performed. There is likely an element of contrast induced nephropathy in an already compromised renal parenchyma. CT abdomen from 08/02/2020 reveals short segment severe stenosis of the dominant left renal artery. Bilateral renal infarcts of varying ages. (4) Hypoxia: Code(s): R09.02 - Hypoxemia Status: Acute Assessment and Plan: Oxygen supplementation and wean as tolerated as above. Plan to send home with O2 concentrator. Home O2 requirement evaluation prior to discharge. (5) DARINEL (acute kidney injury): Code(s): N17.9 - Acute kidney failure, unspecified Status: Acute Assessment and Plan: Likely contrast induced nephropathy in the setting of stage 3 CKD. resolved. (6) CHF (congestive heart failure), NYHA class I: Code(s): I50.9 - Heart failure, unspecified Status: Chronic Assessment and Plan: Currenlty relatively euvolemic, tolerating laying down well, without evidence of exacerbation. (7) Essential hypertension: Code(s): I10 - Essential (primary) hypertension Status: Chronic Assessment and Plan: Bp at goal with somehow tenuous diastolic with 122/42/ today; Continue lisinopril and carvedilol. Monitor ACEI closely in the setting of renal artery stenosis. (8) CAD (coronary artery disease): Code(s): I25.10 - Atherosclerotic heart disease of [place] coronary artery without angina pectoris Status: Acute Assessment and Plan: Patient has had coronary stents as well as a 2 vessel CABG. The patient is on Coreg, lisinopril and atorvastatin as well as Plav
--- NOTE | 2020-12-26 08:24 | PM.DS ---
DS: Admitting Diagnosis Discharge Date 12/04/20 Admitting Diagnosis Community acquired pneumonia DS: Discharge Diagnosis Discharge Diagnosis (1) COPD with hypoxia: Code(s): J44.9 - Chronic obstructive pulmonary disease, unspecified; R09.02 - Hypoxemia Status: Acute Assessment and Plan: Previously diagnosed COPD, patient was currently being evaluated for a home nebulizer machine. At baseline there were no previous oxygen requirements. Home O2 requirement evaluation was done and patient discharged on oxygen at 2 liters. (2) Pneumonia: Code(s): J18.9 - Pneumonia, unspecified organism Status: Acute Assessment and Plan: Patient has a recent diagnosis of pneumonia as an outpatient. On admission he was diagnosed with left lung pneumonia.CT chest 11/28 showed small infiltrate left lower lobe consistent with pneumonia. Small pleural effusions with adjacent subsegmental atelectasis and moderate emphysema. Blood cultures have been unrevealing. Continue azithromycin and rocephin. The patient was hypoxic and placed on oxygen at 2 L per nasal cannula. Blood cultures are negative. Previous sputum culture from 11/15 reveals Stenotrophomonas maltophilia sensitive to levaquin and bactrim. He was discharged on a 7-day course of levaquin. (3) CKD (chronic kidney disease): Qualifiers: Chronic kidney disease stage: unspecified stage Qualified Code(s): N18.9 - Chronic kidney disease, unspecified Code(s): N18.9 - Chronic kidney disease, unspecified Status: Acute Assessment and Plan: Acute non oliguric kidney injury, now resolved; was likely related to acute illness, prerenal versus ATN in the setting of hypertension, cardiomyopathy, and vascular disease (has renal infarcts on prior imaging). At baseline he has a previously established diagnosis of stage 3 CKD . Jose Maria creatinine 1.1 on 09/24/2020. On that date CT angiogram on the chest was performed. There is likely an element of contrast induced nephropathy in an already compromised renal parenchyma. CT abdomen from 08/02/2020 reveals short segment severe stenosis of the dominant left renal artery. Bilateral renal infarcts of varying ages. Patient will follow up with nephrology as an outpatient. (4) Hypoxia: Code(s): R09.02 - Hypoxemia Status: Acute Assessment and Plan: Oxygen supplementation and wean as tolerated as above. Plan to send home with O2 concentrator. Home O2 requirement evaluation with 2 liters requirements. (5) DARINEL (acute kidney injury): Code(s): N17.9 - Acute kidney failure, unspecified Status: Acute Assessment and Plan: Likely contrast induced nephropathy in the setting of stage 3 CKD. resolved. (6) CHF (congestive heart failure), NYHA class I: Code(s): I50.9 - Heart failure, unspecified Status: Chronic Assessment and Plan: Currenlty relatively euvolemic, tolerating laying down well, without evidence of exacerbation at the time of discharge. (7) Essential hypertension: Code(s): I10 - Essential (primary) hypertension Status: Chronic Assessment and Plan: Bp at goal with somehow tenuous diastolic with 122/42 today; Continue lisinopril and carvedilol. Monitor ACEI closely in the setting of renal artery stenosis. (8) CAD (coronary artery disease): Code(s): I25.10 - Atherosclerotic heart disease of [place] coronary artery without angina pectoris Status: Acute Assessment and Plan: Patient has had coronary stents as well as a 2 vessel CABG. The patient is on Coreg, lisinopril and atorvastatin as well as Plavix. (9) Chronic anemia: Code(s): D64.9 - Anemia, unspecified Status: Acute Assessment and Plan: His hemoglobin has fluctuated between 8 and 11 over the past few months. Hb today 8.7. We will check iron stores. There is likely an element of anemia of chronic kidney disease. He is on Eliquis. Monitor. The patient do
== END 2020-12-04 16:35 | disposition home or self-care (01) | DRG 194 ==
LOC: ANHED 10:28 → ANHIMU 11-29 08:16 → ANH2MED 12-04 13:52 → ANHIMU 12-07 13:24
PROVIDERS: Internal Medicine; Nurse Practitioner; Admitting Provider Internal Medicine; Emergency Provider Emergency Medicine; PCP Family Medicine; Visit Provider Internal Medicine Nephrology
DX: J18.9 Pneumonia, unspecified organism; J44.0 Chronic obstructive pulmonary disease with (acute) lower respiratory infection; I13.0 Hypertensive heart and chronic kidney disease with heart failure and stage 1 through stage 4 chronic kidney disease, or unspecified chronic kidney disease; N17.9 Acute kidney failure, unspecified; N14.1 Nephropathy induced by other drugs, medicaments and biological substances; T50.8X5A Adverse effect of diagnostic agents, initial encounter; R09.02 Hypoxemia; Z20.822 Contact with and (suspected) exposure to COVID-19; D63.1 Anemia in chronic kidney disease; I25.10 Atherosclerotic heart disease of native coronary artery without angina pectoris; I25.2 Old myocardial infarction; I25.5 Ischemic cardiomyopathy; F10.10 Alcohol abuse, uncomplicated; N18.31 Chronic kidney disease, stage 3a; I50.9 Heart failure, unspecified; E78.1 Pure hyperglyceridemia; E03.2 Hypothyroidism due to medicaments and other exogenous substances; T50.905A Adverse effect of unspecified drugs, medicaments and biological substances, initial encounter; I48.0 Paroxysmal atrial fibrillation; I73.9 Peripheral vascular disease, unspecified; N40.0 Benign prostatic hyperplasia without lower urinary tract symptoms; Z66 Do not resuscitate; Z79.01 Long term (current) use of anticoagulants; Z79.02 Long term (current) use of antithrombotics/antiplatelets; Z79.899 Other long term (current) drug therapy; Z85.828 Personal history of other malignant neoplasm of skin; Z86.11 Personal history of tuberculosis; Z87.891 Personal history of nicotine dependence; Z98.42 Cataract extraction status, left eye; Z98.41 Cataract extraction status, right eye; Z95.1 Presence of aortocoronary bypass graft; Z95.5 Presence of coronary angioplasty implant and graft; Z95.810 Presence of automatic (implantable) cardiac defibrillator; Z95.820 Peripheral vascular angioplasty status with implants and grafts
CPT/HCPCS: 36415; 36600; 71045; 71250; 80048; 80076; 82247; 82274; 82607; 82728; 82746; 82805; 83010; 83540; 83550; 83605; 83615; 83735; 83880; 84443; 84484; 85025; 85027; 85046; 85610; 85730; 86140; 87040; 87070; 87205; 87426; 93005; 93976; 94618; 94640; 96365; 96375; 99285; A9270; C9803; J0456; J0696; J1940; J2930; J7512

== ENCOUNTER 2020-12-23 15:49 | Inpatient (IN) | payer MEDICARE, SELFPAY ==
[2020-12-23] VITALS (33 sets, daily range): BP systolic 101–116; BP diastolic 42–62; PULSE 60–100; RESP 10–24; TEMP 36.3–36.8; O2SAT 79–100; BMI 21.2
--- NOTE | ~2020-12-23 | XR_ITS ---
EXAMINATION: XR chest 1V portable DATE: 12/23/2020 16:33 INDICATION: Pneumonia presenting with shortness of breath and weakness TECHNIQUE: frontal view of the chest was obtained. COMPARISON: Chest radiograph and CT dated 11/28/2020 FINDINGS: Resolution of prior loculated left pleural effusion. Residual mild streaky opacities at the bilateral lower lung zones which could represent atelectasis, mild pulmonary edema or pneumonia. No pneumothor ax or definitive pleural effusion. The cardiomediastinal silhouette is normal. Dual lead pacemaker/AI CD seen with leads projecting over the expected locations of the right atrium and right ventricle. Me luke sternotomy wires and mediastinal surgical clips are seen, likely from prior coronary artery bypa ss grafting. IMPRESSION: 1. Mild streaky bibasilar opacities which could represent atelectasis, mild pulmonary edema or pneumo marisol. Reviewed, dictated and finalized at location A. IMPRESSION: 1. Mild streaky bibasilar opacities which could represent atelectasis, mild pul monary edema or pneumonia.
--- NOTE | ~2020-12-23 | XR_ITS ---
EXAMINATION: XR chest 2V DATE: 12/26/2020 09:19 INDICATION: Pneumonia versus COPD presenting with shortness of breath and weakness TECHNIQUE: frontal and lateral views of the chest were obtained. COMPARISON: Chest radiograph dated 12/23/2020 FINDINGS: Opacities at the bilateral lower lung zones with blunting at the posterior sulci consistent with smal l bilateral pleural effusions and associated basilar atelectasis versus less likely pneumonia. Unchan ged mild streaky atelectasis/scarring at the lateral right midlung zone. No pulmonary edema or pneumo thorax. Portions of the lateral left midlung zone are obscured by a dual-lead lead pacemaker/AICD wit h leads projecting over the expected locations of the right atrium and right ventricle. Cardiomegal y. Mild thoracic spondylosis. IMPRESSION: 1. Small bilateral pleural effusions with mild bibasilar atelectasis versus less likely pneumonia. 2. Cardiomegaly. Reviewed, dictated and finalized at location A. IMPRESSION: 1. Small bilateral pleural effusions with mild bibasilar atelectasis versus les s likely pneumonia. 2. Cardiomegaly.
--- NOTE | 2020-12-23 16:03 | ECG_ITS ---
Measurements Intervals Brant Rate: 60 P: -85 MA: 280 QRS: -17 QRSD: 156 T: 79 QT: 484 QTc: 484 Interpretive Statements ELECTRONIC ATRIAL PACEMAKER INTRAVENTRICULAR CONDUCTION DELAY BORDERLINE ST-T WAVE ABNORMALITY- LAT/HIGH LAT LEADS BASELINE ARTIFACT- I, II, III BORDERLINE ECG Electronically Signed On 12-23-2020 18:44:09 CDT by Chapo Bermudez D.O.
[2020-12-23] MEDS: ALBUTEROL SULFATE NEB 2.5 MG/0.5 ML INH 5 MG INHALATION (16:47)
[2020-12-23] MEDS: IPRATROPIUM BR 0.02% INH SOLN 0.5 MG/2.5 ML VIAL INHALATION (16:47)
--- NOTE | 2020-12-23 17:34 | PC.NURSE ---
Pts POA called into the ED to share information that patient has been progressivly worse over the last 2 weeks. has been on prednisone and antibiotics at home without improvement. Information shared with Dr. Lujan.
--- NOTE | 2020-12-23 17:38 | ED.SOB ---
HPI - SOB/Dyspnea General Chief Complaint: Shortness of Breath/Dyspnea Stated Complaint: SOB Time Seen by Provider: 12/23/20 16:03 Source: patient and family History of Present Illness HPI Narrative: Patient presents with shortness of breath. Patient reports symptoms are getting progressively worse over the past month. Reports he has follow-up appoint with category analyst next week but he did not think he be able to make it to his appointment as shortness of breath has been, progressive. Reports symptoms increasing short of breath with basic physical activity similar to come to the ER for evaluation. Denies focal areas of pain such as chest pain or abdominal pain patient reported increasing cough denies any fevers Related Data Home Medications Medication Instructions Recorded Confirmed amiodarone 200 mg tablet 200 mg PO DAILY 04/19/19 12/11/20 apixaban 5 mg tablet 5 mg PO BID 04/19/19 12/11/20 atorvastatin 40 mg tablet 40 mg PO DAILY 04/19/19 12/11/20 carvedilol 12.5 mg tablet 12.5 mg PO BIDWM 04/19/19 12/11/20 clopidogrel 75 mg tablet 75 mg PO DAILY 04/19/19 12/11/20 lisinopril 5 mg tablet 5 mg PO DAILY 04/19/19 12/11/20 ferrous gluconate 324 mg PO BID 08/01/20 12/11/20 multivitamin 1 tablet PO DAILY 08/01/20 12/11/20 folic acid 1 mg PO DAILY 11/28/20 12/11/20 tamsulosin 0.8 mg PO DAILY 11/28/20 12/11/20 Allergies Allergy/AdvReac Type Severity Reaction Status Date / Time amitriptyline AdvReac Severe Dizziness Verified 12/23/20 17:14 hydrocodone AdvReac Severe Dizziness Verified 12/23/20 17:14 tramadol AdvReac Severe dizziness. Verified 12/23/20 17:14 Review of Systems Review of Systems: CONSTITUTIONAL: Denies fever, chills, or sweats. EYES: Denies visual changes, redness, or discharge. ENT: Denies rhinorrhea, congestion, sore throat, or otalgia. CARDIOVASCULAR: Denies chest pain, palpitations, or edema. RESPIRATORY: Reports shortness of breath and cough GASTROINTESTINAL: Denies abdominal pain, nausea, vomiting, or diarrhea. GENITOURINARY: Denies dysuria or hematuria. SKIN: Denies rash or itching. MUSCULOSKELETAL: Denies back pain, joint pain, or myalgia. NEUROLOGIC: Denies headache, numbness, dizziness, or weakness. PSYCHIATRIC: Denies anxiety or depression. All systems reviewed & are unremarkable except as noted in HPI and below [facility] Past Medical History Medical History Alcohol abuse Arthritis Estrada esophagus Benign prostatic hyperplasia CHF (congestive heart failure), NYHA class I 1. Complete two-dimensional, color flow and Doppler transthoracic echocardiogram is performed. 2. The left ventricle is severely dilated with normal wall thickness. There is overall moderate left ventricular dysfunction with akinesis of the inferior septal segments extending to the apex. Grade 2 to function is present. Calculated ejection fraction to 35%, visual ejection fraction 35-40%. 3. Left atrial chamber dimension is severely enlarged. 4. The aortic valve is sclerosed. There is mild, or perhaps mild to moderate highly eccentric aortic valve regurgitation. 5. There is mild tricuspid valve regurgitation. 6. Mild pulmonary hypertension, estimated pulmonary arterial systolic pressure is 39 mmHg. 7. No thrombi seen. 8. Pacemaker leads noted in the right atrium and right ventricle. 9. Normal sinus rhythm. Chronic anemia Chronic kidney disease, stage 3a Baseline creatinine is between 1.4 and 1.60. COPD with emphysema Coronary artery disease STEMI in 12/2011:Bare metal stent to proximal left circumflex and right coronary artery. Cardiac catheterization in 03/2019 15 showed multivessel disease. 2 vessel CABG with [place] to OM and left radial artery to PDA on 06/29/2014. Essential hypertension History of skin cancer Ischemic bowel disease Ischemic cardiomyopathy Most recent ejection fraction was 45 to 50%. Paroxysmal atrial fibrillation Peripheral arterial disease Histo
[2020-12-23] MEDS: methylPREDNISolone SOD SUCC 125 MG VIAL IV PUSH (17:44)
[2020-12-23] MEDS: FUROSEMIDE INJ 40 MG/4 ML VIAL IV PUSH (17:44)
[2020-12-23 17:47] LABS: Basophils Percent Auto 0.2 % (0.2-1.2); Eosinophils Absolute Auto 0.1 K/mm3 (0-0.3); Eosinophils Percent Auto 0.6 % (0-4.4); Hematocrit 29.8 % (42.0-52.0); Hemoglobin 9.2 g/dL (14.0-18.0); Immature Granulocyte Absolute 0.04 K/mm3 (0.00-0.031); Immature Granulocyte Percent A 0.4 % (0-0.5); Lymphocytes Absolute Auto 0.57 K/mm3 (0.9-3.2); Lymphocytes Percent Auto 6.1 % (18.3-44.2); Mean Corpuscular HGB Conc 30.9 g/dl (32-36); Mean Corpuscular Hemoglobin 30.1 pg (26-34); Mean Corpuscular Volume 97.4 fl (80-100); Mean Platelet Volume 10.2 fl (7.4-10.4); Monocytes Absolute Auto 1.1 K/mm3 (0.1-0.6); Monocytes Percent Auto 12.2 % (2.6-8.5); Neutrophils Absolute Auto 7.5 K/mm3 (1.3-6.7); Neutrophils Percent Auto 80.5 % (45.5-73.1); Platelet Count Result 157 k/mm3 (150-375); Red Blood Count 3.06 M/mm3 (4.6-6.20); Red Cell Distribution Width 18.9 % (11.5-14.5); White Blood Count 9.4 K/mm3 (4.5-10.0)
[2020-12-23 18:02] LABS: Anion Gap 7 mmol/L (8-16); Blood Urea Nitrogen 65 mg/dL (9-20); Calcium 8.5 mg/dL (8.4-10.2); Carbon Dioxide 26 mmol/L (22-30); Chloride 109 mmol/L (98-107); Estimated CRCL calculation 30 ml/min; Estimated Glomerular Filt Rate 31; Glucose 90 mg/dL (65-110); Lactic Acid Reflex 0.8 mmol/L (0.7-2.1); Potassium 5.5 mmol/L (3.4-5.0); Sodium 142 mmol/L (137-145)
[2020-12-23 18:10] LABS: NT Pro B Type Natriuretic Pept 19700 pg/mL (5-100)
[2020-12-23 18:26] LABS: Alveolar/Arterial O2 Gradient 55.8 mmHg; Base Excess ABG -2.6 mEq/l (+/-2.0); Fractional Inspired Oxygen 21 %; Oxygen Content ABG 9.9 %vol (16.0-22.0); Oxyhemoglobin 72.1 % THb (90.0-100.0); PCO2 ABG 43.1 mmHg (35.0-45.0); PO2 FiO2 Ratio Arterial Blood 2.01 %; Total Hemoglobin 9.7 g/dL (12.0-18.0); pH ABG 7.345 (7.350-7.450)
[2020-12-23 18:28] LABS: PO2 ABG 42.3 mmHg (80.0-100.0)
[2020-12-23 18:29] LABS: Oxygen Saturation ABG 75.2 % (95.0-100.0)
[2020-12-23 18:30] LABS: Device ROOM AIR
--- NOTE | 2020-12-23 19:33 | PC.NURSE ---
Assumed care of pt at this time, report taken from Chandni GEORGE. PT alert and upright on stretcher, on 2L NC. Pt c/o lower leg pain he states is chronic.
--- NOTE | 2020-12-23 20:59 | PM.IMHP ---
H&P: HPI History of Present Illness Date/Time: 12/23/20 20:59 This is a 75-year-old male patient who has a history of COPD, CHF, and coronary artery disease. The patient recently was diagnosed with pneumonia in October and the prior month as well. The patient was just discharged from this hospital the 1st week of this month. The patient stated that he followed up with his dental hygienist after his discharge. However I do not see a note from his pulmonology. According to his PCP note patient has appointment with dental hygienist on 12/26/2020. The patient stated that he was given oxygen to use p.r.n. at home. The patient stated that he can only walk about 10-15 feet prior to becoming short of breath and that he has to use his oxygen for short period of time to recover. The patient stated that it takes a long time for him to recover from a shortness of breath. The patient tells me over the last 2-3 weeks he has been progressively getting more short of breath since he left the hospital. The patient told the ER doctor that the patient has a appointment with dental hygienist next week as mentioned above but the patient stated that he could not wait until next week to follow-up with the dental hygienist. The patient had been encouraged to use his home nebulizers at his last doctor's visit. Today the patient's H&H is 9.2 and 29.8 which is patient's baseline. His creatinine is 2.1 [place] 5[place] [address] which is higher than his normal. Chest x-ray was read as mild streaky bibasilar opacities which could represent atelectasis, mild pulmonary edema or pneumonia. The patient is afebrile and has no cough. The patient was recently treated for pneumonia last month in the prior month. Is very doubtful the patient has pneumonia. Most likely this is congestive heart failure exacerbation or COPD exacerbation. The patient was given a dose of azithromycin in the emergency room. He was given nebulizer treatments. He was also given steroids and Lasix in the emergency room. The patient is being admitted to observation status on the date of service of 12/23/2020. Chief Complaint: Shortness of breath Review of Systems Review of Systems: All systems reviewed & are unremarkable except as noted in HPI and below Constitutional: Constitutional: Reports as per HPI and Reports no additional constitutional complaints Eyes: Eyes: Reports as per HPI and Reports no additional eye complaints ENT: Reports system reviewed and no additional complaints, except as documented and Reports Normal hearing present Cardiovascular: Cardiovascular: Reports no additional cardiovascular complaints Respiratory: Respiratory: Reports no additional respiratory complaints and Reports no additional respiratory complaints Gastrointestinal: Gastrointestinal: Reports as per HPI and Reports no additional gastrointestinal complaints Musculoskeletal: Musculoskeletal: Reports no additional musculoskeletal complaints Integumentary/Breasts: Skin/Breast: Reports system reviewed and no additional complaints, except as docu and Reports as per HPI Neurologic: Reports system reviewed and no additional complaints, except as documented, Reports as per HPI and Reports Normal hearing present Psychiatric: Psychiatric: Reports no additional psychiatric complaints and Reports as per HPI Endocrine: Endocrine: Reports no additional endocrine complaints Hematologic/Lymphatic: Hematologic/Lymphatic: Reports no additional hematologic/lymphatic complaints Allergic/Immunologic: Allergic/Immunologic: Reports no additional allergic/immunologic complaints [facility] Past Medical History Medical History Alcohol abuse Arthritis Estrada esophagus Benign prostatic hyperplasia CHF (congestive heart failure), NYHA class I 1. Complete two-dimensional, color flow and Doppler transthoracic echocardiogram is performed. 2. The left ventricle is severely dilated with normal wal
--- NOTE | 2020-12-23 23:06 | ADMGEN ---
This patient, Hernando Sawyer, was admitted to 3 [facility] Surg Room 306-01. Patient/family oriented to hospital policies and general routines including ID bracelet, bed and alarms, visiting hours, pain management, procedures, bathroom and other care routines, personal items, smoking policy, room service/diet, and visiting hours. Information on how to activate the Rapid Response Team has been discussed. Patient/Family are encouraged to report perceived risks to care and to ask questions if they do not understand what they are told or what they should do.
[2020-12-23 23:39] LABS: Anion Gap 9 mmol/L (8-16); Blood Urea Nitrogen 61 mg/dL (9-20); Calcium 8.6 mg/dL (8.4-10.2); Carbon Dioxide 25 mmol/L (22-30); Chloride 107 mmol/L (98-107); Estimated CRCL calculation 31 ml/min; Estimated Glomerular Filt Rate 29; Glucose 141 mg/dL (65-110); Potassium 4.9 mmol/L (3.4-5.0); Sodium 141 mmol/L (137-145)
[2020-12-24] VITALS (18 sets, daily range): BP systolic 94–116; BP diastolic 40–56; PULSE 59–78; RESP 14–20; TEMP 36–36.6; O2SAT 94–99
[2020-12-24] MEDS: ALBUTEROL SULFATE NEB 2.5 MG/0.5 ML INH 5 MG INHALATION ×4 (03:52→21:33)
[2020-12-24] MEDS: IPRATROPIUM BR 0.02% INH SOLN 0.5 MG/2.5 ML VIAL INHALATION ×4 (03:53→21:33)
[2020-12-24] MEDS: LEVOTHYROXINE SODIUM 25 MCG TABLET PO (06:49)
[2020-12-24 07:04] LABS: Hematocrit 27.2 % (42.0-52.0); Hemoglobin 8.5 g/dL (14.0-18.0); Lymphocytes Absolute Auto 0.07 K/mm3 (0.9-3.2); Lymphocytes Percent Auto 2.2 % (18.3-44.2); Mean Corpuscular HGB Conc 31.3 g/dl (32-36); Mean Corpuscular Volume 92.8 fl (80-100); Mean Platelet Volume 11.1 fl (7.4-10.4); Monocytes Percent Auto 1.2 % (2.6-8.5); Neutrophils Absolute Auto 3.1 K/mm3 (1.3-6.7); Neutrophils Percent Auto 96.6 % (45.5-73.1); Platelet Count Result 151 k/mm3 (150-375); Red Blood Count 2.93 M/mm3 (4.6-6.20); Red Cell Distribution Width 18.5 % (11.5-14.5); White Blood Count 3.3 K/mm3 (4.5-10.0)
[2020-12-24 07:38] LABS: Lactic Acid Reflex 0.8 mmol/L (0.7-2.1)
[2020-12-24 07:44] LABS: Alanine Aminotransferase 38 U/L (4-50); Albumin Level 3.2 g/dL (3.5-5.1); Alkaline Phosphatase 88 U/L (38-126); Anion Gap 8 mmol/L (8-16); Aspartate Amino Transferase 25 U/L (17-59); Bilirubin,Total 0.9 mg/dL (0.2-1.3); Blood Urea Nitrogen 62 mg/dL (9-20); Carbon Dioxide 23 mmol/L (22-30); Chloride 109 mmol/L (98-107); Estimated CRCL calculation 34 ml/min; Estimated Glomerular Filt Rate 33; Glucose 186 mg/dL (65-110); Lactate Dehydrogenase 376 U/L (313-618); Magnesium 2.8 mg/dL (1.6-2.3); Potassium 5.1 mmol/L (3.4-5.0); Sodium 140 mmol/L (137-145)
[2020-12-24] MEDS: AMIODARONE HCL 200 MG TABLET PO (08:37)
[2020-12-24] MEDS: carvediloL 12.5 MG TABLET PO (08:38)
[2020-12-24] MEDS: MULTIVITAMINS THERAPEUTIC TAB (*BKC) 1 TABLET PO (08:38)
[2020-12-24] MEDS: predniSONE 20 MG TABLET 60 MG PO (08:38)
[2020-12-24] MEDS: APIXABAN 5 MG TABLET PO ×2 (08:38→20:08)
[2020-12-24] MEDS: FERROUS GLUCONATE 324 MG TABLET PO ×2 (08:38→20:08)
[2020-12-24] MEDS: AMOXICILLIN/CLAVULANATE K 875-125 MG TAB 1 TABLET PO ×2 (08:38→20:07)
[2020-12-24] MEDS: TAMSULOSIN HCL 0.4 MG CAPSULE 0.8 MG PO (08:39)
[2020-12-24] MEDS: THIAMINE HCL 100 MG TABLET PO (08:39)
[2020-12-24] MEDS: DOXYCYCLINE HYCLATE 100 MG TABLET PO ×2 (08:39→20:08)
[2020-12-24] MEDS: DULoxetine HCL 60 MG CAPSULE.DR PO ×2 (08:39→17:18)
[2020-12-24] MEDS: FOLIC ACID 1 MG TABLET PO (08:39)
[2020-12-24] MEDS: CLOPIDOGREL BISULFATE 75 MG TABLET PO (08:39)
[2020-12-24] MEDS: PANTOPRAZOLE 40 MG TABLET PO (08:39)
[2020-12-24] MEDS: CYANOCOBALAMIN 1,000 MCG TABLET 1000 MCG PO (08:39)
[2020-12-24] MEDS: FUROSEMIDE INJ 40 MG/4 ML VIAL IV PUSH ×2 (08:40→17:14)
[2020-12-24] MEDS: ATORVASTATIN 40 MG TABLET PO (08:41)
--- NOTE | 2020-12-24 08:48 | PM.IMPN ---
Progress Note: A&P Assessment and Plan (1) COPD exacerbation: Code(s): J44.1 - Chronic obstructive pulmonary disease with (acute) exacerbation Status: Acute Assessment and Plan: Patient was recently admitted for an acute COPD exacerbation, and discharged on home oxygen. The patient has been using oxygen PRN at home. prednisone at this time. Pulmonology has been consulted. Continue with nebulizer treatments. Continue with home inhalers patient. Patient was started on azithromycin in the emergency room. No real evidence to support pneumonia. Patient was recently treated for this. (2) CHF exacerbation: Qualifiers: Heart failure type: unspecified Qualified Code(s): I50.9 - Heart failure, unspecified Code(s): I50.9 - Heart failure, unspecified Status: Acute Assessment and Plan: The patient had his last echo in July of this year with an estimated EF of 35-40%. Chest Selvin reveals resolution of prior loculated left pleural effusion. Residual mild streaky opacities at the bilateral lower lung zones which could represent atelectasis, mild pulmonary edema or pneumonia He has grade 2 diastolic dysfunction. We will diurese aggressively. (3) Paroxysmal atrial fibrillation: Code(s): I48.0 - Paroxysmal atrial fibrillation Status: Chronic Assessment and Plan: EKG read as electronic atrial pacemaker. Continue with Coreg. Continue with apixaban. Continue amiodarone (4) Essential hypertension: Code(s): I10 - Essential (primary) hypertension Status: Chronic Assessment and Plan: Current BP 98/56 Started on Coreg, lisinopril and amiodarone Hold lisinopril and cored tonight. (5) Pure hyperglyceridemia: Code(s): E78.1 - Pure hyperglyceridemia Status: Acute Assessment and Plan: continue with atorvastatin (6) Benign prostatic hyperplasia: Code(s): N40.0 - Benign prostatic hyperplasia without lower urinary tract symptoms Status: Chronic Assessment and Plan: continue with tamsulosin (7) Chronic kidney disease, stage 3: Code(s): N18.30 - Chronic kidney disease, stage 3 unspecified Status: Chronic Assessment and Plan: acute kidney injury in the setting of previously diagnosed chronic stage 3 CKD. Patient's creatinine is 2.1. Recent francine 1.3. Hold lisinopril. Avoid hypotension. This can be cardiorenal syndrome in the setting of acute CHF decompensation. Patient will be diuresed. MOnitor I and Os. Avoid nephrotoxic medications. (8) Hypothyroidism due to medication: Code(s): E03.2 - Hypothyroidism due to medicaments and other exogenous substances Status: Acute Assessment and Plan: Continue with levothyroxine. TSH is 1.77. Subjective Date/time seen: 12/24/20 08:48 The patient recently was diagnosed with pneumonia in October and the prior month as well. The patient had been encouraged to use his home nebulizers at his last doctor's visit. Chest x-ray was read as mild streaky bibasilar opacities which could represent atelectasis, mild pulmonary edema or pneumonia. The patient is afebrile and has no cough. The patient is being admitted to observation status on the date of service of 12/23/2020. S: The patient was examined at the bedside. He is feeling short of breath. Review of Systems Review of Systems: All systems reviewed & are unremarkable except as noted in HPI and below Constitutional: Constitutional: Reports as per HPI and Reports no additional constitutional complaints Eyes: Eyes: Reports as per HPI and Reports no additional eye complaints ENT: Reports system reviewed and no additional complaints, except as documented and Reports Normal hearing present Cardiovascular: Cardiovascular: Reports no additional cardiovascular complaints Respiratory: Respiratory: Reports no additional respiratory complaints and Reports no additional respiratory complaints Gastrointestinal: Ga
--- NOTE | 2020-12-24 09:43 | PC.NURSE ---
Called LEYLA Mcgarry and updated on pt status this morning.
[2020-12-24] MEDS: GABAPENTIN 300 MG CAPSULE 600 MG BY MOUTH ×2 (11:05→17:14)
--- NOTE | 2020-12-24 12:47 | PM.DS ---
DS: Admitting Diagnosis Discharge Date 12/28/2020 Admitting Diagnosis Acute COPD exacerbation Acute CHF exacerbation DS: Discharge Diagnosis Discharge Diagnosis (1) COPD exacerbation: Onset Date: ~12/25/20 Code(s): J44.1 - Chronic obstructive pulmonary disease with (acute) exacerbation Status: Acute Assessment and Plan: Patient clinical status and gas exchange have improve over the previous 24 hours. Currently he is on supplemental oxygen at 1 liter/minute. Patient has recently started home oxygen. We will perform an oxygen walk test and assess O2 sat before going home per pulmonary recommendation.Currently no evidence of acute COPD exacerbation. Patient was treated for fluid overload. currently he is euvolemic and he was switch from IV to oral lasix. Patient was recently admitted for an acute COPD exacerbation, and discharged on home oxygen. The patient has been using oxygen PRN at home. The patient is on prednisone that we are tapering. Continue with nebulizer treatments. Trelogy 1 puff daily was started on 12/25/2020. (2) CHF exacerbation: Onset Date: ~12/25/20 Qualifiers: Heart failure type: unspecified Qualified Code(s): I50.9 - Heart failure, unspecified Code(s): I50.9 - Heart failure, unspecified Status: Acute Assessment and Plan: The patient had his last echo in July of this year with an estimated EF of 35-40%. Chest X-ray reveals resolution of prior loculated left pleural effusion. Residual mild streaky opacities at the bilateral lower lung zones which could represent atelectasis, mild pulmonary edema or pneumonia He has grade 2 diastolic dysfunction. We have diuresed the patient aggressively at first. Cardiology transitioned to oral lasix on 12/25/2020 as patient appeared euvolemic with creatinine slightly up from his last known baseline.. He does have CKD and admission creatinine is higher than his baseline. Continue to monitor creatinine while diuresing. Atelectasis discovered on today's chest Xray. Encourage incentive spirometry. (3) DARINEL (acute kidney injury): Code(s): N17.9 - Acute kidney failure, unspecified Status: Acute (4) Pneumonia: Qualifiers: Laterality: left Lung location: unspecified part of lung Pneumonia type: due to unspecified organism Qualified Code(s): J18.9 - Pneumonia, unspecified organism Code(s): J18.9 - Pneumonia, unspecified organism Status: Acute (5) Paroxysmal atrial fibrillation: Code(s): I48.0 - Paroxysmal atrial fibrillation Status: Chronic Assessment and Plan: EKG read as electronic atrial pacemaker. Continue with Coreg. Continue with apixaban. Continue amiodarone (6) Essential hypertension: Code(s): I10 - Essential (primary) hypertension Status: Chronic Assessment and Plan: Current BP 110/40 Started on Coreg, lisinopril and amiodarone Hold lisinopril and coreg. (7) Pure hyperglyceridemia: Code(s): E78.1 - Pure hyperglyceridemia Status: Acute Assessment and Plan: continue with atorvastatin (8) Benign prostatic hyperplasia: Code(s): N40.0 - Benign prostatic hyperplasia without lower urinary tract symptoms Status: Chronic Assessment and Plan: continue with tamsulosin (9) Chronic kidney disease, stage 3: Qualifiers: Chronic kidney disease stage 3 subtype: stage 3b (GFR 30-44) Qualified Code(s): N18.32 - Chronic kidney disease, stage 3b Code(s): N18.30 - Chronic kidney disease, stage 3 unspecified Status: Chronic Assessment and Plan: acute kidney injury in the setting of previously diagnosed chronic stage 3 CKD. Patient's creatinine is 2.0. Recent francine 1.3. Hold lisinopril. Avoid hypotension. This can be cardiorenal syndrome in the setting of acute CHF decompensation. Patient was diuresed. Monitor I and Os. Avoid nephrotoxic medications. Stop pantoprazole. Follow up with nephr
--- NOTE | 2020-12-24 16:50 | PCRCNOTE ---
Window of time for administration has passed. See next scheduled administration.
[2020-12-25] VITALS (21 sets, daily range): BP systolic 99–140; BP diastolic 40–82; PULSE 50–71; RESP 16–18; TEMP 35.7–37; O2SAT 91–98
[2020-12-25] MEDS: ACETAMINOPHEN/CODEINE (*CRX) 300/30 MG TABLET 1 TAB PO ×2 (01:50→12:43)
[2020-12-25] MEDS: IPRATROPIUM BR 0.02% INH SOLN 0.5 MG/2.5 ML VIAL INHALATION ×4 (03:04→21:01)
[2020-12-25] MEDS: ALBUTEROL SULFATE NEB 2.5 MG/0.5 ML INH 5 MG INHALATION ×4 (03:04→21:01)
[2020-12-25] MEDS: LEVOTHYROXINE SODIUM 25 MCG TABLET PO (06:52)
[2020-12-25 08:02] LABS: Hematocrit 27.3 % (42.0-52.0); Hemoglobin 8.6 g/dL (14.0-18.0); Immature Granulocyte Absolute 0.06 K/mm3 (0.00-0.031); Immature Granulocyte Percent A 0.7 % (0-0.5); Lymphocytes Absolute Auto 0.25 K/mm3 (0.9-3.2); Lymphocytes Percent Auto 2.8 % (18.3-44.2); Mean Corpuscular HGB Conc 31.5 g/dl (32-36); Mean Corpuscular Volume 91.9 fl (80-100); Mean Platelet Volume 10.5 fl (7.4-10.4); Monocytes Absolute Auto 0.5 K/mm3 (0.1-0.6); Neutrophils Percent Auto 90.5 % (45.5-73.1); Platelet Count Result 132 k/mm3 (150-375); Red Blood Count 2.97 M/mm3 (4.6-6.20); Red Cell Distribution Width 18.8 % (11.5-14.5); White Blood Count 8.8 K/mm3 (4.5-10.0)
[2020-12-25 08:19] LABS: Anion Gap 5 mmol/L (8-16); Blood Urea Nitrogen 60 mg/dL (9-20); Calcium 8.4 mg/dL (8.4-10.2); Carbon Dioxide 28 mmol/L (22-30); Chloride 108 mmol/L (98-107); Estimated CRCL calculation 34 ml/min; Estimated Glomerular Filt Rate 33; Glucose 139 mg/dL (65-110); Magnesium 2.6 mg/dL (1.6-2.3); Potassium 4.3 mmol/L (3.4-5.0); Sodium 141 mmol/L (137-145)
[2020-12-25 08:37] LABS: Macrocytosis 2+ (NORMAL); Ovalocytes 1+ (NORMAL)
[2020-12-25 08:38] LABS: Anisocytosis 2+ (NORMAL); Crenated RBC 1+ (NORMAL); Poikilocytosis 1+ (NORMAL)
[2020-12-25 08:39] LABS: Platelet Estimate Adequate (Adequate)
[2020-12-25 08:40] LABS: Alveolar/Arterial O2 Gradient 141.1 mmHg; Base Excess ABG -0.3 mEq/l (+/-2.0); Fractional Inspired Oxygen 28 %; HCO3 ABG 23.7 mEq/l (22.0-26.0); Oxygen Content ABG 12.5 %vol (16.0-22.0); Oxygen Saturation ABG 94.9 % (95.0-100.0); Oxyhemoglobin 92.1 % THb (90.0-100.0); PCO2 ABG 36.4 mmHg (35.0-45.0); PO2 ABG 71.5 mmHg (80.0-100.0); PO2 FiO2 Ratio Arterial Blood 2.55 %; Total Hemoglobin 9.6 g/dL (12.0-18.0); pH ABG 7.432 (7.350-7.450)
[2020-12-25 08:41] LABS: Device NASAL CANNULA; Site Drawn RIGHT BRACHIAL
--- NOTE | 2020-12-25 08:41 | P.CDI_ITS ---
CDI Query Clarification Request -CHF exacerbation, unspecified has been documented - The patient had his last echo in July of this year with an estimated EF of 35- 40%. He has grade 2 diastolic dysfunction. documented Please further specify type of CHF: * Systolic * Diastolic * Both systolic and diastolic * Unable to determine <Syeda Nowak RN - Last Filed: 12/25/20 08:44> Clarified Diagnosis (1) Systolic heart failure: Code(s): I50.20 - Unspecified systolic (congestive) heart failure <Syeda Nowak RN - Last Filed: 12/25/20 08:44> Status: Acute <Syeda Nowak RN - Last Filed: 12/25/20 08:44> Assessment and Plan: Patient has both diastolic and systolic heart failures. Left ventricular chamber dimension is normal. Left ventricular systolic function is moderately reduced, estimated at 35-40%. There is no increased left ventricular wall thickness. Left ventricular septal wall motion is normal. The left ventricular diastolic function is grade II diastolic dysfunction. <Stephania Rodgers MD - Last Filed: 01/12/21 10:53> (2) Diastolic heart failure: Code(s): I50.30 - Unspecified diastolic (congestive) heart failure <Syeda Nowak RN - Last Filed: 12/25/20 08:44> Status: Acute <Syeda Nowak RN - Last Filed: 12/25/20 08:44>
[2020-12-25] MEDS: TAMSULOSIN HCL 0.4 MG CAPSULE 0.8 MG PO (08:46)
[2020-12-25] MEDS: THIAMINE HCL 100 MG TABLET PO (08:46)
[2020-12-25] MEDS: ATORVASTATIN 40 MG TABLET PO (08:48)
[2020-12-25] MEDS: MULTIVITAMINS THERAPEUTIC TAB (*BKC) 1 TABLET PO (08:48)
[2020-12-25] MEDS: FOLIC ACID 1 MG TABLET PO (08:48)
[2020-12-25] MEDS: CLOPIDOGREL BISULFATE 75 MG TABLET PO (08:48)
[2020-12-25] MEDS: APIXABAN 5 MG TABLET PO ×2 (08:48→19:53)
[2020-12-25] MEDS: AMOXICILLIN/CLAVULANATE K 875-125 MG TAB 1 TABLET PO ×2 (08:48→17:18)
[2020-12-25] MEDS: AMIODARONE HCL 200 MG TABLET PO (08:52)
[2020-12-25] MEDS: PANTOPRAZOLE 40 MG TABLET PO (08:53)
[2020-12-25] MEDS: lisinopriL 5 MG TABLET PO (08:53)
[2020-12-25] MEDS: carvediloL 12.5 MG TABLET PO ×2 (08:53→17:20)
[2020-12-25] MEDS: CYANOCOBALAMIN 1,000 MCG TABLET 1000 MCG PO (08:54)
[2020-12-25] MEDS: GABAPENTIN 300 MG CAPSULE 600 MG BY MOUTH ×3 (08:54→17:20)
[2020-12-25] MEDS: predniSONE 20 MG TABLET 60 MG PO (08:54)
[2020-12-25] MEDS: FERROUS GLUCONATE 324 MG TABLET PO ×2 (08:55→18:32)
[2020-12-25] MEDS: DOXYCYCLINE HYCLATE 100 MG TABLET PO ×2 (08:55→19:53)
--- NOTE | 2020-12-25 12:16 | PM.CNPUL ---
Assessment and Plan Assessment and plan (1) COPD exacerbation: Onset Date: ~12/25/20 Code(s): J44.1 - Chronic obstructive pulmonary disease with (acute) exacerbation Status: Acute Assessment and Plan: Patient with history of congestive heart failure, moderate COPD by pulmonary function testing presented with a progressively increasing shortness of breath of one month's duration mostly related to CHF exacerbation. Patient has received treatment for both CHF exacerbation and COPD exacerbation. His condition has improved over the last 48 hours. He continues to be short of breath on exertion. Most recent chest x-ray showed significant clearing of bilateral pleural effusions and the left fissural fluid collection seen on last chest CT done approximately 4 weeks ago. On physical exam there is no evidence of wheezing. Case was discussed with the hospitalist. At this point I would decrease prednisone to 30 mg daily with further tapering over the next couple of weeks. Patient will need to remain on home supplemental oxygen at 2 liters/minute. I would suggest a triple inhaler (ICS/LABA/LAMA) as maintenance bronchodilator treatment, given his history of frequent COPD exacerbations. He will continue with the nebulized short-acting bronchodilators on a p.r.n. basis. Need to evaluate in the outpatient clinic within the next 2 weeks. (2) CHF exacerbation: Onset Date: ~12/25/20 Qualifiers: Heart failure type: unspecified Qualified Code(s): I50.9 - Heart failure, unspecified Code(s): I50.9 - Heart failure, unspecified Status: Acute (3) Chronic kidney disease, stage 3: Qualifiers: Chronic kidney disease stage 3 subtype: stage 3b (GFR 30-44) Qualified Code(s): N18.32 - Chronic kidney disease, stage 3b Code(s): N18.30 - Chronic kidney disease, stage 3 unspecified Status: Chronic (4) Peripheral arterial disease: Code(s): I73.9 - Peripheral vascular disease, unspecified Status: Acute History of Present Illness History of Present Illness Consult date: 12/25/20 Chief complaint: chf exacerbation Narrative: This 75-year-old man was admitted into the hospital with shortness of breath. The patient has had multiple medical problems including congestive heart failure with an EF in the range of around 35%, status post pacemaker and defibrillator implantation, history of coronary artery disease status post coronary artery bypass graft surgery, history of peripheral vascular disease, history of COPD. He has had at least 3 hospitalizations over the last 5 6 months with a shortness of breath. Over the last past month he has had progressively increasing shortness of breath primarily on exertion. He was discharged home approximately 1 month ago after he was hospitalized with similar complaints. Since discharge from the hospital his exertional dyspnea has progressed to the point he is unable to walk more than 20 ft. He has had COPD and has been on a long-acting maintenance bronchodilator he uses p.r.n. as well as a nebulized short-acting bronchodilator for p.r.n. use at home. For the last 2 weeks he has been on home oxygen 2 liters/minute. In 2014 pulmonary function testing showed FEV1 of 2.02 L or 56% predicted and FEV1 to FVC ratio of 60%. There was no response to bronchodilators. DLCO was mildly decreased to 69% predicted. This same time sleep study showed no evidence of sleep disordered breathing. In addition to shortness of breath on exertion the patient had had mild cough with small amount of yellowish phlegm. He has had orthopnea for many months but no lower extremity edema. He reports some daytime wheezing. The patient has been on prednisone ever since he was discharged home approximately 1 month ago. On admission the patient was found to be hypoxic. Chest x-ray showed no acute infiltrates, possible mild pulmonary edema possible bibasilar atelectasis. the patient has been
--- NOTE | 2020-12-25 12:27 | PM.IMPN ---
Progress Note: A&P Assessment and Plan (1) COPD exacerbation: Onset Date: ~12/25/20 Code(s): J44.1 - Chronic obstructive pulmonary disease with (acute) exacerbation Status: Acute Assessment and Plan: Patient was recently admitted for an acute COPD exacerbation, and discharged on home oxygen. The patient has been using oxygen PRN at home. The patient is on prednisone 60 mg PO daily for about 1 month now. We will taper his prednisone at this time. Pulmonology has been consulted. Continue with nebulizer treatments. Start trelogy 1 puff daily. Patient was started on azithromycin in the emergency room. No real evidence to support pneumonia. Patient was recently treated for this. We will stop the antibiotics per pulmonary recommendation (2) CHF exacerbation: Onset Date: ~12/25/20 Qualifiers: Heart failure type: unspecified Qualified Code(s): I50.9 - Heart failure, unspecified Code(s): I50.9 - Heart failure, unspecified Status: Acute Assessment and Plan: The patient had his last echo in July of this year with an estimated EF of 35-40%. Chest Selvin reveals resolution of prior loculated left pleural effusion. Residual mild streaky opacities at the bilateral lower lung zones which could represent atelectasis, mild pulmonary edema or pneumonia He has grade 2 diastolic dysfunction. We will diurese aggressively. He does have CKD and admission creatinine is higher than his baseline. Continue to monitor creatinine while diuresing. (3) Paroxysmal atrial fibrillation: Code(s): I48.0 - Paroxysmal atrial fibrillation Status: Chronic Assessment and Plan: EKG read as electronic atrial pacemaker. Continue with Coreg. Continue with apixaban. Continue amiodarone (4) Essential hypertension: Code(s): I10 - Essential (primary) hypertension Status: Chronic Assessment and Plan: Current BP 101/42. Started on Coreg, lisinopril and amiodarone Hold lisinopril and cored tonight. (5) Pure hyperglyceridemia: Code(s): E78.1 - Pure hyperglyceridemia Status: Acute Assessment and Plan: continue with atorvastatin (6) Benign prostatic hyperplasia: Code(s): N40.0 - Benign prostatic hyperplasia without lower urinary tract symptoms Status: Chronic Assessment and Plan: continue with tamsulosin (7) Chronic kidney disease, stage 3: Code(s): N18.30 - Chronic kidney disease, stage 3 unspecified Status: Chronic Assessment and Plan: acute kidney injury in the setting of previously diagnosed chronic stage 3 CKD. Patient's creatinine is 2.0. Recent francine 1.3. Hold lisinopril. Avoid hypotension. This can be cardiorenal syndrome in the setting of acute CHF decompensation. Patient will be diuresed. MOnitor I and Os. Avoid nephrotoxic medications. Stop pantoprazole. (8) Hypothyroidism due to medication: Code(s): E03.2 - Hypothyroidism due to medicaments and other exogenous substances Status: Acute Assessment and Plan: Continue with levothyroxine. TSH is 1.77. Subjective Date/time seen: 12/25/20 12:27 S: Patient is examined at the bedside. He is OOBC. Review of Systems Review of Systems: All systems reviewed & are unremarkable except as noted in HPI and below Constitutional: Constitutional: Reports as per HPI and Reports no additional constitutional complaints Eyes: Eyes: Reports as per HPI and Reports no additional eye complaints ENT: Reports system reviewed and no additional complaints, except as documented and Reports Normal hearing present Cardiovascular: Cardiovascular: Reports no additional cardiovascular complaints Respiratory: Respiratory: Reports no additional respiratory complaints, Reports dyspnea, Reports dyspnea on exertion and Denies wheezing Gastrointestinal: Gastrointestinal: Reports as per HPI and Reports no additional gastrointestinal complaints Musculoskeletal: Musculoskel
--- NOTE | 2020-12-25 13:07 | PM.CNCAR ---
Assessment and Plan Assessment and plan (1) COPD exacerbation: Onset Date: ~12/25/20 Code(s): J44.1 - Chronic obstructive pulmonary disease with (acute) exacerbation Status: Acute Assessment and Plan: Multiple recent hospitalizations for COPD exacerbation, pneumonia. Currently being treated for COPD exacerbation with prednisone which is currently being tapered. Also being treated with nebulizer. Pulmonology has been consulted. Thank you for your recommendations (2) DARINEL (acute kidney injury): Code(s): N17.9 - Acute kidney failure, unspecified Status: Acute Assessment and Plan: DARINEL on CKD. It looks like his baseline creatinine is somewhere around 1.3-1.5. Creatinine is currently 2.0. We will transition him from IV diuretics to oral since it appears that he is euvolemic on exam. Will switch to 40 mg p.o. b.i.d.. Continue to monitor renal function closely. (3) CHF exacerbation: Onset Date: ~12/25/20 Qualifiers: Heart failure type: unspecified Qualified Code(s): I50.9 - Heart failure, unspecified Code(s): I50.9 - Heart failure, unspecified Status: Acute Assessment and Plan: Multiple presentations to the hospital with complaints of shortness of breath. Chest x-ray did show some evidence of mild pulmonary edema. NT-proBNP at presentation was 19,700. He appears to be largely euvolemic on exam. No lower extremity edema, few mild crackles in the lower lung field on the right side. Urine output has been adequate. Shift from IV furosemide to oral as above. Continue to monitor closely. (4) Ischemic cardiomyopathy: Code(s): I25.5 - Ischemic cardiomyopathy Status: Acute Assessment and Plan: Ischemic cardiomyopathy with ejection fraction of 35-40% by echocardiogram in July of this year. Continue carvedilol, lisinopril. (5) Coronary artery disease: Code(s): I25.10 - Atherosclerotic heart disease of [place] coronary artery without angina pectoris Status: Acute Assessment and Plan: Coronary artery disease with history of myocardial infarction status post PTCA/PMS to the proximal circumflex in 2011, status post CABG x2 ([place] to the obtuse marginal, left radial artery to the posterior descending artery). Has some chronic, mild chest pain at baseline. His coronary disease is stable. No aspirin as he is on apixaban. History of Present Illness History of Present Illness Consult date/time: 12/25/20 13:07 Requesting physician: Stephania Rodgers MD Consult reason: congestive heart failure Reason For Visit: chf exacerbation Narrative: This is a 75-year-old male with a complex history of coronary artery disease, history of myocardial infarction status post PTCA/bare metal stent to proximal circumflex, status post CABG x2, ischemic cardiomyopathy with EF of 35-40%, paroxysmal atrial fibrillation, and severe bilateral peripheral arterial disease status post multiple bilateral put peripheral interventions of bilateral external iliac arteries and superficial femoral artery status post bilateral femoral popliteal bypass surgery using PTFE grafts. I am seeing this patient at the request of Dr. Rodgers for my advice in managing his acute CHF exacerbation. This is the patient's 3rd hospitalization in 1 month for shortness of breath. He has been treated both for pneumonia and COPD exacerbations during these past admissions. Patient states that after discharge from his last hospitalization he began to experience worsening shortness of breath after a day or two. He was unable to walk more than 40 or 50 ft without becoming extremely dyspneic. He says that he had an appointment scheduled with a process pumper tomorrow that he was trying to ?hold out for? but he was unable to due to his extreme shortness of breath. He denies any lower extremity edema, orthopnea. However, he does endorse paroxysmal nocturnal dyspnea. Denies any chest pain but is worse or diffe
[2020-12-25] MEDS: DULoxetine HCL 60 MG CAPSULE.DR PO ×2 (15:54→17:20)
[2020-12-25] MEDS: FUROSEMIDE 40 MG TABLET PO (17:18)
[2020-12-26] VITALS (20 sets, daily range): BP systolic 90–98; BP diastolic 33–40; PULSE 61–80; RESP 12–18; TEMP 36.1–36.4; O2SAT 93–96
[2020-12-26] MEDS: ACETAMINOPHEN/CODEINE (*CRX) 300/30 MG TABLET 1 TAB PO ×3 (00:07→23:39)
[2020-12-26] MEDS: IPRATROPIUM BR 0.02% INH SOLN 0.5 MG/2.5 ML VIAL INHALATION ×4 (01:43→20:20)
[2020-12-26] MEDS: ALBUTEROL SULFATE NEB 2.5 MG/0.5 ML INH 5 MG INHALATION ×4 (01:43→20:19)
[2020-12-26] MEDS: LEVOTHYROXINE SODIUM 25 MCG TABLET PO (06:06)
[2020-12-26 06:38] LABS: Basophils Percent Auto 0.1 % (0.2-1.2); Hematocrit 27.9 % (42.0-52.0); Hemoglobin 8.7 g/dL (14.0-18.0); Immature Granulocyte Absolute 0.06 K/mm3 (0.00-0.031); Immature Granulocyte Percent A 0.6 % (0-0.5); Lymphocytes Absolute Auto 0.26 K/mm3 (0.9-3.2); Lymphocytes Percent Auto 2.7 % (18.3-44.2); Mean Corpuscular HGB Conc 31.2 g/dl (32-36); Mean Corpuscular Hemoglobin 29.2 pg (26-34); Mean Corpuscular Volume 93.6 fl (80-100); Mean Platelet Volume 11.3 fl (7.4-10.4); Monocytes Absolute Auto 0.6 K/mm3 (0.1-0.6); Monocytes Percent Auto 6.6 % (2.6-8.5); Neutrophils Absolute Auto 8.7 K/mm3 (1.3-6.7); Platelet Count Result 135 k/mm3 (150-375); Red Blood Count 2.98 M/mm3 (4.6-6.20); Red Cell Distribution Width 19.1 % (11.5-14.5); White Blood Count 9.7 K/mm3 (4.5-10.0)
[2020-12-26 06:47] LABS: Anion Gap 6 mmol/L (8-16); Blood Urea Nitrogen 65 mg/dL (9-20); Calcium 8.2 mg/dL (8.4-10.2); Carbon Dioxide 26 mmol/L (22-30); Chloride 108 mmol/L (98-107); Estimated CRCL calculation 34 ml/min; Estimated Glomerular Filt Rate 33; Glucose 130 mg/dL (65-110); Potassium 4.7 mmol/L (3.4-5.0); Sodium 140 mmol/L (137-145)
[2020-12-26 07:23] LABS: Anisocytosis 1+ (NORMAL)
[2020-12-26 07:24] LABS: Acanthocytes 2+ (NORMAL); Ovalocytes 2+ (NORMAL)
--- NOTE | 2020-12-26 07:56 | PM.IMPN ---
Progress Note: A&P Assessment and Plan (1) COPD exacerbation: Onset Date: ~12/25/20 Code(s): J44.1 - Chronic obstructive pulmonary disease with (acute) exacerbation Status: Acute Assessment and Plan: Currently no evidence of acute COPD exacerbation. PAtient was treated fo fluid overload. Patient was recently admitted for an acute COPD exacerbation, and discharged on home oxygen. The patient has been using oxygen PRN at home. The patient is on prednisone that we arel tapering. Pulmonology has been consulted. Continue with nebulizer treatments. Trelogy 1 puff daily was started on 12/25/2020. (2) CHF exacerbation: Onset Date: ~12/25/20 Qualifiers: Heart failure type: unspecified Qualified Code(s): I50.9 - Heart failure, unspecified Code(s): I50.9 - Heart failure, unspecified Status: Acute Assessment and Plan: The patient had his last echo in July of this year with an estimated EF of 35-40%. Chest Eslvin reveals resolution of prior loculated left pleural effusion. Residual mild streaky opacities at the bilateral lower lung zones which could represent atelectasis, mild pulmonary edema or pneumonia He has grade 2 diastolic dysfunction. We have diuresed the patient aggressively at first. Cardiology transitioned to oral lasix on 12/25/2020 as patient appeared euvolemic with creatinine slightly up from his last known baseline.. He does have CKD and admission creatinine is higher than his baseline. Continue to monitor creatinine while diuresing. Atelectasis discovered on today's chest Xray. Encourage incentive spirometry. (3) Paroxysmal atrial fibrillation: Code(s): I48.0 - Paroxysmal atrial fibrillation Status: Chronic Assessment and Plan: EKG read as electronic atrial pacemaker. Continue with Coreg. Continue with apixaban. Continue amiodarone (4) Essential hypertension: Code(s): I10 - Essential (primary) hypertension Status: Chronic Assessment and Plan: Current BP 90/40 Started on Coreg, lisinopril and amiodarone Hold lisinopril and coreg. (5) Pure hyperglyceridemia: Code(s): E78.1 - Pure hyperglyceridemia Status: Acute Assessment and Plan: continue with atorvastatin (6) Benign prostatic hyperplasia: Code(s): N40.0 - Benign prostatic hyperplasia without lower urinary tract symptoms Status: Chronic Assessment and Plan: continue with tamsulosin (7) Chronic kidney disease, stage 3: Qualifiers: Chronic kidney disease stage 3 subtype: stage 3b (GFR 30-44) Qualified Code(s): N18.32 - Chronic kidney disease, stage 3b Code(s): N18.30 - Chronic kidney disease, stage 3 unspecified Status: Chronic Assessment and Plan: acute kidney injury in the setting of previously diagnosed chronic stage 3 CKD. Patient's creatinine is 2.0. Recent francine 1.3. Hold lisinopril. Avoid hypotension. This can be cardiorenal syndrome in the setting of acute CHF decompensation. Patient will be diuresed. MOnitor I and Os. Avoid nephrotoxic medications. Stop pantoprazole. (8) Hypothyroidism due to medication: Code(s): E03.2 - Hypothyroidism due to medicaments and other exogenous substances Status: Acute Assessment and Plan: Continue with levothyroxine. TSH is 1.77. Subjective Date/time seen: 12/26/20 07:56 S: PAtient complaining of shortness of breath with minimal effort. Review of Systems Review of Systems: All systems reviewed & are unremarkable except as noted in HPI and below Constitutional: Constitutional: Reports as per HPI and Reports no additional constitutional complaints Eyes: Eyes: Reports as per HPI and Reports no additional eye complaints ENT: Reports system reviewed and no additional complaints, except as documented and Reports Normal hearing present Cardiovascular: Cardiovascular: Reports no additional cardiovascular complaints, Reports dyspnea and Reports d
[2020-12-26] MEDS: ATORVASTATIN 40 MG TABLET PO (08:04)
[2020-12-26] MEDS: APIXABAN 5 MG TABLET PO ×2 (08:05→20:13)
[2020-12-26] MEDS: TAMSULOSIN HCL 0.4 MG CAPSULE 0.8 MG PO (08:05)
[2020-12-26] MEDS: predniSONE 10 MG TABLET 20 MG PO (08:05)
[2020-12-26] MEDS: GABAPENTIN 300 MG CAPSULE 600 MG BY MOUTH ×3 (08:05→16:46)
[2020-12-26] MEDS: AMIODARONE HCL 200 MG TABLET PO (08:06)
[2020-12-26] MEDS: DOXYCYCLINE HYCLATE 100 MG TABLET PO ×2 (08:06→20:13)
[2020-12-26] MEDS: DULoxetine HCL 60 MG CAPSULE.DR PO ×2 (08:07→16:46)
[2020-12-26] MEDS: FERROUS GLUCONATE 324 MG TABLET PO ×2 (08:08→16:46)
[2020-12-26] MEDS: FOLIC ACID 1 MG TABLET PO (08:08)
[2020-12-26] MEDS: FUROSEMIDE 40 MG TABLET PO ×2 (08:08→16:46)
[2020-12-26] MEDS: CLOPIDOGREL BISULFATE 75 MG TABLET PO (08:08)
[2020-12-26] MEDS: THIAMINE HCL 100 MG TABLET PO (08:08)
[2020-12-26] MEDS: carvediloL 12.5 MG TABLET PO (08:08)
[2020-12-26] MEDS: AMOXICILLIN/CLAVULANATE K 875-125 MG TAB 1 TABLET PO ×2 (08:08→16:46)
[2020-12-26] MEDS: MULTIVITAMINS THERAPEUTIC TAB (*BKC) 1 TABLET PO (08:08)
[2020-12-26] MEDS: CYANOCOBALAMIN 1,000 MCG TABLET 1000 MCG PO (08:08)
--- NOTE | 2020-12-26 09:34 | PM.PNPUL ---
Progress Note: A&P Assessment and Plan (1) Hypoxia: Code(s): R09.02 - Hypoxemia Status: Acute Assessment and Plan: gas exchange has improved over the last 48 hours. Currently he is on supplemental oxygen at 1 liter/minute. Patient has home oxygen. Need to ambulate patient and assess O2 sat before going home. (2) COPD exacerbation: Onset Date: ~12/25/20 Code(s): J44.1 - Chronic obstructive pulmonary disease with (acute) exacerbation Status: Acute Assessment and Plan: Patient with moderate COPD on pulmonary function testing done several years ago. Plan will be to taper prednisone down to 10 mg over the next couple of weeks, continue with home oxygen, nebulized short-acting bronchodilators p.r.n., and add Trelegy for maintenance COPD medication. (3) CHF exacerbation: Onset Date: ~12/25/20 Qualifiers: Heart failure type: unspecified Qualified Code(s): I50.9 - Heart failure, unspecified Code(s): I50.9 - Heart failure, unspecified Status: Acute (4) COPD (chronic obstructive pulmonary disease): Code(s): J44.9 - Chronic obstructive pulmonary disease, unspecified Status: Chronic (5) Benign prostatic hyperplasia: Code(s): N40.0 - Benign prostatic hyperplasia without lower urinary tract symptoms Status: Chronic Subjective Date/time seen: 12/26/20 09:34 patient has not had any new respiratory symptoms. Overall he is feeling better. Currently on supplemental oxygen at 1 liter/minute. Review of Systems Review of Systems: Patient has had good appetite. Patient denied having fever chills or night sweats. Patient has no chest pain or palpitations. Patient denied having abdominal pain, diarrhea, constipation, nausea or vomiting. Patient has no urinary complaints. He denied having joint pain or swelling. Exam Narrative: GENERAL APPEARANCE: Well developed, looking chronically ill, elderly man, alert and cooperative, who appears to be in mild distress sitting up in his bed. SKIN: Inspection of the skin reveals no rashes, ulcerations or petechiae. HEENT: Sclerae anicteric and conjunctivae pink and moist. Extraocular movements were intact and pupils were unequal, bilaterally. Edentulous. NECK: Supple. There was no thyroid enlargement, and no tenderness, or masses were felt. JVD present CHEST: Normal AP diameter and normal contour without any kyphoscoliosis. LUNGS: Decreased breath sounds at bases, no wheezing. CARDIAC: There was a regular rate and rhythm without any murmurs, gallops, rubs. ABDOMEN: Soft and nontender with normal bowel sounds. There was no organomegaly. LYMPH NODES: No lymphadenopathy was appreciated in the neck, axillae or groin. EXTREMITIES: No cyanosis, clubbing or edema. NEUROLOGIC: Alert and oriented x 3. Normal affect. Objective Data Vital Signs Vital Signs: Vital Signs - 24 hr 12/25/20 12:00 12/25/20 14:00 12/25/20 14:41 Temperature 35.7 C L Pulse Rate 60 64 62 Respiratory Rate 16 18 Blood Pressure 140/82 Pulse Oximetry 98 12/25/20 14:50 12/25/20 16:00 12/25/20 17:20 Temperature Pulse Rate 64 64 68 Respiratory Rate 18 Blood Pressure Pulse Oximetry 12/25/20 19:53 12/25/20 20:00 12/25/20 21:02 Temperature Pulse Rate 68 71 64 Respiratory Rate 18 18 Blood Pressure Pulse Oximetry 98 96 12/25/20 21:09 12/25/20 22:00 12/26/20 00:00 Temperature 37.0 C Pulse Rate 65 71 63 Respiratory Rate 18 16 Blood Pressure 99/40 L Pulse Oximetry 96 12/26/20 01:44 12/26/20 01:50 12/26/20 04:00 Temperature Pulse Rate 64 64 61 Respiratory Rate 18 18 Blood Pressure Pulse Oximetry 12/26/20 06:00 12/26/20 08:06 12/26/20 08:08 Temperature 36.3 C L Pulse Rate 80 67 67 Respiratory Rate 18 Blood Pressure 98/33 L Pulse Oximetry 95 12/26/20 08:32 12/26/20 08:33 12/26/20 08:38 Temperature Pulse Rate 65 Respiratory Rate 16
--- NOTE | 2020-12-26 11:10 | PM.PNCARD ---
Progress Note: A&P Assessment and Plan (1) COPD exacerbation: Onset Date: ~12/25/20 Code(s): J44.1 - Chronic obstructive pulmonary disease with (acute) exacerbation Status: Acute Assessment and Plan: Multiple recent hospitalizations for COPD exacerbation, pneumonia. Currently being treated for COPD exacerbation with prednisone which is currently being tapered. Also being treated with nebulizer. Pulmonology has been consulted. Thank you for your recommendations (2) DARINEL (acute kidney injury): Code(s): N17.9 - Acute kidney failure, unspecified Status: Acute Assessment and Plan: DARINEL on CKD. It looks like his baseline creatinine is somewhere around 1.3-1.5. Creatinine is currently 2.0. He was transition from IV furosemide to oral yesterday. Creatinine is stable. Continue to monitor renal function closely. (3) CHF exacerbation: Onset Date: ~12/25/20 Qualifiers: Heart failure type: unspecified Qualified Code(s): I50.9 - Heart failure, unspecified Code(s): I50.9 - Heart failure, unspecified Status: Acute Assessment and Plan: Multiple presentations to the hospital with complaints of shortness of breath. Chest x-ray did show some evidence of mild pulmonary edema. NT-proBNP at presentation was 19,700. He appears to be largely euvolemic on exam. No lower extremity edema, few mild crackles in the lower lung field on the right side. Urine output has been adequate. Chest x-ray performed today showed mild bilateral pleural effusions as well as atelectasis versus pneumonia. Incentive spirometry has been ordered. Continue to monitor closely. (4) Ischemic cardiomyopathy: Code(s): I25.5 - Ischemic cardiomyopathy Status: Acute Assessment and Plan: Ischemic cardiomyopathy with ejection fraction of 35-40% by echocardiogram in July of this year. Continue carvedilol, lisinopril. (5) Coronary artery disease: Code(s): I25.10 - Atherosclerotic heart disease of [place] coronary artery without angina pectoris Status: Acute Assessment and Plan: Coronary artery disease with history of myocardial infarction status post PTCA/PMS to the proximal circumflex in 2011, status post CABG x2 (GALLEGO to the obtuse marginal, left radial artery to the posterior descending artery). Has some chronic, mild chest pain at baseline. His coronary disease is stable. No aspirin as he is on apixaban. Subjective Date/time seen: 12/26/20 11:10 Review of Systems Review of Systems: All systems reviewed & are unremarkable except as noted in HPI and below Constitutional: Constitutional: Denies fatigue, Denies headache(s) and Denies weakness Eyes: Eyes: Denies change in vision ENT: Reports Normal hearing present, Denies headache(s) and Denies neck pain Cardiovascular: Cardiovascular: Denies chest pain, Denies diaphoresis, Denies pedal edema, Denies leg edema, Denies lightheadedness, Denies palpitations, Reports dyspnea and Reports dyspnea on exertion Respiratory: Respiratory: Reports dyspnea and Reports dyspnea on exertion Gastrointestinal: Gastrointestinal: Denies melena and Denies hematochezia Genitourinary: Genitourinary: Denies dysuria Musculoskeletal: Musculoskeletal: Denies back pain, Denies neck pain and Denies numbness Integumentary/Breasts: Skin/Breast: Denies rash and Denies wounds Neurologic: Reports Normal hearing present, Denies confusion, Denies headache(s), Denies numbness and Denies weakness Psychiatric: Psychiatric: Denies anxiety, Denies confusion and Denies depression Endocrine: Endocrine: Denies fatigue, Denies flushing and Denies palpitations Hematologic/Lymphatic: Hematologic/Lymphatic: Denies easy bleeding and Denies easy bruising Exam Const: General: comfortable and no acute distress; No confusion Orientation/consciousness: No confusion Other: Elderly gentleman lying comfortably in bed. Alert oriented. Pleasant and co
[2020-12-26] MEDS: MELATONIN 3 MG TABLET PO (22:02)
[2020-12-27] VITALS (19 sets, daily range): BP systolic 93–110; BP diastolic 38–41; PULSE 56–76; RESP 14–18; TEMP 36.1; O2SAT 92–97
[2020-12-27] MEDS: ALBUTEROL SULFATE NEB 2.5 MG/0.5 ML INH 5 MG INHALATION ×4 (02:41→20:31)
[2020-12-27] MEDS: IPRATROPIUM BR 0.02% INH SOLN 0.5 MG/2.5 ML VIAL INHALATION ×4 (02:42→20:31)
[2020-12-27] MEDS: LEVOTHYROXINE SODIUM 25 MCG TABLET PO (06:31)
[2020-12-27 06:41] LABS: Hematocrit 28.7 % (42.0-52.0); Hemoglobin 9.2 g/dL (14.0-18.0); Immature Granulocyte Absolute 0.04 K/mm3 (0.00-0.031); Immature Granulocyte Percent A 0.4 % (0-0.5); Lymphocytes Absolute Auto 0.33 K/mm3 (0.9-3.2); Lymphocytes Percent Auto 3.6 % (18.3-44.2); Mean Corpuscular HGB Conc 32.1 g/dl (32-36); Mean Corpuscular Hemoglobin 30.3 pg (26-34); Mean Corpuscular Volume 94.4 fl (80-100); Mean Platelet Volume 11.6 fl (7.4-10.4); Monocytes Absolute Auto 0.7 K/mm3 (0.1-0.6); Monocytes Percent Auto 7.5 % (2.6-8.5); Neutrophils Absolute Auto 8.1 K/mm3 (1.3-6.7); Neutrophils Percent Auto 88.5 % (45.5-73.1); Platelet Count Result 131 k/mm3 (150-375); Red Blood Count 3.04 M/mm3 (4.6-6.20); Red Cell Distribution Width 19.2 % (11.5-14.5); White Blood Count 9.2 K/mm3 (4.5-10.0)
[2020-12-27 06:53] LABS: Anion Gap 4 mmol/L (8-16); Blood Urea Nitrogen 70 mg/dL (9-20); Calcium 8.5 mg/dL (8.4-10.2); Carbon Dioxide 30 mmol/L (22-30); Chloride 105 mmol/L (98-107); Estimated CRCL calculation 32 ml/min; Estimated Glomerular Filt Rate 31; Glucose 125 mg/dL (65-110); Potassium 4.5 mmol/L (3.4-5.0); Sodium 139 mmol/L (137-145)
[2020-12-27] MEDS: FLUTICASONE/UMECLIDIN/VILANTER 200-62.5-25 MCG ELLIPTA 1 PUFF INHALATION (07:31)
[2020-12-27 08:05] LABS: Anisocytosis 1+ (NORMAL); Ovalocytes 2+ (NORMAL); Platelet Estimate Decreased (Adequate)
[2020-12-27 08:06] LABS: Acanthocytes 2+ (NORMAL)
[2020-12-27] MEDS: TAMSULOSIN HCL 0.4 MG CAPSULE 0.8 MG PO (08:29)
[2020-12-27] MEDS: FOLIC ACID 1 MG TABLET PO (08:29)
[2020-12-27] MEDS: THIAMINE HCL 100 MG TABLET PO (08:29)
[2020-12-27] MEDS: AMOXICILLIN/CLAVULANATE K 875-125 MG TAB 1 TABLET PO ×2 (08:29→17:16)
[2020-12-27] MEDS: FUROSEMIDE 40 MG TABLET PO ×2 (08:30→17:13)
[2020-12-27] MEDS: DULoxetine HCL 60 MG CAPSULE.DR PO ×2 (08:30→17:13)
[2020-12-27] MEDS: GABAPENTIN 300 MG CAPSULE 600 MG BY MOUTH ×3 (08:30→17:12)
[2020-12-27] MEDS: CLOPIDOGREL BISULFATE 75 MG TABLET PO (08:30)
[2020-12-27] MEDS: predniSONE 10 MG TABLET 20 MG PO (08:30)
[2020-12-27] MEDS: AMIODARONE HCL 200 MG TABLET PO (08:30)
[2020-12-27] MEDS: FERROUS GLUCONATE 324 MG TABLET PO ×2 (08:31→17:13)
[2020-12-27] MEDS: APIXABAN 5 MG TABLET PO ×2 (08:31→20:22)
[2020-12-27] MEDS: CYANOCOBALAMIN 1,000 MCG TABLET 1000 MCG PO (08:31)
[2020-12-27] MEDS: ATORVASTATIN 40 MG TABLET PO (08:31)
[2020-12-27] MEDS: MULTIVITAMINS THERAPEUTIC TAB (*BKC) 1 TABLET PO (08:31)
[2020-12-27] MEDS: DOXYCYCLINE HYCLATE 100 MG TABLET PO ×2 (08:31→20:22)
--- NOTE | 2020-12-27 12:17 | PM.PNPUL ---
Progress Note: A&P Assessment and Plan (1) Hypoxia: Code(s): R09.02 - Hypoxemia Status: Acute Assessment and Plan: gas exchange has improved over the last 48 hours. Currently he is on supplemental oxygen at 1 liter/minute. Patient has home oxygen. Need to ambulate patient and assess O2 sat before going home. (2) COPD exacerbation: Onset Date: ~12/25/20 Code(s): J44.1 - Chronic obstructive pulmonary disease with (acute) exacerbation Status: Acute Assessment and Plan: Patient with moderate COPD on pulmonary function testing done several years ago. Respiratory status much improved. Plan will be to taper prednisone down to 10 mg over the next couple of weeks, continue with home oxygen, nebulized short-acting bronchodilators p.r.n., and add Trelegy for maintenance COPD medication. Need to see the patient in outpatient clinic approximately 2 weeks from the hospital discharge. (3) CHF exacerbation: Onset Date: ~12/25/20 Qualifiers: Heart failure type: unspecified Qualified Code(s): I50.9 - Heart failure, unspecified Code(s): I50.9 - Heart failure, unspecified Status: Acute (4) COPD (chronic obstructive pulmonary disease): Code(s): J44.9 - Chronic obstructive pulmonary disease, unspecified Status: Chronic (5) Benign prostatic hyperplasia: Code(s): N40.0 - Benign prostatic hyperplasia without lower urinary tract symptoms Status: Chronic Subjective Date/time seen: 12/27/20 12:17 Patient has not had any new respiratory symptoms. No new shortness of breath. Supplemental oxygen is now down to 1 liter/minute. Review of Systems Review of Systems: All systems reviewed & are unremarkable except as noted in HPI and below (H &P) Exam Narrative: GENERAL APPEARANCE: Well developed, looking chronically ill, elderly man, alert and cooperative, who appears to be in mild distress sitting up in his bed. SKIN: Inspection of the skin reveals no rashes, ulcerations or petechiae. HEENT: Sclerae anicteric and conjunctivae pink and moist. Extraocular movements were intact and pupils were unequal, bilaterally. Edentulous. NECK: Supple. There was no thyroid enlargement, and no tenderness, or masses were felt. JVD present CHEST: Normal AP diameter and normal contour without any kyphoscoliosis. LUNGS: Decreased breath sounds at bases, no wheezing. CARDIAC: There was a regular rate and rhythm without any murmurs, gallops, rubs. ABDOMEN: Soft and nontender with normal bowel sounds. There was no organomegaly. LYMPH NODES: No lymphadenopathy was appreciated in the neck, axillae or groin. EXTREMITIES: No cyanosis, clubbing or edema. NEUROLOGIC: Alert and oriented x 3. Normal affect. Objective Data Vital Signs Vital Signs: Vital Signs - 24 hr 12/26/20 14:00 12/26/20 14:21 12/26/20 16:00 Temperature 36.4 C Pulse Rate 62 64 64 Respiratory Rate 12 16 Blood Pressure 90/40 L Pulse Oximetry 94 12/26/20 20:00 12/26/20 20:23 12/26/20 20:40 Temperature Pulse Rate 64 68 74 Respiratory Rate 16 16 16 Blood Pressure Pulse Oximetry 94 95 12/26/20 22:00 12/27/20 00:00 12/27/20 02:49 Temperature 36.1 C L Pulse Rate 65 62 68 Respiratory Rate 16 16 Blood Pressure 90/35 L Pulse Oximetry 96 12/27/20 02:50 12/27/20 04:00 12/27/20 06:00 Temperature 36.1 C L Pulse Rate 62 62 56 L Respiratory Rate 16 16 Blood Pressure 96/38 L Pulse Oximetry 97 12/27/20 07:16 12/27/20 07:18 12/27/20 08:00 Temperature Pulse Rate 64 61 Respiratory Rate 16 Blood Pressure Pulse Oximetry 95 97 12/27/20 08:30 Temperature Pulse Rate 67 Respiratory Rate Blood Pressure Pulse Oximetry Intake/Output Intake/Output: Intake & Output 12/24/20 12/25/20 12/26/20 12/27/20 23:59 23:59 23:59 23:59 Intake Total 1900 1668 2300 218 Output Total 2100 1075 2110 100 Balance -200 593 190 118 Meds/Results Medicat
--- NOTE | 2020-12-27 16:43 | PM.IMPN ---
Progress Note: A&P Assessment and Plan (1) COPD exacerbation: Onset Date: ~12/25/20 Code(s): J44.1 - Chronic obstructive pulmonary disease with (acute) exacerbation Status: Acute Assessment and Plan: Patient clinical status and gas exchange have improve over the previous 24 hours. Currently he is on supplemental oxygen at 1 liter/minute. Patient has recently started home oxygen. We will perform an oxygen walk test and assess O2 sat before going home per pulmonary recommendation.Currently no evidence of acute COPD exacerbation. Patient was treated for fluid overload. currently he is euvolemic and he was switch from IV to oral lasix. Patient was recently admitted for an acute COPD exacerbation, and discharged on home oxygen. The patient has been using oxygen PRN at home. The patient is on prednisone that we are tapering. Continue with nebulizer treatments. Trelogy 1 puff daily was started on 12/25/2020. (2) CHF exacerbation: Onset Date: ~12/25/20 Qualifiers: Heart failure type: unspecified Qualified Code(s): I50.9 - Heart failure, unspecified Code(s): I50.9 - Heart failure, unspecified Status: Acute Assessment and Plan: The patient had his last echo in July of this year with an estimated EF of 35-40%. Chest X-ray reveals resolution of prior loculated left pleural effusion. Residual mild streaky opacities at the bilateral lower lung zones which could represent atelectasis, mild pulmonary edema or pneumonia He has grade 2 diastolic dysfunction. We have diuresed the patient aggressively at first. Cardiology transitioned to oral lasix on 12/25/2020 as patient appeared euvolemic with creatinine slightly up from his last known baseline.. He does have CKD and admission creatinine is higher than his baseline. Continue to monitor creatinine while diuresing. Atelectasis discovered on today's chest Xray. Encourage incentive spirometry. (3) Paroxysmal atrial fibrillation: Code(s): I48.0 - Paroxysmal atrial fibrillation Status: Chronic Assessment and Plan: EKG read as electronic atrial pacemaker. Continue with Coreg. Continue with apixaban. Continue amiodarone (4) Essential hypertension: Code(s): I10 - Essential (primary) hypertension Status: Chronic Assessment and Plan: Current BP 110/40 Started on Coreg, lisinopril and amiodarone Hold lisinopril and coreg. (5) Pure hyperglyceridemia: Code(s): E78.1 - Pure hyperglyceridemia Status: Acute Assessment and Plan: continue with atorvastatin (6) Benign prostatic hyperplasia: Code(s): N40.0 - Benign prostatic hyperplasia without lower urinary tract symptoms Status: Chronic Assessment and Plan: continue with tamsulosin (7) Chronic kidney disease, stage 3: Qualifiers: Chronic kidney disease stage 3 subtype: stage 3b (GFR 30-44) Qualified Code(s): N18.32 - Chronic kidney disease, stage 3b Code(s): N18.30 - Chronic kidney disease, stage 3 unspecified Status: Chronic Assessment and Plan: acute kidney injury in the setting of previously diagnosed chronic stage 3 CKD. Patient's creatinine is 2.0. Recent francine 1.3. Hold lisinopril. Avoid hypotension. This can be cardiorenal syndrome in the setting of acute CHF decompensation. Patient was diuresed. Monitor I and Os. Avoid nephrotoxic medications. Stop pantoprazole. Follow up with nephrology as an outpatient. (8) Hypothyroidism due to medication: Code(s): E03.2 - Hypothyroidism due to medicaments and other exogenous substances Status: Acute Assessment and Plan: Continue with levothyroxine. TSH is 1.77. Subjective Date/time seen: 12/27/20 16:43 Review of Systems Review of Systems: All systems reviewed & are unremarkable except as noted in HPI and below Constitutional: Constitutional: Reports as per HPI and Reports no additional constitutional complaints Eyes:
[2020-12-27] MEDS: MELATONIN 3 MG TABLET PO (20:22)
[2020-12-27] MEDS: ACETAMINOPHEN/CODEINE (*CRX) 300/30 MG TABLET 1 TAB PO (20:27)
[2020-12-28] VITALS (17 sets, daily range): BP systolic 108–116; BP diastolic 38–43; PULSE 60–88; RESP 18–20; TEMP 36.1–36.3; O2SAT 86–95
[2020-12-28] MEDS: ALBUTEROL SULFATE NEB 2.5 MG/0.5 ML INH 5 MG INHALATION ×3 (02:02→14:23)
[2020-12-28] MEDS: IPRATROPIUM BR 0.02% INH SOLN 0.5 MG/2.5 ML VIAL INHALATION ×3 (02:02→14:23)
[2020-12-28] MEDS: LEVOTHYROXINE SODIUM 25 MCG TABLET PO (06:15)
[2020-12-28 06:44] LABS: Eosinophils Percent Auto 0.1 % (0-4.4); Hematocrit 27.8 % (42.0-52.0); Hemoglobin 8.6 g/dL (14.0-18.0); Immature Granulocyte Absolute 0.05 K/mm3 (0.00-0.031); Immature Granulocyte Percent A 0.7 % (0-0.5); Lymphocytes Percent Auto 2.7 % (18.3-44.2); Mean Corpuscular HGB Conc 30.9 g/dl (32-36); Mean Corpuscular Hemoglobin 28.9 pg (26-34); Mean Corpuscular Volume 93.3 fl (80-100); Mean Platelet Volume 11.5 fl (7.4-10.4); Monocytes Absolute Auto 0.5 K/mm3 (0.1-0.6); Monocytes Percent Auto 6.8 % (2.6-8.5); Neutrophils Absolute Auto 6.7 K/mm3 (1.3-6.7); Neutrophils Percent Auto 89.7 % (45.5-73.1); Platelet Count Result 118 k/mm3 (150-375); Red Blood Count 2.98 M/mm3 (4.6-6.20); Red Cell Distribution Width 18.8 % (11.5-14.5); White Blood Count 7.5 K/mm3 (4.5-10.0)
[2020-12-28 07:02] LABS: Anion Gap 7 mmol/L (8-16); Blood Urea Nitrogen 69 mg/dL (9-20); Calcium 8.6 mg/dL (8.4-10.2); Carbon Dioxide 30 mmol/L (22-30); Chloride 102 mmol/L (98-107); Estimated CRCL calculation 34 ml/min; Estimated Glomerular Filt Rate 33; Glucose 125 mg/dL (65-110); Potassium 4.3 mmol/L (3.4-5.0); Sodium 139 mmol/L (137-145)
[2020-12-28 07:21] LABS: Ovalocytes 2+ (NORMAL)
[2020-12-28 07:22] LABS: Acanthocytes 2+ (NORMAL)
[2020-12-28] MEDS: FLUTICASONE/UMECLIDIN/VILANTER 200-62.5-25 MCG ELLIPTA 1 PUFF INHALATION (09:33)
[2020-12-28] MEDS: CLOPIDOGREL BISULFATE 75 MG TABLET PO (10:06)
[2020-12-28] MEDS: FOLIC ACID 1 MG TABLET PO (10:06)
[2020-12-28] MEDS: CYANOCOBALAMIN 1,000 MCG TABLET 1000 MCG PO (10:06)
[2020-12-28] MEDS: AMOXICILLIN/CLAVULANATE K 875-125 MG TAB 1 TABLET PO (10:07)
[2020-12-28] MEDS: APIXABAN 5 MG TABLET PO (10:07)
[2020-12-28] MEDS: predniSONE 10 MG TABLET 20 MG PO (10:07)
[2020-12-28] MEDS: DOXYCYCLINE HYCLATE 100 MG TABLET PO (10:07)
[2020-12-28] MEDS: MULTIVITAMINS THERAPEUTIC TAB (*BKC) 1 TABLET PO (10:07)
[2020-12-28] MEDS: FUROSEMIDE 40 MG TABLET PO (10:07)
[2020-12-28] MEDS: ATORVASTATIN 40 MG TABLET PO (10:07)
[2020-12-28] MEDS: TAMSULOSIN HCL 0.4 MG CAPSULE 0.8 MG PO (10:08)
[2020-12-28] MEDS: THIAMINE HCL 100 MG TABLET PO (10:08)
[2020-12-28] MEDS: DULoxetine HCL 60 MG CAPSULE.DR PO (10:08)
[2020-12-28] MEDS: AMIODARONE HCL 200 MG TABLET PO (10:08)
[2020-12-28] MEDS: FERROUS GLUCONATE 324 MG TABLET PO (10:08)
[2020-12-28] MEDS: GABAPENTIN 300 MG CAPSULE 600 MG BY MOUTH ×2 (10:09→14:00)
[2020-12-28] MEDS: ACETAMINOPHEN/CODEINE (*CRX) 300/30 MG TABLET 1 TAB PO (10:12)
--- NOTE | 2020-12-28 11:10 | HOMEO2EVAL ---
Evaluation was performed at [facility] Home Oxygen Evaluation RC: Home Oxygen (O2) Evaluation Start: 12/28/20 08:41 Freq: ONCE Status: Active Protocol: RPE Activity Type Activity Date Activity User E-Sign Co-Sign Detail Recorded Client Recorded Date Recorded By Document 12/28/20 09:30 CARLIE [email or web address] 12/28/20 11:06 CARLIE Document 12/28/20 09:31 CARLIE [email or web address] 12/28/20 11:06 CARLIE Document 12/28/20 09:33 CARLIE [email or web address] 12/28/20 11:06 CARLIE Document 12/28/20 09:34 CARLIE [email or web address] 12/28/20 11:06 CARLIE Document 12/28/20 09:45 CARLIE [email or web address] 12/28/20 11:06 CARLIE 12/28/20 12/28/20 12/28/20 09:30 09:31 09:33 Home O2 Evaluation Test Phase Resting Exercise Exercise Oxygen Delivery Room Air Room Air Nasal Cannula Oxygen Flow Rate (L/min) 1 Pulse Oximetry (90-100 %) 94 86 L 87 L Pulse Rate (60-100 beats/min) 65 88 Home Oxygen Evaluation Comments Treatment Charges O2 Evaluation - Inpatient 12/28/20 12/28/20 09:34 09:45 Home O2 Evaluation Test Phase Exercise Resting Oxygen Delivery Nasal Cannula Room Air Oxygen Flow Rate (L/min) 2 Pulse Oximetry (90-100 %) 91 94 Pulse Rate (60-100 beats/min) 86 63 Home Oxygen Evaluation Comments PT REQUIRES 2 L WITH ACTIVITY/ EXERTION Treatment Charges
--- NOTE | 2020-12-28 11:14 | PCRCNOTE ---
HOME O2 EVAL DONE, WILL ARRANGE HOME O2 SET UP WITH DME, PT DOES NOT HAVE HOME O2 IN HOME PRIOR TO THIS VISIT. THIS IS MISINFORMATION IN EMR. PETER, DAUGHTER IS AWARE OF O2 NEEDS AND SET UP ARRANGEMENT. REQUIRES 2 L WITH ACTIVITY
--- NOTE | 2020-12-28 15:18 | PC.NURSE ---
On 12/28/20, the student, Roopa MCGOWAN, provided care and completed [employer] documentation on this patient. I have reviewed the student's documentation and agree with the findings.
--- NOTE | 2021-01-16 13:21 | PM.DS ---
DS: Admitting Diagnosis Discharge Date 12/28/20 DS: Discharge Diagnosis Discharge Diagnosis (1) Systolic heart failure: Code(s): I50.20 - Unspecified systolic (congestive) heart failure Status: Acute Assessment and Plan: Patient has both diastolic and systolic heart failures. Left ventricular chamber dimension is normal. Left ventricular systolic function is moderately reduced, estimated at 35-40%. There is no increased left ventricular wall thickness. Left ventricular septal wall motion is normal. The left ventricular diastolic function is grade II diastolic dysfunction. (2) Diastolic heart failure: Code(s): I50.30 - Unspecified diastolic (congestive) heart failure Status: Acute DS: Summary Hospital Course Reason for hospitalization: Shortness of breath Hospital Course: Narrative: Patient presents to the ER with shortness of breath. Patient states that he has been short of breath for the past few days but today also NA became suddenly worse. He called the ambulance and he got breathing treatment in the ambulance. His feeling much improved. He however his still needing oxygen in the ER. He normally does not wear oxygen at home. He has a history of COPD and coronary artery disease. He reports having cough but denies any fever chills. He was recently in for colonoscopy for evaluation for anemia colonoscopy showed multiple polyps biopsy of which is negative for carcinoma. He was tested for COVID for the colonoscopy and was negative at that time he is not vaccinated for COVID. Assessment and Plan (1) COPD exacerbation: Onset Date: ~12/25/20 Code(s): J44.1 - Chronic obstructive pulmonary disease with (acute) exacerbation Status: Acute Assessment and Plan: Patient clinical status and gas exchange have improve over the previous 24 hours. Currently he is on supplemental oxygen at 1 liter/minute. Patient has recently started home oxygen. We will perform an oxygen walk test and assess O2 sat before going home per pulmonary recommendation.Currently no evidence of acute COPD exacerbation. Patient was treated for fluid overload. currently he is euvolemic and he was switch from IV to oral lasix. Patient was recently admitted for an acute COPD exacerbation, and discharged on home oxygen. The patient has been using oxygen PRN at home. The patient is on prednisone that we are tapering. Continue with nebulizer treatments. Trelogy 1 puff daily was started on 12/25/2020. (2) CHF exacerbation: Onset Date: ~12/25/20 Qualifiers: Heart failure type: unspecified Qualified Code(s): I50.9 - Heart failure, unspecified Code(s): I50.9 - Heart failure, unspecified Status: Acute Assessment and Plan: The patient had his last echo in July of this year with an estimated EF of 35-40%. Chest X-ray reveals resolution of prior loculated left pleural effusion. Residual mild streaky opacities at the bilateral lower lung zones which could represent atelectasis, mild pulmonary edema or pneumonia He has grade 2 diastolic dysfunction. We have diuresed the patient aggressively at first. Cardiology transitioned to oral lasix on 12/25/2020 as patient appeared euvolemic with creatinine slightly up from his last known baseline.. He does have CKD and admission creatinine is higher than his baseline. Continue to monitor creatinine while diuresing. Atelectasis discovered on today's chest Xray. Encourage incentive spirometry. (3) Paroxysmal atrial fibrillation: Code(s): I48.0 - Paroxysmal atrial fibrillation Status: Chronic Assessment and Plan: EKG read as electronic atrial pacemaker. Continue with Coreg. Continue with apixaban. Continue amiodarone (4) Essential hypertension: Code(s): I10 - Essential (primary) hypertension Status: Chronic Assessment and Plan: Current BP 110/40 Started on Coreg, lisinopril and amiodarone Hold lisinopril and coreg. (
== END 2020-12-28 15:00 | disposition home health service (06) | DRG 291 ==
LOC: ANHED 16:43 → ANH3MEDSUR 12-24 06:44
PROVIDERS: Nurse Practitioner; Admitting Provider Internal Medicine; Emergency Provider Emergency Medicine; PCP Family Medicine; Visit Provider Internal Medicine
DX: I13.0 Hypertensive heart and chronic kidney disease with heart failure and stage 1 through stage 4 chronic kidney disease, or unspecified chronic kidney disease (principal); I50.33 Acute on chronic diastolic (congestive) heart failure; J44.1 Chronic obstructive pulmonary disease with (acute) exacerbation; N17.9 Acute kidney failure, unspecified; N18.32 Chronic kidney disease, stage 3b; I25.5 Ischemic cardiomyopathy; R09.02 Hypoxemia; N40.0 Benign prostatic hyperplasia without lower urinary tract symptoms; I48.0 Paroxysmal atrial fibrillation; E78.1 Pure hyperglyceridemia; E03.2 Hypothyroidism due to medicaments and other exogenous substances; Z95.0 Presence of cardiac pacemaker; I25.2 Old myocardial infarction; Z95.5 Presence of coronary angioplasty implant and graft; Z95.1 Presence of aortocoronary bypass graft; Z85.828 Personal history of other malignant neoplasm of skin; Z87.891 Personal history of nicotine dependence
CPT/HCPCS: 36415; 36600; 71045; 71046; 80048; 80053; 82805; 83605; 83615; 83735; 83880; 84443; 85025; 93005; 94618; 94640; 94667; 96365; 96375; 96376; 99285; A9270; G0378; J0456; J1940; J2930; J7512

== ENCOUNTER 2020-12-30 17:54 | Inpatient (IN) | payer MEDICARE, SELFPAY ==
[2020-12-30] VITALS (7 sets, daily range): BP systolic 96–105; BP diastolic 42–58; PULSE 60–66; RESP 12–18; TEMP 35.5; O2SAT 96–100
--- NOTE | ~2020-12-30 | CT_ITS ---
EXAMINATION: CT brain wo con INDICATION: Head injury COMPARISON: 12/15/2019 TECHNIQUE: Standard unenhanced head CT. The dose-length product (DLP) was 681.00 mGy-cm. The mA was a djusted according to patient size. Iterative reconstruction technique was employed. FINDINGS: There is no acute intraparenchymal hemorrhage. No evidence of mass lesion. No evidence of a cute infarction. There is mild periventricular and subcortical hypodensity probably related to small vessel ischemic disease. There is mild prominence of the sulci and ventricles related to cerebral atr ophy. Intracranial calcified cerebral atherosclerosis is noted. There are no extra-axial collections. There is no mass effect or midline shift. Changes in the globes are likely from ocular lens surgery. The visualized sinuses and mastoid air cells are well aerated. There are old bilateral nasal bone fr actures. IMPRESSION: 1. No acute intracranial abnormality. 2. Age related findings. Reviewed, dictated and finalized at location A.
--- NOTE | ~2020-12-30 | XR_ITS ---
EXAMINATION: XR chest 1V portable INDICATION: Altered mental status, shortness of breath TECHNIQUE: Portable AP chest at 1813 hours COMPARISON: 12/18/2020 FINDINGS: Cardiomegaly is noted. There is a mild diffuse interstitial pattern. More focal airspace op acities are seen in the right lung base. No pleural effusion or pneumothorax is identified. Median st ernotomy wires and mediastinal surgical clips are seen, likely from prior coronary artery bypass mansoor ting. A dual-lead cardiac pacemaker of the left chest wall ends with leads in expected locations. IMPRESSION: 1. Cardiomegaly. 2. Diffuse bilateral opacities, consistent with atelectasis versus pneumonia versus pulmonary edema. Reviewed, dictated and finalized at location A. IMPRESSION: 1. Cardiomegaly. 2. Diffuse bilateral opacities, consistent with atelectasis versus pneumonia ve rsus pulmonary edema.
--- NOTE | 2020-12-30 18:00 | ECG_ITS ---
Measurements Intervals [place] Rate: 60 P: -63 MA: 246 QRS: 25 QRSD: 152 T: 30 QT: 415 QTc: 415 Interpretive Statements ELECTRONIC ATRIAL PACEMAKER INTRAVENTRICULAR CONDUCTION DELAY BORDERLINE T WAVE ABNORMALITY- INF/LAT LEADS BASELINE ARTIFACT- I, II, III, AVR, AVL, AVF, V1-V6 BORDERLINE ECG Electronically Signed On 12-31-2020 6:59:42 CDT by Chapo Bermudez D.O.
[2020-12-30] MEDS: IPRATROPIUM BR 0.02% INH SOLN 0.5 MG/2.5 ML VIAL INHALATION (18:50)
[2020-12-30] MEDS: ALBUTEROL SULFATE NEB 2.5 MG/0.5 ML INH 15 MG INHALATION (18:50)
[2020-12-30 18:51] LABS: Basophils Percent Auto 0.1 % (0.2-1.2); Eosinophils Absolute Auto 0.2 K/mm3 (0-0.3); Eosinophils Percent Auto 2.1 % (0-4.4); Hematocrit 27.3 % (42.0-52.0); Hemoglobin 8.4 g/dL (14.0-18.0); Immature Granulocyte Absolute 0.05 K/mm3 (0.00-0.031); Immature Granulocyte Percent A 0.5 % (0-0.5); Lymphocytes Absolute Auto 0.73 K/mm3 (0.9-3.2); Lymphocytes Percent Auto 6.6 % (18.3-44.2); Mean Corpuscular HGB Conc 30.8 g/dl (32-36); Mean Corpuscular Hemoglobin 29.7 pg (26-34); Mean Corpuscular Volume 96.5 fl (80-100); Monocytes Absolute Auto 1.1 K/mm3 (0.1-0.6); Monocytes Percent Auto 10.2 % (2.6-8.5); Neutrophils Absolute Auto 8.9 K/mm3 (1.3-6.7); Neutrophils Percent Auto 80.5 % (45.5-73.1); Platelet Count Result 140 k/mm3 (150-375); Red Blood Count 2.83 M/mm3 (4.6-6.20); Red Cell Distribution Width 19.5 % (11.5-14.5)
[2020-12-30 19:01] LABS: Alanine Aminotransferase 34 U/L (4-50); Albumin Level 3.4 g/dL (3.5-5.1); Alkaline Phosphatase 80 U/L (38-126); Anion Gap 8 mmol/L (8-16); Aspartate Amino Transferase 38 U/L (17-59); Bilirubin,Total 1.2 mg/dL (0.2-1.3); Blood Urea Nitrogen 62 mg/dL (9-20); Calcium 8.7 mg/dL (8.4-10.2); Carbon Dioxide 29 mmol/L (22-30); Chloride 104 mmol/L (98-107); Estimated CRCL calculation 33 ml/min; Estimated Glomerular Filt Rate 33; Glucose 75 mg/dL (65-110); Potassium 3.8 mmol/L (3.4-5.0); Sodium 141 mmol/L (137-145)
[2020-12-30 19:02] LABS: Lactic Acid Reflex 1.6 mmol/L (0.7-2.1)
[2020-12-30 19:03] LABS: INR 2.3; Partial Thromboplastin Time 33.8 SECONDS (22.3-36.8); Prothrombin Time 24.4 Seconds (11.1-14.7)
[2020-12-30 19:05] LABS: Ethanol < 10 mg/dL (<10)
[2020-12-30 19:17] LABS: Alveolar/Arterial O2 Gradient 156.2 mmHg; Base Excess ABG 3.9 mEq/l (+/-2.0); Fractional Inspired Oxygen 60 %; HCO3 ABG 28.6 mEq/l (22.0-26.0); Oxygen Content ABG 12.7 %vol (16.0-22.0); Oxygen Saturation ABG 99.5 % (95.0-100.0); Oxyhemoglobin 98.1 % THb (90.0-100.0); PO2 ABG 223.2 mmHg (80.0-100.0); PO2 FiO2 Ratio Arterial Blood 3.72 %; Total Hemoglobin 8.8 g/dL (12.0-18.0); pH ABG 7.431 (7.350-7.450)
[2020-12-30 19:19] LABS: Modified Allen's Test Pass; Site Drawn RIGHT RADIAL
[2020-12-30 19:20] LABS: Device OTHER DEVICE
--- NOTE | 2020-12-30 20:21 | PC.NURSE ---
Pt to CT via stretcher at this time. Pt alert and upright. VSS. Pt on 6LNC O2 per Resp.
[2020-12-30 21:27] LABS: Add Urine Microscopic? NO; Appearance Urine Clear (Clear); Bilirubin Urine Negative (Negative); Blood Urine Negative (Negative); Color Urine Yellow (Yellow); Glucose Urine UA Negative (Negative); Ketones Urine Negative (Negative); Leukocyte Esterase Ur Negative LEU/UL (Negative); Nitrate Urine Negative (Negative); Protein Urine Negative (Negative); Specific Grav Ur 1.014 (1.001-1.035); Urobilinogen Urine Negative mg/dL (<2.0)
[2020-12-30] MEDS: FUROSEMIDE INJ 40 MG/4 ML VIAL IV PUSH (21:48)
--- NOTE | 2020-12-30 23:58 | ED.GENADULT ---
HPI - General Adult General Chief complaint: Shortness of Breath/Dyspnea Stated complaint: sob/low bp Time Seen by Provider: 12/30/20 18:08 Source: EMS Limitations: clinical condition History of Present Illness HPI narrative: 75-year-old male history of COPD, CHF recently hospitalized for pneumonia and COPD, CABG exacerbation and discharged 3 days ago brought in by EMS for shortness of breath and altered mental status. When EMS arrived patient was pulse ox 70%, tachypneic with low blood pressure. EMS gave duoneb and 2l IVF enroute. On arrival patient was confused, short of breath and pulse ox 96% on 15 L/min; ABG obtained on arrival, patient given albuterol 10mg and began to improve in mental status, complaining of shortness of breath, cough and frequent falls. Shortness of breath worse with exertion, and does not improve with home medications. Related Data Home Medications Medication Instructions Recorded Confirmed amiodarone 200 mg tablet 200 mg PO DAILY 04/19/19 12/31/20 apixaban 5 mg tablet 5 mg PO BID 04/19/19 12/31/20 atorvastatin 40 mg tablet 40 mg PO DAILY 04/19/19 12/31/20 carvedilol 12.5 mg tablet 12.5 mg PO BIDWM 04/19/19 12/31/20 clopidogrel 75 mg tablet 75 mg PO DAILY 04/19/19 12/31/20 lisinopril 5 mg tablet 5 mg PO DAILY 04/19/19 12/31/20 ferrous gluconate 324 mg PO BID 08/01/20 12/31/20 multivitamin 1 tablet PO DAILY 08/01/20 12/31/20 folic acid 1 mg PO DAILY 11/28/20 12/31/20 tamsulosin 0.8 mg PO DAILY 11/28/20 12/31/20 Allergies Allergy/AdvReac Type Severity Reaction Status Date / Time amitriptyline AdvReac Severe Dizziness Verified 12/23/20 17:14 hydrocodone AdvReac Severe Dizziness Verified 12/23/20 17:14 tramadol AdvReac Severe dizziness. Verified 12/23/20 17:14 Review of Systems Review of Systems: ROS unobtainable: Yes unobtainable due to medical condition and unobtainable due to mental status PMFSH Past Medical History Medical History Alcohol abuse Arthritis Estrada esophagus Benign prostatic hyperplasia CHF (congestive heart failure), NYHA class I 1. Complete two-dimensional, color flow and Doppler transthoracic echocardiogram is performed. 2. The left ventricle is severely dilated with normal wall thickness. There is overall moderate left ventricular dysfunction with akinesis of the inferior septal segments extending to the apex. Grade 2 to function is present. Calculated ejection fraction to 35%, visual ejection fraction 35-40%. 3. Left atrial chamber dimension is severely enlarged. 4. The aortic valve is sclerosed. There is mild, or perhaps mild to moderate highly eccentric aortic valve regurgitation. 5. There is mild tricuspid valve regurgitation. 6. Mild pulmonary hypertension, estimated pulmonary arterial systolic pressure is 39 mmHg. 7. No thrombi seen. 8. Pacemaker leads noted in the right atrium and right ventricle. 9. Normal sinus rhythm. Chronic anemia Chronic kidney disease, stage 3a Baseline creatinine is between 1.4 and 1.60. COPD with emphysema Coronary artery disease STEMI in 12/2011:Bare metal stent to proximal left circumflex and right coronary artery. Cardiac catheterization in 03/2019 15 showed multivessel disease. 2 vessel CABG with GALLEGO to OM and left radial artery to PDA on 06/29/2014. Essential hypertension History of skin cancer Ischemic bowel disease Ischemic cardiomyopathy Most recent ejection fraction was 45 to 50%. Paroxysmal atrial fibrillation Peripheral arterial disease History bilateral iliac and femoral stents as well as bilateral femoral-popliteal bypass. Renal infarction ST elevation myocardial infarction (STEMI) (12/2011) Bare metal stent to proximal left circumflex and right coronary artery. Tobacco dependence Tuberculosis (1994) Ventricular tachycardia Status post [employer] dual chamber AICD in July 2015. Surgical History Surgical History (Reviewed 12/25/20 @ 13:52 by Omkar
[2020-12-31] VITALS (18 sets, daily range): BP systolic 92–119; BP diastolic 38–55; PULSE 56–64; RESP 13–20; TEMP 35.6–36.6; O2SAT 93–100
--- NOTE | 2020-12-31 01:03 | PM.IMHP ---
H&P: HPI History of Present Illness Date/Time: 12/31/20 01:03 Chief Complaint: Generalized weakness Narrative: This is a 75-year-old male with past medical history significant for COPD/emphysema, coronary artery disease, atrial fibrillation, anticoagulated rate controlled, peripheral neuropathy, hypertension, gastroesophageal reflux disease, hypothyroidism. Patient had been treated and released from [facility] where he came because of COPD exacerbation and pneumonia he was discharged home however he came back today via EMS due to generalized weakness unable to get up from bed states that his daughter has been preparing meals for him. When EMS arrived to his house he was found to have a oxygen saturation of 70% upon arrival to emergency room he was respiratory distress and with low pulse ox as well however at the time of my visit patient was on 6 L and was doing much better. His main complaint was generalized weakness unable to get up he denies any nausea ,any vomiting ,any diarrhea, denies any fevers, any chills, any rigors, any cough, any sputum production. Preliminary workup was essentially nonrevealing. Patient has been admitted for further evaluation management and treatment. Review of Systems Review of Systems: Generalized weakness unable to get up Constitutional: Constitutional: Denies chills, Denies fatigue, Denies fever(s), Denies lethargy, Denies malaise, Denies night sweats and Reports weakness Eyes: Eyes: Denies change in vision ENT: Denies dysphagia, Denies nasal congestion, Denies nasal discharge, Denies nasal obstruction and Denies odynophagia Cardiovascular: Cardiovascular: Denies irregular heart rhythm, Denies leg edema, Denies radiating jaw, neck or arm pain, Denies palpitations, Denies orthopnea and Denies paroxysmal nocturnal dyspnea Respiratory: Respiratory: Denies change in phlegm color, Denies cough, Denies excessive phlegm production and Reports dyspnea Gastrointestinal: Gastrointestinal: Denies dyspepsia, Denies heartburn, Denies nausea and Denies vomiting Genitourinary: Genitourinary: Reports no additional male genitourinary complaints Musculoskeletal: Musculoskeletal: Reports muscle weakness Integumentary/Breasts: Skin/Breast: Reports system reviewed and no additional complaints, except as docu Neurologic: Reports system reviewed and no additional complaints, except as documented Psychiatric: Psychiatric: Reports no additional psychiatric complaints Endocrine: Endocrine: Reports no additional endocrine complaints Hematologic/Lymphatic: Hematologic/Lymphatic: Reports no additional hematologic/lymphatic complaints Allergic/Immunologic: Allergic/Immunologic: Reports no additional allergic/immunologic complaints [facility] Past Medical History Medical History Alcohol abuse Arthritis Estrada esophagus Benign prostatic hyperplasia CHF (congestive heart failure), NYHA class I 1. Complete two-dimensional, color flow and Doppler transthoracic echocardiogram is performed. 2. The left ventricle is severely dilated with normal wall thickness. There is overall moderate left ventricular dysfunction with akinesis of the inferior septal segments extending to the apex. Grade 2 to function is present. Calculated ejection fraction to 35%, visual ejection fraction 35-40%. 3. Left atrial chamber dimension is severely enlarged. 4. The aortic valve is sclerosed. There is mild, or perhaps mild to moderate highly eccentric aortic valve regurgitation. 5. There is mild tricuspid valve regurgitation. 6. Mild pulmonary hypertension, estimated pulmonary arterial systolic pressure is 39 mmHg. 7. No thrombi seen. 8. Pacemaker leads noted in the right atrium and right ventricle. 9. Normal sinus rhythm. Chronic anemia Chronic kidney disease, stage 3a Baseline creatinine is between 1.4 and 1.60. COPD with emphysema Coronary artery disease STEMI in 12/2011:Bare m
[2020-12-31] MEDS: ALBUTEROL SULFATE NEB 2.5 MG/0.5 ML INH 5 MG INHALATION ×3 (02:15→15:07)
[2020-12-31] MEDS: IPRATROPIUM BR 0.02% INH SOLN 0.5 MG/2.5 ML VIAL INHALATION ×3 (02:15→15:07)
--- NOTE | 2020-12-31 02:43 | ADMGEN ---
This patient, Hernando Sawyer, was admitted to [facility] Surg Room 324-01. Patient/family oriented to hospital policies and general routines including ID bracelet, bed and alarms, visiting hours, pain management, procedures, bathroom and other care routines, personal items, smoking policy, room service/diet, and visiting hours. Information on how to activate the Rapid Response Team has been discussed. Patient/Family are encouraged to report perceived risks to care and to ask questions if they do not understand what they are told or what they should do.
[2020-12-31 06:43] LABS: Basophils Percent Auto 0.1 % (0.2-1.2); Eosinophils Absolute Auto 0.2 K/mm3 (0-0.3); Eosinophils Percent Auto 2.7 % (0-4.4); Hematocrit 26.3 % (42.0-52.0); Hemoglobin 7.8 g/dL (14.0-18.0); Immature Granulocyte Absolute 0.05 K/mm3 (0.00-0.031); Immature Granulocyte Percent A 0.6 % (0-0.5); Lymphocytes Absolute Auto 0.51 K/mm3 (0.9-3.2); Mean Corpuscular HGB Conc 29.7 g/dl (32-36); Mean Corpuscular Hemoglobin 28.7 pg (26-34); Mean Corpuscular Volume 96.7 fl (80-100); Mean Platelet Volume 11.3 fl (7.4-10.4); Monocytes Absolute Auto 0.8 K/mm3 (0.1-0.6); Monocytes Percent Auto 8.8 % (2.6-8.5); Neutrophils Percent Auto 81.8 % (45.5-73.1); Platelet Count Result 121 k/mm3 (150-375); Red Blood Count 2.72 M/mm3 (4.6-6.20); Red Cell Distribution Width 19.3 % (11.5-14.5); White Blood Count 8.5 K/mm3 (4.5-10.0)
[2020-12-31 06:53] LABS: Anion Gap 5 mmol/L (8-16); Blood Urea Nitrogen 58 mg/dL (9-20); Calcium 8.2 mg/dL (8.4-10.2); Carbon Dioxide 31 mmol/L (22-30); Chloride 103 mmol/L (98-107); Estimated CRCL calculation 35 ml/min; Estimated Glomerular Filt Rate 35; Glucose 126 mg/dL (65-110); Potassium 3.2 mmol/L (3.4-5.0); Sodium 139 mmol/L (137-145)
[2020-12-31 07:56] LABS: Platelet Estimate Decreased (Adequate)
[2020-12-31 07:57] LABS: Hypochromasia 2+ (NORMAL)
[2020-12-31 07:58] LABS: Acanthocytes 2+ (NORMAL); Anisocytosis 1+ (NORMAL); Ovalocytes 2+ (NORMAL); Target Cells 1+ (NORMAL)
--- NOTE | 2020-12-31 08:02 | PM.IMPN ---
Progress Note: A&P Additional Plan START OF DOCTOR SANDY?S PROGRESS NOTE Subjective: The patient currently rates his respiratory status as a 10 out 10 if 10 is his baseline respiratory status. He denies fever, rigors, nausea, vomiting, cough, wheeze, abdominal pain, chest pain, or any other constitutional complaints. I have explained to the patient's current medical condition and plan of care and answered all his questions Objective: General: -Alert -No acute distress -No dyspnea -No tachypnea Heart: -Regular rate -iRegular rhythm -No murmurs -No gallops -No rubs Lungs: -No wheeze -No rhonchi -left basilar rales present -distant breath sounds bilaterally Abdomen: -Normal bowel sounds in all four quadrants -No rebound -No guarding -No tenderness Extremities: -2/4 pulse in all four extremities -No clubbing -No cyanosis -No edema Additional Details / Additional Findings / Exceptions / Miscellaneous: Pertinent Laboratory Results / Pertinent Radiology Results / Pertinent Diagnostic Results / Pertinent Vital Signs: Patient saturating well her% on 5 L, potassium 3.2, creatinine 1.9 Assessment / Plan: Dyspnea secondary to question of pneumonia, question of CHF exacerbation, question of COPD exacerbation Query pneumonia. A Zithromax 500 mg IV daily was resumed mg IV daily plus albuterol 2.5 mg nebulized q.6 hours plus ipratropium nebulized q.6 hours CHF, ejection fraction 35-40%, grade 2 diastolic dysfunction, status post AICD/pacemaker placement. Lasix 20 mg IV q.8 hours. Monitor creatinine closely. Strict I/O. COPD, O2 dependent 2 L. Albuterol 2.5 mg nebulized q.6 hours ipratropium nebulized q.6 hours +6 mg IV q.8 hours Coronary artery disease, status post [place], status post stent, status post CABG Paroxysmal atrial fibrillation, status post AICD/pacemaker placement Neuropathy Hypertension. Lasix 20 mg IV q.8 hours GERD. Protonix 40 mg p.o. daily Hypothyroidism History of alcohol abuse Arthritis BPH Hypokalemia. Monitor potassium levels intermittently and supplements as necessary Estrada's esophagus. Protonix 40 mg p.o. daily Smoker. Patient counseled regarding smoking cessation Peripheral vascular disease Hyperlipidemia Depression Anemia. Monitor hemoglobin level intermittently. Check serum ferritin, iron panel, fecal occult blood Thrombocytopenia. Monitor platelet count intermittently Chronic kidney disease, baseline creatinine ranges from 1.3 to 2.1. Monitor creatinine level intermittently especially since he is being diuresed DVT prophylaxis. [facility] Disposition: Anticipate discharge in 24-72 hours, depending on whether we were able to wean the patient supplement oxygen to his baseline approximately 2 liters/minutes END OF DOCTOR SANDY?S PROGRESS NOTE Subjective Date/time seen: 12/31/20 08:02 Objective Data Vital Signs Vital Signs: Vital Signs - 24 hr 12/30/20 17:55 12/30/20 18:09 12/30/20 18:52 Temperature 96 F L Pulse Rate 60 60 Respiratory Rate 13 15 Blood Pressure 96/58 L Pulse Oximetry 96 12/30/20 20:16 12/30/20 21:02 12/30/20 21:44 Temperature Pulse Rate 66 60 60 Respiratory Rate 18 12 12 Blood Pressure 105/42 L 99/51 L Pulse Oximetry 100 100 12/30/20 21:50 12/31/20 00:07 12/31/20 00:35 Temperature Pulse Rate 60 60 Respiratory Rate 13 Blood Pressure 106/50 L Pulse Oximetry 100 99 100 12/31/20 00:38 12/31/20 02:16 12/31/20 02:28 Temperature Pulse Rate 60 59 L 61 Respiratory Rate 15 18 18 Blood Pressure 95/41 L Pulse Oximetry 100 12/31/20 02:29 12/31/20 04:00 Temperature 97.8 F Pulse Rate 61 60 Respiratory Rate 18 20 Blood Pressure 117/43 L Pulse Oximetry Intake/Output Intake/Output: Intake & Output 12/28/20 12/29/20 12/30/20 12/31/20 23:59 23:59 23:59 23:59 Intake Total 350 50 Balance 350 50 Meds/Results
[2020-12-31 09:05] LABS: Magnesium 2.1 mg/dL (1.6-2.3); Phosphorus 3.5 mg/dL (2.5-4.5)
[2020-12-31] MEDS: FUROSEMIDE INJ 40 MG/4 ML VIAL 20 MG IV PUSH ×3 (09:08→21:08)
[2020-12-31] MEDS: PANTOPRAZOLE 40 MG TABLET PO (09:10)
[2020-12-31] MEDS: POTASSIUM CHLORIDE 20 MEQ TABLET 40 MEQ PO (09:10)
[2020-12-31 09:15] LABS: Parathyroid Intact 108.5 pg/mL (7.5-53.5)
[2020-12-31 11:39] LABS: Iron 39 ug/dL (49-181)
[2020-12-31 12:05] LABS: Percent Iron Saturation 14 % (20-50)
[2020-12-31 12:14] LABS: IFOB Positive Control Positive; Immunochemical Fecal Occult Bl Positive (N)
[2020-12-31] MEDS: methylPREDNISolone SOD SUCC 125 MG VIAL 60 MG IV PUSH ×3 (12:40→21:08)
[2020-12-31] MEDS: FERROUS SULFATE 324 MG TABLET PO (17:26)
[2020-12-31] MEDS: ACETAMINOPHEN 325 MG TABLET 650 MG PO (21:05)
--- NOTE | 2020-12-31 22:23 | PCRCNOTE ---
Pt is having trouble with nose bleeds and does not want nebulizer treatment until bleeding is stopped. Bubble humidifier added to 5L cannula in attempt to help with dryness/bleeding.
[2021-01-01] VITALS (14 sets, daily range): BP systolic 106–117; BP diastolic 36–50; PULSE 60–77; RESP 16–20; TEMP 36.3–36.7; O2SAT 90–100
[2021-01-01 00:45] LABS: Hematocrit 26.1 % (42.0-52.0)
[2021-01-01] MEDS: ACETAMINOPHEN 325 MG TABLET 650 MG PO (04:02)
[2021-01-01] MEDS: FUROSEMIDE INJ 40 MG/4 ML VIAL 20 MG IV PUSH ×2 (06:29→14:45)
[2021-01-01] MEDS: methylPREDNISolone SOD SUCC 125 MG VIAL 60 MG IV PUSH ×2 (06:29→14:45)
[2021-01-01 06:50] LABS: Hematocrit 24.3 % (42.0-52.0); Hemoglobin 7.6 g/dL (14.0-18.0); Immature Granulocyte Absolute 0.05 K/mm3 (0.00-0.031); Immature Granulocyte Percent A 0.7 % (0-0.5); Lymphocytes Absolute Auto 0.14 K/mm3 (0.9-3.2); Lymphocytes Percent Auto 2.1 % (18.3-44.2); Mean Corpuscular HGB Conc 31.3 g/dl (32-36); Mean Corpuscular Hemoglobin 29.3 pg (26-34); Mean Corpuscular Volume 93.8 fl (80-100); Mean Platelet Volume 11.5 fl (7.4-10.4); Monocytes Absolute Auto 0.1 K/mm3 (0.1-0.6); Monocytes Percent Auto 1.5 % (2.6-8.5); Neutrophils Absolute Auto 6.4 K/mm3 (1.3-6.7); Neutrophils Percent Auto 95.7 % (45.5-73.1); Platelet Count Result 128 k/mm3 (150-375); Red Blood Count 2.59 M/mm3 (4.6-6.20); Red Cell Distribution Width 19.3 % (11.5-14.5); White Blood Count 6.7 K/mm3 (4.5-10.0)
[2021-01-01 06:52] LABS: Anion Gap 6 mmol/L (8-16); Blood Urea Nitrogen 53 mg/dL (9-20); Calcium 7.9 mg/dL (8.4-10.2); Carbon Dioxide 35 mmol/L (22-30); Chloride 102 mmol/L (98-107); Estimated CRCL calculation 35 ml/min; Estimated Glomerular Filt Rate 35; Glucose 178 mg/dL (65-110); Potassium 3.4 mmol/L (3.4-5.0); Sodium 143 mmol/L (137-145)
--- NOTE | 2021-01-01 07:18 | PM.IMPN ---
Progress Note: A&P Additional Plan START OF DOCTOR AWILDAS PROGRESS NOTE Subjective: The patient states that he is feeling much better than he did respiratory nance on December 31, 2020. He complains of right leg pain however this appears to be chronic which he attributes to neuropathy. Overnight he denies fever, rigors, nausea, vomiting, cough, wheeze, abdominal pain, chest pain, or any other concerns or complaints. I explained to the patient his current medical condition plan of care I have answered all his questions Objective: General: -Alert -No acute distress -No dyspnea -No tachypnea Heart: -Regular rate -Regular rhythm -No murmurs -No gallops -No rubs Lungs: -No wheeze -No rhonchi -left basilar rales present -distant breath sounds bilaterally Abdomen: -Normal bowel sounds in all four quadrants -No rebound -No guarding -No tenderness Extremities: -2/4 pulse in all four extremities -No clubbing -No cyanosis -No edema Additional Details / Additional Findings / Exceptions / Miscellaneous: Pertinent Laboratory Results / Pertinent Radiology Results / Pertinent Diagnostic Results / Pertinent Vital Signs: Patient saturating 90% on 4 L, creatinine 1.9 Assessment / Plan: Dyspnea secondary to question of pneumonia, question of CHF exacerbation, question of COPD exacerbation Query pneumonia. A Zithromax 500 mg IV daily was resumed mg IV daily plus albuterol 2.5 mg nebulized q.6 hours plus ipratropium nebulized q.6 hours CHF, ejection fraction 35-40%, grade 2 diastolic dysfunction, status post AICD/pacemaker placement. Lasix 20 mg IV q.8 hours. Monitor creatinine closely. Strict I/O. COPD, O2 dependent 2 L. Albuterol 2.5 mg nebulized q.6 hours ipratropium nebulized q.6 hours +6 mg IV q.8 hours Coronary artery disease, status post LA, status post stent, status post CABG Paroxysmal atrial fibrillation, status post AICD/pacemaker placement Neuropathy Hypertension. Lasix 20 mg IV q.8 hours GERD. Protonix 40 mg p.o. daily Hypothyroidism History of alcohol abuse Arthritis BPH Hypokalemia. Monitor potassium levels intermittently and supplements as necessary Estrada's esophagus. Protonix 40 mg p.o. daily Smoker. Patient counseled regarding smoking cessation Peripheral vascular disease Hyperlipidemia Depression Iron deficiency Anemia. Monitor hemoglobin level intermittently. Ferrous sulfate 325 mg p.o. b.i.d. plus vitamin-C 250 mg PO daily. Patient's fecal occult blood positive for which he will need to follow-up with gastroenterology upon discharge Thrombocytopenia. Monitor platelet count intermittently Chronic kidney disease, baseline creatinine ranges from 1.3 to 2.1. Monitor creatinine level intermittently especially since he is being diuresed Hyperparathyroidism, secondary to chronic kidney disease DVT prophylaxis. [place] Disposition: Patient may potentially be a candidate within 24-48 hours depending on a supplemental oxygen requirement END OF DOCTOR SANDY?S PROGRESS NOTE Subjective Date/time seen: 01/01/21 07:18 Objective Data Vital Signs Vital Signs: Vital Signs - 24 hr 12/31/20 08:00 12/31/20 09:05 12/31/20 09:53 Temperature 96.1 F L Pulse Rate 63 60 Respiratory Rate 18 20 Blood Pressure 98/40 L Pulse Oximetry 93 93 93 12/31/20 10:05 12/31/20 12:00 12/31/20 15:07 Temperature 96.1 F L Pulse Rate 60 60 56 L Respiratory Rate 20 16 18 Blood Pressure 92/38 L Pulse Oximetry 93 97 12/31/20 15:17 12/31/20 16:00 12/31/20 20:00 Temperature 96.9 F L 97.7 F Pulse Rate 61 64 60 Respiratory Rate 18 20 20 Blood Pressure 100/44 L 119/55 L Pulse Oximetry 100 98 12/31/20 22:25 12/31/20 22:50 01/01/21 00:00 Temperature 98.0 F Pulse Rate 64 60 Respiratory Rate 20 Blood Pressure 108/50 L Pulse Oximetry 98 94 98 01/01/21 04:00 Temperature 97.3 F L Pulse Rate 70 Respiratory Rate 20
[2021-01-01 07:30] LABS: Platelet Estimate Adequate (Adequate)
[2021-01-01 07:31] LABS: Acanthocytes 1+ (NORMAL); Anisocytosis 1+ (NORMAL); Hypochromasia 2+ (NORMAL); Ovalocytes 2+ (NORMAL); Tear Drop Cells 1+ (NORMAL)
[2021-01-01] MEDS: ALBUTEROL SULFATE NEB 2.5 MG/0.5 ML INH 5 MG INHALATION ×3 (08:37→20:55)
[2021-01-01] MEDS: IPRATROPIUM BR 0.02% INH SOLN 0.5 MG/2.5 ML VIAL INHALATION ×3 (08:37→20:55)
[2021-01-01] MEDS: FERROUS SULFATE 324 MG TABLET PO ×2 (09:50→17:21)
[2021-01-01] MEDS: PANTOPRAZOLE 40 MG TABLET PO (09:50)
[2021-01-01] MEDS: ASCORBIC ACID 250 MG TABLET PO (09:50)
[2021-01-01 16:47] LABS: SARS-CoV-2 RNA PCR Negative
[2021-01-01] MEDS: ACETAMINOPHEN/CODEINE (*CRX) 300/30 MG TABLET 1 TAB PO (17:20)
[2021-01-01] MEDS: SODIUM CHLORIDE 0.9% IV 1,000 ML 50 ML IV CONT (19:51)
[2021-01-01] MEDS: PROMETHAZINE HCL 25 MG/ML AMPUL 12.5 MG IV PUSH (20:22)
--- NOTE | 2021-01-01 22:39 | ECG_ITS ---
Measurements Intervals [place] Rate: 74 P: 55 [place]: 156 QRS: 47 QRSD: 153 T: 120 QT: 485 QTc: 539 Interpretive Statements SINUS RHYTHM INTRAVENTRICULAR CONDUCTION DELAY BORDERLINE ST-T WAVE ABNORMALITY- DIFFUSE LEADS BASELINE ARTIFACT- I, II, III, AVR, AVL, AVF BORDERLINE ECG Electronically Signed On 01-02-2021 19:09:59 CDT by Chapo Bermudez D.O.
[2021-01-02] VITALS (11 sets, daily range): BP systolic 109–124; BP diastolic 44–46; PULSE 67–85; RESP 16–20; TEMP 36–36.7; O2SAT 92–100
[2021-01-02] MEDS: ACETAMINOPHEN/CODEINE (*CRX) 300/30 MG TABLET 1 TAB PO ×2 (00:10→18:43)
[2021-01-02 00:21] LABS: Troponin I 0.057 ng/mL (0.000-0.034)
[2021-01-02] MEDS: methylPREDNISolone SOD SUCC 125 MG VIAL 60 MG IV PUSH ×4 (01:48→21:34)
[2021-01-02] MEDS: SODIUM CHLORIDE NASAL GEL 14.1 GM 1 APPLIC NASAL ×2 (01:48→20:06)
[2021-01-02] MEDS: IPRATROPIUM BR 0.02% INH SOLN 0.5 MG/2.5 ML VIAL INHALATION ×3 (02:41→20:04)
[2021-01-02] MEDS: ALBUTEROL SULFATE NEB 2.5 MG/0.5 ML INH 5 MG INHALATION ×3 (02:41→20:04)
[2021-01-02 02:49] LABS: Troponin I 0.059 ng/mL (0.000-0.034)
[2021-01-02 05:40] LABS: Anion Gap 5 mmol/L (8-16); Blood Urea Nitrogen 49 mg/dL (9-20); Calcium 7.8 mg/dL (8.4-10.2); Carbon Dioxide 36 mmol/L (22-30); Chloride 100 mmol/L (98-107); Estimated CRCL calculation 39 ml/min; Estimated Glomerular Filt Rate 40; Glucose 157 mg/dL (65-110); Potassium 3.4 mmol/L (3.4-5.0); Sodium 141 mmol/L (137-145)
[2021-01-02 06:04] LABS: Troponin I 0.061 ng/mL (0.000-0.034)
--- NOTE | 2021-01-02 08:09 | PM.IMPN ---
Progress Note: A&P Additional Plan START OF DOCTOR SANDY?S PROGRESS NOTE Subjective: The patient endorses exhibiting some mild nausea overnight. Aside from this he endorses no complaints. He denies fever, rigors, vomiting, cough, wheeze, abdominal pain, chest pain, dyspnea, or any other constitutional complaints. I have explained to the patient his current medical condition plan of care and I have answered all of his questions Objective: General: -Alert -No acute distress -No dyspnea -No tachypnea Heart: -Regular rate -Regular rhythm -No murmurs -No gallops -No rubs Lungs: -No wheeze -No rhonchi -left basilar rales present -distant breath sounds bilaterally Abdomen: -Normal bowel sounds in all four quadrants -No rebound -No guarding -No tenderness Extremities: -2/4 pulse in all four extremities -No clubbing -No cyanosis -No edema Additional Details / Additional Findings / Exceptions / Miscellaneous: Pertinent Laboratory Results / Pertinent Radiology Results / Pertinent Diagnostic Results / Pertinent Vital Signs: Patient saturating 90% on 4 L, creatinine 1.7 Assessment / Plan: Dyspnea secondary to question of pneumonia, question of CHF exacerbation, question of COPD exacerbation Query pneumonia. A Zithromax 500 mg IV daily was resumed mg IV daily plus albuterol 2.5 mg nebulized q.6 hours plus ipratropium nebulized q.6 hours CHF, ejection fraction 35-40%, grade 2 diastolic dysfunction, status post AICD/pacemaker placement. Monitor creatinine closely. Strict I/O. COPD, O2 dependent 2 L. Albuterol 2.5 mg nebulized q.6 hours ipratropium nebulized q.6 hours +6 mg IV q.8 hours Coronary artery disease, status post [place], status post stent, status post CABG Paroxysmal atrial fibrillation, status post AICD/pacemaker placement Neuropathy Hypertension. GERD. Protonix 40 mg p.o. daily Hypothyroidism History of alcohol abuse Arthritis BPH Hypokalemia. Monitor potassium levels intermittently and supplements as necessary Estrada's esophagus. Protonix 40 mg p.o. daily Smoker. Patient counseled regarding smoking cessation Peripheral vascular disease Hyperlipidemia Depression Iron deficiency Anemia. Monitor hemoglobin level intermittently. Ferrous sulfate 325 mg p.o. b.i.d. plus vitamin-C 250 mg PO daily. Patient's fecal occult blood positive for which he will need to follow-up with gastroenterology upon discharge Thrombocytopenia. Monitor platelet count intermittently Chronic kidney disease, baseline creatinine ranges from 1.3 to 2.1. Monitor creatinine level intermittently. Hyperparathyroidism, secondary to chronic kidney disease DVT prophylaxis. [place] Disposition: Patient appears medically stable for discharge. I will discuss with case management/social work END OF DOCTOR SANDY?S PROGRESS NOTE Subjective Date/time seen: 01/02/21 08:09 Objective Data Vital Signs Vital Signs: Vital Signs - 24 hr 01/01/21 08:29 01/01/21 08:37 01/01/21 08:47 Temperature Pulse Rate 68 67 Respiratory Rate 18 18 Blood Pressure Pulse Oximetry 90 01/01/21 12:00 01/01/21 14:55 01/01/21 15:07 Temperature 97.6 F Pulse Rate 69 71 69 Respiratory Rate 20 18 18 Blood Pressure 108/36 L Pulse Oximetry 93 01/01/21 15:08 01/01/21 16:00 01/01/21 20:00 Temperature 97.7 F 97.9 F Pulse Rate 70 77 Respiratory Rate 20 18 Blood Pressure 117/38 L 106/45 L Pulse Oximetry 92 93 94 01/01/21 20:55 01/01/21 21:03 01/02/21 01:22 Temperature Pulse Rate 71 70 72 Respiratory Rate 20 18 20 Blood Pressure Pulse Oximetry 93 01/02/21 02:41 01/02/21 04:00 Temperature 97.6 F Pulse Rate 72 67 Respiratory Rate 20 16 Blood Pressure 109/44 L Pulse Oximetry 98 Intake/Output Intake/Output: Intake & Output 12/30/20 12/31/20 01/01/21 01/02/21 23:59 23:59 23:59 23:59 Intake Total 350 1020 1440 600 Output [place]
[2021-01-02] MEDS: PANTOPRAZOLE 40 MG TABLET PO (08:55)
[2021-01-02] MEDS: FERROUS SULFATE 324 MG TABLET PO ×2 (08:55→16:06)
[2021-01-02] MEDS: ASCORBIC ACID 250 MG TABLET PO (08:55)
--- NOTE | 2021-01-02 15:14 | PM.DS ---
DS: Admitting Diagnosis Discharge Date 3:17 p.m. on January 03, 2020 Admitting Diagnosis Dyspnea secondary to questionable pneumonia, question CHF exacerbation, question of COPD exacerbation DS: Summary Hospital Course Hospital Course: Please see discharge summary below Time Spent with Patient Time attestation: Total time spent providing and/or coordinating discharge services: START OF DOCTOR SANDY?S DISCHARGE SUMMARY Date of Admission: December 31, 2020 Date of Discharge: 3:15 p.m. on January 03, 2020 Primary Diagnosis: Dyspnea secondary to question of pneumonia, question CHF exacerbation, question of COPD exacerbation Secondary Diagnosis: Query pneumonia CHF, ejection fraction 35-40% with grade 2 diastolic dysfunction, status post AICD/pacemaker placement COPD, O2 dependent 2 L Coronary artery disease, status post [place], status post stent, status post CABG Paroxysmal atrial fibrillation, status post AICD/pacemaker placement Neuropathy Hypertension GERD Hypothyroidism History of alcohol abuse Arthritis BPH Hypokalemia, resolved Estrada's esophagus Smoker Peripheral vascular disease Hyperlipidemia Depression Iron deficiency anemia paragraph thrombocytopenia paragraph chronic kidney disease, baseline creatinine ranges from 1.3 to 2.1 Hyperparathyroidism, secondary to chronic kidney disease Consultations: None Disposition: The patient will be advised follow-up with his primary care physician 3-5 days post discharge for post hospitalization evaluation The patient is advised follow-up with Cardiology 2 weeks post discharge for diagnosis congestive heart failure The patient is advised follow-up with Gastroenterology 2-4 weeks post discharge for diagnosis Estrada's esophagus and GERD The patient is advised follow-up with pulmonology 1 month post discharge for diagnosis of COPD The patient is advised follow-up with Nephrology to 4 weeks post discharge for diagnosis chronic kidney disease Discharge Medications: Protonix 40 mg p.o. daily Prednisone: 10 mg: P.o. 4 tabs daily x4 days then 3 tabs daily x4 days then 2 tabs daily indefinitely Flomax 0.8 mg p.o. daily Thiamine 1 mg p.o. daily Vitamin-C 250 mg p.o. daily Coreg 12.5 mg p.o. b.i.d. Acetaminophen/codeine: 300/30 mg p.o. q.8 hours p.r.n. pain Proventil HFA: 9 mg per spray: 2+ q.4 hours p.r.n. shortness breath/wheeze Amiodarone 200 mg p.o. daily Eliquis 5 mg p.o. b.i.d. Lipitor 40 mg p.o. daily Plavix 75 mg p.o. daily Vitamin B12 1000 mg p.o. daily Doxycycline 100 mg p.o. b.i.d.. Quantity 14. 0 refills Cymbalta 60 mg p.o. b.i.d. Ferrous sulfate 325 mg p.o. b.i.d. Trelegy Ellipta 1 inhalation daily Folic acid 400 mg p.o. daily Lasix 40 mg p.o. daily Gabapentin 600 mg p.o. t.i.d. Synthroid 25 mg p.o. daily Lisinopril 5 mg p.o. daily Multivitamin p.o. daily END OF DOCTOR SANDY?S DISCHARGE SUMMARY DS: Data Data Completed and Pending Labs on day of discharge: Labs from last 24 hours 01/02/21 01/02/21 01/01/21 04:56 01:47 23:04 Sodium 141 Potassium 3.4 Chloride 100 Carbon Dioxide 36 H Anion Gap 5 L BUN 49 H Creatinine 1.70 H Estim Creat Clear Calc 39 Estimated GFR 40 L Glucose 157 H Calcium 7.8 L Troponin I 0.061 H* 0.059 H* 0.057 H* SARS-CoV-2 RNA (RT-PCR) 12/30/20 21:11 Sodium Potassium Chloride Carbon Dioxide Anion Gap BUN Creatinine Estim Creat Clear Calc Estimated GFR Glucose Calcium Troponin I SARS-CoV-2 RNA (RT-PCR) Negative Preliminary micro results at discharge 12/30/20 20:15 Blood Culture - Preliminary Blood 12/30/20 20:15 Blood Culture - Preliminary Blood Discharge Plan Discharge Discharging Clinician: Dr. Brasher Patient Disposition: Inpatient Rehab Facility Activity: as tolerated Diet: heart healthy,
--- NOTE | 2021-01-02 16:05 | PC.NURSE ---
On 01/02/21, the student, [ Franki Duvall], provided care and completed [facility] documentation on this patient. I have reviewed the student's documentation and agree with the findings.
[2021-01-03] VITALS (7 sets, daily range): BP systolic 105; BP diastolic 45; PULSE 71–76; RESP 18–20; TEMP 36.5; O2SAT 92–100
[2021-01-03] MEDS: PROMETHAZINE HCL 25 MG/ML AMPUL 12.5 MG IV PUSH (00:11)
[2021-01-03] MEDS: ACETAMINOPHEN/CODEINE (*CRX) 300/30 MG TABLET 1 TAB PO (01:47)
[2021-01-03] MEDS: ALBUTEROL SULFATE NEB 2.5 MG/0.5 ML INH 5 MG INHALATION ×2 (01:59→09:10)
[2021-01-03] MEDS: IPRATROPIUM BR 0.02% INH SOLN 0.5 MG/2.5 ML VIAL INHALATION ×2 (01:59→09:11)
[2021-01-03] MEDS: methylPREDNISolone SOD SUCC 125 MG VIAL 60 MG IV PUSH (05:13)
[2021-01-03 06:52] LABS: Anion Gap 5 mmol/L (8-16); Blood Urea Nitrogen 53 mg/dL (9-20); Calcium 8.1 mg/dL (8.4-10.2); Carbon Dioxide 34 mmol/L (22-30); Chloride 99 mmol/L (98-107); Estimated CRCL calculation 44 ml/min; Estimated Glomerular Filt Rate 46; Glucose 139 mg/dL (65-110); Potassium 4.1 mmol/L (3.4-5.0); Sodium 138 mmol/L (137-145)
--- NOTE | 2021-01-03 08:07 | PM.IMPN ---
Progress Note: A&P Additional Plan START OF DOCTOR SANDY?S PROGRESS NOTE Subjective: The patient endorses no complaints at this time. Overnight he denies fever, rigors, nausea, vomiting, cough, wheeze, abdominal pain, chest pain, dyspnea, or any other concerns complaints. I have explained to the patient his current medical condition plan of care I have answered all his questions Objective: General: -Alert -No acute distress -No dyspnea -No tachypnea Heart: -Regular rate -Regular rhythm -No murmurs -No gallops -No rubs Lungs: -No wheeze -No rhonchi -left basilar rales present -distant breath sounds bilaterally Abdomen: -Normal bowel sounds in all four quadrants -No rebound -No guarding -No tenderness Extremities: -2/4 pulse in all four extremities -No clubbing -No cyanosis -No edema Additional Details / Additional Findings / Exceptions / Miscellaneous: Pertinent Laboratory Results / Pertinent Radiology Results / Pertinent Diagnostic Results / Pertinent Vital Signs: Vital signs stable, creatinine 1.5 Assessment / Plan: Dyspnea secondary to question of pneumonia, question of CHF exacerbation, question of COPD exacerbation Query pneumonia. A Zithromax 500 mg IV daily was resumed mg IV daily plus albuterol 2.5 mg nebulized q.6 hours plus ipratropium nebulized q.6 hours CHF, ejection fraction 35-40%, grade 2 diastolic dysfunction, status post AICD/pacemaker placement. Monitor creatinine closely. Strict I/O. COPD, O2 dependent 2 L. Albuterol 2.5 mg nebulized q.6 hours ipratropium nebulized q.6 hours +6 mg IV q.8 hours Coronary artery disease, status post LA, status post stent, status post CABG Paroxysmal atrial fibrillation, status post AICD/pacemaker placement Neuropathy Hypertension. GERD. Protonix 40 mg p.o. daily Hypothyroidism History of alcohol abuse Arthritis BPH Hypokalemia. Monitor potassium levels intermittently and supplements as necessary Estrada's esophagus. Protonix 40 mg p.o. daily Smoker. Patient counseled regarding smoking cessation Peripheral vascular disease Hyperlipidemia Depression Iron deficiency Anemia. Monitor hemoglobin level intermittently. Ferrous sulfate 325 mg p.o. b.i.d. plus vitamin-C 250 mg PO daily. Patient's fecal occult blood positive for which he will need to follow-up with gastroenterology upon discharge Thrombocytopenia. Monitor platelet count intermittently Chronic kidney disease, baseline creatinine ranges from 1.3 to 2.1. Monitor creatinine level intermittently. Hyperparathyroidism, secondary to chronic kidney disease DVT prophylaxis. [place] Disposition: Patient appears medically stable for discharge. I will discuss with case management/social work END OF DOCTOR SANDY?S PROGRESS NOTE Subjective Date/time seen: 01/03/21 08:07 Objective Data Vital Signs Vital Signs: Vital Signs - 24 hr 01/02/21 08:29 01/02/21 08:38 01/02/21 14:00 Temperature 97.9 F Pulse Rate 78 72 72 Respiratory Rate 20 20 16 Blood Pressure 124/44 L Pulse Oximetry 92 99 01/02/21 20:00 01/02/21 20:04 01/02/21 20:07 Temperature 98.0 F Pulse Rate 85 75 78 Respiratory Rate 18 18 18 Blood Pressure 110/45 L Pulse Oximetry 100 94 01/02/21 20:12 01/03/21 01:59 01/03/21 02:06 Temperature Pulse Rate 78 71 74 Respiratory Rate 20 18 20 Blood Pressure Pulse Oximetry 01/03/21 06:00 Temperature 97.7 F Pulse Rate 71 Respiratory Rate 18 Blood Pressure 105/45 L Pulse Oximetry 100 Intake/Output Intake/Output: Intake & Output 12/31/20 01/01/21 01/02/21 01/03/21 23:59 23:59 23:59 23:59 Intake Total 1020 1440 1872 400 Output Total 8595 828 8843 Balance -605 540 622 400 Meds/Results Medications: Active Medications Generic Name Dose Route Start Last Admin Trade Name Freq PRN Reason Stop Dose Admin Acetaminophen 650 mg 12/31/20 01:03 01/01/21 04:02 Acet
[2021-01-03] MEDS: FERROUS SULFATE 324 MG TABLET PO (09:49)
[2021-01-03] MEDS: ASCORBIC ACID 250 MG TABLET PO (09:49)
[2021-01-03] MEDS: PANTOPRAZOLE 40 MG TABLET PO (09:49)
[2021-01-03 11:44] LABS: EDCOVIDSCREEN Negative (Negative)
== END 2021-01-03 12:30 | DRG 194 ==
LOC: ANHED 12-31 00:47 → ANH3MEDSUR 12-31 01:13
PROVIDERS: Emergency Medicine; Physician Assistant; Admitting Provider Internal Medicine; Emergency Provider Emergency Medicine; PCP Family Medicine; Visit Provider Internal Medicine
DX: J18.9 Pneumonia, unspecified organism (principal); I13.0 Hypertensive heart and chronic kidney disease with heart failure and stage 1 through stage 4 chronic kidney disease, or unspecified chronic kidney disease; N25.81 Secondary hyperparathyroidism of renal origin; I50.9 Heart failure, unspecified; N18.31 Chronic kidney disease, stage 3a; Z20.822 Contact with and (suspected) exposure to COVID-19; Z23 Encounter for immunization; J43.9 Emphysema, unspecified; I25.5 Ischemic cardiomyopathy; I48.0 Paroxysmal atrial fibrillation; I25.10 Atherosclerotic heart disease of native coronary artery without angina pectoris; I25.2 Old myocardial infarction; D50.9 Iron deficiency anemia, unspecified; G62.9 Polyneuropathy, unspecified; R53.1 Weakness; K22.70 Barrett's esophagus without dysplasia; K21.9 Gastro-esophageal reflux disease without esophagitis; E03.9 Hypothyroidism, unspecified; D69.6 Thrombocytopenia, unspecified; M19.90 Unspecified osteoarthritis, unspecified site; N40.0 Benign prostatic hyperplasia without lower urinary tract symptoms; E87.6 Hypokalemia; I73.9 Peripheral vascular disease, unspecified; E78.5 Hyperlipidemia, unspecified; F32.A Depression, unspecified; F10.11 Alcohol abuse, in remission; Z79.01 Long term (current) use of anticoagulants; Z79.899 Other long term (current) drug therapy; Z87.891 Personal history of nicotine dependence; Z95.1 Presence of aortocoronary bypass graft; Z95.5 Presence of coronary angioplasty implant and graft; Z95.810 Presence of automatic (implantable) cardiac defibrillator; Z98.42 Cataract extraction status, left eye; Z98.41 Cataract extraction status, right eye
CPT/HCPCS: 36415; 36600; 51701; 70450; 71045; 80048; 80053; 80307; 81003; 82274; 82728; 82805; 83540; 83550; 83605; 83735; 83970; 84100; 84484; 85014; 85018; 85025; 85610; 85730; 87040; 87426; 90471; 90653; 93005; 94640; 96361; 96365; 96367; 96375; 96376; 97110; 97161; 97165; 97530; 99285; A9270; C9803; G0008; G0378; J0456; J0696; J1940; J2550; J2930; J7030; U0003; U0005